=== PATIENT | female | born 1950 | race Caucasian/White ===

== ENCOUNTER 2017-01-01 21:24 | Emergency (ER) | payer BC, SELFPAY ==
[~2017-01-01] VITALS: Ht 157.5 cm; Wt 75.7 kg
[~2017-01-01 21:24] MED LIST: ADVAIR 250-501 EACH INH; CEPHALEXIN500 MG PO; GLUCOSE1 EACH PO; IPRAT-ALBUT 0.5-3 ML INH; LEVAQUIN750 MG PO; NICOTINE PATCH1 EAC1 TD; PREDNISONE20 MG PO; PROAIR HFA8.5 GM INH
[2017-01-01] MEDS ORDERED: DULERA 100 MCG/13 GM (21:36)
[2017-01-01] MEDS ORDERED: PROMETH-CODEIN 65 ML PO (21:37)
[2017-01-01] MEDS ORDERED: PREDNISONE20 MG PO (22:58)
--- NOTE | 2017-01-02 15:24 | EKG ---
[facility] [address] [facility] [place] [address] Signed Normal sinus rhythm Low voltage QRS Septal infarct (cited on or before 01-JAN-2017) Abnormal ECG When compared with ECG of 16-MAY-2016 02:18, No significant change was found Confirmed by LINDA REARDON MD ([id number]) on 01/02/2017 3:24:10 PM Electronically Signed By: LINDA REARDON MD 01/02/17 1524 PATIENT NAME: KYLIE GORE Electrocardiogram DATE OF : 54 PHYSICIAN: LINDA REARDON MD REPORT #: [id number] REPORT IS CONFIDENTIAL AND NOT TO BE RELEASED WITHOUT AUTHORIZATION
== END 2017-01-01 23:44 | disposition home or self-care (01) ==
LOC: ED 21:24
DX: J44.1 Chronic obstructive pulmonary disease with (acute) exacerbation (principal); F17.200 Nicotine dependence, unspecified, uncomplicated; Z90.49 Acquired absence of other specified parts of digestive tract; Z90.710 Acquired absence of both cervix and uterus; Z88.8 Allergy status to other drugs, medicaments and biological substances; Z79.899 Other long term (current) drug therapy; Z85.89 Personal history of malignant neoplasm of other organs and systems
CPT/HCPCS: 71020; 80053; 83735; 84484; 85025; 93005; 93010; 94640; 96374; 99284; J2930

== ENCOUNTER 2017-02-18 17:15 | Emergency (ER) | payer BC, SELFPAY ==
[~2017-02-18] VITALS: Ht 157.5 cm; Wt 77.1 kg
[~2017-02-18 17:15] MED LIST changes: +DULERA 100 MCG/13 GM; +PROMETH-CODEIN 65 ML PO
[2017-02-18] MEDS ORDERED: PREDNISONE20 MG PO (20:23)
--- NOTE | 2017-02-19 12:37 | EKG ---
[facility] [address] [facility] [place] [address] Signed Normal sinus rhythm Normal ECG When compared with ECG of 01-JAN-2017 21:32, Criteria for Septal infarct are no longer present Confirmed by CARLY GONZALEZ MD ([id number]) on 02/19/2017 12:36:55 PM Electronically Signed By: CARLY GONZALEZ MD 02/19/17 1237 PATIENT NAME: KYLIE GORE Electrocardiogram DATE OF : 54 PHYSICIAN: CARLY GONZALEZ MD REPORT #: [id number] REPORT IS CONFIDENTIAL AND NOT TO BE RELEASED WITHOUT AUTHORIZATION
== END 2017-02-18 20:35 | disposition home or self-care (01) ==
LOC: ED 17:15
DX: J44.1 Chronic obstructive pulmonary disease with (acute) exacerbation (principal); F17.200 Nicotine dependence, unspecified, uncomplicated; Z85.89 Personal history of malignant neoplasm of other organs and systems; Z90.49 Acquired absence of other specified parts of digestive tract; Z90.710 Acquired absence of both cervix and uterus; Z88.8 Allergy status to other drugs, medicaments and biological substances; Z79.899 Other long term (current) drug therapy; Z79.52 Long term (current) use of systemic steroids
CPT/HCPCS: 71020; 80053; 83735; 83880; 84484; 85025; 93005; 93010; 94644; 96374; 99284; J2930

== ENCOUNTER 2017-04-12 10:25 | Inpatient (IN) | payer BC, MEDICARE ==
[~2017-04-12] VITALS: Ht 157.5 cm; Wt 78.9 kg
[2017-04-12] MEDS ORDERED: DOXYCYCLINE HY100 MG PO (14:10)
--- NOTE | 2017-04-12 18:08 | NUR ---
PT RECEIVED FROM ED AT 1720. PT ASSISTED TO BEDSIDE COMMODE, VOIDED. PT ASSISTED TO BED. PT SOB WITH ACTIVITY, RECOVERS QUICKLY, 97% ON 4L, WEANED TO 3L. LUNG SOUND WITH INSPIRATORY AND EXPIRATORY WHEEZE. BOWEL TONES ACTIVE, DENIES NAUSEA. PT DENIES PAIN. PT SBA FOR AMBULATING. PT ASSISTED WITH ORDERING DINNER. SOLUMEDROL AND NICOTINE PATCH GIVEN PER ORDER. PT SALINE LOCKED. PT DENIES OTHER NEEDS AT THIS TIME. ADMISSION INTAKE COMPLETED.
--- NOTE | 2017-04-12 18:11 | NUR ---
PT RECEIVED FROM ED FOR COPD EXACERBATION. PT ON 3L NC, INSPIRATORY AND EXPIRATORY WHEEZE THOUGHOUT, BECOMES SOB WITH ACTIVITY. PT ON REGULAR DIET, BOWEL TONES ACTIVE. PT SBA TO BEDSIDE COMMODE. IV TO RIGHT HAND, SALINE LOCKED, IV SOLUMEDROL. PT EMOTIONAL AT TIMES, RECENT OF SISTER.
--- NOTE | 2017-04-12 19:05 | NUR ---
SHIFT REPORT RECIEVED. PATIENT ASSISTED TO BSC. TOLERATED WELL. BANK TO BED. BELONGINGS WITHIN REACH. CALL LIGHT IN REACH. 3L NC.
--- NOTE | 2017-04-12 20:01 | NUR ---
SHIFT REPORT RECIEVED. PATIENT ASSISTED TO BSC. TOLERATED WELL. BANK TO BED. BELONGINGS WITHIN REACH. CALL LIGHT IN REACH. 3L NC.
--- NOTE | 2017-04-12 20:25 | NUR ---
PATIENT ASSESSMENT COMPLETED. EVENING MEDS GIVEN PER ORDERS. PATIENT RESTING IN BED. HOB ELEVATED TO 45 DEGREES. 3L NC. PATIENT APPEARS VISIBLY SOB, STATES SHE WOULD LIKE A BREATHING TREATMENT. RT NOTIFIED. PATIENT HAS INSPIRTORY AND EXPIRTORY WHEEZE THROUGHOUT. NO USE OF ASSESSORY MUSCLES NOTED AT THIS TIME. PATIENT IS USING PURSED LIPED BREATHING. PATIENT IS SL, IV SITE WNL. PATIENT MOVES EASLIY IN BED AND UP TO BSC, BECOMES INCREASINGLY SOB WITH ANY ACTIVITY. DENIES ANY FURTHER NEEDS AT THIS TIME. CALL LIGHT IN REACH.
--- NOTE | 2017-04-12 21:41 | NUR ---
PATIENT UP TO BSC, SBA. PATIENT TOLERATED WELL. PATIENT BACK IN BED, SLIGHTLY SOB. O2 3L NC. HOB ELEVATED. NO USE OF ASSESSORY MUCSLES. DENIES FURTHER NEEDS. CALL LIGHT IN REACH.
--- NOTE | 2017-04-12 22:43 | EKG ---
[facility] [address] [facility] [place] [address] Signed Normal sinus rhythm Normal ECG When compared with ECG of 18-FEB-2017 17:41, No significant change was found Confirmed by LINDA REARDON MD ([id number]) on 04/12/2017 10:43:25 PM Electronically Signed By: LINDA REARDON MD 04/12/17 2243 PATIENT NAME: KYLIE GORE Electrocardiogram DATE OF : 54 PHYSICIAN: LINDA REARDON MD REPORT #: [id number] REPORT IS CONFIDENTIAL AND NOT TO BE RELEASED WITHOUT AUTHORIZATION
--- NOTE | 2017-04-12 23:11 | NUR ---
NURSE IN ROOM
--- NOTE | 2017-04-12 23:36 | NUR ---
PATIENT RESTING IN BED. EYES CLOSED. CALL LIGHT IN REACH.
--- NOTE | 2017-04-12 23:48 | NUR ---
PATIENT UP TO BSC. PULSE OX INITIATED. O2 90% ON 3L NC AFTER BEING BACK IN BED. PATIENT TOLERATED TRANSFER WELL. NEW WATER PROVIDED. CALL LIGHT IN REACH.
--- NOTE | 2017-04-13 00:10 | NUR ---
MEDS GIVEN PER ORDER. RT IN ROOM FOR NEB. PATIENT RESTING IN BED. LUNG SOUNDS ARE INSPIRTORY AND EXPIRTORY WHEEZE. RR 18. PULSE OX, O2 94% ON 3L NC. CALL LIGHT IN REACH. NO OTHER NEEDS AT THIS TIME.
--- NOTE | 2017-04-13 02:17 | NUR ---
PATIENT RESTING. EYES CLOSED. RR 18. PULSE OX O2 95% ON 3L NC. CALL LIGHT IN REACH.
--- NOTE | 2017-04-13 03:44 | NUR ---
PATIENT RESTED WELL THROUGHOUT THE SHIFT. PATIENT AAOX3. SBA UP TO BSC. ACTIVITY INTOLERANT. PULSE OX, O2 90-95% ON 3L NC. NEBS Q4H WHEN AWAKE. INSPIRTORY AND EXPIRTORY WHEEZE. NO OTHER COMPLAINTS. IV SITE WNL, SL.
--- NOTE | 2017-04-13 03:49 | NUR ---
PATIENT IN BED SLEEPING
--- NOTE | 2017-04-13 04:25 | NUR ---
PATIENT RECIEVED NEB TREATMENT FROM RT. PULSE OX 97% ON 3L NC. PATIENT RESTING IN BED. REQUEST ASSISTANCE IN BATHROOM AFTER NEB TREATMENT. COMPRESSOR MECHANIC ASSISTED PATIENT.
--- NOTE | 2017-04-13 06:06 | NUR ---
MEDS GIVEN PER ORDER. PATIENT RESTING IN BED. PULSE OX O2 95% ON 3L NC. DENIES NEEDS AT THIS TIME. CALL LIGHT IN REACH.
--- NOTE | 2017-04-13 07:24 | NUR ---
RECIEVED REPORT FROM DRUM STOCK CLERK NURSE. PT SLEEPING. NASAL CANNULA IN PLACE. CONT. PULSE OX. CALL JI IN REACH.
--- NOTE | 2017-04-13 08:17 | NUR ---
RT IN TO ADMINISTER NEB. MEAL TRAY SERVED. INSP. AND EXP WHEEZES AUSCULTATED THROUGHOUT LUNG TATE. 3L O2 VIA NC AT 94%. PT DOES NOT APPEARS SOB AT REST. DENIES NEEDS. CALL JI IN REACH.
--- NOTE | 2017-04-13 09:24 | NUR ---
PT RESTING IN BED. ATE 100% OF BREAKFAST. TOILETING OFFERED. PT DENIES NEEDS. CALL JI IN REACH.
--- NOTE | 2017-04-13 10:20 | NUR ---
PT RESTING IN BED. NC IN PLACE. PT DENIES NEEDS.
--- NOTE | 2017-04-13 11:45 | NUR ---
IN TO SEE PT.
--- NOTE | 2017-04-13 12:14 | NUR ---
PT AMBULATED DOWN HALLWAY OVER 100FT. STATES SHE FEELS "A LITTLE" SOB. PT IN NO APPARANT DISTRESS. RR 22. AFTER AMBULATING PT'S O2 AT 92%. MEAL TRAY SERVED. PT DENIES NEEDS. CALL JI IN REACH.
--- NOTE | 2017-04-13 13:06 | NUR ---
ASSISTED PT TO BATHROOM. VOIDED. BACK TO BED, DENIES FURTHER NEEDS.
--- NOTE | 2017-04-13 13:30 | NUR ---
PT AMBULATED AROUND MEDSURG UNIT TWICE ON 3L O2. BACK TO ROOM. O2 SAT 92%, PULSE 115. PT TO CHAIR. DENIES NEEDS. CALL JI IN REACH.
--- NOTE | 2017-04-13 14:06 | NUR ---
PT ALERT ADN ORIENTED. SHE WELCOMED ME INTO HER RM, SAID SHE FELT A LITTLE BETTER. JOSUE VALENZUELA CAME TO ASSIST PT TO BR. WILL CHECK BACK LATER
--- NOTE | 2017-04-13 14:44 | NUR ---
PT IS SITTING UP IN CHAIR WITH FETT ELEVATED AND CALL LIGHT IN REACH. PT ASKED FOR MORE ICE WATER
--- NOTE | 2017-04-13 14:45 | NUR ---
PT RESTING UP IN CHAIR. DENIES NEEDS AT THIS TIME. NC IN PLACE. PULSE OX IN PLACE. LUNGS SOUNDS IMPROVED SINCE THIS MORNING. EXP WHEEZES HEARD THROUGHOUT. PT STATES SHE FEELS BETTER THAN SHE DID THIS MORNING.
--- NOTE | 2017-04-13 16:36 | NUR ---
PT AT 94% ON 2L O2. PT AMBULATING HALLWAY WITH FRIEND. DENIES NEEDS.
--- NOTE | 2017-04-13 17:56 | NUR ---
TOOK PT'S ADVAIR OUT OF ROOM AND LOCKED AWAY IN BARN HAND'S OFFICE. PT ALERT AND ORIENTED AND SIGNED THAT SHE UNDERSTANDS MED WILL BE THROWN AWAY IF SHE DOES NOT RETRIEVE AFTER 7 DAYS POST D/C. PT TO SHOWER. SET UP ONLY. SHOWERING INDEPENDENTLY. CALL JI IN REACH.
--- NOTE | 2017-04-13 18:28 | NUR ---
PT HAD A GOOD DAY. DOWN TO 2L O2. AMBULATED HALLWAYS X 3. INDEPENDENT TO BATHROOM. ANGELICA PATCH IN PLACE. LUNGS IMPROVING.
--- NOTE | 2017-04-13 20:15 | NUR ---
PATIENT IS RESTING QUIETLY, BUT AWAKE IN GOOD HUMOR AND SAYS SHE IS IN NO PAIN.
--- NOTE | 2017-04-14 00:30 | NUR ---
PATIENT RESTING ON HER RIGHT SIDE QUIETLY AND HER O2 SATS ARE 95% RESPIRATIONS EVEN.
--- NOTE | 2017-04-14 03:57 | NUR ---
PATIENT JUST GOT BACK FROM VOIDING I THE BATHROOM AND IS DOING VERY WELL AMBULATING IN HER ROOM. PATIENT WENT BACK TO BED AND TURNED HER OWN LIGHTS OUT.
--- NOTE | 2017-04-14 05:29 | NUR ---
PATIENT HAS HAD A PRETTY GOOD NIGHT APPEARS TO HAVE SLEPT OK, UNLESS SHE HAS GOTTEN UP TO THE RESTROOM WHICH SHE DOES INDEPENDENTLY IN THE ROOM. SHE HAS HAD NO C/O ANYTHING THROUGH THE NIGHT.
--- NOTE | 2017-04-14 07:32 | NUR ---
REPORT RECEIVED FROM TRANS ROUTER, PATIENT SITTING UP IN BED WATCHING TV, INTERACTIVE.
--- NOTE | 2017-04-14 07:42 | NUR ---
PATIENT AWAKE IN BED, WAITING FOR BREAKFAST. WILL CALL WHEN SHE'S READY FOR SHOWER/ BEDBATH. WHITEBOARD UPDATED.
--- NOTE | 2017-04-14 08:40 | NUR ---
RT IN TO GIVE NEB TREATMENT AND ASSESS PATIENT.
--- NOTE | 2017-04-14 10:24 | NUR ---
up resting in chair, states had a shower and feeling good, no requests at thist time.
--- NOTE | 2017-04-14 11:04 | NUR ---
PATIENT DOING WELL. IN CHAIR WAITING FOR LUNCH.
[2017-04-14] MEDS ORDERED: DOXYCYCLINE HY100 MG PO (12:03)
[2017-04-14] MEDS ORDERED: NICOTINE1 EAC1 TD (12:04)
[2017-04-14] MEDS ORDERED: PREDNISONE20 MG PO (12:05)
[2017-04-14] MEDS ORDERED: ASMANEX220 MC1 INH (12:07)
[2017-04-14] MEDS ORDERED: IPRAT-ALBUT 0.5-3 ML INH (12:08)
--- NOTE | 2017-04-14 12:33 | NUR ---
Patient in chair doing well. Told her to call when she's ready to get dressed and ready for discharge. Refilled ice water.
== END 2017-04-14 13:20 | disposition home or self-care (01) | DRG 190 ==
LOC: ED 10:25 → MS 16:44
PROVIDERS: ADMIT Internal Medicine
DX: J44.1 Chronic obstructive pulmonary disease with (acute) exacerbation (principal); J96.21 Acute and chronic respiratory failure with hypoxia; F17.210 Nicotine dependence, cigarettes, uncomplicated
CPT/HCPCS: 71020; 80053; 83880; 84484; 85025; 90662; 93005; 93010; 94640; 94667; 94760; 94762; 96374; 99285; G0008; J1650; J2930

== ENCOUNTER 2017-07-27 10:46 | Emergency (ER) | payer MEDICARE, OTHER ==
[~2017-07-27] VITALS: Ht 157.5 cm; Wt 7900.3 kg
[~2017-07-27 10:46] MED LIST changes: +ASMANEX220 MC1 INH; +DOXYCYCLINE HY100 MG PO; +NICOTINE1 EAC1 TD
[2017-07-27] MEDS ORDERED: PREDNISONE20 MG PO (14:43)
--- NOTE | 2017-07-27 19:07 | EKG ---
[facility] [address] [facility] [place] [address] Signed Normal sinus rhythm Nonspecific ST abnormality Abnormal ECG When compared with ECG of 12-APR-2017 10:38, No significant change was found Confirmed by CARLY GONZALEZ MD ([id number]) on 07/27/2017 7:07:36 PM Electronically Signed By: CARLY GONZALEZ MD 07/27/17 1907 PATIENT NAME: KYLIE GORE Electrocardiogram DATE OF : 54 PHYSICIAN: CARLY GONZALEZ MD REPORT #: [id number] REPORT IS CONFIDENTIAL AND NOT TO BE RELEASED WITHOUT AUTHORIZATION
== END 2017-07-27 15:25 | disposition home or self-care (01) ==
LOC: ED 10:46
DX: J44.1 Chronic obstructive pulmonary disease with (acute) exacerbation (principal); F17.200 Nicotine dependence, unspecified, uncomplicated; Z88.8 Allergy status to other drugs, medicaments and biological substances
CPT/HCPCS: 71045; 80053; 83735; 84484; 85025; 87502; 93005; 93010; 94640; 96374; 99284; J2930

== ENCOUNTER 2018-07-08 10:18 | Emergency (ER) | payer MEDICARE ==
[~2018-07-08] VITALS: Ht 157.5 cm; Wt 80.4 kg
[2018-07-08] MEDS ORDERED: ADVAIR 500-501 EACH INH (10:32)
[2018-07-08] MEDS ORDERED: PREDNISONE5 MG PO (10:33)
[2018-07-08] MEDS ORDERED: VENTOLIN HFA18 GM INH (10:33)
[2018-07-08] MEDS ORDERED: VIRTUSSIN AC L118 ML PO (10:34)
[2018-07-08] MEDS ORDERED: KEFLEX500 MG PO (10:34)
[2018-07-08] MEDS ORDERED: MOTRIN IB200 MG PO (10:34)
[2018-07-08] MEDS ORDERED: PREDNISONE10 MG PO (14:14)
[2018-07-08] MEDS ORDERED: ALBUTEROL2.5 MG/3 M INH (14:14)
== END 2018-07-08 14:46 | disposition home or self-care (01) ==
LOC: ED 10:18
DX: J44.1 Chronic obstructive pulmonary disease with (acute) exacerbation (principal); F17.210 Nicotine dependence, cigarettes, uncomplicated; Z85.41 Personal history of malignant neoplasm of cervix uteri; Z90.710 Acquired absence of both cervix and uterus; Z88.8 Allergy status to other drugs, medicaments and biological substances; Z79.899 Other long term (current) drug therapy; Z71.6 Tobacco abuse counseling
CPT/HCPCS: 71045; 80053; 85025; 94640; 96374; 99285-25; 99406; J2930

== ENCOUNTER 2018-09-07 14:10 | Inpatient (IN) | payer MEDICARE ==
[~2018-09-07] VITALS: Ht 157.5 cm; Wt 80.4 kg
--- OUTSIDE RECORDS SUMMARY | ~2018-09-07 | XMS | Clinical Summary ---
Demographics + + + | Address | [address] | | | [place] [address] | + + + | Home Phone | | + + + | Preferred Language | Unknown | + + + | Marital Status | | + + + | Jehovah'S Witness Affiliation | Unknown | + + + | Race | Unknown | + + + | Ethnic Group | Unknown | + + + Author + + + | Author | [facility] | + + + | Organization | [facility] | + + + | Address [...] Team Providers + +------+ + | Care Repulping Supervisor Name | Role | Phone | + +------+ + | Stephen Winter MD | PP | | + +------+ + Allergies + + + + + + | Active Allergy | Reactions | Severity | Noted | Comments | | | | | Date | | + + + + + + | Beclomethasone | Hives, Rash | High | 02/10/20 | | | | | | 16 | | + + + + + + Current Medications + + +-------+---------+------+------+-------+ | Prescription | Sig. | Disp. | Refills | Star | End | Statu | | | | | | t | Date | s | | | | | | Date | | | + + +-------+---------+------+------+-------+ | albuterol | Inhale 2 puffs into | | | | | Activ | | (PROVENTIL | the lungs every 3 | | | | | e | | HFA;VENTOLIN HFA) | (three) hours as | | | | | | | 108 (90 BASE) | needed for Wheezing. | | | | | | | MCG/ACT inhaler | | | | | | | + + +-------+---------+------+------+-------+ | ibuprofen (ADVIL) | Take 200 mg by mouth | | | | | Activ | | 200 MG tablet | every 6 (six) hours | | | | | e | | | as needed for Pain. | | | | | | + + +-------+---------+------+------+-------+ | | Inhale 1 puff into | | | | | Activ | | fluticasone-salmeter | the lungs 2 (two) | | | | | e | | ol (ADVAIR) 250-50 | times daily. | | | | | | | MCG/DOSE | | | | | | | + + +-------+---------+------+------+-------+ | Glucose 4-6 GM-MG | Take by mouth as | | | | | Activ | | CHEW | needed. For low | | | | | e | | | blood sugar level | | | | | | + + +-------+---------+------+------+-------+ Active Problems + + + | Problem | Noted Date | + + + | Precordial pain | 02/10/2016 | + + + + + | Last Assessment & Plan: Chest pain. 66yo WF, with a | | history of chest discomfort. She describes as a dull aching | | sensation in the center part of her chest radiating to the left | | arm. Associated with some degree of shortness of breath, but no | | nausea, diaphoresis, palpitations, or lightheadedness. This has | | been going on for "several years", appears to be somewhat random | | in occurrence, usually brief, fleeting. She is aware of | | occasional skipped beats, palpitations, but there is no | | lightheadedness, no history of syncope. She is a long-time | | smoker, and smoking cessation is encouraged. Recent nuclear | | perfusion study is negative for ischemia or infarction, ejection | | fraction normal. Long discussion with the patient today, doubt | | that she has significant coronary disease, smoking cessation is | | encouraged, a regular exercise program is encouraged, can be | | followed clinically.Last Cath: naLast Echo: naLast Stress Test, | | 03/23/2016 ( [facility]): Lexiscan, no evidence of ischemia or | | infarction, LVEF 65%.ECG, 12/29/2015 ( [facility] sinus | | tachycardia, 114bpm, LAZ, low voltage in limb leads, diffuse ST | | sagging.Lab, 01/06/2016: T Cho: 235, LDL-Chol: 140, HDL-Chol: 78, | | Tri Liver enzymes NML, K: 3.7, | | BUN/Cr: 16/0.8, glu: 71 TSH: 2.80, WBC: | | 9.4 | + + + + + | COPD (chronic obstructive pulmonary disease) | 02/10/2016 | + + + + + | Last Assessment & Plan: COPD, long time smoker, trying to | | quit. | + + Family History + + +------+ + | Medical History | Relation | Name | Comments | + + +------+ + | Heart disease | Brother | | | + + +------+ + | Hypertension | Brother | | | + + +------+ + | Cancer | Father | | | + + +------+ + | Hypertension | Father | | | + + +------+ + | Diabetes type II | Maternal | | | | | Grandmoth | | | | | er | | | + + +------+ + | Heart disease | Maternal | | | | | Grandmoth | | | | | er | | | + + +------+ + | High cholesterol | Maternal | | | | | Grandmoth | | | | | er | | | + + +------+ + | Hypertension | Maternal | | | | | Grandmoth | | | | | er | | | + + +------+ + | High cholesterol | Mother | | | + + +------+ + | Hypertension | Mother | | | + + +------+ + | Heart disease | Paternal | | | | | Grandfath | | | | | er | | | + + +------+ + | Hypertension | Paternal | | | | | Grandmoth | | | | | er | | | + + +------+ + | Heart disease | Sister | | | + + +------+ + | Diabetes type II | Sister | | | + + +------+ + | High cholesterol | Sister | | | + + +------+ + | Hypertension | Sister | | | + + +------+ + | Stroke | Sister | | | + + +------+ + + +------+ + + | Relation | Name | Status | Comments | + +------+ + + | Brother | | | [place] | | | | (Age | | | | | 51) | | + +------+ + + | Father | | | colon cancer, HTN | | | | (Age | | | | | 85) | | + +------+ + + | Maternal Grandfather | | | pneumonia | + +------+ + + | Maternal Grandmother | | | Parkinsons, HTN,Hyperlipidemia, DMII, heart | | | | (Age | disease | | | | 86) | | + +------+ + + | Mother | | Alive | 85 yrs., HTN,Hyperlipidemia, CHF | + +------+ + + | Paternal Grandfather | | | [place] | | | | (Age | | | | | 65) | | + +------+ + + | Paternal Grandmother | | | HTN | | | | (Age | | | | | 88) | | + +------+ + + | Sister | | | congenital heart defect | | | | (Age 4 | | | | | months | | | | | old) | | + +------+ + + | Sister | | Alive | 67 yrs., HTN,CVA,Hypoglycemia | + +------+ + + Social History + + + [...] on file | | + + + Last Filed Vital Signs + + + + | Vital Sign | Reading | Time Taken | + + + + | Blood Pressure | 126/70 | 03/30/2016 10:54 AM PDT | + + + + | Pulse | 95 | 03/30/2016 10:54 AM PDT | + + + + | Temperature | - | - | + + + + | Respiratory Rate | 18 | 03/30/2016 10:54 AM PDT | + + + + | Oxygen Saturation | 94% | 03/30/2016 10:54 AM PDT | + + + + | Inhaled Oxygen | - | - | | Concentration | | | + + + + | Weight | 73.9 kg (163 lb) | 03/30/2016 10:54 AM PDT | + + + + | Height | 160 cm (5' 3") | 03/30/2016 10:54 AM PDT | + + + + | Body Mass Index | 28.87 | 03/30/2016 10:54 AM PDT | + + + + Plan of Treatment + + + + + | Health Maintenance | Due Date | Last Done | Comments | + + + + + | Vaccine: | | | | | Dtap/Tdap/Td (1 - | 1 | | | | Tdap) | | | | + + + + + | Breast Cancer | | | | | Screening | 2 | | | | (Mammogram) | | | | + + + + + | Colon Cancer | | | | | Screening | 2 | | | | (Colonoscopy) | | | | + + + + + | Vaccine: Zoster (1 | | | | | of 2) | 2 | | | + + + + + | DEXA SCAN SCREENING | | | | | | 7 | | | + + + + + | Vaccine: | | | | | Pneumococcal 65+ | 7 | | | | Low/Medium Risk (1 | | | | | of 2 - PCV13) | | | | + + + + + | Vaccine: Influenza | | | | | (#1) | 8 | | | + + + + + Results Not on filefrom Last 3 Months Insurance +---------+--------+ +------+-------+ + | Payer | Benefi | Subscriber | Type | Phone | Address | | | t Plan | ID | | | | | | / | | | | | | | Group | | | | | +---------+--------+ +------+-------+ + | PREMERA | PREMER | [id number] | | | [address] [address] | | | [address] | [address] | | [place] | | | [place] | | | | [phone] | +---------+--------+ +------+-------+ + + +--------+ +--------+ + + | Guarantor Name | Accoun | Relation to | Date | Phone | Billing Address | | | t Type | Patient | of | | | | | | | | | | + +--------+ +--------+ + + | STEPHANIE GORE | Person | Self [birth year] | Work: | [employer] | | | [employer] | | 1949 | +- | [place] | | | [address] | | | [address]: | [id number] | | | | | | | | | | | | | +- | | | | | | | [address] | | + +--------+ +--------+ + +
--- OUTSIDE RECORDS SUMMARY | ~2018-09-07 | XMS | Clinical Summary ---
Demographics + + + | Address | [address] | | | [place] [address] | + + + | Home Phone | | + + + | Preferred Language | Unknown | + + + | Marital Status | | + + + | Buddhist Affiliation | Unknown | + + + | Race | Unknown | + + + | Ethnic Group | Unknown | + + + Author + + + | Author | [facility] | + + + | Organization | [facility] | + + + | Address [...] Team Providers + +------+ + | Care New Business Clerk Name | Role | Phone | + [...] + + | Brother | | | [place] | | | | (Age | | [...] + | Paternal Grandfather | | | [place] | | | | (Age | | [...] +------+-------+ + | PREMERA | PREMER | [id number] | | | [address] [address] | | | A | [address] | | | [place] | | | [place] | | | | [phone] | +---------+--------+ +------+-------+ + + +--------+ +--------+ [...] [address] | | | [address]: | [id number] | | | | | | | | | | | | | +- | | | | | | | [address] | | + +--------+ +--------+ + +
--- OUTSIDE RECORDS SUMMARY | ~2018-09-07 | XMS | Clinical Summary ---
Demographics + + + | Address | [address] | | | [place] [address] | + + + | Home Phone | | + + + | Preferred Language | Unknown | + + + | Marital Status | | + + + | Hindu Affiliation | Unknown | + + + | Race | Unknown | + + + | Ethnic Group | Unknown | + + + Author + + + | Author | [facility] | + + + | Organization | [facility] | + + + | Address [...] Team Providers + +------+ + | Care Salvage Supervisor Name | Role | Phone | [...] + + | Brother | | | [place] | | | | (Age | | [...] + | Paternal Grandfather | | | [place] | | | | (Age | | [...] +------+-------+ + | PREMERA | PREMER | [id number] | | | [address] [address] | | | A | [address] | | | [place] | | | [place] | | | | [phone] | +---------+--------+ +------+-------+ + + +--------+ +--------+ [...] [address] | | | [address]: | [id number] | | | | | | | | | | | | | +- | | | | | | | [address] | | + +--------+ +--------+ + +
[~2018-09-07 14:10] MED LIST changes: +ADVAIR 500-501 EACH INH; +ALBUTEROL2.5 MG/3 M INH; +KEFLEX500 MG PO; +MOTRIN IB200 MG PO; +PREDNISONE10 MG PO; +PREDNISONE5 MG PO; +VENTOLIN HFA18 GM INH; +VIRTUSSIN AC L118 ML PO
--- NOTE | 2018-09-07 17:01 | NUR ---
PT TO FLOOR VIA STRETCHER WITH TOWER DRAGLINE OPERATOR AND FRIEND. ABLE TO WALK TO BED AND RESTROOM ON OWN. 3LNC. SOB WITH EXCERTION.
--- NOTE | 2018-09-07 17:07 | NUR ---
PATIENT SITTING UP IN BED. PATIENT WALKS TO USE THE BATHROOM. PATIENT BACKS TO BED. PATIENT'S DINNER ORDERED. RN AND FRIEND IN ROOM. CALL LIGHT WITHIN REACH. NO OTHER NEEDS AT THIS TIME
--- NOTE | 2018-09-07 18:44 | NUR ---
PT ADMITTED FROM ED. 3L NC NOT CHRONIC. SBA TO RESTROOM. GOOD APPETITE.
--- NOTE | 2018-09-07 22:23 | NUR ---
VITALS AND I&OS DONE AND CHARTED. FRESH ICE WATER GIVEN. HELPED PT TO THE BATHROOM AND BACK TO BED. BEDSIDE TABLE AND CALL LIGHT IN REACH.
--- NOTE | 2018-09-07 23:16 | NUR ---
PATIENT CURRENT WATCHING GAME SHOWS ON TV.
--- NOTE | 2018-09-08 00:12 | NUR ---
WRAPPER CASER ROUNDING NOTE. PT RESTING IN BED WITH EYES CLOSED, APPEARS TO BE SLEEPING. CALL LIGHT IN REACH.
--- NOTE | 2018-09-08 02:20 | NUR ---
VITALS AND I&OS DONE AND CHARTED. FRESH ICE WATER GIVEN. BEDSIDE TABLE AND CALL LIGHT IN REACH. PT NEEDS NOTHING MORE AT THIS TIME.
--- NOTE | 2018-09-08 05:18 | NUR ---
PATIENT HAS HAD A PRETTY GOOD NIGHT ON HER 3L/NC. PATIENT HAS COARSE LUNG SOUNDS WITH INSPIRATORY WHEEZES. NOT HAVING ANY PAIN. GETTING NEBS THROUGH THE NIGHT.
--- NOTE | 2018-09-08 07:28 | NUR ---
REPORT RECEIVED FROM JOSUE KEITH. PT AWAKE AND SITTING UPRIGHT IN BED. ASKED IF SHE COULD BE INDEPENDENT IN ROOM SHE IS FEELING BETTER AND STEADY ON FEET. TOLD HER LONG SHE IS NOT DIZZY, SOB OR FEELING UNSTEADY AT ALL THAT WAS FINE. WILL ROUND FREQUENTLY. PT STATED SHE SLEPT ABOUT THE SAME SHE DOES AT HOME. DENIES CONCERNS.
--- NOTE | 2018-09-08 09:01 | NUR ---
ADMINISTERED MORNING MEDS. DAUGHTER IN ROOM. PT EATING BREAKFST WO DIFF. DENIES FEELING EXTRA SHORT OF BREATH. STATES SHE WILL CALL TO GET UP THOUGH SHE DID WHEN UP TO RESTROOM.
--- NOTE | 2018-09-08 12:10 | NUR ---
PT LAYING IN BED WITH O2 ON. STATES SHE IS DOING OK AND IS JUST WAITING FOR LUNCH AND THEN HOPES TO TAKE A NAP.
[2018-09-08] MEDS ORDERED: VENTOLIN HFA18 GM INH (14:09)
[2018-09-08] MEDS ORDERED: PULMICORT0.5 MG/2 M INH (14:10)
[2018-09-08] MEDS ORDERED: KEFLEX500 MG PO (14:11)
--- NOTE | 2018-09-08 14:12 | NUR ---
MED REC COMPLETE
--- NOTE | 2018-09-08 14:48 | NUR ---
CHARGE MYA PLACED NEW IV IN RIGHT AC THE OLD IV INFILTRATED. WARM PACK ON INFILTRATION FOR COMFORT. PT DOES NOT LIKE NEEDLES BUT TOLERATED OK.
--- NOTE | 2018-09-08 20:53 | NUR ---
ACCOUNTS PAYABLE COORDINATOR ROUNDING NOTE. PT WALKED INTO THE BATHROOM AND BACK TO BED WITH SBA. PT TOLERATED WELL. ICE WATER REFILLED. PT DENIES FURTHER NEEDS. CALL LIGHT IN REACH.
--- NOTE | 2018-09-08 21:30 | NUR ---
PATIENT RESTING IN BED WATCHING TV AT THIS TIME. CALL LIGHT IN REACH. PATIENT HAS NO NEEDS AT THIS TIME.
--- NOTE | 2018-09-08 22:39 | NUR ---
EVENING MEDS WERE PASSED AND EVENING ASSESSMENT DONE.
--- NOTE | 2018-09-09 00:02 | NUR ---
PATIENT RESTING ON HER RIGHT SIDE, NO SIGNS OF DISTRESS, CALL LIGHT IN REACH. RESPIRATIONS 18.
--- NOTE | 2018-09-09 02:04 | NUR ---
PATIENT RESTING ON HER LEFT SIDE, EYES CLOSED, CALL LIGHT IN REACH, NO DISTRESS NOTED.
--- NOTE | 2018-09-09 04:00 | NUR ---
PATIENT REMAINS RESTING QUIETLY, EYES CLOSED, CALL LIGHT IN REACH, AND PATIENT DOES NOT SEEM TO BE IN ANY DISTRESS.
--- NOTE | 2018-09-09 05:26 | NUR ---
PATIENT SLEPT PRETTY WELL LAST NIGHT, GOT ALL HER NEB TREATMENTS, IV FLUSHES WELL AND SHE IS CURRENTLY AWAKE WATCHING TV, EVEN THOUGH SHE STILL HAS INSPIRATORY WHEEZES THROUGHOUT. CALL LIGHT IN REACH.
--- NOTE | 2018-09-09 07:29 | NUR ---
RECIEVED BEDSIDE REPORT FROM JOSUE KEITH. PT AWAKE AND ALERT IN BED. PT REPORTS FEELING NO SOB WHEN RETURNING FROM THE BATHROOM. PT STATES SHE FEELS MUCH BETTER. VOIDING WELL, WILL CALL TO EMPTY HAT. AT BASELINE O2 OF 2L.
[2018-09-09] MEDS ORDERED: DOXYCYCLINE HY100 MG PO (09:24)
[2018-09-09] MEDS ORDERED: PREDNISONE20 MG PO (09:27)
--- NOTE | 2018-09-09 10:32 | NUR ---
REMOVED IV, CATH INTACT. PT ABLE TO GET DRESSED. FAMILY IN ROOM. WILL GET DRESSED AND GET READY TO GO.
--- NOTE | 2018-09-09 10:40 | NUR ---
PT DISCHARGED. IV REMOVED, CATH INTACT. PT ON 2L O2, BASELINE. PT VERBALIZED UNDERSTANDING OF COPD DISCHARGE TEACHING. PT HAS ALL PERSONAL BELONGINGS.
== END 2018-09-09 10:37 | disposition home or self-care (01) | DRG 189 ==
LOC: ED 14:10 → MS 16:22
PROVIDERS: ADMIT Student in an Organized Health Care Education/Training Program
DX: J96.21 Acute and chronic respiratory failure with hypoxia (principal); J44.1 Chronic obstructive pulmonary disease with (acute) exacerbation; F17.210 Nicotine dependence, cigarettes, uncomplicated; Z99.81 Dependence on supplemental oxygen; Z85.41 Personal history of malignant neoplasm of cervix uteri; Z88.8 Allergy status to other drugs, medicaments and biological substances; Z79.51 Long term (current) use of inhaled steroids; Z79.52 Long term (current) use of systemic steroids; Z79.899 Other long term (current) drug therapy
CPT/HCPCS: 36415; 71045; 80048; 80053; 83735; 83880; 85025; 87502; 94640; 94668; 94762; 96374; 97161; 99285-25; J0696; J1650; J2930

== ENCOUNTER 2018-09-22 06:30 | Observation (INO) | payer MEDICARE ==
[~2018-09-22] VITALS: Ht 157.5 cm; Wt 80.5 kg
--- OUTSIDE RECORDS SUMMARY | ~2018-09-22 | XMS | Clinical Summary ---
Demographics + + + | Address | [address] | | | [place] [address] | + + + | Home Phone | | + + + | Preferred Language | Unknown | + + + | Marital Status | | + + + | Taoist Affiliation | Unknown | + + + | Race | Unknown | + + + | Ethnic Group | Unknown | + + + Author + + + | Author | [facility] | + + + | Organization | [facility] | + + + | Address [...] Team Providers + +------+ + | Care Geomatics Professor Name | Role | Phone | + [...] + + | Brother | | | [place] | | | | (Age | | [...] + | Paternal Grandfather | | | [place] | | | | (Age | | [...] +------+-------+ + | PREMERA | PREMER | [id number] | | | [address] [address] | | | A | [address] | | [place] | | | [place] | | | | [phone] | +---------+--------+ +------+-------+ + + +--------+ +--------+ [...] jose | | | [id number]: | [id number] | | | | | | | | | | | | | +- | | | | | | | [address] | | + +--------+ +--------+ + +
--- OUTSIDE RECORDS SUMMARY | ~2018-09-22 | XMS | Clinical Summary ---
Demographics + + + | Address | [address] | | | [place] [address] | + + + | Home Phone | | + + + | Preferred Language | Unknown | + + + | Marital Status | | + + + | Mormonism Affiliation | Unknown | + + + | Race | Unknown | + + + | Ethnic Group | Unknown | + + + Author + + + | Author | [facility] | + + + | Organization | [facility] | + + + | Address [...] Team Providers + +------+ + | Care Watchstander Name | Role | Phone | + [...] + + | Brother | | | [place] | | | | (Age | | [...] + | Paternal Grandfather | | | [place] | | | | (Age | | [...] +------+-------+ + | PREMERA | PREMER | [id number] | | | [address] [address] | | | A | [address] | | | [place] | | | [place] | | | | [phone] | +---------+--------+ +------+-------+ + + +--------+ +--------+ [...] jose | | | [id number]: | [address] | | | | | | | | | | | | | +- | | | | | | | [address] | | + +--------+ +--------+ + +
--- OUTSIDE RECORDS SUMMARY | ~2018-09-22 | XMS | Clinical Summary ---
Demographics + + + | Address | [address] | | | [place] [address] | + + + | Home Phone | | + + + | Preferred Language | Unknown | + + + | Marital Status | | + + + | Baptist Affiliation | Unknown | + + + | Race | Unknown | + + + | Ethnic Group | Unknown | + + + Author + + + | Author | [facility] | + + + | Organization | [facility] | + + + | Address [...] Team Providers + +------+ + | Care Bilingual Loan Processor Name | Role | Phone | + [...] + + | Brother | | | [place] | | | | (Age | | [...] + | Paternal Grandfather | | | [place] | | | | (Age | | [...] +------+-------+ + | PREMERA | PREMER | [id number] | | | [address] [address] | | | A | [address] | | | [place] | | | [place] | | | | [phone] | +---------+--------+ +------+-------+ + + +--------+ +--------+ [...] jose | | | [id number]: | [address] | | | | | | | | | | | | | +- | | | | | | | [address] | | + +--------+ +--------+ + +
[~2018-09-22 06:30] MED LIST changes: +PULMICORT0.5 MG/2 M INH
--- OUTSIDE RECORDS SUMMARY | 2018-09-22 06:32 | XMS ---
PreManage Notification: KYLIE GORE Security Electronic Drafter Events No recent Security Events currently on file CRITERIA MET - [facility] - 2 Visits in 30 Days CARE PROVIDERS Robby Winter MD Primary Care Current PHONE: Unknown ordemond Case or Senior Risk Analyst Current PHONE: Unknown Valerie has no Care Guidelines for this patient. Luan VISIT COUNT (12 MO.) 3 [facility] TOTAL 3 NOTE: Visits indicate total known visits. ED/UCC VISIT TRACKING (12 MO.) 09/22/2018 06:30 [facility] TYPE: Emergency COMPLAINT: - SOB 09/07/2018 14:10 [facility] [place] TYPE: Emergency COMPLAINT: - SOB 07/08/2018 10:18 [facility] [place] TYPE: Emergency COMPLAINT: - SHORTNESS OF BREATH DIAGNOSES: - Other jail (current) drug therapy - Nicotine dependence, unspecified, uncomplicated - Shortness of breath - Allergy status to other drugs, medicaments and biological substances status - Personal history of malignant neoplasm of cervix uteri - Nicotine dependence, cigarettes, uncomplicated - Chronic obstructive pulmonary disease with (acute) exacerbation - Tobacco abuse counseling - Acquired absence of both cervix and uterus INPATIENT VISIT TRACKING (12 MO.) 09/07/2018 16:[address] [facility] [place] TYPE: Medical Surgical COMPLAINT: - COPD EXACERBATION DIAGNOSES: - Acute and chronic respiratory failure with hypoxia - Dependence on supplemental oxygen - terminologist (current) use of systemic steroids - Other intermediate card tender (current) drug therapy - Nicotine dependence, cigarettes, uncomplicated - terminologist (current) use of inhaled steroids - [facility] (current) use of inhaled steroids - Chronic obstructive pulmonary disease with (acute) exacerbation - Allergy status to other drugs, medicaments and biological substances status - Chronic obstructive pulmonary disease with (acute) exacerbation - Personal history of malignant neoplasm of cervix uteri - Personal history of malignant neoplasm of cervix uteri - terminologist (current) use of systemic steroids - Nicotine dependence, cigarettes, uncomplicated - Dependence on supplemental oxygen - Other intermediate card tender (current) drug therapy - Allergy status to other drugs, medicaments and biological substances status [email or web address]
[2018-09-22] MEDS ORDERED: PREDNISONE10 MG PO (06:39)
[2018-09-22] MEDS ORDERED: PREDNISONE20 MG PO (06:49)
--- NOTE | 2018-09-22 10:40 | NUR ---
PT APPEARS TO BE RESTING COMFORTABLE AT THIS TIME, REMAINS ON BIPAP AT THIS TIME.
--- NOTE | 2018-09-22 10:56 | NUR ---
PT C/O SOB, RT INTO GIVE NEB TX AND 2MG MORPHINE SLOW IVP GIVEN FOR SOB.
[2018-09-22] MEDS ORDERED: ZITHROMAX250 MG PO (11:45)
[2018-09-22] MEDS ORDERED: METHYLPREDNISOLO4 M1 PO (11:46)
--- NOTE | 2018-09-22 11:47 | NUR ---
MED REC COMPLETE
--- NOTE | 2018-09-22 12:08 | NUR ---
PT C/O INCREASED SOB, MEEDICATED WITH 2MG IVP MORPHINE AT THIS TIME. RT NOTIFIED ALSO AT THIS TIME. TALKED WITH PT ABOUT INTUBATION AND SHE IS WILLING TO DO THAT IF NEEDED.
--- NOTE | 2018-09-22 13:19 | NUR ---
DR GONZALEZ NOTIFIED OF INCREASED HEART RATE AT THIS TIME.
--- NOTE | 2018-09-22 14:24 | NUR ---
PATIENT CALLED AND REQUESTED PRN MORPHINE FOR SOB. ADMINISTERED 2MG IV. PATIENT BEING BLADDER SCANNED 141 ML. AND RT IN ROOM COLLECTING ABG.
--- NOTE | 2018-09-22 14:24 | NUR ---
DR GONZALEZ NOTIFIED THAT PT HAS NOT VOIDED SINCE PT CAME TO THE UNIT. NEW ORDERS RECEIVED AT THIS TIME. PT BLADDERED SCANED AT THIS TIME FOR 141. NEW ORDER RECEIVED FOR MENSAH CATHETER. PT IS ALSO NOTED TO HAVE INCREASED WORK OF BREATHING AT THIS TIME. RT NOTIFIED TO OBTAIN AN ABG AT THIS TIME.
--- NOTE | 2018-09-22 14:46 | NUR ---
MENSAH CATHETER PLACED, PT СВЕТЛАНА WELL.
--- NOTE | 2018-09-22 15:45 | NUR ---
PT ABG'S NOT INPROVED, THEREFORE PT WAS INTUBATED WITH A 7.5 ET TUBE AND 22 AT THE TEETH PER CARL MCKEON. PT WAS GIVEN 4MG VERSED AT 15:30. RT PRESENT AND DR GONZALEZ. FAMILY AWARE OF PT CONDITIONA ND TRANSFER TO [facility]'.
--- NOTE | 2018-09-22 15:46 | NUR ---
LIFFLIGHT HERE AT THIS TIME, ALL QUESTIONS ANSWERED AND ALL PERSONAL BELONGINGS. PT LEFT AT 16:15
--- NOTE | 2018-09-22 16:34 | NUR ---
REPORT CALLED TO RADHA IN CCU AT [facility] ALL QUESTIONS ANSWERED.
--- NOTE | 2018-09-22 17:23 | EKG ---
[facility] [address] [place] [address] Signed Sinus tachycardia Biatrial enlargement Pulmonary disease pattern Septal infarct , age undetermined Abnormal ECG When compared with ECG of 27-JUL-2017 11:16, Septal infarct is now present Confirmed by CARLY GONZALEZ MD ([id number]) on 09/22/2018 5:23:10 PM Electronically Signed By: CARLY GONZALEZ MD 09/22/18 1723 PATIENT NAME: KYLIE GORE Electrocardiogram DATE OF : 54 PHYSICIAN: CARLY GONZALEZ MD REPORT #: [id number] REPORT IS CONFIDENTIAL AND NOT TO BE RELEASED WITHOUT AUTHORIZATION
== END 2018-09-22 16:15 | disposition short-term general hospital (02) ==
LOC: ED 06:30 → CCU 06:31
PROVIDERS: ADMIT Internal Medicine
PROC: 0BH17EZ Insertion of Endotracheal Airway into Trachea, Via Natural or Artificial Opening (ICD-10-PCS; principal; 2018-09-22)
PROC: 5A09357 Assistance with Respiratory Ventilation, Less than 24 Consecutive Hours, Continuous Positive Airway Pressure (ICD-10-PCS; 2018-09-22)
DX: J96.21 Acute and chronic respiratory failure with hypoxia (principal); J96.22 Acute and chronic respiratory failure with hypercapnia; J44.1 Chronic obstructive pulmonary disease with (acute) exacerbation; F17.210 Nicotine dependence, cigarettes, uncomplicated; Z88.8 Allergy status to other drugs, medicaments and biological substances; Z99.81 Dependence on supplemental oxygen; Z85.41 Personal history of malignant neoplasm of cervix uteri; Z79.51 Long term (current) use of inhaled steroids; Z79.52 Long term (current) use of systemic steroids; Z79.899 Other long term (current) drug therapy
CPT/HCPCS: 31500; 36600; 51702; 51798; 71045; 80053; 82803; 83880; 84484; 85025; 85379; 93005; 93010; 94640; 94644; 94660; 94799; 96372; 96374; 96375; 96376; 99285-25; C9113; G0378; J0330; J1650; J2250; J2270; J2704; J2920; J7030; J7060

== ENCOUNTER 2018-11-26 21:59 | Observation (INO) | payer MEDICARE ==
[~2018-11-26] VITALS: Ht 157.5 cm; Wt 82.9 kg
--- OUTSIDE RECORDS SUMMARY | ~2018-11-26 | XMS | Encounter Summary ---
Demographics + + + | Address | [address] | | | [place] [address] | + + + | Home Phone | | + + + | Preferred Language | Unknown | + + + | Marital Status | | + + + | Yazidi Affiliation | 1041 | + + + | Race | Unknown | + + + | Ethnic Group | Unknown | + + + Author + + + | Author | [facility] | + + + | Organization | [facility] | + + + | Address | Unknown | + + + | Phone | Unavailable | + + + Support + + +---------+ + | Name | Relationship | Address | Phone | + + +---------+ + | Massimo Whatley | ECON | Unknown | | + + +---------+ + | Indy Gallardo | ECON | Unknown | | + + +---------+ + Care Team Providers + +------+ + | Care Syrup Shed Supervisor Name | Role | Phone | + +------+ + | Jayla Fisher MD | PCP | | + +------+ + Encounter Details +--------+ + + + + | Date | Type | Department | Care Team | Description | +--------+ + + + + | 10/16/ | Ancillary | [facility] | Jayla Fisher | End stage COPD (HCC) | | 2018 | Orders | ECHO | MD Gertrudis [address] | | | | | | [place] | | | | | | [place] [address] | | | | | | [phone] | | | | | | | | +--------+ + + + + Social History + + + +--------+ + | Tobacco Use | Types | Packs/Day | Years | Date | | | | | Used | | + + + +--------+ + | Current Every Day | Cigarettes | 0.3 | | Started: 06/26/1969 | | Smoker | | | | | + + + +--------+ + + +---+---+---+ | Smokeless Tobacco: | | | | | Never Used | | | | + +---+---+---+ + + +---------+ + | Alcohol Use | Drinks/We | oz/Week | Comments | | | ek | | | + + +---------+ + | Yes | 0 | 0.0 | drank heavily in past hx., quit in 1983, | | | Standard | | drinks very rarely | | | drinks or | | | | | | | | | | equivalen | | | | | t | | | + + +---------+ + + + + | Sex Assigned at | Date Recorded | | | | + + + | Not on file | | + + + as of this encounter Plan of Treatment Not on fileas of this encounter Results ECHO outside interpretation standard (10/16/2018 4:26 PM) + + + | Impressions | Performed At | + + + | 1. Overall left ventricular systolic function is normal with, an EF | [facility] | | between 60 - 65 %. 2. The right ventricle is normal in size and | [facility] | | function. 3. Pulmonary artery systolic pressure could not be assessed | | | due to the absence of adequate TR jet. 4. There is no pericardial | | | effusion. | | + + + + + + | Narrative | Performed At | + + + | Patient Name: Stephanie Simmons Date of : 1950 | [facility] | | Performing Physician: Laverne Seo | RADIOLOGY | | | | | INDICATIONS END STAGE COPD CONCLUSIONS | | | 1. Overall left ventricular systolic function is normal with, an EF | | | between 60 - 65 %. 2. The right ventricle is normal in size and | | | function. 3. Pulmonary artery systolic pressure could not be assessed | | | due to the absence of adequate TR jet. 4. There is no pericardial | | | effusion. FINDINGS -------- ECG rhythm: Sinus rhythm. Study: A | | | 2-dimensional transthoracic echocardiogram with m-mode, spectral and | | | color flow Doppler was perfomed. Study: This was a technically | | | adequate study. Left Ventricle: Overall left ventricular systolic | | | function is normal with, an EF between 60 - 65 %. Left Ventricle: | | | The left ventricle cavity size is normal. Left Ventricle: Left | | | ventricular wall thickness is normal. Left Ventricle: The diastolic | | | filling pattern is normal for the age of the patient. Right | | | Ventricle: The right ventricle is normal in size and function. Left | | | Atrium: The left atrium is normal in size. Right Atrium: The right | | | atrium is normal in size. Aortic Valve: The aortic valve was not | | | well visualized. Aortic Valve: There is no evidence of aortic | | | regurgitation. Aortic Valve: There is no evidence of aortic | | | stenosis. Mitral Valve: Normal appearing mitral valve. Mitral | | | Valve: Mild mitral regurgitation is present. Tricuspid Valve: The | | | tricuspid valve appears structurally normal. Tricuspid Valve: | | | Pulmonary artery systolic pressure could not be assessed due to the | | | absence of adequate TR jet. Pulmonic Valve: The pulmonic valve was | | | not well visualized. Pulmonic Valve: Trace pulmonic | | | regurgitation. Pericardium: There is no pericardial effusion. | | | Pericardium: No pleural effusion seen. IVC/Hepatic Veins: The | | | inferior vena cava is normal in size and collapses > 50 % with sniff, | | | indicating normal central venous pressures. Aorta: The aortic root, | | | ascending aorta and aortic arch are normal. MEASUREMENTS | | | Ao sinus: 3.[address] junct: 2.72 cm | | | IVC: 1.66 cm EDV(Teich): 55.95 ml IVSd: 0.74 cm | | | LVIDd: 3.64 cm LVPWd: 0.90 cm LVOT Area: 3.04 cm2 LVOT | | | Diam: 1.96 cm %FS: 28.31 % EF(Teich): 55.58 % | | | ESV(Teich): 24.84 ml LVIDs: 2.61 cm SV(Teich): 31.10 ml | | | RV Major: 7.23 cm RV Minor: 3.16 cm LVEF MOD A2C: 65.15 | | | % SV MOD A2C: 46.00 ml LVEF MOD A4C: 61.65 % SV MOD | | | A4C: 48.73 ml EF Biplane: 63.38 % LVEDV MOD BP: 74.44 ml | | | LVESV MOD BP: 27.25 ml LVEDV MOD A2C: 70.60 ml LVLd | | | A2C: 8.46 cm LVEDV MOD A4C: 79.03 ml LVLd A4C: 8.45 cm | | | LVESV MOD A2C: 24.60 ml LVLs A2C: 6.82 cm LVESV MOD A4C: | | | 30.30 ml LVLs A4C: 6.83 cm LAESV(A-L): 35.46 ml LAESV | | | Index (A-L): 19.48 ml/m2 LAAs A2C: 14.16 cm2 LAESV A-L | | | A2C: 37.59 ml LALs A2C: 4.52 cm LAAs A4C: 11.49 cm2 | | | LAESV A-L A4C: 28.79 ml LALs A4C: 3.89 cm RAAs: 11.72 | | | cm2 RAESV A-L: 29.94 ml RAESV MOD: 27.18 ml RALs: 3.89 | | | cm TAPSE: 2.42 cm AV maxP.52 mmHg AV meanP.43 | | | mmHg AV Vmax: 1.37 m/s AV Vmean: 0.86 m/s AV VTI: 26.39 | | | cm MACI Vmax: 2.53 cm2 MACI (VTI): 2.61 cm2 AVAI (Vmax): | | | 0.00 cm2/m2 AVAI (VTI): 0.00 cm2/m2 LVOT maxP.23 mmHg | | | LVOT meanP.45 mmHg LVSI Dopp: 37.87 ml/m2 LVSV Dopp: | | | 68.93 ml LVOT Vmax: 1.14 m/s LVOT Vmean: 0.73 m/s LVOT | | | VTI: 22.65 cm MV A Trace: 0.83 m/s MV Dec [place]: 3.01 m/s2 | | | MV DecT: 264.72 ms MV E Trace: 0.79 m/s MV E/A Ratio: | | | 0.95 MV PHT: 76.77 ms MVA By PHT: 2.86 cm2 Septal e': | | | 0.06 m/s Septal E/e': 13.00 Lateral e': 0.08 m/s Lateral | | | E/e': 9.24 RAP: 5 mmHg RV s': 0.12 m/s Glue Wheel Operator: | | | DBS Authenticated by: Laverne [facility] Report Date/Time: 10-18-2018 | | | 19:10:22 | | + + + + --------+ | Procedure Note | + --------+ | Mk, Rad Results In - 10/18/2018 7:20 PM PDT Patient Name: Geronimo Simmons of | | : 1950ccession: [id number] Physician: Laverne | | [facility] INDICATIONS------ | | -----END STAGE COPDCONCLUSIONS 1. Overall left ventricular systolic function | | is normal with, an EF between 60 - 65 %.2. The right ventricle is normal in size and | | function.3. Pulmonary artery systolic pressure could not be assessed due to the absence | | of adequate TR jet.4. There is no pericardial effusion.FINDINGS--------ECG rhythm: Sinus | | rhythm.Study: A 2-dimensional transthoracic echocardiogram with m-mode, spectral and | | color flow Doppler was perfomed. Study: This was a technically adequate study.Left | | Ventricle: Overall left ventricular systolic function is normal with, an EF between 60 - | | 65 %. Left Ventricle: The left ventricle cavity size is normal. Left Ventricle: Left | | ventricular wall thickness is normal. Left Ventricle: The diastolic filling pattern is | | normal for the age of the patient.Right Ventricle: The right ventricle is normal in size | | and function.Left Atrium: The left atrium is normal in size.Right Atrium: The right | | atrium is normal in size. Aortic Valve: The aortic valve was not well visualized. Aortic | | Valve: There is no evidence of aortic regurgitation. Aortic Valve: There is no evidence | | of aortic stenosis.Mitral Valve: Normal appearing mitral valve. Mitral Valve: Mild | | mitral regurgitation is present.Tricuspid Valve: The tricuspid valve appears | | structurally normal. Tricuspid Valve: Pulmonary artery systolic pressure could not be | | assessed due to the absence of adequate TR jet.Pulmonic Valve: The pulmonic valve was | | not well visualized. Pulmonic Valve: Trace pulmonic regurgitation.Pericardium: There is | | no pericardial effusion. Pericardium: No pleural effusion seen.IVC/Hepatic Veins: The | | inferior vena cava is normal in size and collapses > 50 % with sniff, indicating normal | | central venous pressures.Aorta: The aortic root, ascending aorta and aortic arch are | | normal.MEASUREMENTS Ao sinus: 3.[address] junct: 2.72 cmIVC: 1.66 | | cmEDV(Teich): 55.95 mlIVSd: 0.74 cmLVIDd: 3.64 cmLVPWd: 0.90 cmLVOT Area: 3.04 | | [id number] Diam: 1.96 cm%FS: 28.31 %EF(Teich): 55.58 %ESV(Teich): 24.84 mlLVIDs: | | 2.61 cmSV(Teich): 31.10 mlRV Major: 7.23 cmRV Minor: 3.16 cmLVEF MOD A2C: 65.15 | | %SV MOD A2C: 46.00 mlLVEF MOD A4C: 61.65 %SV MOD A4C: 48.73 mlEF Biplane: 63.38 | | %LVEDV MOD BP: 74.44 mlLVESV MOD BP: 27.25 mlLVEDV MOD A2C: 70.60 mlLVLd A2C: | | 8.46 cmLVEDV MOD A4C: 79.03 mlLVLd A4C: 8.45 cmLVESV MOD A2C: 24.60 mlLVLs A2C: | | 6.82 cmLVESV MOD A4C: 30.30 mlLVLs A4C: 6.83 cmLAESV(A-L): 35.46 mlLAESV Index | | (A-L): 19.48 ml/m2LAAs A2C: 14.16 [id number] A-L A2C: 37.59 mlLALs A2C: 4.52 | | cmLAAs A4C: 11.49 [id number] A-L A4C: 28.79 mlLALs A4C: 3.89 cmRAAs: 11.72 | | [id number] A-L: 29.94 mlRAESV MOD: 27.18 mlRALs: 3.89 cmTAPSE: 2.42 cmAV maxPG: | | 7.52 mmHgAV meanP.43 mmHgAV Vmax: 1.37 m/Jian Vmean: 0.86 m/Jian VTI: 26.39 | | cmAVA Vmax: 2.53 cm2AVA (VTI): 2.61 nz1MMLY (Vmax): 0.00 cm2/m2AVAI (VTI): 0.00 | | cm2/m2LVOT maxP.23 mmHgLVOT meanP.45 mmHgLVSI Dopp: 37.87 ml/m2LVSV Dopp: | | 68.93 mlLVOT Vmax: 1.14 m/sLVOT Vmean: 0.73 m/sLVOT VTI: 22.65 cmMV A Trace: | | 0.83 m/sMV Dec [place]: 3.01 m/s2MV DecT: 264.72 msMV E Trace: 0.79 m/sMV E/A Ratio: | | 0.95 MV PHT: 76.77 msMVA By PHT: 2.86 wo2Wpezci e': 0.06 m/sSeptal E/e': 13.00 | | Lateral e': 0.08 m/sLateral E/e': 9.24 RAP: 5 mmHgRV s': 0.12 m/sSonographer: | | DBSAuthenticated by: Mershed AlsmorenciraReport Date/Time: 10-18-2018 19:10:22IMPRESSION:1. | | Overall left ventricular systolic function is normal with, an EF between 60 - 65 %.2. | | The right ventricle is normal in size and function.3. Pulmonary artery systolic pressure | | could not be assessed due to the absence of adequate TR jet.4. There is no pericardial | | effusion. | |Ao sinus: 3.37 cm | |Ao st junct: 2.72 cm | |IVC: 1.66 cm | |EDV(Teich): 55.95 ml | |IVSd: 0.74 cm | |LVIDd: 3.64 cm | |LVPWd: 0.90 cm | |LVOT Area: 3.04 cm2 | |LVOT Diam: 1.96 cm | |%FS: 28.31 % | |EF(Teich): 55.58 % | |ESV(Teich): 24.84 ml | |LVIDs: 2.61 cm | |SV(Teich): 31.10 ml | |RV Major: 7.23 cm | |RV Minor: 3.16 cm | |LVEF MOD A2C: 65.15 % | |SV MOD A2C: 46.00 ml | |LVEF MOD A4C: 61.65 % | |SV MOD A4C: 48.73 ml | |EF Biplane: 63.38 % | |LVEDV MOD BP: 74.44 ml | |LVESV MOD BP: 27.25 ml | |LVEDV MOD A2C: 70.60 ml | |LVLd A2C: 8.46 cm | |LVEDV MOD A4C: 79.03 ml | |LVLd A4C: 8.45 cm | |LVESV MOD A2C: 24.60 ml | |LVLs A2C: 6.82 cm | |LVESV MOD A4C: 30.30 ml | |LVLs A4C: 6.83 cm | |LAESV(A-L): 35.46 ml | |LAESV Index (A-L): 19.48 ml/m2 | |LAAs A2C: 14.16 cm2 | |LAESV A-L A2C: 37.59 ml | |LALs A2C: 4.52 cm | |LAAs A4C: 11.49 cm2 | |LAESV A-L A4C: 28.79 ml | |LALs A4C: 3.89 cm | |RAAs: 11.72 cm2 | |RAESV A-L: 29.94 ml | |RAESV MOD: 27.18 ml | |RALs: 3.89 cm | |TAPSE: 2.42 cm | |AV maxP.52 mmHg | |AV meanP.43 mmHg | |AV Vmax: 1.37 m/s | |AV Vmean: 0.86 m/s | |AV VTI: 26.39 cm | |MACI Vmax: 2.53 cm2 | |MACI (VTI): 2.61 cm2 | |AVAI (Vmax): 0.00 cm2/m2 | |AVAI (VTI): 0.00 cm2/m2 | |LVOT maxP.23 mmHg | |LVOT meanP.45 mmHg | |LVSI Dopp: 37.87 ml/m2 | |LVSV Dopp: 68.93 ml | |LVOT Vmax: 1.14 m/s | |LVOT Vmean: 0.73 m/s | |LVOT VTI: 22.65 cm | |MV A Trace: 0.83 m/s | |MV Dec [place]: 3.01 m/s2 | |MV DecT: 264.72 ms | |MV E Trace: 0.79 m/s | |MV E/A Ratio: 0.95 | |MV PHT: 76.77 ms | |MVA By PHT: 2.86 cm2 | |Septal e': 0.06 m/s | |Septal E/e': 13.00 | |Lateral e': 0.08 m/s | |Lateral E/e': 9.24 | |RAP: 5 mmHg | |RV s': 0.12 m/s | | | |Glue Wheel Operator: DBS | |Authenticated by: Laverne Seo | |Report Date/Time: 10-18-2018 19:10:22 | | | |IMPRESSION: | |1. Overall left ventricular systolic function is normal with, an EF between 60 - 65 %. | |2. The right ventricle is normal in size and function. | |3. Pulmonary artery systolic pressure could not be assessed due to the absence of adequate TR jet. | |4. There is no pericardial effusion. | + --------+ + + + + + | Performing | Address | City/State/Zipcode | Phone Number | | Organization | | | | + + + + + | [facility] | [address] | [place] [address] | | + + + + + in this encounter Visit Diagnoses + + | Diagnosis | + + | End stage COPD (HCC) | + + | Chronic airway obstruction, not elsewhere classified | + +"
--- OUTSIDE RECORDS SUMMARY | ~2018-11-26 | XMS | Encounter Summary ---
Demographics + + + | Address | [address] | | | [place] [address] | + + + | Home Phone | | + + + | Preferred Language | Unknown | + + + | Marital Status | | + + + | Church Affiliation | 1041 | + + + | Race | Unknown | + + + | Ethnic Group | Unknown | + + + Author + + + | Author | [facility] | + + + | Organization | [facility] | + + + | Address [...] Team Providers + +------+ + | Care Closing Specialist Name | Role | Phone | + [...] stage COPD (HCC) | | 2018 | Procedure | ECHO | MD Gertrud[address] | | | | | | [place] | | | | | | [place] [address] | | | | | | [phone] | | | | | | | [...] Treatment Not on fileas of this encounter Procedures + +--------+ + + + | Procedure Name | Priori | Date/Time | Associated Diagnosis | Comments | | | ty | | | | + +--------+ + + + | ECHO OUTSIDE | Routin | 10/16/2018 | End stage COPD | Results for this | | INTERPRETATION | e | 4:26 PM | (HCC) | procedure are in the | | STANDARD | | PDT | | results section. | + +--------+ + + + in this encounter Results ECHO outside interpretation standard [...] Stephanie Simmons Date of : 1950 | [facility] | | Performing Physician: Laverne [...] MV A Trace: 0.83 m/s MV Dec [place]: 3.01 m/s2 | | | MV DecT: 264.72 ms MV E Trace: 0.79 m/s MV E/A Ratio: | | | 0.95 MV PHT: 76.77 ms MVA By PHT: 2.86 cm2 Septal e': | | | 0.06 m/s Septal E/e': 13.00 Lateral e': 0.08 m/s Lateral | | | E/e': 9.24 RAP: 5 mmHg RV s': 0.12 m/s Health And Safety Trainer: | | | DBS Authenticated by: [place]verne [place] Report Date/Time: 10-18-2018 | | | 19:10:22 | | + + + + --------+ | Procedure Note | + --------+ | Mk, Rad Results In - 10/18/2018 7:20 PM PDT Patient Name: Geronimo Simmons of | | : 1950ccession: [id number] Physician: Laverne | | [facility] INDICATIONS------ | | -----END STAGE COPDCONCLUSIONS 1. [...] cmLVPWd: 0.90 cmLVOT Area: 3.04 | | [id number] Diam: 1.96 cm%FS: 28.31 %EF(Teich): 55.58 %ESV(Teich): [...] | | (A-L): 19.48 ml/m2LAAs A2C: 14.16 [id number] A-L A2C: 37.59 mlLALs A2C: 4.52 | | cmLAAs A4C: 11.49 [id number] A-L A4C: 28.79 mlLALs A4C: 3.89 cmRAAs: 11.72 | | [id number] A-L: 29.94 mlRAESV MOD: 27.18 mlRALs: 3.89 cmTAPSE: 2.42 cmAV maxPG: | | 7.52 mmHgAV meanP.43 mmHgAV Vmax: 1.37 m/Jian Vmean: 0.86 m/Jian VTI: 26.39 | | cmAVA Vmax: 2.53 cm2AVA (VTI): 2.61 fz5YHVD (Vmax): 0.00 cm2/m2AVAI (VTI): 0.00 | | cm2/m2LVOT maxP.23 mmHgLVOT meanP.45 mmHgLVSI Dopp: 37.87 ml/m2LVSV Dopp: | | 68.93 mlLVOT Vmax: 1.14 m/sLVOT Vmean: 0.73 m/sLVOT VTI: 22.65 cmMV A Trace: | | 0.83 m/sMV Dec [place]: 3.01 m/s2MV DecT: 264.72 msMV E Trace: 0.79 m/sMV E/A Ratio: | | 0.95 MV PHT: 76.77 msMVA By PHT: 2.86 kw9Zfwtcl e': 0.06 m/sSeptal E/e': 13.00 | | Lateral e': 0.08 m/sLateral E/e': 9.24 RAP: 5 mmHgRV s': 0.12 m/sSonographer: | | DBSAuthenticated by: Laverne [facility]Report Date/Time: 10-18-2018 19:10:22IMPRESSION:1. | | Overall left [...] A Trace: 0.83 m/s | |MV Dec [place]: 3.01 m/s2 | |MV DecT: 264.72 ms | |MV E Trace: 0.79 m/s | |MV E/A Ratio: 0.95 | |MV PHT: 76.77 ms | |MVA By PHT: 2.86 cm2 | |Septal e': 0.06 m/s | |Septal E/e': 13.00 | |Lateral e': 0.08 m/s | |Lateral E/e': 9.24 | |RAP: 5 mmHg | |RV s': 0.12 m/s | | | |Health And Safety Trainer: DBS | |Authenticated by: Laverne Seo | [...] | + + + + + | [facility] | [address] | [place] [address] | | + + + + + in this encounter Visit Diagnoses + + | Diagnosis | + + | End stage COPD (HCC) | + + | Chronic airway obstruction, not elsewhere classified | + +"
--- OUTSIDE RECORDS SUMMARY | ~2018-11-26 | XMS | Clinical Summary ---
Demographics + + + | Address | [address] | | | [place] [address] | + + + | Home Phone | | + + + | Preferred Language | Unknown | + + + | Marital Status | | + + + | Shinto Affiliation | 1041 | + + + | Race | Unknown | + + + | Ethnic Group | Unknown | + + + Author + + + | Author | [facility] | | | and [place] | + + + | Organization | [facility] | | | and [place] | + + + | Address | Unknown | + + + | Phone | Unavailable | + + + Support + + +---------+ + | Name | Relationship | Address | Phone | + + +---------+ + | INDY GREEN&GIBSON | ECON | Unknown | | + + +---------+ + | Massimo Whatley | ECON | Unknown | | + + +---------+ + | Indy Green | ECON | Unknown | | + + +---------+ + Care Team Providers + +------+ + | Care Clay Press Operator Name | Role | Phone | + +------+ + PP | Unavailable | + +------+ + Allergies Not on File Medications Not on file Active Problems Not on file Social History + +-------+ +--------+------+ | Tobacco Use | Types | Packs/Day | Years | Date | | | | | Used | | + +-------+ +--------+------+ | Never Assessed | | | | | + +-------+ +--------+------+ + + + | Sex Assigned at | Date Recorded | | | | + + + | Not on file | | + + + + + + + | Job Start Date | Occupation | Industry | + + + + | Not on file | Not on file | Not on file | + + + + + + + + | Travel History | Travel Start | Travel End | + + + + + + | No recent travel history available. | + + Plan of Treatment + + + + + | Health Maintenance | Due Date | Last Done | Comments | + + + + + | Vaccine: | | | | | Dtap/Tdap/Td (1 - | 1 | | | | Tdap) | | | | + + + + + | Vaccine: Zoster (1 | | | | | of 2) | 2 | | | + + + + + | Vaccine: | | | | | Pneumococcal 65+ | 7 | | | | Low/Medium Risk (1 | | | | | of 2 - PCV13) | | | | + + + + + | Vaccine: Influenza | | | | | (Season Ended) | 9 | | | + + + + + Results Not on filefrom Last 3 Months"
--- OUTSIDE RECORDS SUMMARY | ~2018-11-26 | XMS | Encounter Summary ---
Demographics + + + | Address | [address] | | | [place] [address] | + + + | Home Phone | | + + + | Preferred Language | Unknown | + + + | Marital Status | | + + + | Religion Affiliation | 1041 | + + + | Race | Unknown | + + + | Ethnic Group | Unknown | + + + Author + + + | Author | [facility] | + + + | Organization | [facility] [employer] [facility] | + + + | Address [...] Team Providers + +------+ + | Care Documentation Nurse Name | Role | Phone | + [...] | | | | | [place] [address] | | | | | | [phone] | | | | | | | [...] Stephanie Simmons Date of : 1950 | [facility] | | Performing Physician: Laverne Seo | [...] MV A Trace: 0.83 m/s MV Dec [place]: 3.01 m/s2 | | | MV DecT: 264.72 ms MV E Trace: 0.79 m/s MV E/A Ratio: | | | 0.95 MV PHT: 76.77 ms MVA By PHT: 2.86 cm2 Septal e': | | | 0.06 m/s Septal E/e': 13.00 Lateral e': 0.08 m/s Lateral | | | E/e': 9.24 RAP: 5 mmHg RV s': 0.12 m/s Visitor Services Associate: | | | DBS Authenticated by: Laverne [place] Report Date/Time: 10-18-2018 | | | 19:10:22 | | + + + + --------+ | Procedure Note | + --------+ | Mk, Rad Results In - 10/18/2018 7:20 PM PDT Patient Name: Geronimo Simmons of | | : 1950ccession: [id number] Physician: Laverne | | [facility] INDICATIONS------ | | -----END STAGE COPDCONCLUSIONS 1. [...] cmLVPWd: 0.90 cmLVOT Area: 3.04 | | [id number] Diam: 1.96 cm%FS: 28.31 %EF(Teich): 55.58 %ESV(Teich): [...] | | (A-L): 19.48 ml/m2LAAs A2C: 14.16 [id number] A-L A2C: 37.59 mlLALs A2C: 4.52 | | cmLAAs A4C: 11.49 op6OREHH A-L A4C: 28.79 mlLALs A4C: 3.89 cmRAAs: 11.72 | | [id number] A-L: 29.94 mlRAESV MOD: 27.18 mlRALs: 3.89 cmTAPSE: 2.42 cmAV maxPG: | | 7.52 mmHgAV meanP.43 mmHgAV Vmax: 1.37 m/Jian Vmean: 0.86 m/Jian VTI: 26.39 | | cmAVA Vmax: 2.53 cm2AVA (VTI): 2.61 gj9PWQZ (Vmax): 0.00 cm2/m2AVAI (VTI): 0.00 | | cm2/m2LVOT maxP.23 mmHgLVOT meanP.45 mmHgLVSI Dopp: 37.87 ml/m2LVSV Dopp: | | 68.93 mlLVOT Vmax: 1.14 m/sLVOT Vmean: 0.73 m/sLVOT VTI: 22.65 cmMV A Trace: | | 0.83 m/sMV Dec [place]: 3.01 m/s2MV DecT: 264.72 msMV E Trace: 0.79 m/sMV E/A Ratio: | | 0.95 MV PHT: 76.77 msMVA By PHT: 2.86 yz3Vdzkzz e': 0.06 m/sSeptal E/e': 13.00 | | Lateral e': 0.08 m/sLateral E/e': 9.24 RAP: 5 mmHgRV s': 0.12 m/sSonographer: | | DBSAuthenticated by: Laverne [facility] HospitalReport Date/Time: 10-18-2018 19:10:22IMPRESSION:1. | | Overall left [...] A Trace: 0.83 m/s | |MV Dec [place]: 3.01 m/s2 | |MV DecT: 264.72 ms | |MV E Trace: 0.79 m/s | |MV E/A Ratio: 0.95 | |MV PHT: 76.77 ms | |MVA By PHT: 2.86 cm2 | |Septal e': 0.06 m/s | |Septal E/e': 13.00 | |Lateral e': 0.08 m/s | |Lateral E/e': 9.24 | |RAP: 5 mmHg | |RV s': 0.12 m/s | | | |Visitor Services Associate: DBS | |Authenticated by: Laverne Seo | [...] [facility] | [address] | [place] [address] | | + + + + + in this encounter Visit Diagnoses + + | Diagnosis | + + | End stage COPD (HCC) | + + | Chronic airway obstruction, not elsewhere classified | + +"
--- OUTSIDE RECORDS SUMMARY | ~2018-11-26 | XMS | Clinical Summary ---
Demographics + + + | Address | [address] | | | [place] [address] | + + + | Home Phone | | + + + | Preferred Language | Unknown | + + + | Marital Status | | + + + | Orthodoxy Affiliation | 1041 | + + + | Race | Unknown | + + + | Ethnic Group | Unknown | + + + Author + + + | Author | [facility] | | | and [place] | + + + | Organization | [facility] | | | [...] Team Providers + +------+ + | Care Millwright Supervisor Name | Role | Phone | [...]
--- OUTSIDE RECORDS SUMMARY | ~2018-11-26 | XMS | Encounter Summary ---
Demographics + + + | Address | [address] | | | [place] [address] | + + + | Home Phone | | + + + | Preferred Language | Unknown | + + + | Marital Status | | + + + | Catholic Affiliation | 1041 | + + + | Race | Unknown | + + + | Ethnic Group | Unknown | + + + Author + + + | Author | [facility] | + + + | Organization | [facility] | + + + | Address [...] Team Providers + +------+ + | Care End Finder Twisting Department Name | Role | Phone | + +------+ + | Jayla Fisher MD | PCP | | + +------+ + Reason for Visit +--------+ + | Reason | Comments | +--------+ + | Other | FMLA | +--------+ + Encounter Details +--------+ + + + + | Date | Type | Department | Care Team | Description | +--------+ + + + + | 10/05/ | Telephone | [facility] | Reji Dodd, RN | Other ([facility]) | | 2019 | | [facility] | | | | | | [address] | | | | | | [place] [address] | | | | | | [phone] | | | +--------+ + + + [...] Treatment Not on fileas of this encounter Visit Diagnoses Not on filein this encounter"
--- OUTSIDE RECORDS SUMMARY | ~2018-11-26 | XMS | Encounter Summary ---
Demographics + + + | Address | [address] | | | [place] [address] | + + + | Home Phone | | + + + | Preferred Language | Unknown | + + + | Marital Status | | + + + | Moravian Affiliation | [id number] | + + + | Race | Unknown | + + + | Ethnic Group | Unknown | + + + Author + + + | Author | [email or web address] | + + + | Organization | [email or web address] [employer] | + + + | Address [...] Team Providers + +------+ + | Care Manager Stars Name | Role | Phone | + +------+ + | Jayla Fisher MD | PCP | | + +------+ + Reason for Visit Auth/Cert +--------+--------+ + + + + | Status | Reason | Specialty | Diagnoses / | Referred By | Referred To | | | | | Procedures | Contact | Contact | +--------+--------+ + + + + | | | Intensive | Diagnoses | | [facility] | | | | Care | Respiratory | | [place] | | | | | Failure | | [address] | | | | | | | [address] | | | | | | | [place] | | | | | | | [address] Phone: | | | | | | | [phone] | | | | | | | Fax: | | | | | | | [phone] | +--------+--------+ + + + + Encounter Details +--------+ + + + + | Date | Type | Department | Care Team | Description | +--------+ + + + + | 09/22/ | Hospital | [facility] | Cooper Rodriguez | Acute on chronic | | 2019 - | Encounter | [facility] | MD Dorina [address] | respiratory failure | | | | [address] [facility] [address] [place], [place] | with hypoxia and | | 10/01/ | | [address] | [address] | hypercapnia (HCC) | | 2019 | | [place] [address] | | (Primary Dx) | | | | [phone] | Niya Tavarez MD | | | | | | [address] | | | | | | [place] [address] | | | | | | [phone] | | | | | | | | | | | | Ashleigh López | | | | | | MD [address] | | | | | | [address] | | | | | | [place] [address] | | | | | | [phone] | | | | | | | [...] | | | + +---+---+---+ + + | Tobacco Cessation: Ready to Quit: No; Counseling Given: Yes | + + + + +---------+ + | Alcohol Use [...] + + + as of this encounter Last Filed Vital Signs + + + + | Vital Sign | Reading | Time Taken | + + + + | Blood Pressure | 121/65 | 10/01/2018 7:47 AM PDT | + + + + | Pulse | 80 | 10/01/2018 8:25 AM PDT | + + + + | Temperature | 36.8 C (98.2 F) | 10/01/2018 7:47 AM PDT | + + + + | Respiratory Rate | 20 | 10/01/2018 8:25 AM PDT | + + + + | Oxygen Saturation | 93% | 10/01/2018 8:26 AM PDT | + + + + | Inhaled Oxygen | - | - | | Concentration | | | + + + + | Weight | 77.8 kg (171 lb 9.6 | 10/01/2018 3:18 AM PDT | | | oz) | | + + + + | Height | 160 cm (5' 2.99") | 09/25/2018 11:15 AM PDT | + + + + | Body Mass Index | 30.41 | 10/01/2018 3:18 AM PDT | + + + + in this encounter Discharge Summaries Ashleigh López MD - 10/01/2018 11:22 AM PDTFormatting of this note may be differ ent from the original. [facility] Service: Hospitalist Physician Discharge Summary Patient ID: Stephanie Simmons 1950 68 y.o. Admit date: 09/22/2018 Discharge date: 10/01/2018 Admitting Physician: Cooper Rodriguez MD Discharge Physician: Ashleigh López MD Consultants: Treatment Team: Admitting Provider: Cooper Rodriguez MD Primary Discharge Diagnoses: Acute on chronic respiratory failure with hypoxia and hypercapnia (HCC). Acute respirato ry failure has resolved. Secondary Discharge Diagnoses: COPD (chronic obstructive pulmonary disease) Tobacco abuse Influenza A Acute kidney injury (HCC) Hypertension Dysphagia Resolved Problems: COPD exacerbation (HCC) Leukocytosis Steroid-induced hyperglycemia Acute on chronic respiratory acidosis HPI and Hospital Course: A 68-year-old female with a history of COPD with chronic hypoxic respiratory failure, on ho me oxygen; tobacco abuse; cervical cancer, admitted to the ICU with acute respiratory failur e, requiring intubation, failed BiPAP therapy. The patient was found to have influenza A. HOSPITAL COURSE: The patient admitted with acute respiratory failure and COPD exacerbation . She completed a course of Tamiflu for influenza A. The patient received steroids which w as also subsequently discontinued. She was extubated on 09/27 and transferred to the medica l floor. The patient had significant dysphagia and deconditioning, which continued to impro ve. She has been started on a dysphagia diet which is tolerating. She had hypoglycemia and which has completely resolved. The patient also has acute kidney injury, baseline creatinine is not known. Recommend lelsy ent to follow up outpatient with BMP. I advised patient not to take ibuprofen, Aleve or asp irin. The patient also had hypertension, was started on metoprolol with good blood pressure control. Her oxygenation is back to baseline and COPD exacerbation has resolved. Plan discussed in detail with the patient. She will be discharged on home oxygen and BiPAP at night. All data reviewed with her and all questions have been answered. Discharged Condition: Stable for discharge as stated above. Significant Diagnostic Studies: No results found. Discharge Vitals: Vitals: 10/01/18 0318 10/01/18 0747 10/01/18 0825 10/01/18 0826 BP: 138/71 121/65 BP Location: Right upper arm Left upper arm Pulse: 71 82 80 Resp: 24 20 20 Temp: 97.9 F (36.6 C) 98.2 F (36.8 C) TempSrc: Oral Oral SpO2: 91% 93% 93% 93% Weight: 77.8 kg (171 lb 9.6 oz) Height: Discharge Exam: General: Well nourished. Psych: Alert and oriented x 3. Calm, cooperative. Cardiovascular: Regular rate and rhythm, no murmurs, no thrills. Normal PMI. Respiratory: Bilateral wheezes present. Gastrointestinal: Soft, non-tender, non-distended, positive bowel sounds. No HSM. Musculoskeletal: No edema in bilateral lower extremities. No joint swelling. Skin: Warm and dry, no rashes. Neck: No JVD, Trachea midline. Neurological: Non focal. Motor grossly intact. LABS: Recent Labs Lab 09/29/18 0420 09/28/18 0525 09/27/18 0407 WBC 6.01 6.63 8.27 RBC 3.73 3.64* 3.76 HGB 11.3 11.1* 11.1* HCT 32.6* 32.3* 34.2 MCV 87.5 88.8 91.0 MCH 30.2 30.5 29.6 MCHC 34.6 34.3 32.5 RDW 41.6 42.4 44.6 PLT 180 185 189 MPV 8.3 8.4 8.6 DIFFTYPE MANUAL AUTOMATED MANUAL Recent Labs Lab 10/01/18 0420 09/30/18 0458 09/29/18 0420 NA 138 138 141 K 3.6 3.7 3.7 CL 101 99 101 CO2 30 29 32 BUN 19 22 39* CREATININE 1.2* 1.1* 1.1* GLUF 153* 102* 102* No results for input(s): CKTOTAL, TROPONINI, TROPONINT, CKMBINDEX in the last 168 hours. Recent Labs Lab 09/29/18 0420 09/28/18 0525 09/27/18 0407 PHOS 3.9 5.1* 2.4 Recent Labs Lab 09/29/18 0420 09/28/18 0525 09/27/18 0407 MG 2.2 2.2 2.5* Invalid input(s): ABG Disposition: Home Follow up: Jayla Fisher MD [address] [facility] [place] [id number] Schedule an appointment as soon as possible for a visit in 3 days Medication List START taking these medications metoprolol 25 MG tablet QTY: 60 tablet Refills: 0 Commonly known as: LOPRESSOR Take 1 tablet by mouth 2 (two) times daily. CONTINUE taking these medications albuterol 108 (90 Base) MCG/ACT inhaler Refills: 0 Commonly known as: PROVENTIL HFA;VENTOLIN HFA fluticasone-salmeterol 250-50 MCG/DOSE diskus inhaler Refills: 0 Commonly known as: ADVAIR, WIXELA INHUB Glucose 4-6 GM-MG Chew Refills: 0 You might also be taking other medications not listed above. If you have questions about an y of your other medications, talk to the person who prescribed them or your Primary Care Pro vider. STOP taking these medications ibuprofen 200 MG tablet Commonly known as: ADVIL Where to Get Your Medications You can get these medications from any pharmacy Bring a paper prescription for each of these medications metoprolol 25 MG tablet Ashleigh López MD 10/01/2018 11:22 AM Code Status: Full Code Discharge took 45 minutes, to include final examination, discussion of admission, and prep aration of prescriptions, instructions for ongoing care, follow up and dictation of summary. This entry has been created using [employer] Speech Recognition software and [employer]. The entry has been reviewed and there may still exist sound alike word errors. in this encounter Discharge Instructions Elmira Rico RN - 10/01/2018Diet general Dysphagia consistencies BMP on October 04 results to PCP Do not take aspirin, Aleve, ibuprofen at home. I certify that Stephanie Simmons is under my care and that I had a face to face encounter on 2018 that meets the physician face to face encounter requirements. I certify that based on my findings , the patient is in need of intermittent skilled services and a plan for furnish ing these services to include, but not limited to the services listed in the questions below : Primary diagnosis for home health: Acute respiratory failure, deconditioning Additional diagnosis: COPD Services needed: PT, OT, RN- COPD management Patient is homebound because he/she cannot leave home without assistance of another individ ual and leaving the home requires a considerable and taxing effort. Patient needs the assist ance of another individual to leave home because: Tasking effort to leave home due to decond itioning and weakness. Physician assuming care for Home Health services: Jayla Fisher in this encounter Medications at Time of Discharge + + +--------+---------+ + + | Medication | Sig. | Disp. | Refills | Start | End Date | | | | | | Date | | + + +--------+---------+ + + | albuterol | Inhale 2 puffs into | | | | | | (PROVENTIL | the lungs every 3 | | | | | | HFA;VENTOLIN HFA) | (three) hours as | | | | | | 108 (90 BASE) | needed for Wheezing. | | | | | | MCG/ACT inhaler | | | | | | + + +--------+---------+ + + | | Inhale 1 puff into | | | | | | fluticasone-salmeter | the lungs 2 (two) | | | | | | ol (ADVAIR) 250-50 | times daily. | | | | | | MCG/DOSE | | | | | | + + +--------+---------+ + + | Glucose 4-6 GM-MG | Take by mouth as | | | | | | CHEW | needed. For low | | | | | | | blood sugar level | | | | | + + +--------+---------+ + + | metoprolol | Take 1 tablet by | 60 | 0 | 10/02/19 | | | (LOPRESSOR) 25 MG | mouth 2 (two) times | tablet | | 19 | 0 | | tablet | daily. | | | | | + + +--------+---------+ + + as of this encounter Progress Notes Ashleigh López MD - 09/30/2018 10:22 AM PDTFormatting of this note may be differ ent from the original. [facility] Service: Hospitalist Progress Note Hospital Day: LOS: 8 days SUBJECTIVE Patient Summary: 68-year-old female with COPD on home oxygen, tobacco abuse, cervical cancer admitted to the ICU with acute respiratory failure requiring intubation. She was tra nsferred to the floor on September 27. Patient found to have influenza A. Events Overnight: Patient denies any complaints. She is awaiting speech evaluation. She wants to go home. Scheduled Medications budesonide-formoterol 2 puff Inhalation 2 times daily enoxaparin 40 mg Subcutaneous Q24H influenza vaccine quadrivalent 0.5 mL Intramuscular Once Immunization ipratropium-albuterol 3 mL Nebulization Q6H [place] metoprolol 5 mg Intravenous TID polyethylene glycol 17 g Oral Daily Continuous Infusions dextrose dextrose 75 mL/hr at 09/30/18 0959 PRN Medications acetaminophen OR acetaminophen, albuterol, bisacodyl, dextrose, dextrose, dextrose, doc usate sodium OR [DISCONTINUED] docusate, glucagon, glucagon, nystatin, ondansetron OR* * ondansetron OBJECTIVE Vital Signs: BP 138/81 (BP Location: Right upper arm) | Pulse 62 | Temp 98.4 F (36.9 C) (Oral) | Resp 18 | Ht 1.6 m (5' 2.99") | Wt 78.3 kg (172 lb 9.6 oz) | SpO2 91% | ? N o | BMI 30.58 kg/m Patient Vitals for the past 24 hrs: BP Temp Temp src Pulse Resp SpO2 Weight 09/30/18 0844 - - - 62 18 91 % - 09/30/18 0836 - - - 65 18 93 % - 09/30/18 0807 138/81 98.4 F (36.9 C) Oral 69 16 94 % - 09/30/18 0731 - - - - - 92 % - 09/30/18 0614 155/69 - - 67 - - - 09/30/18 0342 137/72 97.5 F (36.4 C) Oral 79 16 91 % 78.3 kg (172 lb 9.6 oz) 09/29/18 2319 164/78 97.7 F (36.5 C) Axillary 70 16 92 % - 09/29/18 2312 - - - 88 16 92 % - 09/29/182007 166/81 98.6 F (37 C) Oral 81 18 91 % - 09/29/18 1938 - - - 60 16 96 % - 09/29/18 1555 155/83 - - - - - - 09/29/18 1527 180/86 98.2 F (36.8 C) Axillary 58 16 96 % - 09/29/18 1432 160/78 - - 70 - - - 09/29/18 1147 147/79 97.9 F (36.6 C) Oral 63 20 95 % - Intake/Output Summary (Last 24 hours) at 09/30/18 1022 Last data filed at 09/30/18 1006 Gross per 24 hour Intake 1755 ml Output 1950 ml Net -195 ml Physical Exam: Constitutional: Alert and oriented to person, place, and time. Appears well-developed and w ell-nourished. Sitting up in bed. HEENT: Neck supple, no JVD, non icteric sclera. Cardiovascular: Normal rate, regular rhythm, normal heart sounds with S1 and S2, distant heart sounds Pulmonary/Chest: Effort normal . No wheezes or rales noted. Abdominal: Soft. Bowel sounds are normal. exhibits no distension and no mass. There is no t enderness. There is no rebound and no guarding. Extremeties/Musculoskeletal: exhibits no edema. Neurological: Alert and oriented to person, place, and time. Skin: Skin is warm and dry. Psychiatric: Has a normal mood and affect. DATA Recent Labs Lab 09/29/18 0420 09/28/18 0525 09/27/18 0407 WBC 6.01 6.63 8.27 RBC 3.73 3.64* 3.76 HGB 11.3 11.1* 11.1* HCT 32.6* 32.3* 34.2 MCV 87.5 88.8 91.0 MCH 30.2 30.5 29.6 MCHC 34.6 34.3 32.5 RDW 41.6 42.4 44.6 PLT 180 185 189 MPV 8.3 8.4 8.6 DIFFTYPE MANUAL AUTOMATED MANUAL Recent Labs Lab 09/30/18 0458 09/29/18 0420 09/28/18 1530 09/28/18 0525 NA 138 141 -- 145 K 3.7 3.7 4.0 3.7 CL 99 101 -- 106 CO2 29 32 -- 33* BUN 22 39* -- 57* CREATININE 1.1* 1.1* -- 1.2* GLUF 102* 102* -- 77 No results for input(s): CKTOTAL, TROPONINI, TROPONINT, CKMBINDEX in the last 168 hours. Recent Labs Lab 09/29/18 04209/28/18 0525 09/27/18 0407 PHOS 3.9 5.1* 2.4 Recent Labs Lab 09/29/1841909/28/18 0525 09/27/18 0407 MG 2.2 2.2 2.5* Invalid input(s): ABG No results for input(s): CALCIUM in the last 168 hours. No results for input(s): APTT, INR, PTT in the last 168 hours. PROBLEM LIST Principal Problem: Acute on chronic respiratory failure with hypoxia and hypercapnia (HCC) Active Problems: COPD (chronic obstructive pulmonary disease) Tobacco abuse Influenza A Acute kidney injury (HCC) ASSESSMENT & PLAN Chronic hypoxic and hypercapnic respiratory failure. Acute respiratory failure has resolve d. We will continue BiPAP at night. We will continue oxygen supplementation. COPD. Acute exacerbation resolved. Will continue Symbicort and DuoNeb. Hypertension. Blood pressure is controlled. We will continue metoprolol. Acute kidney injury. Creatinine is stable. We will continue to monitor. Influenza A. Patient completed a course of Tamiflu. Dysphagia. Awaiting speech therapy evaluation. DVT prophylaxis. We will continue Lovenox. Plan discussed with patient . All questions were answered . All data was reviewed. Disposition: Inpatient Code Status: Full Code Ashleigh López MD 09/30/2018 10:22 AM This entry has been created using [employer] Speech Recognition software and [employer]. The entry has been reviewed and there may still exist sound alike word errors. Ashleigh López MD - 09/29/2018 11:27 AM PDTFormatting of this note may be differ ent from the original. [facility] Service: Hospitalist Progress Note Hospital Day: LOS: 7 days SUBJECTIVE Patient Summary: 68-year-old female with COPD on home oxygen, tobacco abuse, cervical cancer admitted to the ICU with acute respiratory failure requiring intubation. She was tra nsferred to the floor on September 27. Patient found to have influenza A. Events Overnight: Patient states that she feels much better. She states that she is h ungry and wants to eat. She wants to be discharged as soon as possible. Scheduled Medications budesonide-formoterol 2 puff Inhalation 2 times daily docusate sodium 100 mg Oral BID Or docusate 100 mg Per OG Tube BID enoxaparin 40 mg Subcutaneous Q24H influenza vaccine quadrivalent 0.5 mL Intramuscular Once Immunization insulin lispro (human) 0-14 Units Subcutaneous Q6H ipratropium-albuterol 3 mL Nebulization Q6H [place] metoprolol 5 mg Intravenous TID polyethylene glycol 17 g Oral Daily Continuous Infusions dextrose dextrose PRN Medications acetaminophen OR acetaminophen, albuterol, bisacodyl, dextrose, dextrose, dextrose, glu cagon, glucagon, magnesium sulfate OR magnesium sulfate OR magnesium sulfate, nystat in, ondansetron OR ondansetron, phosphorus OR sodium phosphate IVPB 20 mmol OR s odium phosphate IVPB 45 mmol, potassium chloride OR potassium chloride OR potassium chloride OBJECTIVE Vital Signs: BP 156/74 (BP Location: Right upper arm) | Pulse 62 | Temp 98.2 F (36.8 C) (Oral) | Resp 16 | Ht 1.6 m (5' 2.99") | Wt 78.7 kg (173 lb 6.4 oz) | SpO2 98% Comment: O2 2l/m nc | ? No | BMI 30.72 kg/m Patient Vitals for the past 24 hrs: BP Temp Temp src Pulse Resp SpO2 Weight 09/29/18 0850 - - - 62 16 - - 09/29/18 0840 - - - 62 16 98 % - 09/29/18 0741 156/74 98.2 F (36.8 C) Oral 63 16 98 % - 09/29/18 0600 167/79 - - 68 - - - 09/29/18 0259 182/81 98.2 F (36.8 C) Oral 66 20 91 % 78.7 kg (173 lb 6.4 oz) 09/28/18 2332 145/65 97.9 F (36.6 C) Axillary 68 11 97 % - 09/28/18 2146 178/84 - - - - - - 09/28/182045 - - - 72 17 96 % - 09/28/182025 172/80 - - 72 17 96 % - 09/28/182015 186/88 - - - - - - 09/28/182010 (!) 168/94 98 F (36.7 C) Oral 75 19 94 % - 09/28/18 1712 154/67 - - 70 - - - 09/28/18 1604 169/77 97.8 F (36.6 C) Oral 72 18 92 % - 09/28/18 1538 - - - 69 18 96 % - 09/28/18 1537 - - - - - 97 % - 09/28/18 1536 - - - 74 18 97 % - 09/28/18 1158 178/77 97.9 F (36.6 C) Oral 77 16 94 % - Intake/Output Summary (Last 24 hours) at 09/29/18 1144 Last data filed at 09/29/18 1122 Gross per 24 hour Intake 1219 ml Output 1450 ml Net -231 ml Physical Exam: Constitutional: Alert and oriented to person, place, and time. Appears well-developed and w ell-nourished. HEENT: Neck supple, no JVD, non icteric sclera. Cardiovascular: Normal rate, regular rhythm, normal heart sounds with S1 and S2, distant heart sounds Pulmonary/Chest: Effort normal . Bilateral wheezes present. Abdominal: Soft. Bowel sounds are normal. exhibits no distension and no mass. There is no t enderness. There is no rebound and no guarding. Extremeties/Musculoskeletal: exhibits no edema. Neurological: Alert and oriented to person, place, and time. Skin: Skin is warm and dry. Psychiatric: Has a normal mood and affect. DATA Recent Labs Lab 09/29/18 0420 09/28/18 0525 09/27/18 0407 WBC 6.01 6.63 8.27 RBC 3.73 3.64* 3.76 HGB 11.3 11.1* 11.1* HCT 32.6* 32.3* 34.2 MCV 87.5 88.8 91.0 MCH 30.2 30.5 29.6 MCHC 34.6 34.3 32.5 RDW 41.6 42.4 44.6 PLT 180 185 189 MPV 8.3 8.4 8.6 DIFFTYPE MANUAL AUTOMATED MANUAL Recent Labs Lab 09/29/18 04209/28/18 1530 09/28/18 0509/27/18 0407 09/22/18 1747 NA 141 -- 145 144 < > 141 K 3.7 4.0 3.7 4.1 < > 4.8 CL 101 -- 106 107 < > 106 CO2 32 -- 33* 31 < > 27 BUN 39* -- 57* 68* < > 14 CREATININE 1.1* -- 1.2* 1.4* < > 0.99 PROT -- -- -- -- -- 6.5 BILITOT -- -- -- -- -- 0.5 ALT -- -- -- -- -- 19 AST -- -- -- -- -- 19 GLUF 102* -- 77 87 < > 179* < > = values in this interval not displayed. No results for input(s): CKTOTAL, TROPONINI, TROPONINT, CKMBINDEX in the last 168 hours. Recent Labs Lab 09/29/1841909/28/18 0509/27/18 0407 PHOS 3.9 5.1* 2.4 Recent Labs Lab 09/29/1841909/28/1852409/27/18 0407 MG 2.2 2.2 2.5* Invalid input(s): ABG No results for input(s): CALCIUM in the last 168 hours. No results for input(s): APTT, INR, PTT in the last 168 hours. Xr Chest 1 View Result Date: 09/22/2018 Left midlung ill-defined hazy infiltrates perhaps extending to the left lung base. Tubes an d lines in appropriate position. Signed by: Fabrice Iniguez Sign Date/Time: 09/22/2018 5:56 PM PROBLEM LIST Principal Problem: Acute on chronic respiratory failure with hypoxia and hypercapnia (HCC) Active Problems: COPD (chronic obstructive pulmonary disease) Tobacco abuse Influenza A Acute kidney injury (HCC) ASSESSMENT & PLAN Acute on chronic hypoxic and hypercapnic respiratory failure. Acute respiratory failure velasquez s resolved. We will continue BiPAP at night. We will continue oxygen supplementation. COPD. Acute exacerbation resolved. Will continue Symbicort and DuoNeb. Hypertension. We will continue metoprolol. Acute kidney injury. Creatinine is trending down. We will continue to monitor. Influenza A. Patient completed a course of Tamiflu. Dysphagia. Awaiting speech therapy evaluation. Hyperglycemia has resolved. We will stop sliding scale insulin. DVT prophylaxis. We will continue Lovenox. Plan discussed with patient and her daughter. All questions were answered . All data was re viewed. Disposition: Inpatient Code Status: Full Code Ashleigh López MD 09/29/2018 11:44 AM This entry has been created using [employer] Speech [employer]ognition software and [employer]. The entry has been reviewed and there may still exist sound alike word errors. Gabriella Patten, RD - 09/28/2018 10:38 AM PDTFormatting of this note may be different from ale original. 09/28/18 0923 Subjective Timepoint Follow up (high follow-up) Pt c/o Pt extubated, on Bipap. Remains NPO at this time per MAINTENANCE MECHANIC SUPERVISOR. Per RN, no plans to TF at this time, MAINTENANCE MECHANIC SUPERVISOR to reevaluate today with hopeful diet advancement. Fluid / Beverage Intake Oral Fluids Amount NPO Food Intake Amount of Food NPO Type of Food / Meals NPO Anthropometrics Weight change Most recent wt of 82.9 kg on 09/27/18, up 2 kg from admit wt of 80.9 kg. Per I/ Os, pt is approx 1.8 L fluid positive. Lasix ordered. Biochemical data, medical tests, and procedures reviewed Biochemical data, medical tests, and procedures reviewed BUN, Cr, Phos elevated with MARIIA. Recommendations Recommended energy needs Recommend diet per MAINTENANCE MECHANIC SUPERVISOR. Monitor po intake. Nutrition supplements c an be provided prn once diet advances. If unable to advance diet, consider EN to meet nutrit ional needs (Fibersource HN at 60 ml/hr, 24 hr delivery to provide 1728 kcal, 1440 ml total volume, 78 g pro, and 1164 ml free water). Will continue to follow and make further nutritio n recommendations as indicated. Nutritional Risk Nutritional risk High Follow up date 10/01/18 Gabriella Patten, MS, Niya Walker MD - 09/28/2018 9:43 AM PDTFormatting of this note may b e different from the original. [facility] Service: Hospitalist Progress Note Hospital Day: LOS: 6 days SUBJECTIVE Feels tired, and fatigued Patient Summary: The patient is a 68 y.o.femalewith significant past medical history of COPD on 2 L home O2 day and night, tobacco abuse, cervical cancerwho presents as a transfer [facility] for acute respiratory distress requiring intubation as she failed BiPAP therapy. Per transfer notes, patient has had worsening shortness of breath for the last 2-3 days and called EMS. She was discharge from [facility] 2 weeks ago with similar complaint and pos sible viral pneumonia due to unknown organism. Labs from [facility] showing WBC 11.6, troponin negative, d-dimer negative, CXR w ith no acute process, no changes noted on EKG. Truck Technician called for transfer to ICU. ICU Timeline: 09/22: admitted from [facility] for hypercapnic respiratory failure from COPD exacerba tion. Severe hypercapnic respiratory acidosis requiring neuromuscular blockade 09/23: remains paralyzed, improving respiratory acidosis. Sedation switched to propofol f rom midazolam 09/24: required increase/ re-bolus of cisatracurium for ventilator dyssynchrony. Paralyti cs later stopped at 10:30. Remains on MV sedated on fentanyl and propofol. 09/25: Remains on MV, sedated on propofol and fentanyl. Required Nimbex infusion again du e to ventilator dyssynchrony. 09/26: successfully extubated 09/27 tx to floor Scheduled Medications budesonide-formoterol 2 puff Inhalation 2 times daily docusate sodium 100 mg Oral BID Or docusate 100 mg Per OG Tube BID enoxaparin 40 mg Subcutaneous Q24H [START ON 09/29/2018] influenza vaccine quadrivalent 0.5 mL Intramuscular Once Immunizat ion insulin lispro (human) 0-14 Units Subcutaneous Q6H ipratropium-albuterol 3 mL Nebulization Q6H polyethylene glycol 17 g Oral Daily Continuous Infusions dextrose PRN Medications acetaminophen OR acetaminophen, albuterol, bisacodyl, dextrose, dextrose, dextrose, glu cagon, glucagon, labetalol OR labetalol, magnesium sulfate OR magnesium sulfate OR magnesium sulfate, nystatin, ondansetron OR ondansetron, phosphorus OR sodium melody sphate IVPB 20 mmol OR sodium phosphate IVPB 45 mmol, potassium chloride OR potassiu m chloride OR potassium chloride OBJECTIVE Vital Signs: BP 159/68 (BP Location: Right upper arm) | Pulse 79 | Temp 98 F (36.7 C) (Oral) | Re sp 16 | Ht 1.6 m (5' 2.99") | Wt 82.9 kg (182 lb 12.2 oz) | SpO2 94% | ? No | BMI 32.38 kg/m Patient Vitals for the past 24 hrs: BP Temp Temp src Pulse Resp SpO2 09/28/18 0743 159/68 98 F (36.7 C) Oral 79 16 94 % 09/28/18 0453 - - - 67 13 95 % 09/28/18 0351 131/63 98.3 F (36.8 C) Axillary 70 14 94 % 09/27/18 2351 122/60 98.2 F (36.8 C) Axillary 84 15 95 % 09/27/182328 - - - 69 11 95 % 09/27/182315 - - - 72 12 96 % 09/27/182027 - - - 84 16 96 % 09/27/182014 - - - 67 15 97 % 09/27/18 1937 159/74 98.4 F (36.9 C) Oral 81 14 96 % 09/27/18 1832 152/75 - - - - - 09/27/18 1740 - - - 74 14 97 % 09/27/18 1730 - - - 73 16 97 % 09/27/18 1526 169/78 - - 60 - 96 % 09/27/18 1415 155/72 - - 61 - 97 % 09/27/18 1400 167/75 - - 67 - 95 % 09/27/18 1345 173/75 - - 73 - 93 % 09/27/18 1330 160/77 - - 67 - 94 % 09/27/18 1315 159/73 - - 72 - 94 % 09/27/18 1300 186/72 - - 76 - 90 % 09/27/18 1202 - - - 67 16 96 % 09/27/18 1200 144/63 - - 61 - 94 % 09/27/18 1151 143/67 98.1 F (36.7 C) Oral 87 - 94 % 09/27/18 1100 175/72 - - 60 - 91 % 09/27/18 1007 166/75 - - 64 - - 09/27/18 1000 162/71 - - 74 26 93 % Intake/Output Summary (Last 24 hours) at 09/28/18 0943 Last data filed at 09/28/18 0537 Gross per 24 hour Intake 0 ml Output 1675 ml Net -1675 ml Physical Exam: Constitutional: Alert and oriented to person, place, and time. Appears FRAIL, THIN CHRONIC ILL LOOKING ON O2 NO ACUTE DISTRESS . HEENT: Neck supple, no JVD, non icteric sclera. Cardiovascular: Normal rate, regular rhythm, normal heart sounds with S1 and S2, Exam re veals no gallop and no friction rub. Pulmonary/Chest: Effort normal and breath sounds normal. BILATERAL WHEEZING. ON O2 NO respiratory distress. Abdominal: Soft. Bowel sounds are normal. exhibits no distension and no palpable mass. Ther e is no tenderness. There is no rebound and no guarding. Extremeties/Musculoskeletal: Normal range of motion.exhibits no tenderness. exhibits no ed minor. Neurological: Alert and oriented to person, place, and time. Skin: Skin is warm and dry. PALE Psychiatric: Has a normal mood and affect. DATA Recent Labs Lab 09/28/18 0525 09/27/18 0407 09/26/18 0404 WBC 6.63 8.27 8.04 RBC 3.64* 3.76 3.36* HGB 11.1* 11.1* 10.1* HCT 32.3* 34.2 30.6* MCV 88.8 91.0 91.0 MCH 30.5 29.6 30.0 MCHC 34.3 32.5 33.0 RDW 42.4 44.6 45.5 PLT 185 189 188 MPV 8.4 8.6 9.1 DIFFTYPE AUTOMATED MANUAL MANUAL Recent Labs Lab 09/28/18 0525 09/27/18 0407 09/26/18 0404 09/22/18 1747 NA 145 144 141 < > 141 K 3.7 4.1 4.9 < > 4.8 CL 106 107 104 < > 106 CO2 33* 31 25 < > 27 BUN 57* 68* 77* < > 14 CREATININE 1.2* 1.4* 1.8* < > 0.99 PROT -- -- -- -- 6.5 BILITOT -- -- -- -- 0.5 ALT -- -- -- -- 19 AST -- -- -- -- 19 GLUF 77 87 159* < > 179* < > = values in this interval not displayed. No results for input(s): CKTOTAL, TROPONINI, TROPONINT, CKMBINDEX in the last 168 hours. Recent Labs Lab 09/28/18 0509/27/1840609/26/18 0404 PHOS 5.1* 2.4 2.4 Recent Labs Lab 09/28/18 0509/27/18 04009/26/18 0404 MG 2.2 2.5* 2.8* Invalid input(s): ABG No results for input(s): CALCIUM in the last 168 hours. No results for input(s): APTT, INR, PTT in the last 168 hours. Xr Chest 1 View Result Date: 09/22/2018 Left midlung ill-defined hazy infiltrates perhaps extending to the left lung base. Tubes an d lines in appropriate position. Signed by: Fabrice Iniguez Sign Date/Time: 09/22/2018 5:56 PM PROBLEM LIST Principal Problem: Acute on chronic respiratory failure with hypoxia and hypercapnia (HCC) Active Problems: COPD exacerbation (HCC) Tobacco abuse Leukocytosis Steroid-induced hyperglycemia Acute on chronic respiratory acidosis Influenza A Acute kidney injury (HCC) ASSESSMENT / PLAN [id number] respiratory failure with hypercapnia secondary to COPD exacerbation and influenza A pneumonia. Improving. ? Duonebs scheduled, q 6 hours. ? Patient received levofloxacin 09/22 - 09/24. Abx stopped now. ? Oseltamivir course completed for influenza A pneumonia. ? Steroids also stopped ? C/w Bipap qhs and prn ? Pt/ot ? D/c tele, neuro checks Acute kidney injury - renal function continuing to improve. BMP daily. Strict Is & Os. Avoid nephrotoxins and renally dose medications. Monitor electrolytes and replace as needed. Influenza A infection. Completed oseltamivir course. Patient received levofloxacin 09/22 - 09/24. Abx stopped yesterday. Procalcitonin < 0.05 today. Hyperglycemia, secondary to corticosteroids Monitor and adjust insulin lovenox 40 The plan has explained in detail to the patient , all questions were answered.All data was reviewed. I explained radiology and lab findings and plan of care to patient and relatives and they v erbalized understanding and agreement and had no more questions for me after my interaction with them. More than 35 minutes spent directly face to face with patient and more than 65% s pent for physical examination and talking with patient and relatives at bedside, on chart review, coordinating care with other providers, formulating a plan of care and management as well as Computerized Physician Slab Conditioner Supervisor. Disposition: tbd Code Status: Full Code Niya Tavarez MD 09/28/2018 9:43 AM Pilar Arias, [facility] - 09/27/2018 2:15 PM PDTFormatting of this note may be different f rom the original. Clinical Pharmacy Note: Renal Monitoring Ht Readings from Last 1 Encounters: 09/25/18 1.6 m (5' 2.99") Wt Readings from Last 1 Encounters: 09/27/18 82.9 kg (182 lb 12.2 oz) Serum creatinine: 1.4 mg/dL (H) 09/27/18 0407 Estimated creatinine clearance: 40.3 mL/min (A) Pharmacy dosing for renal function per Dr. Rodriguez Due to patient's current renal function, the following dose adjustment was made per kulwant l: Original order: enoxaparin 30 mg SC daily Dose adjustment: enoxaparin 40 mg SC daily Pharmacy will continue monitoring patient for appropriate dosing per renal function. Associated attestation - Paige Echevarria [facility] - 09/27/2018 2:39 PM PDTThe following wa s reviewed by a pharmacist and I agree with the following changesPatty Guo ARNP - 09/27/2018 2:17 AM PDTFormatting of this note may be different from the original. [facility] Truck Technician Service Progress Note Stephanie Simmons 68 y.o. Hospital Day: LOS: 5 days Consulting Physicians Treatment Team: Admitting Provider: Cooper Rodriguez MD SUBJECTIVE Patient Summary: From Dr. Mauricio's H & P on 09/22/18: The patient is a 68 y.o. female with significant past medical history of COPD on 2 L home O 2 day and night, tobacco abuse, cervical cancer who presents as a transfer from [facility] for acute respiratory distress requiring intubation as she failed BiPAP therapy. Pe r transfer notes, patient has had worsening shortness of breath for the last 2-3 days and ca lled EMS. She was discharge from [facility] 2 weeks ago with similar complaint and possib le viral pneumonia due to unknown organism. Labs from [facility] showing WBC 11.6, troponin negative, d-dimer negative, CXR w ith no acute process, no changes noted on EKG. Truck Technician called for transfer to ICU. ICU Timeline: 09/22: admitted from [facility] for hypercapnic respiratory failure from COPD exacerba tion. Severe hypercapnic respiratory acidosis requiring neuromuscular blockade 09/23: remains paralyzed, improving respiratory acidosis. Sedation switched to propofol f rom midazolam 09/24: required increase/ re-bolus of cisatracurium for ventilator dyssynchrony. Paralyti cs later stopped at 10:30. Remains on MV sedated on fentanyl and propofol. 09/25: Remains on MV, sedated on propofol and fentanyl. Required Nimbex infusion again du e to ventilator dyssynchrony. 09/26: successfully extubated Events Overnight: Pt wheezing. Generally very weak. On BiPAP at 30% for a couple of hours of the night because she felt fatigued. SCHEDULED MEDICATIONS docusate sodium 100 mg Oral BID Or docusate 100 mg Per OG Tube BID enoxaparin 30 mg Subcutaneous Q24H insulin lispro (human) 0-14 Units Subcutaneous Q6H ipratropium-albuterol 3 mL Nebulization Q6H labetalol 10 mg Intravenous Once methylPREDNISolone 40 mg Intravenous Daily oseltamivir 30 mg Oral Daily polyethylene glycol 17 g Oral Daily CONTINUOUS INFUSIONS dextrose OBJECTIVE VITAL SIGNS Temp: [98.2 F (36.8 C)-99.4 F (37.4 C)] 98.6 F (37 C) Heart Rate: [60-103] 60 Resp: [10-40] 33 BP: (128-197)/(63-88) 139/65 FiO2 : [30 %] 30 % Intake/Output Summary (Last 24 hours) at 09/27/18 0217 Last data filed at 09/27/18 0000 Gross per 24 hour Intake 1892.5 ml Output 2480 ml Net -587.5 ml EXAM GEN: lying in bed, sleepy but oriented, NAD NEURO: PERRL, no facial asymmetry, moves all extremities weakly to commands HEENT: sclerae nonicteric, oral mmm, pink NECK: supple, trachea midline CV: RRR, S1/S2, no murmur, rub or gallop, peripheral pulses palpable, cap refill brisk LUNGS: wheezes bilaterally, no rhonchi or rales, symmetric chest expansion, even/unlabored respirations ABD: soft, nondistended, nontender to palpation, rounded, bowel tones active EXTR: 1+ edema to extremities, no clubbing or cyanosis SKIN: warm, dry, no rash or mottling; no e/o skin breakdown over the occiput, scapulae, elb ows, sacrum or heels LINES/TUBES: PIVs x 2, urethral catheter (09/22) DATA Recent Labs Lab 09/27/18 0407 09/26/18 0404 09/25/18 0408 09/24/18 0703 09/22/18 1747 WBC 8.27 8.04 12.19* 16.40* < > 19.62* RBC 3.76 3.36* 3.51* 3.66* < > 4.36 HGB 11.1* 10.1* 10.5* 10.9* < > 13.1 HCT 34.2 30.6* 31.8* 33.0* < > 40.2 MCV 91.0 91.0 90.6 90.2 < > 92.1 MCH 29.6 30.0 29.9 29.7 < > 30.1 MCHC 32.5 33.0 33.1 32.9 < > 32.6 RDW 44.6 45.5 45.9 45.5 < > 45.9 PLT 189 188 210 198 < > 251 MPV 8.6 9.1 8.9 8.6 < > 8.4 BANDSABS 0.17 0.24* 1.22* -- -- -- NEUTROABS -- -- -- 15.42* -- 18.79* LYMPHSABS -- -- -- 0.25* -- 0.13* MONOSABS -- -- -- 0.61 -- 0.56 BASOSABS -- -- -- 0.05 -- 0.14* EOSABS -- -- -- 0.07 -- 0.01 MORPH RBC AND PLT MORPHOLOGY APPEAR NORMAL RBC AND PLT MORPHOLOGY APPEAR NORMAL RBC AND PLT MORPHOLOGY APPEAR NORMAL NORMAL PLT MORPH < > RBC AND PLT MORPHOLOGY APPEAR NORMAL < > = values in this interval not displayed. Recent Labs Lab 09/27/18 04009/26/1840309/25/18 1728 09/25/1840709/22/18 1747 NA 144 141 -- 139 < > 141 K 4.1 4.9 4.8 4.4 < > 4.8 CL 107 104 -- 105 < > 106 CO2 31 25 -- 18* < > 27 ANIONGAP 10 17 -- 20 < > 13 GLUF 87 159* -- 115* < > 179* BUN 68* 77* -- 58* < > 14 CREATININE 1.4* 1.8* -- 2.2* < > 0.99 BCR 49 43 -- 26 < > 14 CA 8.9 8.7 -- 7.3* < > 8.5 ALB -- -- -- -- -- 4.5 GLOB -- -- -- -- -- 2.0 AG -- -- -- -- -- 2.3 PROT -- -- -- -- -- 6.5 BILITOT -- -- -- -- -- 0.5 ALT -- -- -- -- -- 19 AST -- -- -- -- -- 19 EGFR 38* 28* -- 22* < > 56* PHOS 2.4 2.4 3.2 2.8 < > 4.6 MG 2.5* 2.8* 2.7* 2.2 < > 1.8 < > = values in this interval not displayed. No results for input(s): INR in the last 168 hours. IMAGING Xr Chest 1 View Result Date: 09/22/2018 Left midlung ill-defined hazy infiltrates perhaps extending to the left lung base. Tubes an d lines in appropriate position. Signed by: Fabrice Iniguez Sign Date/Time: 09/22/2018 5:56 PM PROBLEM LIST Principal Problem: Acute on chronic respiratory failure with hypoxia and hypercapnia (HCC) Active Problems: COPD exacerbation (HCC) Tobacco abuse Leukocytosis Steroid-induced hyperglycemia Acute on chronic respiratory acidosis Influenza A Acute kidney injury (HCC) Resolved Problems: * No resolved hospital problems. * ASSESSMENT & PLAN NEURO: No further sedation. Pt extubated on 09/26. CAM-ICU screening every shift. CV: Normal sinus rhythm. Hypertension. Labetalol available prn SBP > 160. PULM: Vjosx-fk-iwjaokq respiratory failure with hypercapnia secondary to COPD exacerbation and influenza A pneumonia. Improving. ? Duonebs scheduled, q 6 hours. ? Patient received levofloxacin 09/22 - 09/24. Abx stopped yesterday. Procalcitonin < 0.05 t tello. ? Oseltamivir course completed for influenza A pneumonia. ? Give last dose IV Solu-medrol this morning then stop steroids. GI/NUTRITION: NPO until MAINTENANCE MECHANIC SUPERVISOR eval can be completed. RENAL/LYTES: Acute kidney injury - renal function continuing to improve. BMP daily. Strict Is & Os. Avoid nephrotoxins and renally dose medications. Monitor electrolytes and replace as needed. ID: Influenza A infection. Completed oseltamivir course. Patient received levofloxacin 09/22 - 09/24. Abx stopped yesterday. Procalcitonin < 0.05 today. HEME: No acute issues. CBC daily. ENDO: Hyperglycemia, secondary to corticosteroids. Blood glucose goal 80 - 180 mg/dL. Contin ue high dose SSI. Switch to Endotool if BG > 180 x 2. MUSC/SKIN: Skin care and pressure ulcer prevention per nursing standards. Turns q 2 hrs to prevent pressure ulcers. PT/OT. PROPHYLAXIS: Stress ulcer prophylaxis: no longer indicated DVT prophylaxis: SCDs, enoxaparin VAP bundle: no longer indicated Disposition: ICU plan of care as above. Code Status: Full Code *Please bill 40 minutes of critical care time spent evaluating the patient, reviewing the d adia and formulating a plan exclusive of all other procedures. Patty Guo, ZORA 09/27/[address] - 09/26/2018 3:12 PM PDTFormatting of this note may be different from the original. 09/26/18 1458 Subjective Timepoint Follow up Pt c/o Pt extubated and now on bipap. Fluid / Beverage Intake Oral Fluids Amount NPO Food Intake Type of Food / Meals NPO Enteral Nutrition Intake Access TF no longer running at this time, pt extubated. Nutrition-Focused Physical Findings Body Language On propofol Extremities, Muscles and Bones BUE dependent edema, BLE +1 edema. Anthropometrics Weight change Wt down 4.7 kg since admit. Per I/O's pt is fluid positive 4.8 L. Continue to monitor. Biochemical data, medical tests, and procedures reviewed Biochemical data, medical tests, and procedures reviewed BG 115-160 over the last 24 hours, on solumedrol and insulin ordered. Estimated Energy Needs Total Energy Estimated Needs [id number] kcal Method for Estimating Needs 25-30 kcal/kg based on adjusted BW of 59.5 kg. Needs will rebollar e if pt is reintubated. Estimated Protein Needs Total Protein Estimated Needs 71-89 g Method for Estimating Needs 1.2-1.5 g/kg based on adjusted body wt of 59 kg. Needs will varinder nge if pt is reintubated. Recommendations Recommended energy needs Recommend MAINTENANCE MECHANIC SUPERVISOR swallow eval prior to diet advancement. If diet unab le to advance and pt is reintubated, resume TF of Peptamen Intense VHP with goal rate of 57 ml/hr. Nutritional Risk Nutritional risk High Follow up date 09/29/18 Magnolia Aguiar, MS, RDN, CD Trever Del Valle, SAP BUSINESS INTELLIGENCE CONSULTANT - 09/26/2018 1:18 PM PDTPatient passed SBT on PS 8/5 FiO2 30% and wa s extubated at 1318 to Bipap 10/5 FiO2 30%. No distress or stridor noted post extubation. St elke productive cough noted.Patty Guo, DOCTOR OF NURSING PRACTICE - 09/26/2018 2:56 AM PDTFormatting o f this note may be different from the original. [facility] Truck Technician Service Progress Note Stephanie Crow [place] 68 y.o. Hospital Day: LOS: 4 days Consulting Physicians Treatment Team: Admitting Provider: Cooper Rodriguez MD SUBJECTIVE Patient Summary: From Dr. Mauricio's H & P on 09/22/18: The patient is a 68 y.o. female with significant past medical history of COPD on 2 L home O 2 day and night, tobacco abuse, cervical cancer who presents as a transfer from [facility] for acute respiratory distress requiring intubation as she failed BiPAP therapy. Pe r transfer notes, patient has had worsening shortness of breath for the last 2-3 days and ca lled EMS. She was discharge from [facility] 2 weeks ago with similar complaint and possib le viral pneumonia due to unknown organism. Labs from [facility] showing WBC 11.6, troponin negative, d-dimer negative, CXR w ith no acute process, no changes noted on EKG. Truck Technician called for transfer to ICU. ICU Timeline: 09/22: admitted from [facility] for hypercapnic respiratory failure from COPD exacerba tion. Severe hypercapnic respiratory acidosis requiring neuromuscular blockade 09/23: remains paralyzed, improving respiratory acidosis. Sedation switched to propofol f rom midazolam 09/24: required increase/ re-bolus of cisatracurium for ventilator dyssynchrony. Paralyti cs later stopped at 10:30. Remains on MV sedated on fentanyl and propofol. 09/25: Remains on MV, sedated on propofol and fentanyl. Required Nimbex infusion again du e to ventilator dyssynchrony. Events Overnight: Remains on MV, sedated on propofol and fentanyl. Remains off paral ytics. SCHEDULED MEDICATIONS albuterol 6 puff Ventilator Q4H chlorhexidine gluconate 15 mL Mouth/Throat Q12H docusate sodium 100 mg Oral BID Or docusate 100 mg Per OG Tube BID enoxaparin 30 mg Subcutaneous Q24H famotidine 20 mg Intravenous Daily Or famotidine 20 mg Oral Daily fentaNYL 100 mcg Intravenous Once insulin lispro (human) 0-14 Units Subcutaneous Q6H ipratropium 2 puff Ventilator Q4H methylPREDNISolone 40 mg Intravenous Q8H oseltamivir 30 mg Oral Daily polyethylene glycol 17 g Oral Daily CONTINUOUS INFUSIONS cisatracurium in NS 0.4 mg/mL Stopped (09/25/181613) dextrose fentaNYL in NS 5 mcg/mL 50 mcg/hr (09/25/182014) propofol 0 mcg/kg/min (09/25/181617) OBJECTIVE VITAL SIGNS Temp: [98.5 F (36.9 C)-99.2 F (37.3 C)] 99 F (37.2 C) Heart Rate: [65-87] 66 Resp: [15-38] 24 BP: (106-149)/(55-71) 128/63 FiO2 : [30 %] 30 % Intake/Output Summary (Last 24 hours) at 09/26/18 0749 Last data filed at 09/26/18 0530 Gross per 24 hour Intake 2835.5 ml Output 1825 ml Net 1010.5 ml EXAM GEN: (examined while lightly sedated on continuous propofol and fentanyl), opens eyes to to uch, NAD, on mechanical ventilation NEURO: PERRL, no facial asymmetry, moves all extremities weakly to commands HEENT: sclerae nonicteric, oral mmm, pink NECK: supple, trachea midline CV: RRR, S1/S2, no murmur, rub or gallop, peripheral pulses palpable, cap refill brisk LUNGS: coarse b/l with rhonchi on right, no wheezing or rales, symmetric chest expansion, e zack/unlabored respirations ABD: soft, nondistended, nontender to palpation, rounded, bowel tones active EXTR: 1+ edema to extremities, no clubbing or cyanosis SKIN: warm, dry, no rash or mottling; no e/o skin breakdown over the occiput, scapulae, elb ows, sacrum or heels LINES/TUBES: ETT/OGT, PIVs x 2, urethral catheter (09/22) DATA Recent Labs Lab 09/26/18 0404 09/25/18 0408 09/24/18 0703 09/22/18 1747 WBC 8.04 12.19* 16.40* < > 19.62* RBC 3.36* 3.51* 3.66* < > 4.36 HGB 10.1* 10.5* 10.9* < > 13.1 HCT 30.6* 31.8* 33.0* < > 40.2 MCV 91.0 90.6 90.2 < > 92.1 MCH 30.0 29.9 29.7 < > 30.1 MCHC 33.0 33.1 32.9 < > 32.6 RDW 45.5 45.9 45.5 < > 45.9 PLT 188 210 198 < > 251 MPV 9.1 8.9 8.6 < > 8.4 BANDSABS 0.24* 1.22* -- -- -- NEUTROABS -- -- 15.42* -- 18.79* LYMPHSABS -- -- 0.25* -- 0.13* MONOSABS -- -- 0.61 -- 0.56 BASOSABS -- -- 0.05 -- 0.14* EOSABS -- -- 0.07 -- 0.01 MORPH RBC AND PLT MORPHOLOGY APPEAR NORMAL RBC AND PLT MORPHOLOGY APPEAR NORMAL NORMAL PLT MORPH < > RBC AND PLT MORPHOLOGY APPEAR NORMAL < > = values in this interval not displayed. Recent Labs Lab 09/26/18 0404 09/25/18 1728 09/25/18 0408 09/24/18 04009/22/18 1747 NA 141 -- 139 139 < > 141 K 4.9 4.8 4.4 3.7 < > 4.8 CL 104 -- 105 103 < > 106 CO2 25 -- 18* 22* < > 27 ANIONGAP 17 -- 20 18 < > 13 GLUF 159* -- 115* 148* < > 179* BUN 77* -- 58* 30* < > 14 CREATININE 1.8* -- 2.2* 2.1* < > 0.99 BCR 43 -- 26 14 < > 14 CA 8.7 -- 7.3* 7.7* < > 8.5 ALB -- -- -- -- -- 4.5 GLOB -- -- -- -- -- 2.0 AG -- -- -- -- -- 2.3 PROT -- -- -- -- -- 6.5 BILITOT -- -- -- -- -- 0.5 ALT -- -- -- -- -- 19 AST -- -- -- -- -- 19 EGFR 28* -- 22* 24* < > 56* PHOS 2.4 3.2 2.8 2.4 < > 4.6 MG 2.8* 2.7* 2.2 2.0 < > 1.8 < > = values in this interval not displayed. No results for input(s): INR in the last 168 hours. IMAGING Xr Chest 1 View Result Date: 09/22/2018 Left midlung ill-defined hazy infiltrates perhaps extending to the left lung base. Tubes an d lines in appropriate position. Signed by: Fabrice Iniguez Sign Date/Time: 09/22/2018 5:56 PM PROBLEM LIST Principal Problem: Acute on chronic respiratory failure with hypoxia and hypercapnia (HCC) Active Problems: COPD exacerbation (HCC) Tobacco abuse Leukocytosis Steroid-induced hyperglycemia Acute on chronic respiratory acidosis Influenza A Acute kidney injury (HCC) Resolved Problems: * No resolved hospital problems. * ASSESSMENT & PLAN NEURO: Intubated, sedated. Neuromuscular blockade was required again for about 6 hours yesterd ay during the day. Paralytics off through the night. Planning for sedation holiday and SBT today, and assess readiness to extubate. CAM-ICU screening every shift. CV: Normal sinus rhythm. Hemodynamically stable. PULM: Afbpd-th-revufaj respiratory failure with hypercapnia secondary to COPD exacerbation and influenza A pneumonia. ? Continue mechanical ventilation. currently off paralytics. ? CXR showing left lung infiltrates. ? Continue scheduled inhalers - albuterol and ipratropium. ? Continue levofloxacin for severe COPD exacerbation. ? Oseltamivir for influenza A pneumonia. ? Continue steroids, IV Solu-medrol 40 mg once this morning and tomorrow morning, then stop . Mhhtf-ig-yxaqasg respiratory acidosis - from COPD exacerbation, improving. GI/NUTRITION: Retail Project Merchandiser recommendations for TF as follows: Peptamen Intense VHP at goal rate of 57 mL/ hr x 20 hours to provide 1140 kca, 105 g protein, 958 mL free H2O, and 1140 mL TV. TF at go al rate provides 14 kcal/kg per 80.9 kg admit wt and 2.0gPRO/kg per 52.3kg IBW. Recommended fluid needs: Free water flushes of 30 mL Q 4 hrs. RENAL/LYTES: Acute kidney injury - renal function improved today. BMP daily. Strict Is & Os. Avoid nephrotoxins and renally dose medications. Monitor electrolytes and replace as needed. ID: Influenza A infection. Continue oseltamivir for a total of 5 days (stop date 09/27). Con tinue levofloxacin for possible bacterial super-infection, procalcitonin elevated. Recheck procalcitonin with am labs and consider stopping antibiotics tomorrow. HEME: No acute issues. CBC daily. ENDO: Hyperglycemia, secondary to corticosteroids. Blood glucose goal 80 - 180 mg/dL. Contin ue high dose SSI. Switch to Endotool if BG > 180 x 2. MUSC/SKIN: Skin care and pressure ulcer prevention per nursing standards. Turns q 2 hrs to prevent pressure ulcers. PT/OT. PROPHYLAXIS: Stress ulcer prophylaxis: famotidine DVT prophylaxis: SCDs, enoxaparin VAP bundle: chlorhexidine oral care, HOB >30 degrees Disposition: ICU plan of care as above. Hopeful for extubation soon. Code Status: Full Code *Please bill 40 minutes of critical care time spent evaluating the patient, reviewing the d adia and formulating a plan exclusive of all other procedures. ZORA Choudhary 09/26/2018 Noemí Storm - 09/25/2018 2:59 PM PDTAttended care conference to ensure family understo od medical picture, felt understood by care team, and to assess spiritual/emotional well-litzy ng. Daughter, Veronica, is only child whose grandmother is in [facility] with pneumo leonid. Veronica states she is closer to her grandmother than mother and concerned about grandm other's well-being should patient . Grandmother has already lost two children and a husba nd. Veronica was raised Sabianist but no longer believes in God. States she titus by staying busy and with support from family. Drum Sprayer provided supportive presence, affirmation, and e xplored coping skills and sources of comfort. See Goals of Robby Davidson, ROBLES - 09/25 2:54 PM PDTFormatting of this note may be different from the original. 09/25/18 1440 ETT 7.5 mm Placement Date/Time: 09/22/18 1705 Size : 7.5 mm Placed By: (c) Other (Comment) Secured at (cm): 22 cm Measured From: Teeth Secured by: Commercial tube lombardi Secured at (cm) 22 cm Measured From Teeth Secured Location Center Secured by Commercial tube l[place]ardi Vent Type/Mode Vent Type Servo i Vent Mode SERVO-i SIMV/VC+PS Automode Automode On or Off? OFF RT Settings Set Rate 24 bmp Resp Rate Total 24 br/min Vt Set 390 mL Pressure Support 10 cmH20 PEEP 8 cmH20 FiO2 30 % Pressure Trigger 0.3 cmH2O Insp Time 0.6 Sec(s) Insp Rise Time (sec) / Deuel 0.1 sec Patient Returns ET CO2 33 mmHg Ve 10.5 mL Peak Airway Pressure 28 cmH2O Mean Airway Pressure 14 cmH20 Inhaled Vt (mL) 399 mL Exhaled Vt (mL) 403 mL Dynamic Compliance (L/cm H2O) 23 L/cm H2O Alarms Alarms set per Policy Yes Resp Rate High 35 br/min Resp Rate Low 10 Press High 68 cmH2O Vt High 750 mL Ve High 17 L/min Ve Low 4 L/min MV Delay 15 sec ETCO2/TCM High (mmHg) 60 mmHg ETCO2/TCM Low (mmHg) 30 mmHg Alarm Volume 100 % Oxygen Therapy/Pulse Ox SpO2 96 % O2 Therapy Oxygen humidified O2 Device ETT Humidification Heated wire Humidifier Temp Setting 37 degC Humidifier Temp Actual 37 degC Vitals/Respiratory Assessment Assessment Type Pre-treatment Heart Rate 82 Heart Rate Source Monitor Resp 24 Level of Consciousness Pharmaceutically paralyzed Respiratory Pattern Regular Patient Tolerance Tolerated well Breath Sounds Breath Sounds Bilateral Diminished;Wheezes expiratory;Crackles Airway Suctioning/Secretions Suction Type Inline;Catheter Secretion Amount Small Secretion Color Creamy Secretion Consistency Thick Robby Weiner, SAP BUSINESS INTELLIGENCE CONSULTANT - 09/25/2018 11:19 AM PDTFormatting of this note may be different fro m the original. 09/25/18 1115 ETT 7.5 mm Placement Date/Time: 09/22/18 1705 Size : 7.5 mm Placed By: (c) Other (Comment) Secured at (cm): 22 cm Measured From: Teeth Secured by: Commercial tube lombardi Secured at (cm) 22 cm Measured From Teeth Secured Location Other (Comment) Secured by Commercial tube lombardi Site Condition Dry Adult IBW/VT Calculations Height 1.6 m (5' 2.99") IBW/kg (Calculated) Male 56.88 kg Low Range Vt 6cc/kg MALE 341.28 mL Adult Moderate Range Vt 8cc/kg MA 455.04 mL Adult High Range Vt 10cc/kg MALE 568.8 mL IBW/kg (Calculated) FEMALE 52.38 kg Low Range Vt 6cc/kg FEMALE 314.28 mL Adult Moderate Range vt 8cc/kg FEMALE 419.04 mL Adult High Range Vt 10cc/kg FEMALE 523.8 mL Vent Type/Mode Vent Type Servo i Vent Mode SERVO-i SIMV/VC+PS Automode Automode On or Off? OFF Device feeds Set Rate 20 bmp Resp Rate Total 20 br/min Inhaled Vt (mL) 390 mL Exhaled Vt (mL) 430 mL PEEP 8 cmH20 FiO2 30 % ET CO2 32 mmHg Peak Airway Pressure 27 cmH2O Mean Airway Pressure 13 cmH20 Ve 10.4 mL RT Entry Vt Set 390 mL Flow Trigger (L/min) 5 L/m Pressure Trigger -3 cmH2O TIP (sec) 0.8 sec Insp Rise Time (sec) / Deuel 0.1 sec Dynamic Compliance (L/cm H2O) 23 L/cm H2O Alarms Alarms On Y Oxygen Therapy/Pulse Ox SpO2 95 % O2 Therapy Oxygen humidified O2 Device ETT Humidification Heated wire Humidifier Temp Setting 37 degC Humidifier Temp Actual 36.5 degC Vitals/Respiratory Assessment Assessment Type Pre-treatment Heart Rate 85 Heart Rate Source Monitor Resp 20 Level of Consciousness Pharmaceutically paralyzed Respiratory Pattern Irregular;Labored Patient Tolerance Tolerated well Breath Sounds Breath Sounds Bilateral Wheezes expiratory;Tight;Diminished Robby Weiner, [employer] BUSINESS INTELLIGENCE CONSULTANT - 09/25/2018 8:11 AM PDTFormatting of this note may be different fro m the original. 09/25/18 0710 ETT 7.5 mm Placement Date/Time: 09/22/18 1705 Size : 7.5 mm Placed By: (c) Other (Comment) Secured at (cm): 22 cm Measured From: Teeth Secured by: Commercial tube lombardi Secured at (cm) 22 cm Measured From Teeth Secured Location Other (Comment) Adult IBW/VT Calculations Height 1.6 m (5' 2.99") IBW/kg (Calculated) Male 56.88 kg Low Range Vt 6cc/kg MALE 341.28 mL Adult Moderate Range Vt 8cc/kg MA 455.04 mL Adult High Range Vt 10cc/kg MALE 568.8 mL IBW/kg (Calculated) FEMALE 52.38 kg Low Range Vt 6cc/kg FEMALE 314.28 mL Adult Moderate Range vt 8cc/kg FEMALE 419.04 mL Adult High Range Vt 10cc/kg FEMALE 523.8 mL Vent Type/Mode Vent Type Servo i Vent Mode SERVO-i PRVC Automode Automode On or Off? ON Insp cycle off (%) 30 % Trigger time out (sec) 7 sec Device feeds Set Rate 20 bmp Resp Rate Total 20 br/min Inhaled Vt (mL) 386 mL Exhaled Vt (mL) 391 mL PEEP 8 cmH20 FiO2 30 % ET CO2 34 mmHg Peak Airway Pressure 41 cmH2O Mean Airway Pressure 15 cmH20 Ve 10.4 mL RT Entry Vt Set 390 mL Flow Trigger (L/min) 5 L/m Pressure Trigger -3 cmH2O TIP (sec) 0.8 sec Insp Rise Time (sec) / Deuel 0.1 sec VTE 391 mL Alarms Alarms On Y Resp Rate High 35 br/min Resp Rate Low 10 Press High 68 cmH2O Ve High 17 L/min Ve Low 4 L/min PEEP High Alarm 15 cmH2O PEEP Low Alarm 5 cmH2O Alarm Volume 100 % Daily Screen Daily Screen Complete N Oxygen Therapy/Pulse Ox SpO2 96 % O2 Therapy Oxygen humidified O2 Device ETT Humidification Heated wire Humidifier Temp Setting 37 degC Humidifier Temp Actual 37 degC Vitals/Respiratory Assessment Assessment Type Pre-treatment Heart Rate 79 Heart Rate Source Monitor Resp 20 Level of Consciousness Sedated Respiratory Pattern Irregular;Labored Breath Sounds Breath Sounds Bilateral Crackles;Diminished;Tight;Wheezes expiratory Airway Suctioning/Secretions Suction Type Inline;Catheter Secretion Amount Moderate Secretion Color Creamy Secretion Consistency Thick;Thin Patty Guo, [facility] - 09/25/2018 4:43 AM PDTFormatting of this note may be differen t from the original. [facility] Truck Technician Service Progress Note Stephanie Simmons 68 y.o. Hospital Day: LOS: 3 days Consulting Physicians Treatment Team: Admitting Provider: Cooper Rodriguez MD SUBJECTIVE Patient Summary: From Dr. Mauricio's H & P on 09/22/18: The patient is a 68 y.o. female with significant past medical history of COPD on 2 L home O 2 day and night, tobacco abuse, cervical cancer who presents as a transfer from [facility] for acute respiratory distress requiring intubation as she failed BiPAP therapy. Pe r transfer notes, patient has had worsening shortness of breath for the last 2-3 days and ca lled EMS. She was discharge from [facility] 2 weeks ago with similar complaint and possib le viral pneumonia due to unknown organism. Labs from [facility] showing WBC 11.6, troponin negative, d-dimer negative, CXR w ith no acute process, no changes noted on EKG. Truck Technician called for transfer to ICU. ICU Timeline: 09/22: admitted from [facility] for hypercapnic respiratory failure from COPD exacerba tion. Severe hypercapnic respiratory acidosis requiring neuromuscular blockade 09/23: remains paralyzed, improving respiratory acidosis. Sedation switched to propofol f rom midazolam 09/24: required increase/ re-bolus of cisatracurium for ventilator dyssynchrony. Paralyti cs later stopped at 10:30. Remains on MV sedated on fentanyl and propofol. Events Overnight: Remains on MV, sedated on propofol and fentanyl. Remains off paral ytics. SCHEDULED MEDICATIONS albuterol 6 puff Ventilator Q4H chlorhexidine gluconate 15 mL Mouth/Throat Q12H docusate sodium 100 mg Oral BID Or docusate 100 mg Per OG Tube BID enoxaparin 30 mg Subcutaneous Q24H famotidine 20 mg Oral BID Or famotidine 20 mg Intravenous BID fentaNYL 100 mcg Intravenous Once insulin lispro (human) 0-14 Units Subcutaneous Q6H ipratropium 2 puff Ventilator Q4H levofloxacin 750 mg Intravenous Q48H methylPREDNISolone 40 mg Intravenous Q8H oseltamivir 30 mg Oral Daily pneumococcal 23-valent vaccine 0.5 mL Intramuscular Once Immunization CONTINUOUS INFUSIONS cisatracurium in NS 0.4 mg/mL Stopped (09/24/18 1025) dextrose fentaNYL in NS 5 mcg/mL 100 mcg/hr (09/25/18 0432) propofol 9.6 mL/hr at 09/24/18 1411 OBJECTIVE VITAL SIGNS Temp: [98.2 F (36.8 C)-99.7 F (37.6 C)] 99.1 F (37.3 C) Heart Rate: [84-111] 84 Resp: [-31] 22 BP: (102-147)/(55-74) 117/69 FiO2 : [30 %] 30 % Intake/Output Summary (Last 24 hours) at 09/25/18 0443 Last data filed at 09/25/18 0400 Gross per 24 hour Intake 2414 ml Output 1561 ml Net 853 ml EXAM GEN: (examined while on continuous propofol and fentanyl), opens eyes to voice, NAD, on mec hanical ventilation NEURO: PERRL, no facial asymmetry, moves all extremities weakly to commands HEENT: sclerae injected, nonicteric, oral mmm, pink NECK: supple, trachea midline CV: RRR, S1/S2, no murmur, rub or gallop, peripheral pulses palpable, cap refill brisk LUNGS: coarse b/l, no wheezing, rales or rhonchi, symmetric chest expansion, even/unlabored respirations ABD: soft, nondistended, nontender to palpation, rounded, bowel tones active EXTR: trace edema to extremities, no clubbing or cyanosis SKIN: warm, dry, no rash or mottling; no e/o skin breakdown over the occiput, scapulae, elb ows, sacrum or heels LINES/TUBES: ETT/OGT, PIVs x 2, urethral catheter (09/22) DATA Recent Labs Lab 09/25/18 0408 09/24/18 0703 09/23/18 0341 09/22/18 1747 WBC 12.19* 16.40* 13.38* 19.62* RBC 3.51* 3.66* 4.01 4.36 HGB 10.5* 10.9* 12.0 13.1 HCT 31.8* 33.0* 36.8 40.2 MCV 90.6 90.2 91.8 92.1 MCH 29.9 29.7 30.0 30.1 MCHC 33.1 32.9 32.7 32.6 RDW 45.9 45.5 46.4 45.9 PLT 210 198 232 251 MPV 8.9 8.6 8.8 8.4 BANDSABS 1.22* -- -- -- NEUTROABS -- 15.42* -- 18.79* LYMPHSABS -- 0.25* -- 0.13* MONOSABS -- 0.61 -- 0.56 BASOSABS -- 0.05 -- 0.14* EOSABS -- 0.07 -- 0.01 MORPH RBC AND PLT MORPHOLOGY APPEAR NORMAL NORMAL PLT MORPH RBC AND PLT MORPHOLOGY APPEAR N ORMAL RBC AND PLT MORPHOLOGY APPEAR NORMAL Recent Labs Lab 09/25/18 0408 09/24/18 0401 09/23/18 0341 09/22/18 1747 NA 139 139 138 141 K 4.4 3.7 4.2 4.8 CL 105 103 103 106 CO2 18* 22* 25 27 ANIONGAP 20 18 14 13 GLUF 115* 148* 185* 179* BUN 58* 30* 18 14 CREATININE 2.2* 2.1* 1.4* 0.99 BCR 26 14 13 14 CA 7.3* 7.7* 8.2* 8.5 ALB -- -- -- 4.5 GLOB -- -- -- 2.0 AG -- -- -- 2.3 PROT -- -- -- 6.5 BILITOT -- -- -- 0.5 ALT -- -- -- 19 AST -- -- -- 19 EGFR 22* 24* 38* 56* PHOS 2.8 2.4 3.0 4.6 MG 2.2 2.0 2.2 1.8 No results for input(s): INR in the last 168 hours. IMAGING Xr Chest 1 View Result Date: 09/22/2018 Left midlung ill-defined hazy infiltrates perhaps extending to the left lung base. Tubes an d lines in appropriate position. Signed by: Fabrice Iniguez Sign Date/Time: 09/22/2018 5:56 PM PROBLEM LIST Principal Problem: Acute on chronic respiratory failure with hypoxia and hypercapnia (HCC) Active Problems: COPD exacerbation (HCC) Tobacco abuse Leukocytosis Steroid-induced hyperglycemia Acute on chronic respiratory acidosis Influenza A Acute kidney injury (HCC) Resolved Problems: * No resolved hospital problems. * ASSESSMENT & PLAN NEURO: Intubated, sedated. Neuromuscular blockade stopped yesterday morning. For severe hyper capnic respiratory failure. CAM-ICU screening every shift. CV: Normal sinus rhythm. Currently maintaining MAP > 65 without intervention. PULM: [id number]-bg-[id number] respiratory failure with hypercapnia secondary to COPD exacerbation and influenza A pneumonia. ? Currently intubated, sedated, no longer pharmaceutically paralyzed ? CXR showing left hazy infiltrates. ? Continue scheduled inhalers - albuterol and ipratropium. ? Continue levofloxacin for severe COPD exacerbation. ? Oseltamivir for influenza A pneumonia. ? Continue steroids. Decreased yesterday to q 8 hrs. Acute on chronic respiratory acidosis - from COPD exacerbation, improving. GI/NUTRITION: Retail Project Merchandiser recommendations for TF as follows: Peptamen Intense VHP at goal rate of 57 mL/ hr x 20 hours to provide 1140 kca, 105 g protein, 958 mL free H2O, and 1140 mL TV. TF at go al rate provides 14 kcal/kg per 80.9 kg admit wt and 2.0gPRO/kg per 52.3kg IBW. Recommended fluid needs: Free water flushes of 30mL Q 4 hrs. RENAL/LYTES: Acute kidney injury - renal function worsening. BMP daily. Strict Is & Os. Avoid nephrotoxins and renally dose medications. Monitor electrolytes and replace as needed. ID: Influenza A infection. Continue oseltamivir for total of 5 days. Continue levofloxacin for possible bacterial super-infection, procalcitonin elevated. HEME: No acute issues. CBC daily. ENDO: Hyperglycemia, secondary to corticosteroids. Blood glucose goal 80 - 180 mg/dL. Contin ue high dose SSI. Switch to Endotool if BG > 180 x 2. MUSC/SKIN: Skin care and pressure ulcer prevention per nursing standards. Turns q 2 hrs to prevent pressure ulcers. PT/OT. PROPHYLAXIS: Stress ulcer prophylaxis: famotidine DVT prophylaxis: SCDs, enoxaparin VAP bundle: chlorhexidine oral care, HOB >30 degrees Disposition: ICU plan of care as above. Code Status: Full Code *Please bill 40 minutes of critical care time spent evaluating the patient, reviewing the d adia and formulating a plan exclusive of all other procedures. ZORA Choudhary 09/25/2018 Pilar Arias [facility] - 09/24/2018 1:37 PM PDTFormatting of this note may be different f rom the original. Clinical Pharmacy Note: Renal Monitoring Ht Readings from Last 1 Encounters: 09/24/18 1.6 m (5' 2.99") Wt Readings from Last 1 Encounters: 09/24/18 85.1 kg (187 lb 9.8 oz) Serum creatinine: 2.1 mg/dL (H) 09/24/18 0401 Estimated creatinine clearance: 27.2 mL/min (A) Pharmacy dosing for renal function per Dr. Rodriguez Due to patient's current renal function, the following dose adjustment was made per abrano l: Original order: enoxaparin 40 mg SC q24h Dose adjustment: enoxaparin 30 mg SC q24h Original order: oseltamivir 30 mg BID Dose adjustment: oseltamivir 30 mg daily Pharmacy will continue monitoring patient for appropriate dosing per renal function. Associated attestation - Meghan Rodriguez [facility] - 09/24/2018 3:04 PM PDTAgree with director of employee development's recommendation. Pharmacy will continue to monitor and provide renal adjustments as indicated. Meghan Rodriguez, Robby Mesa, SAP BUSINESS INTELLIGENCE CONSULTANT - 09/24/2018 12:04 PM PDTFormatting of thi s note may be different from the original. 09/24/18 1110 Vent Type/Mode Vent Type Servo i Vent Mode SERVO-i PRVC Automode Automode On or Off? ON RT Settings Set Rate 22 bmp Resp Rate Total 24 br/min Vt Set 390 mL Pressure Support 10 cmH20 PEEP 8 cmH20 FiO2 30 % Trigger flow (L/min) 2 L/m Insp Time 0.6 Sec(s) Insp Rise Time (sec) / Deuel 0.1 sec Patient Returns ET CO2 31 mmHg Ve 12.5 mL Peak Airway Pressure 32 cmH2O Mean Airway Pressure 22 cmH20 Inhaled Vt (mL) 439 mL Exhaled Vt (mL) 397 mL Stat comp (cmH2O) 28.7 cmH2O Dynamic Compliance (L/cm H2O) 12.5 L/cm H2O Alarms Alarms set per Policy Yes Oxygen Therapy/Pulse Ox SpO2 97 % O2 Therapy Oxygen humidified O2 Device ETT Humidification Heated wire Humidifier Temp Setting 37 degC Humidifier Temp Actual 37 degC Vitals/Respiratory Assessment Assessment Type Post-treatment Heart Rate 94 Heart Rate Source Monitor Resp 26 Level of Consciousness Sedated;Somnolent Respiratory Pattern Regular Patient Tolerance Tolerated well Breath Sounds Breath Sounds Bilateral Coarse;Diminished Robby Weiner, [employer] BUSINESS INTELLIGENCE CONSULTANT - 09/24/2018 8:09 AM PDTFormatting of this note may be different fro m the original. 09/24/18 0800 ETT 7.5 mm Placement Date/Time: 09/22/18 1705 Size : 7.5 mm Placed By: (c) Other (Comment) Secured at (cm): 22 cm Measured From: Teeth Secured by: Commercial tube lombardi Secured at (cm) 22 cm Measured From Teeth Secured Location Right Secured by Commercial tube lombardi Site Condition Dry Cuff Pressure (cwp) (24) Adult IBW/VT Calculations Height 1.6 m (5' 2.99") IBW/kg (Calculated) Male 56.88 kg Low Range Vt 6cc/kg MALE 341.28 mL Adult Moderate Range Vt 8cc/kg MA 455.04 mL Adult High Range Vt 10cc/kg MALE 568.8 mL IBW/kg (Calculated) FEMALE 52.38 kg Low Range Vt 6cc/kg FEMALE 314.28 mL Adult Moderate Range vt 8cc/kg FEMALE 419.04 mL Adult High Range Vt 10cc/kg FEMALE 523.8 mL Vent Type/Mode Vent Type Servo i Vent Mode SERVO-i PRVC Automode Automode On or Off? OFF Device feeds Set Rate 26 bmp Resp Rate Total 26 br/min Inhaled Vt (mL) 390 mL Exhaled Vt (mL) 427 mL PEEP 8 cmH20 FiO2 30 % ET CO2 27 mmHg Peak Airway Pressure 42 cmH2O Mean Airway Pressure 21 cmH20 Plateau Pressure 31 cmH20 Ve 19.5 mL RT Entry Vt Set 390 mL Flow Trigger (L/min) 5 L/m TIP (sec) 0.6 sec Insp Rise Time (sec) / Deuel 0.1 sec VTE 421 mL Dynamic Compliance (L/cm H2O) 11 L/cm H2O Static Compliance (L/cm H2O) 44 HOB>/= 30 Degrees Y Alarms Alarms On Y Resp Rate High 35 br/min Resp Rate Low 10 Press High 68 cmH2O Ve High 17 L/min Ve Low 4 L/min PEEP High Alarm 15 cmH2O PEEP Low Alarm 5 cmH2O Alarm Volume 100 % Daily Screen Daily Screen Complete N Oxygen Therapy/Pulse Ox SpO2 97 % O2 Therapy Oxygen humidified O2 Device ETT Humidification Heated wire Humidifier Temp Setting 37 degC Humidifier Temp Actual 37 degC Vitals/Respiratory Assessment Assessment Type Pre-treatment Heart Rate 104 Heart Rate Source Monitor Resp 26 Level of Consciousness Pharmaceutically paralyzed Respiratory Pattern Regular Patient Tolerance Tolerated well Breath Sounds Breath Sounds Bilateral Coarse;Diminished;Tight;Wheezes expiratory Airway Suctioning/Secretions Suction Type Inline;Catheter Secretion Amount Small Secretion Color Clear;White Secretion Consistency Thick Jimy Bowen MD - 09/24/2018 5:32 AM PDTFormatting of this note may be different f rom the original. [facility] Service: Truck Technician Progress Note Stephanie Simmons 68 y.o. Hospital Day: LOS: 2 days Post-Op Day: * No surgery found * Consulting Physicians Treatment Team: Admitting Provider: Cooper Rodriguez MD SUBJECTIVE Patient Summary: Per Dr. Mauricio's H&P: The patient is a 68 y.o. female with significant past medical history of COPD on 2L home O2 day and night, tobacco abuse, cervical cancer who presents as a transfer from [facility] for acute respiratory distress requiring intubation as she failed BiPAP therapy. Per transfer notes, patient has had worsening shortness of breath for the last 2-3 days and tosin led EMS. She was discharged from [facility] 2 weeks ago with similar complaint and possib le viral pneumonia due to unknown organism. Labs from [facility] showing WBC 11.6, troponin negative, d-dimer negative, CXR w ith no acute process, no changes noted on EKG. Truck Technician called for transfer to ICU. ICU Timeline: 09/22 - admitted from [facility] for hypercapnic respiratory failure from COPD exacerb ation. Severe hypercapnic respiratory acidosis requiring neuromuscular blockade 09/23 - remains paralyzed, improving respiratory acidosis. Sedation switched to propofol from midazolam Events Overnight: had to increase and re-bolus with cisatracurium for ventilator dyssy nchrony SCHEDULED MEDICATIONS albuterol 6 puff Ventilator Q4H chlorhexidine gluconate 15 mL Mouth/Throat Q12H docusate sodium 100 mg Oral BID Or docusate 100 mg Per OG Tube BID enoxaparin 40 mg Subcutaneous Q24H famotidine 20 mg Oral BID Or famotidine 20 mg Intravenous BID fentaNYL 100 mcg Intravenous Once insulin lispro (human) 0-14 Units Subcutaneous Q6H ipratropium 2 puff Ventilator Q4H levofloxacin 750 mg Intravenous Q48H methylPREDNISolone 40 mg Intravenous Q8H oseltamivir 30 mg Oral BID CONTINUOUS INFUSIONS cisatracurium in NS 0.4 mg/mL 1.25 mcg/kg/min (09/24/18 0310) dextrose fentaNYL in NS 5 mcg/mL 100 mcg/hr (09/24/18 0003) propofol OBJECTIVE VITAL SIGNS Temp: [98.5 F (36.9 C)-99 F (37.2 C)] 98.6 F (37 C) Heart Rate: [108-122] 113 Resp: [16-37] 26 BP: (87-111)/(50-60) 101/54 FiO2 : [25 %-35 %] 30 % Intake/Output Summary (Last 24 hours) at 09/24/18 0423 Last data filed at 09/24/18 0000 Gross per 24 hour Intake 3312 ml Output 335 ml Net 2977 ml EXAM GEN: intubated, sedated, paralyzed NEURO: sedated and paralyzed HEENT: sclerae clear, nonicteric, oral mmm, pink, no exudates, ETT in place NECK: trachea midline CV: tachycardic to 110s, no murmur, rub or gallop, peripheral pulses palpable, cap refill brisk LUNGS: paralyzed, scattered expiratory wheezing, rales right base, symmetric chest expansi on, even respirations on MV ABD: soft, nondistended, no reaction to palpation, no masses EXTR: no edema, clubbing or cyanosis SKIN: warm, dry, no rash or mottling; no e/o skin breakdown over the occiput, scapulae, elb ows, sacrum or heels LINES/TUBES: PIV, ETT, Garcia (09/22) DATA Recent Labs Lab 09/23/18 03409/22/18 1747 WBC 13.38* 19.62* RBC 4.01 4.36 HGB 12.0 13.1 HCT 36.8 40.2 MCV 91.8 92.1 MCH 30.0 30.1 MCHC 32.7 32.6 RDW 46.4 45.9 PLT 232 251 MPV 8.8 8.4 NEUTROABS -- 18.79* LYMPHSABS -- 0.13* MONOSABS -- 0.56 BASOSABS -- 0.14* EOSABS -- 0.01 MORPH RBC AND PLT MORPHOLOGY APPEAR NORMAL RBC AND PLT MORPHOLOGY APPEAR NORMAL Recent Labs Lab 09/23/18 0341 09/22/18 1747 NA 138 141 K 4.2 4.8 CL 103 106 CO2 25 27 ANIONGAP 14 13 GLUF 185* 179* BUN 18 14 CREATININE 1.4* 0.99 BCR 13 14 CA 8.2* 8.5 ALB -- 4.5 GLOB -- 2.0 AG -- 2.3 PROT -- 6.5 BILITOT -- 0.5 ALT -- 19 AST -- 19 EGFR 38* 56* PHOS 3.0 4.6 MG 2.2 1.8 No results for input(s): INR in the last 168 hours. IMAGING Xr Chest 1 View Result Date: 09/22/2018 Left midlung ill-defined hazy infiltrates perhaps extending to the left lung base. Tubes an d lines in appropriate position. Signed by: Fabrice Iniguez Sign Date/Time: 09/22/2018 5:56 PM PROBLEM LIST Principal Problem: Acute on chronic respiratory failure with hypoxia and hypercapnia (HCC) Active Problems: COPD exacerbation (HCC) Tobacco abuse Leukocytosis Steroid-induced hyperglycemia Acute on chronic respiratory acidosis Influenza A Acute kidney injury (HCC) Resolved Problems: * No resolved hospital problems. * ASSESSMENT & PLAN NEURO: Intubated, sedated, and on neuromuscular blockade - for severe hypercapnic respiratory f ailure Hold sedation holiday while paralyzed - currently on propofol and fentanyl CV: Keep MAP > 65 PULM: Acute on chronic respiratory failure with hypercapnia secondary to COPD exacerbation and influenza A pneumonia ? Currently intubated, sedated, paralyzed ? CXR showing left hazy infiltrates. ? Scheduled bronchodilators ? Continue levofloxacin for severe COPD exacerbation, oseltamivir for influenza A pneumonia ? Continue steroids, taper down to q8h from q6h Acute on chronic respiratory acidosis - from COPD exacerbation, improving GI/NUTRITION: RD consult for TF initiation: Recommendations Recommended energy needs: Recommend Peptamen Intense VHP at goal rate of 57 mL/hr x 20 hour s to provide 1140 kca, 105g protein, 958 mL free H2O, and 1140 mL TV. TF at goal rate provid es 14kcal/kg per 80.9kg admit wt and 2.0gPRO/kg per 52.3kg IBW. Recommended fluid needs: Free water flushes of 30mL Q 4 hrs or per MD/SUPERVISOR ACCOUNTING CLERKS. RENAL/LYTES: Acute kidney injury - monitor renal function, increasing creatinine, received IVF for ep isodes of hypotension Strict I&Os Avoid nephrotoxins and renally dose medications Monitor electrolytes and replace as needed ID: Acute COPD exacerbation secondary to Influenza A infection - ? Oseltamivir x 5 days, continue levofloxacin for possible bacterial super-infection, proca lcitonin elevated HEME: Stable hemoglobin levels. ENDO: Hyperglycemia - steroid-induced - Blood glucose goal 100-180 mg/dL, on SSI, switch to Endot ool if BG >180 x 2 MUSC/SKIN: Reviewed skin cares with nursing. Mobilize when able Turns q2h to prevent pressure ulcers PT/OT PROPHYLAXIS: Stress ulcer prophylaxis: famotidine DVT prophylaxis: SCDs, enoxaparin VAP bundle: chlorhexidine oral care, HOB >30 degrees. Disposition: ICU cares as above. Critically ill. Code Status: Full Code *Please bill 40 minutes of critical care time spent evaluating the patient, reviewing the d adia and formulating a plan exclusive of all other procedures. Jimy Bowen MD 09/24/[address] - 09/23/2018 1:49 PM PDTFormatting of this note may be differe nt from the original. 09/23/18 1325 Subjective Timepoint Admit Pt c/o Received consult for TF recommendations. Pt transfered to [facility] for severe hypercapni c respiratory acidosis. Pt currently intubated, sedated, requiring neuromuscular blockade, and on continuous nebulization to improve severe airway obstruction and bronchospasm. Diet Experience Self-selected diet(s) followed Unable to assess at this time. Fluid / Beverage Intake Oral Fluids Amount NPO Food Intake Amount of Food NPO Type of Food / Meals NPO Parenteral Nutrition Intake Rate/Solution Propofol at 4.9 mL/hr provides 129 kcal/day. Nutrition-Focused Physical Findings Extremities, Muscles and Bones Generalized dependent edema. Anthropometrics Weight change Admit Wt: 80.9 kg. Pt is 155% IBW and BMI of 31.6. No previous wts in medical record - unable to assess wt changes. Biochemical data, medical tests, and procedures reviewed Biochemical data, medical tests, and procedures reviewed BG 161-196 - insulin given. Estimated Energy Needs Total Energy Estimated Needs 890-1133 kcal/day Method for Estimating Needs 11-14 kcal/kg per 80.9kg admit wt Estimated Protein Needs Total Protein Estimated Needs 105 gPRO/day Method for Estimating Needs 2.0 g/kg per IBW of 52.3kg Recommendations Recommended energy needs Recommend Peptamen Intense VHP at goal rate of 57 mL/hr x 20 hours to provide 1140 kca, 105g protein, 958 mL free H2O, and 1140 mL TV. TF at goal rate provide s 14kcal/kg per 80.9kg admit wt and 2.0gPRO/kg per 52.3kg IBW. Recommended fluid needs Free water flushes of 30mL Q 4 hrs or per MD/SUPERVISOR ACCOUNTING CLERKS. Nutritional Risk Nutritional risk High Follow up date 09/26/18 Pamela Conrad, MS-MPH, CARMEN Bowen, Jimy Mercado MD - 09/23/2018 4:24 AM PDTFormatting of this note may be different f rom the original. [facility] Service: Truck Technician Progress Note Stephanie Simmons 68 y.o. Hospital Day: LOS: 1 day Post-Op Day: * No surgery found * Consulting Physicians Treatment Team: Admitting Provider: Cooper Rodriguez MD SUBJECTIVE Patient Summary: Per Dr. Mauricio's H&P: The patient is a 68 y.o. female with significant past medical history of COPD on 2L home O2 day and night, tobacco abuse, cervical cancer who presents as a transfer from [facility] for acute respiratory distress requiring intubation as she failed BiPAP therapy. Per transfer notes, patient has had worsening shortness of breath for the last 2-3 days and tosin led EMS. She was discharged from [facility] 2 weeks ago with similar complaint and possib le viral pneumonia due to unknown organism. Labs from [facility] showing WBC 11.6, troponin negative, d-dimer negative, CXR w ith no acute process, no changes noted on EKG. Truck Technician called for transfer to ICU. ICU Timeline: 09/22 - admitted from [facility] for hypercapnic respiratory failure from COPD exacerb ation Events Overnight: Severe hypercapnic respiratory acidosis requiring neuromuscular blo ckade, disconnecting vent circuit to allow exhalation, given continuous nebulization to impr ove severe airway obstruction and bronchospasm. I L fluid bolus for hypotension and tachycar julian. SCHEDULED MEDICATIONS albuterol 6 puff Ventilator Q4H chlorhexidine gluconate 15 mL Mouth/Throat Q12H docusate sodium 100 mg Oral BID Or docusate 100 mg Per OG Tube BID enoxaparin 40 mg Subcutaneous Q24H famotidine 20 mg Oral BID Or famotidine 20 mg Intravenous BID fentaNYL 100 mcg Intravenous Once insulin lispro (human) 0-14 Units Subcutaneous Q6H ipratropium 2 puff Ventilator Q4H lactated ringers 1,000 mL Intravenous Once levofloxacin 500 mg Intravenous Q24H methylPREDNISolone 62.5 mg Intravenous Q6H CONTINUOUS INFUSIONS cisatracurium in NS 0.4 mg/mL 1 mcg/kg/min (09/23/18229) dextrose fentaNYL in NS 5 mcg/mL 75 mcg/hr (09/22/182028) midazolam in NS 5 mg/hr (09/23/18206) propofol OBJECTIVE VITAL SIGNS Temp: [98.7 F (37.1 C)-99.2 F (37.3 C)] 98.7 F (37.1 C) Heart Rate: [89-126] 117 Resp: [14-26] 26 BP: (77-147)/(50-75) 96/55 FiO2 : [35 %-100 %] 40 % Intake/Output Summary (Last 24 hours) at 09/23/18 0508 Last data filed at 09/23/18 0352 Gross per 24 hour Intake 0 ml Output 350 ml Net -350 ml EXAM GEN: intubated, sedated, paralyzed NEURO: sedated and paralyzed HEENT: sclerae clear, nonicteric, oral mmm, pink, no exudates, ETT in place NECK: trachea midline CV: tachycardic to 110s, S1/S2, no murmur, rub or gallop, peripheral pulses palpable, cap r efill brisk LUNGS: paralyzed, expiratory wheezing bilaterally, rales right base, symmetric chest expan narciso, even respirations on MV ABD: soft, nondistended, no reaction to palpation, no masses EXTR: no edema, clubbing or cyanosis SKIN: warm, dry, no rash or mottling; no e/o skin breakdown over the occiput, scapulae, elb ows, sacrum or heels LINES/TUBES: PIV, ETT, Garcia (09/22) DATA Recent Labs Lab 09/22/18 1747 WBC 19.62* RBC 4.36 HGB 13.1 HCT 40.2 MCV 92.1 MCH 30.1 MCHC 32.6 RDW 45.9 PLT 251 MPV 8.4 NEUTROABS 18.79* LYMPHSABS 0.13* MONOSABS 0.56 BASOSABS 0.14* EOSABS 0.01 MORPH RBC AND PLT MORPHOLOGY APPEAR NORMAL Recent Labs Lab 09/22/18 1747 NA 141 K 4.8 CL 106 CO2 27 ANIONGAP 13 GLUF 179* BUN 14 CREATININE 0.99 BCR 14 CA 8.5 ALB 4.5 GLOB 2.0 AG 2.3 PROT 6.5 BILITOT 0.5 ALT 19 AST 19 EGFR 56* PHOS 4.6 MG 1.8 No results for input(s): INR in the last 168 hours. IMAGING Xr Chest 1 View Result Date: 09/22/2018 Left midlung ill-defined hazy infiltrates perhaps extending to the left lung base. Tubes an d lines in appropriate position. Signed by: Fabrice Iniguez Sign Date/Time: 09/22/2018 5:56 PM PROBLEM LIST Principal Problem: Acute on chronic respiratory failure with hypoxia and hypercapnia (HCC) Active Problems: COPD exacerbation (HCC) Tobacco abuse Leukocytosis Steroid-induced hyperglycemia Acute on chronic respiratory acidosis Resolved Problems: * No resolved hospital problems. * ASSESSMENT & PLAN NEURO: Intubated, sedated, and on neuromuscular blockade - for severe hypercapnic respiratory f ailure Hold sedation holiday while paralyzed - currently on propofol, midazolam ans fentanyl CV: Keep MAP > 65 PULM: Acute on chronic respiratory failure with hypercapnia secondary to COPD exacerbation ? Currently intubated, sedated, paralyzed ? CXR showing left hazy infiltrates. ? Scheduled bronchodilators ? Continue levofloxacin for severe COPD exacerbation, resp film array pending ? Continue steroids, methylprednisolone 60mg q6h; monitor closely due to reported allergy t o Qvar causing rash Acute on chronic respiratory acidosis - from COPD exacerbation, improving with above-men tioned measures, pH 7.25 with PCO2 60 down from 72 GI/NUTRITION: NPO for now RD consult for initiation of TF RENAL/LYTES: Normal renal function Dose medications for creatinine clearance Monitor electrolytes and replete per protocol ID: Acute COPD exacerbation - with possible viral vs bacterial PNA ? Levofloxacin as above ? Resp film array pending, check procalcitonin this am HEME: Leukocytosis - infection vs steroid induced vs reactive. Monitor Stable hemoglobin levels. ENDO: Hyperglycemia - steroid-induced - Blood glucose goal 100-180 mg/dL, start SSI, switch to En dotool if BG >180 x 2 MUSC/SKIN: Reviewed skin cares with nursing. Mobilize when able Turns q2h to prevent pressure ulcers PT/OT PROPHYLAXIS: Stress ulcer prophylaxis: famotidine DVT prophylaxis: SCDs, enoxaparin VAP bundle: chlorhexidine oral care, HOB >30 degrees. Disposition: ICU cares as above. Critically ill. Code Status: Full Code *Please bill 40 minutes of critical care time spent evaluating the patient, reviewing the d adia and formulating a plan exclusive of all other procedures. Jimy Bowen MD 09/23/2018 Romeo Romero, [facility] - 09/22/2018 7:14 PM PDTFormatting of this note may be different fro m the original. Clinical Pharmacy Note: Renal Monitoring Stephanie Simmons 68 y.o. female Ht Readings from Last 1 Encounters: 09/22/18 1.6 m (5' 3") Wt Readings from Last 1 Encounters: 09/22/18 80.9 kg (178 lb 5.6 oz) CREATININE Date Value Ref Range Status 09/22/2018 0.99 0.50 - 1.00 mg/dL Final Serum creatinine: 0.99 mg/dL 09/22/18 1747 Estimated creatinine clearance: 56.3 mL/min Pharmacy dosing for renal function per Dr. Rodriguez. Currently, there are no medications needing to be adjusted. Pharmacy will continue to monit or for changes in medication orders and in renal function and adjust accordingly. Romeo Romero [facility] 09/22/2018 7:14 PMin this encounter Plan of Treatment Not on fileas of this encounter Procedures + +--------+ + + + | Procedure Name | Priori | Date/Time | Associated Diagnosis | Comments | | | ty | | | | + +--------+ + + + | POCT GLUCOSE | Routin | 10/01/2018 | | Results for this | | | e | 5:45 AM | | procedure are in the | | | | PDT | | results section. | + +--------+ + + + | BASIC METABOLIC | Routin | 10/01/2018 | | Results for this | | PANEL | e | 4:20 AM | | procedure are in the | | | | PDT | | results section. | + +--------+ + + + | POCT GLUCOSE | Routin | 09/30/2018 | | Results for this | | | e | 11:55 PM | | procedure are in the | | | | PDT | | results section. | + +--------+ + + + | POCT GLUCOSE | Routin | 09/30/2018 | | Results for this | | | e | 6:46 PM | | procedure are in the | | | | PDT | | results section. | + +--------+ + + + | XR SWALLOWING | Routin | 09/30/2018 | | Results for this | | FUNCTION VIDEO | e | 2:59 PM | | procedure are in the | | | | PDT | | results section. | + +--------+ + + + | POCT GLUCOSE | Routin | 09/30/2018 | | Results for this | | | e | 11:37 AM | | procedure are in the | | | | PDT | | results section. | + +--------+ + + + | POCT GLUCOSE | Routin | 09/30/2018 | | Results for this | | | e | 5:43 AM | | procedure are in the | | | | PDT | | results section. | + +--------+ + + + | BASIC METABOLIC | Routin | 09/30/2018 | | Results for this | | PANEL | e | 4:58 AM | | procedure are in the | | | | PDT | | results section. | + +--------+ + + + | POCT GLUCOSE | Routin | 09/30/2018 | | Results for this | | | e | 12:13 AM | | procedure are in the | | | | PDT | | results section. | + +--------+ + + + | POCT GLUCOSE | Routin | 09/29/2018 | | Results for this | | | e | 5:56 PM | | procedure are in the | | | | PDT | | results section. | + +--------+ + + + | POCT GLUCOSE | Routin | 09/29/2018 | | Results for this | | | e | 11:48 AM | | procedure are in the | | | | PDT | | results section. | + +--------+ + + + | POCT GLUCOSE | Routin | 09/29/2018 | | Results for this | | | e | 5:47 AM | | procedure are in the | | | | PDT | | results section. | + +--------+ + + + | CBC W/AUTO DIFF | Routin | 09/29/2018 | | Results for this | | (REFLEX TO MANUAL) | e | 4:20 AM | | procedure are in the | | | | PDT | | results section. | + +--------+ + + + | PHOSPHOROUS | Routin | 09/29/2018 | | Results for this | | | e | 4:20 AM | | procedure are in the | | | | PDT | | results section. | + +--------+ + + + | MAGNESIUM | Routin | 09/29/2018 | | Results for this | | | e | 4:20 AM | | procedure are in the | | | | PDT | | results section. | + +--------+ + + + | BASIC METABOLIC | Routin | 09/29/2018 | | Results for this | | PANEL | e | 4:20 AM | | procedure are in the | | | | PDT | | results section. | + +--------+ + + + | POCT GLUCOSE | Routin | 09/28/2018 | | Results for this | | | e | 11:59 PM | | procedure are in the | | | | PDT | | results section. | + +--------+ + + + | POCT GLUCOSE | Routin | 09/28/2018 | | Results for this | | | e | 5:59 PM | | procedure are in the | | | | PDT | | results section. | + +--------+ + + + | POTASSIUM | STAT | 09/28/2018 | | Results for this | | | | 3:30 PM | | procedure are in the | | | | PDT | | results section. | + +--------+ + + + | POCT GLUCOSE | Routin | 09/28/2018 | | Results for this | | | e | 11:57 AM | | procedure are in the | | | | PDT | | results section. | + +--------+ + + + | POCT GLUCOSE | Routin | 09/28/2018 | | Results for this | | | e | 6:06 AM | | procedure are in the | | | | PDT | | results section. | + +--------+ + + + | CBC W/AUTO DIFF | Routin | 09/28/2018 | | Results for this | | (REFLEX TO MANUAL) | e | 5:25 AM | | procedure are in the | | | | PDT | | results section. | + +--------+ + + + | PHOSPHOROUS | Routin | 09/28/2018 | | Results for this | | | e | 5:25 AM | | procedure are in the | | | | PDT | | results section. | + +--------+ + + + | MAGNESIUM | Routin | 09/28/2018 | | Results for this | | | e | 5:25 AM | | procedure are in the | | | | PDT | | results section. | + +--------+ + + + | BASIC METABOLIC | Routin | 09/28/2018 | | Results for this | | PANEL | e | 5:25 AM | | procedure are in the | | | | PDT | | results section. | + +--------+ + + + | POCT GLUCOSE | Routin | 09/27/2018 | | Results for this | | | e | 11:54 PM | | procedure are in the | | | | PDT | | results section. | + +--------+ + + + | POCT GLUCOSE | Routin | 09/27/2018 | | Results for this | | | e | 5:30 PM | | procedure are in the | | | | PDT | | results section. | + +--------+ + + + | BIPAP CONTINUOUS | Routin | 09/27/2018 | | | | | e | 1:59 PM | | | | | | PDT | | | + +--------+ + + + | POCT GLUCOSE | Routin | 09/27/2018 | | Results for this | | | e | 11:46 AM | | procedure are in the | | | | PDT | | results section. | + +--------+ + + + | POCT GLUCOSE | Routin | 09/27/2018 | | Results for this | | | e | 6:02 AM | | procedure are in the | | | | PDT | | results section. | + +--------+ + + + | PROCALCITONIN | Routin | 09/27/2018 | | Results for this | | | e - AM | 4:07 AM | | procedure are in the | | | | PDT | | results section. | + +--------+ + + + | CBC W/AUTO DIFF | Routin | 09/27/2018 | | Results for this | | (REFLEX TO MANUAL) | e | 4:07 AM | | procedure are in the | | | | PDT | | results section. | + +--------+ + + + | PHOSPHOROUS | Routin | 09/27/2018 | | Results for this | | | e | 4:07 AM | | procedure are in the | | | | PDT | | results section. | + +--------+ + + + | MAGNESIUM | Routin | 09/27/2018 | | Results for this | | | e | 4:07 AM | | procedure are in the | | | | PDT | | results section. | + +--------+ + + + | BASIC METABOLIC | Routin | 09/27/2018 | | Results for this | | PANEL | e | 4:07 AM | | procedure are in the | | | | PDT | | results section. | + +--------+ + + + | POCT GLUCOSE | Routin | 09/27/2018 | | Results for this | | | e | 12:33 AM | | procedure are in the | | | | PDT | | results section. | + +--------+ + + + | POCT GLUCOSE | Routin | 09/26/2018 | | Results for this | | | e | 6:05 PM | | procedure are in the | | | | PDT | | results section. | + +--------+ + + + | POCT GLUCOSE | Routin | 09/26/2018 | | Results for this | | | e | 12:16 PM | | procedure are in the | | | | PDT | | results section. | + +--------+ + + + | POCT GLUCOSE | Routin | 09/26/2018 | | Results for this | | | e | 5:47 AM | | procedure are in the | | | | PDT | | results section. | + +--------+ + + + | CBC W/AUTO DIFF | Routin | 09/26/2018 | | Results for this | | (REFLEX TO MANUAL) | e | 4:04 AM | | procedure are in the | | | | PDT | | results section. | + +--------+ + + + | PHOSPHOROUS | Routin | 09/26/2018 | | Results for this | | | e | 4:04 AM | | procedure are in the | | | | PDT | | results section. | + +--------+ + + + | MAGNESIUM | Routin | 09/26/2018 | | Results for this | | | e | 4:04 AM | | procedure are in the | | | | PDT | | results section. | + +--------+ + + + | BASIC METABOLIC | Routin | 09/26/2018 | | Results for this | | PANEL | e | 4:04 AM | | procedure are in the | | | | PDT | | results section. | + +--------+ + + + | POCT GLUCOSE | Routin | 09/25/2018 | | Results for this | | | e | 11:09 PM | | procedure are in the | | | | PDT | | results section. | + +--------+ + + + | POCT GLUCOSE | Routin | 09/25/2018 | | Results for this | | | e | 6:00 PM | | procedure are in the | | | | PDT | | results section. | + +--------+ + + + | POTASSIUM | CONSTANCE | 09/25/2018 | | Results for this | | | | 5:28 PM | | procedure are in the | | | | PDT | | results section. | + +--------+ + + + | PHOSPHOROUS | CONSTANCE | 09/25/2018 | | Results for this | | | | 5:28 PM | | procedure are in the | | | | PDT | | results section. | + +--------+ + + + | MAGNESIUM | CONSTANCE | 09/25/2018 | | Results for this | | | | 5:28 PM | | procedure are in the | | | | PDT | | results section. | + +--------+ + + + | POCT GLUCOSE | Routin | 09/25/2018 | | Results for this | | | e | 12:30 PM | | procedure are in the | | | | PDT | | results section. | + +--------+ + + + | POCT GLUCOSE | Routin | 09/25/2018 | | Results for this | | | e | 6:30 AM | | procedure are in the | | | | PDT | | results section. | + +--------+ + + + | CBC W/AUTO DIFF | Routin | 09/25/2018 | | Results for this | | (REFLEX TO MANUAL) | e | 4:08 AM | | procedure are in the | | | | PDT | | results section. | + +--------+ + + + | PHOSPHOROUS | Routin | 09/25/2018 | | Results for this | | | e | 4:08 AM | | procedure are in the | | | | PDT | | results section. | + +--------+ + + + | MAGNESIUM | Routin | 09/25/2018 | | Results for this | | | e | 4:08 AM | | procedure are in the | | | | PDT | | results section. | + +--------+ + + + | BASIC METABOLIC | Routin | 09/25/2018 | | Results for this | | PANEL | e | 4:08 AM | | procedure are in the | | | | PDT | | results section. | + +--------+ + + + | POCT GLUCOSE | Routin | 09/25/2018 | | Results for this | | | e | 12:15 AM | | procedure are in the | | | | PDT | | results section. | + +--------+ + + + | POCT GLUCOSE | Routin | 09/24/2018 | | Results for this | | | e | 5:26 PM | | procedure are in the | | | | PDT | | results section. | + +--------+ + + + | POCT GLUCOSE | Routin | 09/24/2018 | | Results for this | | | e | 11:14 AM | | procedure are in the | | | | PDT | | results section. | + +--------+ + + + | CBC W/AUTO DIFF | STAT | 09/24/2018 | | Results for this | | (REFLEX TO MANUAL) | | 7:03 AM | | procedure are in the | | | | PDT | | results section. | + +--------+ + + + | HEMOGLOBIN A1C | STAT | 09/24/2018 | | Results for this | | | | 7:03 AM | | procedure are in the | | | | PDT | | results section. | + +--------+ + + + | POCT GLUCOSE | Routin | 09/24/2018 | | Results for this | | | e | 5:58 AM | | procedure are in the | | | | PDT | | results section. | + +--------+ + + + | PHOSPHOROUS | Routin | 09/24/2018 | | Results for this | | | e | 4:01 AM | | procedure are in the | | | | PDT | | results section. | + +--------+ + + + | MAGNESIUM | Routin | 09/24/2018 | | Results for this | | | e | 4:01 AM | | procedure are in the | | | | PDT | | results section. | + +--------+ + + + | BASIC METABOLIC | Routin | 09/24/2018 | | Results for this | | PANEL | e | 4:01 AM | | procedure are in the | | | | PDT | | results section. | + +--------+ + + + | POC ARTERIAL BLOOD | Routin | 09/24/2018 | | Results for this | | GAS | e | 2:40 AM | | procedure are in the | | | | PDT | | results section. | + +--------+ + + + | POCT GLUCOSE | Routin | 09/24/2018 | | Results for this | | | e | 12:07 AM | | procedure are in the | | | | PDT | | results section. | + +--------+ + + + | POCT GLUCOSE | Routin | 09/23/2018 | | Results for this | | | e | 5:52 PM | | procedure are in the | | | | PDT | | results section. | + +--------+ + + + | POC ARTERIAL CG4+ | Routin | 09/23/2018 | | Results for this | | | e | 2:57 PM | | procedure are in the | | | | PDT | | results section. | + +--------+ + + + | POC ARTERIAL CG4+ | Routin | 09/23/2018 | | Results for this | | | e | 11:38 AM | | procedure are in the | | | | PDT | | results section. | + +--------+ + + + | POCT GLUCOSE | Routin | 09/23/2018 | | Results for this | | | e | 11:35 AM | | procedure are in the | | | | PDT | | results section. | + +--------+ + + + | POCT GLUCOSE | Routin | 09/23/2018 | | Results for this | | | e | 6:31 AM | | procedure are in the | | | | PDT | | results section. | + +--------+ + + + | PROCALCITONIN | Routin | 09/23/2018 | | Results for this | | | e - AM | 3:41 AM | | procedure are in the | | | | PDT | | results section. | + +--------+ + + + | CBC W/AUTO DIFF | Routin | 09/23/2018 | | Results for this | | (REFLEX TO MANUAL) | e | 3:41 AM | | procedure are in the | | | | PDT | | results section. | + +--------+ + + + | PHOSPHOROUS | Routin | 09/23/2018 | | Results for this | | | e | 3:41 AM | | procedure are in the | | | | PDT | | results section. | + +--------+ + + + | MAGNESIUM | Routin | 09/23/2018 | | Results for this | | | e | 3:41 AM | | procedure are in the | | | | PDT | | results section. | + +--------+ + + + | BASIC METABOLIC | Routin | 09/23/2018 | | Results for this | | PANEL | e | 3:41 AM | | procedure are in the | | | | PDT | | results section. | + +--------+ + + + | POC ARTERIAL BLOOD | Routin | 09/23/2018 | | Results for this | | GAS | e | 3:26 AM | | procedure are in the | | | | PDT | | results section. | + +--------+ + + + | POC ARTERIAL BLOOD | Routin | 09/23/2018 | | Results for this | | GAS | e | 12:14 AM | | procedure are in the | | | | PDT | | results section. | + +--------+ + + + | POC ARTERIAL BLOOD | Routin | 09/22/2018 | | Results for this | | GAS | e | 10:31 PM | | procedure are in the | | | | PDT | | results section. | + +--------+ + + + | POCT GLUCOSE | Routin | 09/22/2018 | | Results for this | | | e | 10:26 PM | | procedure are in the | | | | PDT | | results section. | + +--------+ + + + | POC ARTERIAL BLOOD | Routin | 09/22/2018 | | Results for this | | GAS | e | 9:20 PM | | procedure are in the | | | | PDT | | results section. | + +--------+ + + + | RESPIRATORY | Timed | 09/22/2018 | | Results for this | | FILMARRAY | | 9:04 PM | | procedure are in the | | | | PDT | | results section. | + +--------+ + + + | SPUTUM CULT W/ GRAM | Timed | 09/22/2018 | | Results for this | | STAIN | | 6:29 PM | | procedure are in the | | | | PDT | | results section. | + +--------+ + + + | EKG STANDARD 12 LEAD | Routin | 09/22/2018 | | Results for this | | | e | 5:52 PM | | procedure are in the | | | | PDT | | results section. | + +--------+ + + + | CBC W/AUTO DIFF | STAT | 09/22/2018 | | Results for this | | (REFLEX TO MANUAL) | | 5:47 PM | | procedure are in the | | | | PDT | | results section. | + +--------+ + + + | PHOSPHOROUS | STAT | 09/22/2018 | | Results for this | | | | 5:47 PM | | procedure are in the | | | | PDT | | results section. | + +--------+ + + + | MAGNESIUM | STAT | 09/22/2018 | | Results for this | | | | 5:47 PM | | procedure are in the | | | | PDT | | results section. | + +--------+ + + + | COMPREHENSIVE | STAT | 09/22/2018 | | Results for this | | METABOLIC PANEL | | 5:47 PM | | procedure are in the | | | | PDT | | results section. | + +--------+ + + + | MRSA BY PCR | Routin | 09/22/2018 | | Results for this | | | e | 5:35 PM | | procedure are in the | | | | PDT | | results section. | + +--------+ + + + | MECHANICAL | Routin | 09/22/2018 | | | | VENTILATION | e | 5:30 PM | | | | | | PDT | | | + +--------+ + + + | XR CHEST 1 VIEW | STAT | 09/22/2018 | | Results for this | | | | 5:27 PM | | procedure are in the | | | | PDT | | results section. | + +--------+ + + + | POC ARTERIAL BLOOD | Routin | 09/22/2018 | | Results for this | | GAS | e | 5:20 PM | | procedure are in the | | | | PDT | | results section. | + +--------+ + + + | POCT GLUCOSE | Routin | 09/22/2018 | | Results for this | | | e | 5:08 PM | | procedure are in the | | | | PDT | | results section. | + +--------+ + + + in this encounter Results POCT glucose (10/01/2018 5:45 AM) + + + + + | Component | Value | Ref Range | Performed At | + + + + + | GLUCOSE,POC SCREEN | 122 (H)Comment: Testing | 65 - 99 mg/dL | [facility] | | | performed at [facility];[address] | | | | | [address];[place] | | | | | [id number] | | | + + + + + + + + + + | Performing | Address | City/State/Zipcode | Phone Number | | Organization | | | | + + + + + | [facility] | [address] | [place] [id number] | | + + + + + Basic metabolic panel (10/01/2018 4:20 AM) + + + + + | Component | Value | Ref Range | Performed At | + + + + + | SODIUM | 138 | 135 - 145 mmol/L | [facility] | | | | | [facility] | + + + + + | POTASSIUM | 3.6 | 3.5 - 4.9 mmol/L | [facility] | | | | | [facility] | + + + + + | CHLORIDE | 101 | 99 - 109 mmol/L | [facility] | | | | | [facility] | + + + + + | CO2 | 30 | 23 - 32 mmol/L | [facility] | | | | | [facility] | + + + + + | ANION GAP AGAP | 11 | 5 - 20 mmol/L | [facility] | | | | | [facility] | + + + + + | GLUCOSE | 153 (H) | 65 - 99 mg/dL | [facility] | | | | | LABORATORY | + + + + + | BUN | 19 | 8 - 25 mg/dL | [facility] | | | | | LABORATORY | + + + + + | CREATININE | 1.2 (H) | 0.50 - 1.00 mg/dL | [facility] | | | | | LABORATORY | + + + + + | BUN/CREAT | 16 | | [facility] | | | | | LABORATORY | + + + + + | CALCIUM | 8.1 (L) | 8.5 - 10.5 mg/dL | [facility] | | | | | LABORATORY | + + + + + | EGFR | 45 (L)Comment: GFR <60: | >60 mL/min/1.73m2 | [facility] | | | CHRONIC KIDNEY DISEASE, | | LABORATORY | | | IF FOUND OVER A 3 MONTH | | | | | PERIOD.GFR <15: KIDNEY | | | | | FAILURE.FOR | | | | | AMERICANS, MULTIPLY THE | | | | | CALCULATED GFR BY | | | | | 1.210.This eGFR is | | | | | calculated using the | | | | | MDRD IDMS traceable | | | | | equation.Testing | | | | | performed at [facility], [address] | | | | [address], | | | | | [place] [address] | | | + + + + + + + | Specimen | + + | Blood | + + + + + + + | Performing | Address | City/State/Zipcode | Phone Number | | Organization | | | | + + + + + | [facility] | [address] | [place] [address] | [phone] | | LABORATORY | [address] | | | + + + + + POCT glucose (09/30/2018 11:55 PM) + + + + + | Component | Value | Ref Range | Performed At | + + + + + | GLUCOSE,POC SCREEN | 98Comment: Testing | 65 - 99 mg/dL | [facility] | | | performed at [facility];[address] | | | | | [address];[place] | | | | | [address] | | | + + + + + + + + + + | Performing | Address | City/State/Zipcode | Phone Number | | Organization | | | | + + + + + | [facility] | [address] | [place] [address] | | + + + + + POCT glucose (09/30/2018 6:46 PM) + + + + + | Component | Value | Ref Range | Performed At | + + + + + | GLUCOSE,POC SCREEN | 89Comment: Testing | 65 - 99 mg/dL | [facility] | | | performed at [facility];[address] | | | | | [address];[place] | | | | | [address] | | | + + + + + + + + + + | Performing | Address | City/State/Zipcode | Phone Number | | Organization | | | | + + + + + | [facility] | [address] | [place] [address] | | + + + + + X-ray swallowing function video (09/30/2018 2:59 PM) + + + | Narrative | Performed At | + + + | This is a non-reportable procedure without a radiologist report and | [facility] | | is used for image storage only | RADIOLOGY | + + + + + + + + | Performing | Address | City/State/Zipcode | Phone Number | | Organization | | | | + + + + + | [facility] | [address] | [place] [address] | | + + + + + POCT glucose (09/30/2018 11:37 AM) + + + + + | Component | Value | Ref Range | Performed At | + + + + + | GLUCOSE,POC SCREEN | 125 (H)Comment: Testing | 65 - 99 mg/dL | [facility] | | | performed at [facility];[address] | | | | | [address];[place] | | | | | [address] | | | + + + + + + + + + + | Performing | Address | City/State/Zipcode | Phone Number | | Organization | | | | + + + + + | [facility] | [address] | [place] [address] | | + + + + + POCT glucose (09/30/2018 5:43 AM) + + + + + | Component | Value | Ref Range | Performed At | + + + + + | GLUCOSE,POC SCREEN | 114 (H)Comment: Testing | 65 - 99 mg/dL | [facility] | | | performed at [facility];[address] | | | | | [address];[place] | | | | | [address] | | | + + + + + + + + + + | Performing | Address | City/State/Zipcode | Phone Number | | Organization | | | | + + + + + | [facility] | [address] | [place] [address] | | + + + + + Basic metabolic panel (09/30/2018 4:58 AM) + + + + + | Component | Value | Ref Range | Performed At | + + + + + | SODIUM | 138 | 135 - 145 mmol/L | [facility] | | | | | LABORATORY | + + + + + | POTASSIUM | 3.7 | 3.5 - 4.9 mmol/L | [facility] | | | | | LABORATORY | + + + + + | CHLORIDE | 99 | 99 - 109 mmol/L | [facility] | | | | | LABORATORY | + + + + + | CO2 | 29 | 23 - 32 mmol/L | [facility] | | | | | LABORATORY | + + + + + | ANION GAP AGAP | 14 | 5 - 20 mmol/L | [facility] | | | | | LABORATORY | + + + + + | GLUCOSE | 102 (H) | 65 - 99 mg/dL | [facility] | | | | | LABORATORY | + + + + + | BUN | 22 | 8 - 25 mg/dL | [facility] | | | | | LABORATORY | + + + + + | CREATININE | 1.1 (H) | 0.50 - 1.00 mg/dL | [facility] | | | | | LABORATORY | + + + + + | BUN/CREAT | 20 | | [facility] | | | | | LABORATORY | + + + + + | CALCIUM | 8.3 (L) | 8.5 - 10.5 mg/dL | [facility] | | | | | LABORATORY | + + + + + | EGFR | 50 (L)Comment: GFR <60: | >60 mL/min/1.73m2 | [facility] | | | CHRONIC KIDNEY DISEASE, | | LABORATORY | | | IF FOUND OVER A 3 MONTH | | | | | PERIOD.GFR <15: KIDNEY | | | | | FAILURE.FOR | | | | | AMERICANS, MULTIPLY THE | | | | | CALCULATED GFR BY | | | | | 1.210.This eGFR is | | | | | calculated using the | | | | | MDRD IDNE traceable | | | | | equation.Testing | | | | | performed at [facility], [address] | | | | [facility], | | | | | [place] [address] | | | + + + + + + + | Specimen | + + | Blood | + + + + + + + | Performing | Address | City/State/Zipcode | Phone Number | | Organization | | | | + + + + + | [facility] | [address] | [place] [address] | [phone] | | LABORATORY | [address] | | | + + + + + POCT glucose (09/30/2018 12:13 AM) + + + + + | Component | Value | Ref Range | Performed At | + + + + + | GLUCOSE,POC SCREEN | 111 (H)Comment: Testing | 65 - 99 mg/dL | [facility] | | | performed at [facility];[address] | | | | | [address];[place] | | | | | [address] | | | + + + + + + + + + + | Performing | Address | City/State/Zipcode | Phone Number | | Organization | | | | + + + + + | [facility] | [address] | [place] [address] | | + + + + + POCT glucose (09/29/2018 5:56 PM) + + + + + | Component | Value | Ref Range | Performed At | + + + + + | GLUCOSE,POC SCREEN | 109 (H)Comment: Testing | 65 - 99 mg/dL | [facility] | | | performed at [facility];[address] | | | | | [address];[place] | | | | | [address] | | | + + + + + + + + + + | Performing | Address | City/State/Zipcode | Phone Number | | Organization | | | | + + + + + | [facility] | [address] | [place] [address] | | + + + + + POCT glucose (09/29/2018 11:48 AM) + + + + + | Component | Value | Ref Range | Performed At | + + + + + | GLUCOSE,POC SCREEN | 106 (H)Comment: Testing | 65 - 99 mg/dL | [facility] | | | performed at [facility];[address] | | | | | [address];[place] | | | | | [address] | | | + + + + + + + + + + | Performing | Address | City/State/Zipcode | Phone Number | | Organization | | | | + + + + + | [facility] | [address] | [place] [address] | | + + + + + POCT glucose (09/29/2018 5:47 AM) + + + + + | Component | Value | Ref Range | Performed At | + + + + + | GLUCOSE,POC SCREEN | 113 (H)Comment: Testing | 65 - 99 mg/dL | [facility] | | | performed at [facility] | | | | | [facility];[place], [place] | | | | | [address] | | | + + + + + + + + + + | Performing | Address | City/State/Zipcode | Phone Number | | Organization | | | | + + + + + | [facility] | [address] | [place] [address] | | + + + + + Phosphorus (09/29/2018 4:20 AM) + + + + + | Component | Value | Ref Range | Performed At | + + + + + | PHOSPHORUS | 3.9Comment: Testing | 2.3 - 4.8 mg/dL | [facility] | | | performed at [facility], [address] | | LABORATORY | | | [facility] [address], | | | | | [place] [address] | | | + + + + + + + | Specimen | + + | Blood | + + + + + + + | Performing | Address | City/State/Zipcode | Phone Number | | Organization | | | | + + + + + | [facility] | [address] [place] [address] | [place] [address] | [phone] | | LABORATORY | [address] | | | + + + + + Magnesium (09/29/2018 4:20 AM) + + + + + | Component | Value | Ref Range | Performed At | + + + + + | MAGNESIUM | 2.2Comment: Testing | 1.7 - 2.4 mg/dL | [facility] | | | performed at [facility], [address] | | LABORATORY | | | [facility] [address], | | | | | [place] [address] | | | + + + + + + + | Specimen | + + | Blood | + + + + + + + | Performing | Address | City/State/Zipcode | Phone Number | | Organization | | | | + + + + + | [facility] | [address] | [place] [address] | [phone] | | LABORATORY | [address] | | | + + + + + Basic metabolic panel (09/29/2018 4:20 AM) + + + + + | Component | Value | Ref Range | Performed At | + + + + + | SODIUM | 141 | 135 - 145 mmol/L | [facility] | | | | | LABORATORY | + + + + + | POTASSIUM | 3.7 | 3.5 - 4.9 mmol/L | [facility] | | | | | LABORATORY | + + + + + | CHLORIDE | 101 | 99 - 109 mmol/L | [facility] | | | | | LABORATORY | + + + + + | CO2 | 32 | 23 - 32 mmol/L | [facility] | | | | | LABORATORY | + + + + + | ANION GAP AGAP | 12 | 5 - 20 mmol/L | [facility] | | | | | LABORATORY | + + + + + | GLUCOSE | 102 (H) | 65 - 99 mg/dL | [facility] | | | | | LABORATORY | + + + + + | BUN | 39 (H) | 8 - 25 mg/dL | [facility] | | | | | LABORATORY | + + + + + | CREATININE | 1.1 (H) | 0.50 - 1.00 mg/dL | [facility] | | | | | LABORATORY | + + + + + | BUN/CREAT | 35 | | [facility] | | | | | LABORATORY | + + + + + | CALCIUM | 8.4 (L) | 8.5 - 10.5 mg/dL | [facility] | | | | | LABORATORY | + + + + + | EGFR | 50 (L)Comment: GFR <60: | >60 mL/min/1.73m2 | [facility] | | | CHRONIC KIDNEY DISEASE, | | LABORATORY | | | IF FOUND OVER A 3 MONTH | | | | | PERIOD.GFR <15: KIDNEY | | | | | FAILURE.FOR | | | | | AMERICANS, MULTIPLY THE | | | | | CALCULATED GFR BY | | | | | 1.210.This eGFR is | | | | | calculated using the | | | | | MDRD IDMS traceable | | | | | equation.Testing | | | | | performed at [facility], [address] | | | | [facility], | | | | | [place] [address] | | | + + + + + + + | Specimen | + + | Blood | + + + + + + + | Performing | Address | City/State/Zipcode | Phone Number | | Organization | | | | + + + + + | [facility] | [address] | [place] [address] | [phone] | | LABORATORY | [address] | | | + + + + + CBC w/auto diff (reflex to manual) (09/29/2018 4:20 AM) + + + + + | Component | Value | Ref Range | Performed At | + + + + + | WBC | 6.01 | 3.80 - 11.00 K/uL | [facility] | | | | | LABORATORY | + + + + + | RBC | 3.73 | 3.70 - 5.10 M/uL | [facility] | | | | | LABORATORY | + + + + + | HGB | 11.3 | 11.3 - 15.5 g/dL | [facility] | | | | | LABORATORY | + + + + + | HCT | 32.6 (L) | 34.0 - 46.0 % | [facility] | | | | | LABORATORY | + + + + + | MCV | 87.5 | 80.0 - 100.0 fl | [facility] | | | | | LABORATORY | + + + + + | MCH | 30.2 | 27.0 - 34.0 pg | [facility] | | | | | LABORATORY | + + + + + | MCHC | 34.6 | 32.0 - 35.5 g/dL | [facility] | | | | | LABORATORY | + + + + + | RDW SD | 41.6 | 37 - 53 fl | [facility] | | | | | LABORATORY | + + + + + | PLT | 180 | 150 - 400 K/uL | [facility] | | | | | LABORATORY | + + + + + | MPV | 8.3 | fl | [facility] | | | | | LABORATORY | + + + + + | DIFF TYPE | MANUAL | | [facility] | | | | | LABORATORY | + + + + + | Neutrophils Manual | 61 | % | [facility] | | | | | LABORATORY | + + + + + | Bands | 1 | % | [facility] | | | | | LABORATORY | + + + + + | Lymphocytes Manual | 25 | % | [facility] | | | | | LABORATORY | + + + + + | Monocytes Manual | 11 | % | [facility] | | | | | LABORATORY | + + + + + | Eosinophils Manual | 2 | % | [facility] | | | | | LABORATORY | + + + + + | Neutrophils Absolute | 3.67 | 1.90 - 7.40 K/uL | [facility] | | | | | LABORATORY | + + + + + | Bands Manual | 0.06 | 0.00 - 0.20 K/uL | [facility] | | | | | LABORATORY | + + + + + | Lymphocytes Absolute | 1.50 | 1.00 - 3.90 K/uL | [facility] | | | | | LABORATORY | + + + + + | Monocytes Absolute | 0.66 | 0.00 - 0.80 K/uL | [facility] | | | | | LABORATORY | + + + + + | Eosinophils Absolute | 0.12 | 0.00 - 0.50 K/uL | [facility] | | | | | LABORATORY | + + + + + | MORPHOLOGY | RBC AND PLT MORPHOLOGY | | [facility] | | | APPEAR NORMALComment: | | LABORATORY | | | Testing performed at | | | | | [facility], [address] | | | | | [place] | | | | | [address] | | | + + + + + + + | Specimen | + + | Blood | + + + + + + + | Performing | Address | City/State/Zipcode | Phone Number | | Organization | | | | + + + + + | [facility] | [address] | [place] [address] | [phone] | | LABORATORY | [address] | | | + + + + + POCT glucose (09/28/2018 11:59 PM) + + + + + | Component | Value | Ref Range | Performed At | + + + + + | GLUCOSE,POC SCREEN | 100 (H)Comment: Testing | 65 - 99 mg/dL | [facility] | | | performed at [facility];[address] | | | | | [address];[place], [place] | | | | | [address] | | | + + + + + + + + + + | Performing | Address | City/State/Zipcode | Phone Number | | Organization | | | | + + + + + | [facility] | [address] | [place] [address] | | + + + + + POCT glucose (09/28/2018 5:59 PM) + + + + + | Component | Value | Ref Range | Performed At | + + + + + | GLUCOSE,POC SCREEN | 98Comment: Testing | 65 - 99 mg/dL | [facility] | | | performed at [facility];[address] | | | | | [address];[place] | | | | | [address] | | | + + + + + + + + + + | Performing | Address | City/State/Zipcode | Phone Number | | Organization | | | | + + + + + | [facility] | [address] | [place] [address] | | + + + + + Potassium (09/28/2018 3:30 PM) + + + + + | Component | Value | Ref Range | Performed At | + + + + + | POTASSIUM | 4.0Comment: Testing | 3.5 - 4.9 mmol/L | [facility] | | | performed at [facility];[address] | | | | | [address];[place] | | | | | [address] | | | + + + + + + + | Specimen | + + | Blood | + + + + + + + | Performing | Address | City/State/Zipcode | Phone Number | | Organization | | | | + + + + + | [facility] | [address] | [place] [address] | | + + + + + POCT glucose (09/28/2018 11:57 AM) + + + + + | Component | Value | Ref Range | Performed At | + + + + + | GLUCOSE,POC SCREEN | 82Comment: Testing | 65 - 99 mg/dL | [facility] | | | performed at [facility];[address] | | | | | [address];[place] | | | | | [address] | | | + + + + + + + + + + | Performing | Address | City/State/Zipcode | Phone Number | | Organization | | | | + + + + + | [facility] | [address] | [place] [address] | | + + + + + POCT glucose (09/28/2018 6:06 AM) + + + + + | Component | Value | Ref Range | Performed At | + + + + + | GLUCOSE,POC SCREEN | 76Comment: Testing | 65 - 99 mg/dL | [facility] | | | performed at [facility];[address] | | | | | [address];[place] | | | | | [address] | | | + + + + + + + + + + | Performing | Address | City/State/Zipcode | Phone Number | | Organization | | | | + + + + + | [facility] | [address] | [place] [address] | | + + + + + Phosphorus (09/28/2018 5:25 AM) + + + + + | Component | Value | Ref Range | Performed At | + + + + + | PHOSPHORUS | 5.1 (H)Comment: Testing | 2.3 - 4.8 mg/dL | [facility] | | | performed at [facility], [address] | | LABORATORY | | | [address], | | | | | [place] [address] | | | + + + + + + + | Specimen | + + | Blood | + + + + + + + | Performing | Address | City/State/Zipcode | Phone Number | | Organization | | | | + + + + + | [facility] | [address] | [place] [address] | [phone] | | LABORATORY | [address] | | | + + + + + Magnesium (09/28/2018 5:25 AM) + + + + + | Component | Value | Ref Range | Performed At | + + + + + | MAGNESIUM | 2.2Comment: Testing | 1.7 - 2.4 mg/dL | [facility] | | | performed at [facility], [address] | | LABORATORY | | | [address], | | | | | [place] [address] | | | + + + + + + + | Specimen | + + | Blood | + + + + + + + | Performing | Address | City/State/Zipcode | Phone Number | | Organization | | | | + + + + + | [facility] | [address] | [place] [address] | [phone] | | LABORATORY | [address] | | | + + + + + Basic metabolic panel (09/28/2018 5:25 AM) + + + + + | Component | Value | Ref Range | Performed At | + + + + + | SODIUM | 145 | 135 - 145 mmol/L | [facility] | | | | | LABORATORY | + + + + + | POTASSIUM | 3.7 | 3.5 - 4.9 mmol/L | [facility] | | | | | LABORATORY | + + + + + | CHLORIDE | 106 | 99 - 109 mmol/L | [facility] | | | | | LABORATORY | + + + + + | CO2 | 33 (H) | 23 - 32 mmol/L | [facility] | | | | | LABORATORY | + + + + + | ANION GAP AGAP | 10 | 5 - 20 mmol/L | [facility] | | | | | LABORATORY | + + + + + | GLUCOSE | 77 | 65 - 99 mg/dL | [facility] | | | | | LABORATORY | + + + + + | BUN | 57 (H) | 8 - 25 mg/dL | [facility] | | | | | LABORATORY | + + + + + | CREATININE | 1.2 (H) | 0.50 - 1.00 mg/dL | [facility] | | | | | LABORATORY | + + + + + | BUN/CREAT | 48 | | [facility] | | | | | LAB[facility]ATORY | + + + + + | CALCIUM | 9.2 | 8.5 - 10.5 mg/dL | [facility] | | | | | LAB[facility]ORY | + + + + + | EGFR | 45 (L)Comment: GFR <60: | >60 mL/min/1.73m2 | [facility] | | | CHRONIC KIDNEY DISEASE, | | LABORATORY | | | IF FOUND OVER A 3 MONTH | | | | | PERIOD.GFR <15: KIDNEY | | | | | FAILURE.FOR | | | | | AMERICANS, MULTIPLY THE | | | | | CALCULATED GFR BY | | | | | 1.210.This eGFR is | | | | | calculated using the | | | | | MDRD IDMS traceable | | | | | equation.Testing | | | | | performed at [facility], [address] | | | | | [facility], | | | | | [place] [address] | | | + + + + + + + | Specimen | + + | Blood | + + + + + + + | Performing | Address | City/State/Zipcode | Phone Number | | Organization | | | | + + + + + | [facility] | [address] | [place] [address] | [phone] | | LABORATORY | [address] | | | + + + + + CBC w/auto diff (reflex to manual) (09/28/2018 5:25 AM) + + + + + | Component | Value | Ref Range | Performed At | + + + + + | WBC | 6.63 | 3.80 - 11.00 K/uL | [facility] | | | | | LABORATORY | + + + + + | RBC | 3.64 (L) | 3.70 - 5.10 M/uL | [facility] | | | | | LABORATORY | + + + + + | HGB | 11.1 (L) | 11.3 - 15.5 g/dL | [facility] | | | | | LABORATORY | + + + + + | HCT | 32.3 (L) | 34.0 - 46.0 % | [facility] | | | | | LABORATORY | + + + + + | MCV | 88.8 | 80.0 - 100.0 fl | [facility] | | | | | LABORATORY | + + + + + | MCH | 30.5 | 27.0 - 34.0 pg | [facility] | | | | | LABORATORY | + + + + + | MCHC | 34.3 | 32.0 - 35.5 g/dL | [facility] | | | | | LABORATORY | + + + + + | RDW SD | 42.4 | 37 - 53 fl | [facility] | | | | | LABORATORY | + + + + + | PLT | 185 | 150 - 400 K/uL | [facility] | | | | | LABORATORY | + + + + + | MPV | 8.4 | fl | [facility] | | | | | LABORATORY | + + + + + | DIFF TYPE | AUTOMATED | | [facility] | | | | | LABORATORY | + + + + + | NEUTROPHILS | 64.47 | % | [facility] | | | | | LABORATORY | + + + + + | LYMPHOCYTES | 22.34 | % | [facility] | | | | | LABORATORY | + + + + + | MONOCYTES | 12.37 | % | [facility] | | | | | LABORATORY | + + + + + | EOSINOPHILS | 0.31 | % | [facility] | | | | | LABORATORY | + + + + + | BASOPHILS | 0.51 | % | [facility] | | | | | LABORATORY | + + + + + | NEUTROPHILS ABS | 4.27 | 1.90 - 7.40 K/uL | [facility] | | | | | LABORATORY | + + + + + | LYMPHOCYTES ABS | 1.48 | 1.00 - 3.90 K/uL | [facility] | | | | | LABORATORY | + + + + + | MONOCYTES ABS | 0.82 (H) | 0.00 - 0.80 K/uL | [facility] | | | | | LABORATORY | + + + + + | EOSINOPHILS ABS | 0.02 | 0.00 - 0.50 K/uL | [facility] | | | | | LABORATORY | + + + + + | BASOPHILS ABS | 0.03Comment: Testing | 0.00 - 0.10 K/uL | [facility] | | | performed at [facility], [address] | | LABORATORY | | | [address], | | | | | [place] [address] | | | + + + + + + + | Specimen | + + | Blood | + + + + + + + | Performing | Address | City/State/Zipcode | Phone Number | | Organization | | | | + + + + + | [facility] | [address] | [place] [address] | [phone] | | LABORATORY | [address] | | | + + + + + POCT glucose (09/27/2018 11:54 PM) + + + + + | Component | Value | Ref Range | Performed At | + + + + + | GLUCOSE,POC SCREEN | 79Comment: Testing | 65 - 99 mg/dL | [facility] | | | performed at [facility];[address] | | | | | [address];[place], [place] | | | | | [address] | | | + + + + + + + + + + | Performing | Address | City/State/Zipcode | Phone Number | | Organization | | | | + + + + + | [facility] | [address] | [place] [address] | | + + + + + POCT glucose (09/27/2018 5:30 PM) + + + + + | Component | Value | Ref Range | Performed At | + + + + + | GLUCOSE,POC SCREEN | 97Comment: Testing | 65 - 99 mg/dL | [facility] | | | performed at [facility];[address] | | | | | [address];[place] | | | | | [address] | | | + + + + + + + + + + | Performing | Address | City/State/Zipcode | Phone Number | | Organization | | | | + + + + + | [facility] | [address] | [place] [address] | | + + + + + POCT glucose (09/27/2018 11:46 AM) + + + + + | Component | Value | Ref Range | Performed At | + + + + + | GLUCOSE,POC SCREEN | 114 (H)Comment: Testing | 65 - 99 mg/dL | [facility] | | | performed at [facility];[address] | | | | | [address];[place] | | | | | [address] | | | + + + + + + + + + + | Performing | Address | City/State/Zipcode | Phone Number | | Organization | | | | + + + + + | [facility] | [address] | [place] [address] | | + + + + + POCT glucose (09/27/2018 6:02 AM) + + + + + | Component | Value | Ref Range | Performed At | + + + + + | GLUCOSE,POC SCREEN | 94Comment: Testing | 65 - 99 mg/dL | [facility] | | | performed at [facility];[address] | | | | | [address];[place] | | | | | [address] | | | + + + + + + + + + + | Performing | Address | City/State/Zipcode | Phone Number | | Organization | | | | + + + + + | [facility] | [address] | [place] [address] | | + + + + + Phosphorus (09/27/2018 4:07 AM) + + + + + | Component | Value | Ref Range | Performed At | + + + + + | PHOSPHORUS | 2.4Comment: Testing | 2.3 - 4.8 mg/dL | [facility] | | | performed at [facility], [address] | | LABORATORY | | | [place] [address], | | | | | [place] [address] | | | + + + + + + + | Specimen | + + | Blood | + + + + + + + | Performing | Address | City/State/Zipcode | Phone Number | | Organization | | | | + + + + + | [facility] | [address] [place] [address] | [place] [address] | [phone] | | LABORATORY | [address] | | | + + + + + Magnesium (09/27/2018 4:07 AM) + + + + + | Component | Value | Ref Range | Performed At | + + + + + | MAGNESIUM | 2.5 (H)Comment: Testing | 1.7 - 2.4 mg/dL | [facility] | | | performed at [facility], [address] | | LABORATORY | | | [address], | | | | | [place] [address] | | | + + + + + + + | Specimen | + + | Blood | + + + + + + + | Performing | Address | City/State/Zipcode | Phone Number | | Organization | | | | + + + + + | [facility] | [address] | [place] [address] | [phone] | | LABORATORY | [address] | | | + + + + + Basic metabolic panel (09/27/2018 4:07 AM) + + + + + | Component | Value | Ref Range | Performed At | + + + + + | SODIUM | 144 | 135 - 145 mmol/L | [facility] | | | | | LABORATORY | + + + + + | POTASSIUM | 4.1 | 3.5 - 4.9 mmol/L | [facility] | | | | | LABORATORY | + + + + + | CHLORIDE | 107 | 99 - 109 mmol/L | [facility] | | | | | LABORATORY | + + + + + | CO2 | 31 | 23 - 32 mmol/L | [facility] | | | | | LABORATORY | + + + + + | ANION GAP AGAP | 10 | 5 - 20 mmol/L | [facility] | | | | | LABORATORY | + + + + + | GLUCOSE | 87 | 65 - 99 mg/dL | [facility] | | | | | LABORATORY | + + + + + | BUN | 68 (H) | 8 - 25 mg/dL | [facility] | | | | | LABORATORY | + + + + + | CREATININE | 1.4 (H) | 0.50 - 1.00 mg/dL | [facility] | | | | | LABORATORY | + + + + + | BUN/CREAT | 49 | | [facility] | | | | | LABORATORY | + + + + + | CALCIUM | 8.9 | 8.5 - 10.5 mg/dL | [facility] | | | | | LABORATORY | + + + + + | EGFR | 38 (L)Comment: GFR <60: | >60 mL/min/1.73m2 | [facility] | | | CHRONIC KIDNEY DISEASE, | | LABORATORY | | | IF FOUND OVER A 3 MONTH | | | | | PERIOD.GFR <15: KIDNEY | | | | | FAILURE.FOR | | | | | AMERICANS, MULTIPLY THE | | | | | CALCULATED GFR BY | | | | | 1.210.This eGFR is | | | | | calculated using the | | | | | MDRD IDMS traceable | | | | | equation.Testing | | | | | performed at [facility], [address] | | | | [facility], | | | | | [place] [address] | | | + + + + + + + | Specimen | + + | Blood | + + + + + + + | Performing | Address | City/State/Zipcode | Phone Number | | Organization | | | | + + + + + | [facility] | [address] | [place] [address] | [phone] | | LABORATORY | [address] | | | + + + + + CBC w/auto diff (reflex to manual) (09/27/2018 4:07 AM) + + + + + | Component | Value | Ref Range | Performed At | + + + + + | WBC | 8.27 | 3.80 - 11.00 K/uL | [facility] | | | | | LABORATORY | + + + + + | RBC | 3.76 | 3.70 - 5.10 M/uL | [facility] | | | | | LABORATORY | + + + + + | HGB | 11.1 (L) | 11.3 - 15.5 g/dL | [facility] | | | | | LABORATORY | + + + + + | HCT | 34.2 | 34.0 - 46.0 % | [facility] | | | | | LABORATORY | + + + + + | MCV | 91.0 | 80.0 - 100.0 fl | [facility] | | | | | LABORATORY | + + + + + | MCH | 29.6 | 27.0 - 34.0 pg | [facility] | | | | | LABORATORY | + + + + + | MCHC | 32.5 | 32.0 - 35.5 g/dL | [facility] | | | | | LABORATORY | + + + + + | RDW SD | 44.6 | 37 - 53 fl | [facility] | | | | | LABORATORY | + + + + + | PLT | 189 | 150 - 400 K/uL | [facility] | | | | | LABORATORY | + + + + + | MPV | 8.6 | fl | [facility] | | | | | LABORATORY | + + + + + | DIFF TYPE | MANUAL | | [facility] | | | | | LABORATORY | + + + + + | Neutrophils Manual | 58 | % | [facility] | | | | | LABORATORY | + + + + + | Bands | 2 | % | [facility] | | | | | LABORATORY | + + + + + | Lymphocytes Manual | 29 | % | [facility] | | | | | LABORATORY | + + + + + | Monocytes Manual | 11 | % | [facility] | | | | | LABORATORY | + + + + + | Neutrophils Absolute | 4.79 | 1.90 - 7.40 K/uL | [facility] | | | | | LABORATORY | + + + + + | Bands Manual | 0.17 | 0.00 - 0.20 K/uL | [facility] | | | | | LABORATORY | + + + + + | Lymphocytes Absolute | 2.40 | 1.00 - 3.90 K/uL | [facility] | | | | | LABORATORY | + + + + + | Monocytes Absolute | 0.91 (H) | 0.00 - 0.80 K/uL | [facility] | | | | | LABORATORY | + + + + + | MORPHOLOGY | RBC AND PLT MORPHOLOGY | | [facility] | | | APPEAR NORMALComment: | | LABORATORY | | | Testing performed at | | | | | [facility], [address] [place] [address] | | | | | [place] | | | | | [address] | | | + + + + + + + | Specimen | + + | Blood | + + + + + + + | Performing | Address | City/State/Zipcode | Phone Number | | Organization | | | | + + + + + | [facility] | [address] | [place] [address] | [phone] | | LABORATORY | [address] | | | + + + + + PROCALCITONIN (09/27/2018 4:07 AM) + + + + + | Component | Value | Ref Range | Performed At | + + + + + | PROCALCITONIN | <0.05Comment: | <0.5 ng/mL | [facility] | | | INTERPRETIVE | | | | | INFORMATION: PROCALCI | | | | | TONIN PCT <= 0.5 | | | | | ng/mL: Low risk | | | | | for progression to | | | | | severe | | | | | systemic bacteria | | | | | l infection (severe | | | | | sepsis/septic | | | | | shock). Does not | | | | | exclude an infection, | | | | | because | | | | | localized infecti | | | | | ons may be associated | | | | | with such low | | | | | levels. If PCT is | | | | | measured very early | | | | | after | | | | | bacterial challen | | | | | ge (usually <6 hours), | | | | | results may still | | | | | be low and should | | | | | re-assess PCT 6-24 | | | | | hours later. PCT >0.5 | | | | | and <= 2 | | | | | ng/mL: Moderate | | | | | risk for progression to | | | | | severe | | | | | systemic infectio | | | | | n (severe sepsis/septic | | | | | shock). Other | | | | | conditions are known to | | | | | elevate PCT, patient | | | | | should be | | | | | closely monitored both | | | | | clinically and | | | | | by re-assessing | | | | | PCT within 6-24 hours. | | | | | PCT > 2 | | | | | ng/mL: High | | | | | likelihood for | | | | | progression to severe | | | | | systemic bacteria | | | | | l infection (severe | | | | | sepsis/septic shock). | | | | | PCT >= 10 | | | | | ng/mL: High | | | | | likelihood of severe | | | | | sepsis or septic | | | | | shock.Testing performed | | | | | at [facility];[address] [facility] | | | | | [facility];[place] [address] | | | + + + + + + + + + + | Performing | Address | City/State/Zipcode | Phone Number | | Organization | | | | + + + + + | [facility] | [address] | [place] [address] | | + + + + + POCT glucose (09/27/2018 12:33 AM) + + + + + | Component | Value | Ref Range | Performed At | + + + + + | GLUCOSE,POC SCREEN | 88Comment: Testing | 65 - 99 mg/dL | [facility] | | | performed at [facility];[address] | | | | | [address];[place], [place] | | | | | [address] | | | + + + + + + + + + + | Performing | Address | City/State/Zipcode | Phone Number | | Organization | | | | + + + + + | [facility] | [address] | [place] [address] | | + + + + + POCT glucose (09/26/2018 6:05 PM) + + + + + | Component | Value | Ref Range | Performed At | + + + + + | GLUCOSE,POC SCREEN | 102 (H)Comment: Testing | 65 - 99 mg/dL | [facility] | | | performed at [facility];[address] | | | | | [address];[place] | | | | | [address] | | | + + + + + + + + + + | Performing | Address | City/State/Zipcode | Phone Number | | Organization | | | | + + + + + | [facility] | [address] | [place] [address] | | + + + + + POCT glucose (09/26/2018 12:16 PM) + + + + + | Component | Value | Ref Range | Performed At | + + + + + | GLUCOSE,POC SCREEN | 132 (H)Comment: Testing | 65 - 99 mg/dL | [facility] | | | performed at [facility];[address] | | | | | [address] [facility];[place] | | | | | [address] | | | + + + + + + + + + + | Performing | Address | City/State/Zipcode | Phone Number | | Organization | | | | + + + + + | [facility] | [address] [facility] | [place] [address] | | + + + + + POCT glucose (09/26/2018 5:47 AM) + + + + + | Component | Value | Ref Range | Performed At | + + + + + | GLUCOSE,POC SCREEN | 160 (H)Comment: Testing | 65 - 99 mg/dL | [facility] | | | performed at [facility];[address] | | | | | [address];[place] | | | | | [address] | | | + + + + + + + + + + | Performing | Address | City/State/Zipcode | Phone Number | | Organization | | | | + + + + + | [facility] | [address] | [place] [address] | | + + + + + Phosphorus (09/26/2018 4:04 AM) + + + + + | Component | Value | Ref Range | Performed At | + + + + + | PHOSPHORUS | 2.4Comment: Testing | 2.3 - 4.8 mg/dL | [facility] | | | performed at [facility], [address] | | LABORATORY | | | [address], | | | | | [place] [address] | | | + + + + + + + | Specimen | + + | Blood | + + + + + + + | Performing | Address | City/State/Zipcode | Phone Number | | Organization | | | | + + + + + | [facility] | [address] | [place] [address] | [phone] | | LABORATORY | [address] | | | + + + + + Magnesium (09/26/2018 4:04 AM) + + + + + | Component | Value | Ref Range | Performed At | + + + + + | MAGNESIUM | 2.8 (H)Comment: Testing | 1.7 - 2.4 mg/dL | [facility] | | | performed at [facility], [address] | | LABORATORY | | | [facility], | | | | | [place] [address] | | | + + + + + + + | Specimen | + + | Blood | + + + + + + + | Performing | Address | City/State/Zipcode | Phone Number | | Organization | | | | + + + + + | [facility] | [address] | [place] [address] | [phone] | | LABORATORY | [address] | | | + + + + + Basic metabolic panel (09/26/2018 4:04 AM) + + + + + | Component | Value | Ref Range | Performed At | + + + + + | SODIUM | 141 | 135 - 145 mmol/L | [facility] | | | | | LABORATORY | + + + + + | POTASSIUM | 4.9 | 3.5 - 4.9 mmol/L | [facility] | | | | | LABORATORY | + + + + + | CHLORIDE | 104 | 99 - 109 mmol/L | [facility] | | | | | LABORATORY | + + + + + | CO2 | 25 | 23 - 32 mmol/L | [facility] | | | | | LABORATORY | + + + + + | ANION GAP AGAP | 17 | 5 - 20 mmol/L | [facility] | | | | | LABORATORY | + + + + + | GLUCOSE | 159 (H) | 65 - 99 mg/dL | [facility] | | | | | LABORATORY | + + + + + | BUN | 77 (H) | 8 - 25 mg/dL | [facility] | | | | | LABORATORY | + + + + + | CREATININE | 1.8 (H) | 0.50 - 1.00 mg/dL | [facility] | | | | | LABORATORY | + + + + + | BUN/CREAT | 43 | | [facility] | | | | | LABORATORY | + + + + + | CALCIUM | 8.7 | 8.5 - 10.5 mg/dL | [facility] | | | | | LABORATORY | + + + + + | EGFR | 28 (L)Comment: GFR <60: | >60 mL/min/1.73m2 | [facility] | | | CHRONIC KIDNEY DISEASE, | | LABORATORY | | | IF FOUND OVER A 3 MONTH | | | | | PERIOD.GFR <15: KIDNEY | | | | | FAILURE.FOR | | | | | AMERICANS, MULTIPLY THE | | | | | CALCULATED GFR BY | | | | | 1.210.This eGFR is | | | | | calculated using the | | | | | MDRD IDNE traceable | | | | | equation.Testing | | | | | performed at [facility], [address] | | | | [facility], | | | | | [place] [address] | | | + + + + + + + | Specimen | + + | Blood | + + + + + + + | Performing | Address | City/State/Zipcode | Phone Number | | Organization | | | | + + + + + | [facility] | [address] | [place] [address] | [phone] | | LABORATORY | [address] | | | + + + + + CBC w/auto diff (reflex to manual) (09/26/2018 4:04 AM) + + + + + | Component | Value | Ref Range | Performed At | + + + + + | WBC | 8.04 | 3.80 - 11.00 K/uL | [facility] | | | | | LABORATORY | + + + + + | RBC | 3.36 (L) | 3.70 - 5.10 M/uL | [facility] | | | | | LABORATORY | + + + + + | HGB | 10.1 (L) | 11.3 - 15.5 g/dL | [facility] | | | | | LABORATORY | + + + + + | HCT | 30.6 (L) | 34.0 - 46.0 % | [facility] | | | | | LABORATORY | + + + + + | MCV | 91.0 | 80.0 - 100.0 fl | [facility] | | | | | LABORATORY | + + + + + | MCH | 30.0 | 27.0 - 34.0 pg | [facility] | | | | | LABORATORY | + + + + + | MCHC | 33.0 | 32.0 - 35.5 g/dL | [facility] | | | | | LABORATORY | + + + + + | RDW SD | 45.5 | 37 - 53 fl | [facility] | | | | | LABORATORY | + + + + + | PLT | 188 | 150 - 400 K/uL | [facility] | | | | | LABORATORY | + + + + + | MPV | 9.1 | fl | [facility] | | | | | LABORATORY | + + + + + | DIFF TYPE | MANUAL | | [facility] | | | | | LABORATORY | + + + + + | Neutrophils Manual | 93 | % | [facility] | | | | | LABORATORY | + + + + + | Bands | 3 | % | [facility] | | | | | LABORATORY | + + + + + | Lymphocytes Manual | 2 | % | [facility] | | | | | LABORATORY | + + + + + | Monocytes Manual | 2 | % | [facility] | | | | | LABORATORY | + + + + + | Neutrophils Absolute | 7.48 (H) | 1.90 - 7.40 K/uL | [facility] | | | | | LABORATORY | + + + + + | Bands Manual | 0.24 (H) | 0.00 - 0.20 K/uL | [facility] | | | | | LABORATORY | + + + + + | Lymphocytes Absolute | 0.16 (L) | 1.00 - 3.90 K/uL | [facility] | | | | | LABORATORY | + + + + + | Monocytes Absolute | 0.16 | 0.00 - 0.80 K/uL | [facility] | | | | | LABORATORY | + + + + + | Platelet Estimate | ADEQUATE | | [facility] | | | | | LABORATORY | + + + + + | MORPHOLOGY | RBC AND PLT MORPHOLOGY | | [facility] | | | APPEAR NORMALComment: | | LABORATORY | | | Testing performed at | | | | | [facility], [address] | [address], [place] | | | | | [address] | | | + + + + + + + | Specimen | + + | Blood | + + + + + + + | Performing | Address | City/State/Zipcode | Phone Number | | Organization | | | | + + + + + | [facility] | [address] | [place] [address] | [phone] | | LABORATORY | [address] | | | + + + + + POCT glucose (09/25/2018 11:09 PM) + + + + + | Component | Value | Ref Range | Performed At | + + + + + | GLUCOSE,POC SCREEN | 142 (H)Comment: Testing | 65 - 99 mg/dL | [facility] | | | performed at [facility];[address] | | | | | [address];[place], [place] | | | | | [address] | | | + + + + + + + + + + | Performing | Address | City/State/Zipcode | Phone Number | | Organization | | | | + + + + + | [facility] | [address] | [place] [address] | | + + + + + POCT glucose (09/25/2018 6:00 PM) + + + + + | Component | Value | Ref Range | Performed At | + + + + + | GLUCOSE,POC SCREEN | 150 (H)Comment: Testing | 65 - 99 mg/dL | [facility] | | | performed at [facility];[address] | | | | | [address];[place] | | | | | [address] | | | + + + + + + + + + + | Performing | Address | City/State/Zipcode | Phone Number | | Organization | | | | + + + + + | [facility] | [address] | [place] [address] | | + + + + + Potassium (09/25/2018 5:28 PM) + + + + + | Component | Value | Ref Range | Performed At | + + + + + | POTASSIUM | 4.8Comment: Testing | 3.5 - 4.9 mmol/L | [facility] | | | performed at [facility];[address] | | | | | [address];[place] | | | | | [address] | | | + + + + + + + | Specimen | + + | Blood - Blood | + + + + + + + | Performing | Address | City/State/Zipcode | Phone Number | | Organization | | | | + + + + + | [facility] | [address] | [place] [address] | | + + + + + Magnesium (09/25/2018 5:28 PM) + + + + + | Component | Value | Ref Range | Performed At | + + + + + | MAGNESIUM | 2.7 (H)Comment: Testing | 1.7 - 2.4 mg/dL | [facility] | | | performed at [facility];[address] | | | | | [address];[place] | | | | | [address] | | | + + + + + + + | Specimen | + + | Blood | + + + + + + + | Performing | Address | City/State/Zipcode | Phone Number | | Organization | | | | + + + + + | [facility] | [address] | [place] [address] | | + + + + + Phosphorus (09/25/2018 5:28 PM) + + + + + | Component | Value | Ref Range | Performed At | + + + + + | PHOSPHORUS | 3.2Comment: Testing | 2.3 - 4.8 mg/dL | [facility] | | | performed at [facility] | | | | | [address];[place], [place] | | | | | [address] | | | + + + + + + + | Specimen | + + | Blood | + + + + + + + | Performing | Address | City/State/Zipcode | Phone Number | | Organization | | | | + + + + + | [facility] | [address] | [place] [address] | | + + + + + POCT glucose (09/25/2018 12:30 PM) + + + + + | Component | Value | Ref Range | Performed At | + + + + + | GLUCOSE,POC SCREEN | 147 (H)Comment: Testing | 65 - 99 mg/dL | [facility] | | | performed at [facility];[address] | | | | | [address];[place] | | | | | [address] | | | + + + + + + + + + + | Performing | Address | City/State/Zipcode | Phone Number | | Organization | | | | + + + + + | [facility] | [address] | [place] [address] | | + + + + + POCT glucose (09/25/2018 6:30 AM) + + + + + | Component | Value | Ref Range | Performed At | + + + + + | GLUCOSE,POC SCREEN | 136 (H)Comment: Testing | 65 - 99 mg/dL | [facility] | | | performed at [facility];[address] | | | | | [address];[place] | | | | | [address] | | | + + + + + + + + + + | Performing | Address | City/State/Zipcode | Phone Number | | Organization | | | | + + + + + | [facility] | [address] | [place] [address] | | + + + + + Phosphorus (09/25/2018 4:08 AM) + + + + + | Component | Value | Ref Range | Performed At | + + + + + | PHOSPHORUS | 2.8Comment: Testing | 2.3 - 4.8 mg/dL | [facility] | | | performed at [facility], [address] | | LABORATORY | | | [facility] [address], | | | | | [place] [address] | | | + + + + + + + | Specimen | + + | Blood | + + + + + + + | Performing | Address | City/State/Zipcode | Phone Number | | Organization | | | | + + + + + | [facility] | [address] [place] [address] | [place] [address] | [phone] | | LABORATORY | [address] | | | + + + + + Magnesium (09/25/2018 4:08 AM) + + + + + | Component | Value | Ref Range | Performed At | + + + + + | MAGNESIUM | 2.2Comment: Testing | 1.7 - 2.4 mg/dL | [facility] | | | performed at [facility], [address] | | LABORATORY | | | [address], | | | | | [place] [address] | | | + + + + + + + | Specimen | + + | Blood | + + + + + + + | Performing | Address | City/State/Zipcode | Phone Number | | Organization | | | | + + + + + | [facility] | [address] | [place] [address] | [phone] | | LABORATORY | [address] | | | + + + + + Basic metabolic panel (09/25/2018 4:08 AM) + + + + + | Component | Value | Ref Range | Performed At | + + + + + | SODIUM | 139 | 135 - 145 mmol/L | [facility] | | | | | LABORATORY | + + + + + | POTASSIUM | 4.4 | 3.5 - 4.9 mmol/L | [facility] | | | | | LABORATORY | + + + + + | CHLORIDE | 105 | 99 - 109 mmol/L | [facility] | | | | | LABORATORY | + + + + + | CO2 | 18 (L) | 23 - 32 mmol/L | [facility] | | | | | LABORATORY | + + + + + | ANION GAP AGAP | 20 | 5 - 20 mmol/L | [facility] | | | | | LABORATORY | + + + + + | GLUCOSE | 115 (H) | 65 - 99 mg/dL | [facility] | | | | | LABORATORY | + + + + + | BUN | 58 (H) | 8 - 25 mg/dL | [facility] | | | | | LABORATORY | + + + + + | CREATININE | 2.2 (H) | 0.50 - 1.00 mg/dL | [facility] | | | | | LABORATORY | + + + + + | BUN/CREAT | 26 | | [facility] | | | | | LABORATORY | + + + + + | CALCIUM | 7.3 (L) | 8.5 - 10.5 mg/dL | [facility] | | | | | LABORATORY | + + + + + | EGFR | 22 (L)Comment: GFR <60: | >60 mL/min/1.73m2 | [facility] | | | CHRONIC KIDNEY DISEASE, | | LABORATORY | | | IF FOUND OVER A 3 MONTH | | | | | PERIOD.GFR <15: KIDNEY | | | | | FAILURE.FOR | | | | | AMERICANS, MULTIPLY THE | | | | | CALCULATED GFR BY | | | | | 1.210.This eGFR is | | | | | calculated using the | | | | | MDRD IDMS traceable | | | | | equation.Testing | | | | | performed at [facility], [address] | | | | [facility], | | | | | [place] [address] | | | + + + + + + + | Specimen | + + | Blood | + + + + + + + | Performing | Address | City/State/Zipcode | Phone Number | | Organization | | | | + + + + + | [facility] | [address] [place] [address] | [place] [address] | [phone] | | LABORATORY | [address] | | | + + + + + CBC w/auto diff (reflex to manual) (09/25/2018 4:08 AM) + + + + + | Component | Value | Ref Range | Performed At | + + + + + | WBC | 12.19 (H) | 3.80 - 11.00 K/uL | [facility] | | | | | LABORATORY | + + + + + | RBC | 3.51 (L) | 3.70 - 5.10 M/uL | [facility] | | | | | LABORATORY | + + + + + | HGB | 10.5 (L) | 11.3 - 15.5 g/dL | [facility] | | | | | LABORATORY | + + + + + | HCT | 31.8 (L) | 34.0 - 46.0 % | [facility] | | | | | LABORATORY | + + + + + | MCV | 90.6 | 80.0 - 100.0 fl | [facility] | | | | | LABORATORY | + + + + + | MCH | 29.9 | 27.0 - 34.0 pg | [facility] | | | | | LABORATORY | + + + + + | MCHC | 33.1 | 32.0 - 35.5 g/dL | [facility] | | | | | LABORATORY | + + + + + | RDW SD | 45.9 | 37 - 53 fl | [facility] | | | | | LABORATORY | + + + + + | PLT | 210 | 150 - 400 K/uL | [facility] | | | | | LABORATORY | + + + + + | MPV | 8.9 | fl | [facility] | | | | | LABORATORY | + + + + + | DIFF TYPE | MANUAL | | [facility] | | | | | LABORATORY | + + + + + | Neutrophils Manual | 81 | % | [facility] | | | | | LABORATORY | + + + + + | Bands | 10 | % | [facility] | | | | | LABORATORY | + + + + + | Lymphocytes Manual | 3 | % | [facility] | | | | | LABORATORY | + + + + + | Monocytes Manual | 6 | % | [facility] | | | | | LABORATORY | + + + + + | Neutrophils Absolute | 9.87 (H) | 1.90 - 7.40 K/uL | [facility] | | | | | LABORATORY | + + + + + | Bands Manual | 1.22 (H) | 0.00 - 0.20 K/uL | [facility] | | | | | LABORATORY | + + + + + | Lymphocytes Absolute | 0.37 (L) | 1.00 - 3.90 K/uL | [facility] | | | | | LABORATORY | + + + + + | Monocytes Absolute | 0.73 | 0.00 - 0.80 K/uL | [facility] | | | | | LAB[facility]AT[facility] | + + + + + | Platelet Estimate | ADEQUATE | | [facility] | | | | | LABORATORY | + + + + + | MORPHOLOGY | RBC AND PLT MORPHOLOGY | | [facility] | | | APPEAR NORMALComment: | | LABORATORY | | | Testing performed at | | | | | [facility], [address] | | | | | [place] | | | | | [address] | | | + + + + + + + | Specimen | + + | Blood | + + + + + + + | Performing | Address | City/State/Zipcode | Phone Number | | Organization | | | | + + + + + | [facility] | [address] | [place] [address] | [phone] | | LABORATORY | [address] | | | + + + + + POCT glucose (09/25/2018 12:15 AM) + + + + + | Component | Value | Ref Range | Performed At | + + + + + | GLUCOSE,POC SCREEN | 155 (H)Comment: Testing | 65 - 99 mg/dL | [facility] | | | performed at [facility];[address] | | | | | [address];[place] | | | | | [address] | | | + + + + + + + + + + | Performing | Address | City/State/Zipcode | Phone Number | | Organization | | | | + + + + + | [facility] | [address] | [place] [address] | | + + + + + POCT glucose (09/24/2018 5:26 PM) + + + + + | Component | Value | Ref Range | Performed At | + + + + + | GLUCOSE,POC SCREEN | 131 (H)Comment: Testing | 65 - 99 mg/dL | [facility] | | | performed at [facility];[address] | | | | | [address];[place], [place] | | | | | [address] | | | + + + + + + + + + + | Performing | Address | City/State/Zipcode | Phone Number | | Organization | | | | + + + + + | [facility] | [address] | [place] [address] | | + + + + + POCT glucose (09/24/2018 11:14 AM) + + + + + | Component | Value | Ref Range | Performed At | + + + + + | GLUCOSE,POC SCREEN | 157 (H)Comment: Testing | 65 - 99 mg/dL | [facility] | | | performed at [facility];[address] | | [address];[place] | | | | | [address] | | | + + + + + + + + + + | Performing | Address | City/State/Zipcode | Phone Number | | Organization | | | | + + + + + | [facility] | [address] | [place] [address] | | + + + + + Glycohemoglobin A1c (09/24/2018 7:03 AM) + + + + + | Component | Value | Ref Range | Performed At | + + + + + | HEMOGLOBIN A1C | 6.1 (H)Comment: HbA1c | 4.0 - 6.0 % | [facility] | | | method is certified by | | LABORATORY | | | [facility] and traceable to | | | | | the DCCT reference | | | | | method.ADA guidelines | | | | | indicate: | | | | | Prediabetes: 5.7 - | | | | | 6.4 Diabetes: | | | | | >6.4 Glycemic | | | | | control for adults with | | | | | diabetes: <7.0Effective | | | | | 07/11/2018: Note New | | | | | Method | | | + + + + + | ESTIMATED AVG | 128Comment: Estimated | <154 mg/dL | [facility] | | GLUCOSE | Average Glucose | | LABORATORY | | | calculated from | | | | | hemoglobin A1c by use of | | | | | the ADA recommended | | | | | formula.Testing | | | | | performed at [facility], [facility] [address] | | | | | [facility], | | | | | [place] [address] | | | + + + + + + + + + + | Performing | Address | City/State/Zipcode | Phone Number | | Organization | | | | + + + + + | [facility] | [address] [place] [address] | [place] [address] | [phone] | | LABORATORY | vd. | | | + + + + + CBC W/Auto Diff (Reflex to Manual) (09/24/2018 7:03 AM) + + + + + | Component | Value | Ref Range | Performed At | + + + + + | WBC | 16.40 (H) | 3.80 - 11.00 K/uL | [facility] | + + + + + | RBC | 3.66 (L) | 3.70 - 5.10 M/uL | [facility] | + + + + + | HGB | 10.9 (L) | 11.3 - 15.5 g/dL | [facility] | + + + + + | HCT | 33.0 (L) | 34.0 - 46.0 % | [facility] | + + + + + | MCV | 90.2 | 80.0 - 100.0 fl | [facility] | + + + + + | MCH | 29.7 | 27.0 - 34.0 pg | [facility] | + + + + + | MCHC | 32.9 | 32.0 - 35.5 g/dL | [facility] | + + + + + | RDW SD | 45.5 | 37 - 53 fl | [facility] | + + + + + | PLT | 198Comment: | 150 - 400 K/uL | [facility] | + + + + + | MPV | 8.6Comment: | fl | [facility] | + + + + + | DIFF TYPE | AUTOMATED | | [facility] | + + + + + | NEUTROPHILS | 94.01 | % | [facility] | + + + + + | LYMPHOCYTES | 1.55 | % | [facility] | + + + + + | MONOCYTES | 3.73 | % | [facility] | + + + + + | EOSINOPHILS | 0.41 | % | [facility] | + + + + + | BASOPHILS | 0.30 | % | [facility] | + + + + + | NEUTROPHILS ABS | 15.42 (H) | 1.90 - 7.40 K/uL | [facility] | + + + + + | LYMPHOCYTES ABS | 0.25 (L) | 1.00 - 3.90 K/uL | [facility] | + + + + + | MONOCYTES ABS | 0.61 | 0.00 - 0.80 K/uL | [facility] | + + + + + | EOSINOPHILS ABS | 0.07 | 0.00 - 0.50 K/uL | [facility] | + + + + + | BASOPHILS ABS | 0.05 | 0.00 - 0.10 K/uL | [facility] | + + + + + | MORPHOLOGY | NORMAL PLT MORPHComment: | | [facility] | | | NORMAL RBC MORPH | | | + + + + + | Platelet Estimate | ADEQUATE | | [facility] | + + + + + | Diff Comment | PLATELETS CLUMPED, | | [facility] | | | APPEAR ADEQUATEComment: | | | | | SLIDE SCANNED, AGREES | | | | | WITH AUTOMATED | | | | | RESULTS.Testing | | | | | performed at [facility];[address] | | | | | [address];[place] | | | | | [address] | | | + + + + + + + + + + | Performing | Address | City/State/Zipcode | Phone Number | | Organization | | | | + + + + + | [facility] | [address] | [place] [address] | | + + + + + POCT glucose (09/24/2018 5:58 AM) + + + + + | Component | Value | Ref Range | Performed At | + + + + + | GLUCOSE,POC SCREEN | 175 (H)Comment: Testing | 65 - 99 mg/dL | [facility] | | | performed at [facility];[address] | | | | | [facility] | | | | | [address] | | | + + + + + + + + + + | Performing | Address | City/State/Zipcode | Phone Number | | Organization | | | | + + + + + | [facility] | [address] | [place] [address] | | + + + + + Phosphorus (09/24/2018 4:01 AM) + + + + + | Component | Value | Ref Range | Performed At | + + + + + | PHOSPHORUS | 2.4Comment: SPECIMEN | 2.3 - 4.8 mg/dL | [facility] | | | SLIGHTLY | | LABORATORY | | | HEMOLYZEDTesting | | | | | performed at [facility], [address] | | | | [address], | | | | | [place] [address] | | | + + + + + + + | Specimen | + + | Blood | + + + + + + + | Performing | Address | City/State/Zipcode | Phone Number | | Organization | | | | + + + + + | [facility] | [address] | [place] [address] | [phone] | | LABORATORY | [place]. | | | + + + + + Magnesium (09/24/2018 4:01 AM) + + + + + | Component | Value | Ref Range | Performed At | + + + + + | MAGNESIUM | 2.0Comment: SPECIMEN | 1.7 - 2.4 mg/dL | [facility] | | | SLIGHTLY | | LABORATORY | | | HEMOLYZEDTesting | | | | | performed at [facility], [address] | | | | [address], | | | | | [place] [address] | | | + + + + + + + | Specimen | + + | Blood | + + + + + + + | Performing | Address | City/State/Zipcode | Phone Number | | Organization | | | | + + + + + | [facility] | [address] | [place] [address] | [phone] | | LABORATORY | [address] | | | + + + + + Basic metabolic panel (09/24/2018 4:01 AM) + + + + + | Component | Value | Ref Range | Performed At | + + + + + | SODIUM | 139 | 135 - 145 mmol/L | [facility] | | | | | LABORATORY | + + + + + | POTASSIUM | 3.7Comment: SPECIMEN | 3.5 - 4.9 mmol/L | [facility] | | | SLIGHTLY HEMOLYZED | | LABORATORY | + + + + + | CHLORIDE | 103 | 99 - 109 mmol/L | [facility] | | | | | LABORATORY | + + + + + | CO2 | 22 (L) | 23 - 32 mmol/L | [facility] | | | | | LABORATORY | + + + + + | ANION GAP AGAP | 18 | 5 - 20 mmol/L | [facility] | | | | | LABORATORY | + + + + + | GLUCOSE | 148 (H)Comment: SPECIMEN | 65 - 99 mg/dL | [facility] | | | SLIGHTLY HEMOLYZED | | LABORATORY | + + + + + | BUN | 30 (H) | 8 - 25 mg/dL | [facility] | | | | | LABORATORY | + + + + + | CREATININE | 2.1 (H)Comment: SPECIMEN | 0.50 - 1.00 mg/dL | [facility] | | | SLIGHTLY HEMOLYZED | | LABORATORY | + + + + + | BUN/CREAT | 14 | | [facility] | | | | | LABORATORY | + + + + + | CALCIUM | 7.7 (L) | 8.5 - 10.5 mg/dL | [facility] | | | | | LABORATORY | + + + + + | EGFR | 24 (L)Comment: GFR <60: | >60 mL/min/1.73m2 | [facility] | | | CHRONIC KIDNEY DISEASE, | | LABORATORY | | | IF FOUND OVER A 3 MONTH | | | | | PERIOD.GFR <15: KIDNEY | | | | | FAILURE.FOR | | | | | AMERICANS, MULTIPLY THE | | | | | CALCULATED GFR BY | | | | | 1.210.This eGFR is | | | | | calculated using the | | | | | MDRD IDMS traceable | | | | | equation.Testing | | | | | performed at [facility], [address] | | | | [facility], | | | | | [place] [address] | | | + + + + + + + | Specimen | + + | Blood | + + + + + + + | Performing | Address | City/State/Zipcode | Phone Number | | Organization | | | | + + + + + | [facility] | [address] | [place] [address] | [phone] | | LABORATORY | [place]. | | | + + + + + POC Arterial Blood Gas (09/24/2018 2:40 AM) + + + + + | Component | Value | Ref Range | Performed At | + + + + + | POC FIO2 | 40 | % | [facility] | + + + + + | pH, Art | 7.336 (L) | 7.350 - 7.450 | [facility] | + + + + + | POC PCO2 | 47 (H) | 35 - 45 mmHg | [facility] | + + + + + | POC p02 | 88 | 80 - 105 mmHg | [facility] | + + + + + | POC HCO3 | 25 | 22 - 26 mmol/L | [facility] | + + + + + | POC TCO2 | 26 | 23 - 27 mEq/L | [facility] | + + + + + | POC BASE DEFICIT | 1 | 0.0 - 2.0 mmol/L | [facility] | + + + + + | POC S02 | 96Comment: Testing | 95 - 98 % | [facility] | | | performed at [facility];[address] | | | | | [address];[place] | | | | | [address] | | | + + + + + + + + + + | Performing | Address | City/State/Zipcode | Phone Number | | Organization | | | | + + + + + | [facility] | [address] | [place] [address] | | + + + + + POCT glucose (09/24/2018 12:07 AM) + + + + + | Component | Value | Ref Range | Performed At | + + + + + | GLUCOSE,POC SCREEN | 157 (H)Comment: Testing | 65 - 99 mg/dL | [facility] | | | performed at [facility];[address] | | | | | [address];[place] | | | | | [address] | | | + + + + + + + + + + | Performing | Address | City/State/Zipcode | Phone Number | | Organization | | | | + + + + + | [facility] | [address] | [place] [address] | | + + + + + POCT glucose (09/23/2018 5:52 PM) + + + + + | Component | Value | Ref Range | Performed At | + + + + + | GLUCOSE,POC SCREEN | 150 (H)Comment: Testing | 65 - 99 mg/dL | [facility] | | | performed at [facility];[address] | | | | | [address];[place] | | | | | [address] | | | + + + + + + + + + + | Performing | Address | City/State/Zipcode | Phone Number | | Organization | | | | + + + + + | [facility] | [address] | [place] [address] | | + + + + + POC arterial CG4+ (09/23/2018 2:57 PM) + + + + + | Component | Value | Ref Range | Performed At | + + + + + | pH, Art | 7.285 (L) | 7.350 - 7.450 | [facility] | + + + + + | POC PCO2 | 56 (H) | 35 - 45 mmHg | [facility] | + + + + + | POC p02 | 59 (L) | 80 - 105 mmHg | [facility] | + + + + + | POC LACTATE | 0.95 | 0.36 - 1.25 mmol/L | [facility] | + + + + + | POC HCO3 | 27 (H) | 22 - 26 mmol/L | [facility] | + + + + + | POC TCO2 | 28 (H) | 23 - 27 mEq/L | [facility] | + + + + + | POC BASE EXCESS | 0 | 0 - 3 mEq/L | [facility] | + + + + + | POC S02 | 86 (L) | 95 - 98 % | [facility] | + + + + + | POC FIO2 | 30 | % | [facility] | + + + + + | POC COMMENTS | Modified Les Test | | [facility] | | | passedComment: Site = | | | | | right radialTesting | | | | | performed at [facility];[address] | | | | | [address];[place] | | | | | [address] | | | + + + + + + + + + + | Performing | Address | City/State/Zipcode | Phone Number | | Organization | | | | + + + + + | [facility] | [address] | [place] [address] | | + + + + + POC arterial CG4+ (09/23/2018 11:38 AM) + + + + + | Component | Value | Ref Range | Performed At | + + + + + | pH, Art | 7.274 (L) | 7.350 - 7.450 | [facility] | + + + + + | POC PCO2 | 60 (H) | 35 - 45 mmHg | [facility] | + + + + + | POC p02 | 61 (L) | 80 - 105 mmHg | [facility] | + + + + + | POC LACTATE | 0.88 | 0.36 - 1.25 mmol/L | [facility] | + + + + + | POC HCO3 | 28 (H) | 22 - 26 mmol/L | [facility] | + + + + + | POC TCO2 | 30 (H) | 23 - 27 mEq/L | [facility] | + + + + + | POC BASE EXCESS | 1 | 0 - 3 mEq/L | [facility] | + + + + + | POC S02 | 87 (L) | 95 - 98 % | [facility] | + + + + + | POC FIO2 | 30 | % | [facility] | + + + + + | POC COMMENTS | Modified Les Test | | [facility] | | | passedComment: Site = | | | | | right radialTesting | | | | | performed at [facility];[address] | | | | | [address];[place] | | | | | [address] | | | + + + + + + + + + + | Performing | Address | City/State/Zipcode | Phone Number | | Organization | | | | + + + + + | [facility] | [address] | [place] [address] | | + + + + + POCT glucose (09/23/2018 11:35 AM) + + + + + | Component | Value | Ref Range | Performed At | + + + + + | GLUCOSE,POC SCREEN | 138 (H)Comment: Testing | 65 - 99 mg/dL | [facility] | | | performed at [facility];[address] | | | | | [address];[place] | | | | | [address] | | | + + + + + + + + + + | Performing | Address | City/State/Zipcode | Phone Number | | Organization | | | | + + + + + | [facility] | [address] | [place] [address] | | + + + + + POCT glucose (09/23/2018 6:31 AM) + + + + + | Component | Value | Ref Range | Performed At | + + + + + | GLUCOSE,POC SCREEN | 161 (H)Comment: Testing | 65 - 99 mg/dL | [facility] | | | performed at [facility];[address] | | | | | [address];[place] | | | | | [address] | | | + + + + + + + + + + | Performing | Address | City/State/Zipcode | Phone Number | | Organization | | | | + + + + + | [facility] | [address] | [place] [address] | | + + + + + Phosphorus (09/23/2018 3:41 AM) + + + + + | Component | Value | Ref Range | Performed At | + + + + + | PHOSPHORUS | 3.0Comment: SPECIMEN | 2.3 - 4.8 mg/dL | [facility] | | | SLIGHTLY | | LABORATORY | | | HEMOLYZEDTesting | | | | | performed at [facility], [address] | | | | [address], | | | | | [place] [address] | | | + + + + + + + | Specimen | + + | Blood | + + + + + + + | Performing | Address | City/State/Zipcode | Phone Number | | Organization | | | | + + + + + | [facility] | [address] | [place] [address] | [phone] | | LABORATORY | [place] | | | + + + + + Magnesium (09/23/2018 3:41 AM) + + + + + | Component | Value | Ref Range | Performed At | + + + + + | MAGNESIUM | 2.2Comment: SPECIMEN | 1.7 - 2.4 mg/dL | [facility] | | | SLIGHTLY | | LABORATORY | | | HEMOLYZEDTesting | | | | | performed at [facility], [address] | | | | | [address] [facility], | | | | | [place] [address] | | | + + + + + + + | Specimen | + + | Blood | + + + + + + + | Performing | Address | City/State/Zipcode | Phone Number | | Organization | | | | + + + + + | [facility] | [address] | [place] [address] | [phone] | | LABORATORY | [address] | | | + + + + + Basic metabolic panel (09/23/2018 3:41 AM) + + + + + | Component | Value | Ref Range | Performed At | + + + + + | SODIUM | 138 | 135 - 145 mmol/L | [facility] | | | | | LABORATORY | + + + + + | POTASSIUM | 4.2Comment: SPECIMEN | 3.5 - 4.9 mmol/L | [facility] | | | SLIGHTLY HEMOLYZED | | LABORATORY | + + + + + | CHLORIDE | 103 | 99 - 109 mmol/L | [facility] | | | | | LABORATORY | + + + + + | CO2 | 25 | 23 - 32 mmol/L | [facility] | | | | | LABORATORY | + + + + + | ANION GAP AGAP | 14 | 5 - 20 mmol/L | [facility] | | | | | LABORATORY | + + + + + | GLUCOSE | 185 (H)Comment: SPECIMEN | 65 - 99 mg/dL | [facility] | | | SLIGHTLY HEMOLYZED | | LABORATORY | + + + + + | BUN | 18 | 8 - 25 mg/dL | [facility] | | | | | LABORATORY | + + + + + | CREATININE | 1.4 (H)Comment: SPECIMEN | 0.50 - 1.00 mg/dL | [facility] | | | SLIGHTLY HEMOLYZED | | LABORATORY | + + + + + | BUN/CREAT | 13 | | [facility] | | | | | LABORATORY | + + + + + | CALCIUM | 8.2 (L) | 8.5 - 10.5 mg/dL | [facility] | | | | | LABORATORY | + + + + + | EGFR | 38 (L)Comment: GFR <60: | >60 mL/min/1.73m2 | [facility] | | | CHRONIC KIDNEY DISEASE, | | LABORATORY | | | IF FOUND OVER A 3 MONTH | | | | | PERIOD.GFR <15: KIDNEY | | | | | FAILURE.FOR | | | | | AMERICANS, MULTIPLY THE | | | | | CALCULATED GFR BY | | | | | 1.210.This eGFR is | | | | | calculated using the | | | | | MDRD IDMS traceable | | | | | equation.Testing | | | | | performed at [facility], [address] | | | | | [facility], | | | | | [place] [address] | | | + + + + + + + | Specimen | + + | Blood | + + + + + + + | Performing | Address | City/State/Zipcode | Phone Number | | Organization | | | | + + + + + | [facility] | [address] [place] [address] | [place] [address] | [phone] | | LABORATORY | [facility]. | | | + + + + + CBC w/auto diff (reflex to manual) (09/23/2018 3:41 AM) + + + + + | Component | Value | Ref Range | Performed At | + + + + + | WBC | 13.38 (H) | 3.80 - 11.00 K/uL | [facility] | | | | | LABORATORY | + + + + + | RBC | 4.01 | 3.70 - 5.10 M/uL | [facility] | | | | | LABORATORY | + + + + + | HGB | 12.0 | 11.3 - 15.5 g/dL | [facility] | | | | | LABORATORY | + + + + + | HCT | 36.8 | 34.0 - 46.0 % | [facility] | | | | | LABORATORY | + + + + + | MCV | 91.8 | 80.0 - 100.0 fl | [facility] | | | | | LABORATORY | + + + + + | MCH | 30.0 | 27.0 - 34.0 pg | [facility] | | | | | LABORATORY | + + + + + | MCHC | 32.7 | 32.0 - 35.5 g/dL | [facility] | | | | | LABORATORY | + + + + + | RDW SD | 46.4 | 37 - 53 fl | [facility] | | | | | LABORATORY | + + + + + | PLT | 232 | 150 - 400 K/uL | [facility] | | | | | LABORATORY | + + + + + | MPV | 8.8 | fl | [facility] | | | | | LABORATORY | + + + + + | DIFF TYPE | MANUAL | | [facility] | | | | | LABORATORY | + + + + + | Neutrophils Manual | 97 | % | [facility] | | | | | LABORATORY | + + + + + | Lymphocytes Manual | 1 | % | [facility] | | | | | LABORATORY | + + + + + | Monocytes Manual | 2 | % | [facility] | | | | | LABORATORY | + + + + + | Neutrophils Absolute | 12.98 (H) | 1.90 - 7.40 K/uL | [facility] | | | | | LABORATORY | + + + + + | Lymphocytes Absolute | 0.13 (L) | 1.00 - 3.90 K/uL | [facility] | | | | | LABORATORY | + + + + + | Monocytes Absolute | 0.27 | 0.00 - 0.80 K/uL | [facility] | | | | | LABORATORY | + + + + + | Platelet Estimate | ADEQUATE | | [facility] | | | | | LABORATORY | + + + + + | MORPHOLOGY | RBC AND PLT MORPHOLOGY | | [facility] | | | APPEAR NORMALComment: | | LABORATORY | | | Testing performed at | | | | | [facility], [address] [place] [address] | | | | | [place] | | | | | [address] | | | + + + + + + + | Specimen | + + | Blood | + + + + + + + | Performing | Address | City/State/Zipcode | Phone Number | | Organization | | | | + + + + + | [facility] | [address] | [place] [address] | [phone] | | LABORATORY | [address] | | | + + + + + PROCALCITONIN (09/23/2018 3:41 AM) + + + + + | Component | Value | Ref Range | Performed At | + + + + + | PROCALCITONIN | 0.74 (H)Comment: | <0.5 ng/mL | [facility] | | | INTERPRETIVE | | | | | INFORMATION: PROCALCI | | | | | TONIN PCT <= 0.5 | | | | | ng/mL: Low risk | | | | | for progression to | | | | | severe | | | | | systemic bacteria | | | | | l infection (severe | | | | | sepsis/septic | | | | | shock). Does not | | | | | exclude an infection, | | | | | because | | | | | localized infecti | | | | | ons may be associated | | | | | with such low | | | | | levels. If PCT is | | | | | measured very early | | | | | after | | | | | bacterial challen | | | | | ge (usually <6 hours), | | | | | results may still | | | | | be low and should | | | | | re-assess PCT 6-24 | | | | | hours later. PCT >0.5 | | | | | and <= 2 | | | | | ng/mL: Moderate | | | | | risk for progression to | | | | | severe | | | | | systemic infectio | | | | | n (severe sepsis/septic | | | | | shock). Other | | | | | conditions are known to | | | | | elevate PCT, patient | | | | | should be | | | | | closely monitored both | | | | | clinically and | | | | | by re-assessing | | | | | PCT within 6-24 hours. | | | | | PCT > 2 | | | | | ng/mL: High | | | | | likelihood for | | | | | progression to severe | | | | | systemic bacteria | | | | | l infection (severe | | | | | sepsis/septic shock). | | | | | PCT >= 10 | | | | | ng/mL: High | | | | | likelihood of severe | | | | | sepsis or septic | | | | | shock.Testing performed | | | | | at [facility];[address] [place] [address] | | | | | [facility];[place] [address] | | | + + + + + + + + + + | Performing | Address | City/State/Zipcode | Phone Number | | Organization | | | | + + + + + | [facility] | [address] | [place] [address] | | + + + + + POC Arterial Blood Gas (09/23/2018 3:26 AM) + + + + + | Component | Value | Ref Range | Performed At | + + + + + | POC FIO2 | 35 | % | [facility] | + + + + + | pH, Art | 7.250 (L) | 7.350 - 7.450 | [facility] | + + + + + | POC PCO2 | 61 (HH) | 35 - 45 mmHg | [facility] | + + + + + | POC p02 | 74 (L) | 80 - 105 mmHg | [facility] | + + + + + | POC HCO3 | 27 (H) | 22 - 26 mmol/L | [facility] | + + + + + | POC TCO2 | 29 (H) | 23 - 27 mEq/L | [facility] | + + + + + | POC BASE DEFICIT | 1 | 0.0 - 2.0 mmol/L | [facility] | + + + + + | POC S02 | 92 (L)Comment: Testing | 95 - 98 % | [facility] | | | performed at [facility];[address] | | | | | [address];[place] | | | | | [address] | | | + + + + + + + + + + | Performing | Address | City/State/Zipcode | Phone Number | | Organization | | | | + + + + + | [facility] | [address] | [place] [address] | | + + + + + POC Arterial Blood Gas (09/23/2018 12:14 AM) + + + + + | Component | Value | Ref Range | Performed At | + + + + + | POC FIO2 | 35 | % | [facility] | + + + + + | pH, Art | 7.139 (LL) | 7.350 - 7.450 | [facility] | + + + + + | POC PCO2 | 72 (HH) | 35 - 45 mmHg | [facility] | + + + + + | POC p02 | 68 (L) | 80 - 105 mmHg | [facility] | + + + + + | POC HCO3 | 25 | 22 - 26 mmol/L | [facility] | + + + + + | POC TCO2 | 27 | 23 - 27 mEq/L | [facility] | + + + + + | POC BASE DEFICIT | 5 (H) | 0.0 - 2.0 mmol/L | [facility] | + + + + + | POC S02 | 86 (L)Comment: Testing | 95 - 98 % | [facility] | | | performed at [facility];[address] | | | | | [address];[place] | | | | | [address] | | | + + + + + + + + + + | Performing | Address | City/State/Zipcode | Phone Number | | Organization | | | | + + + + + | [facility] | [address] | [place] [address] | | + + + + + POC Arterial Blood Gas (09/22/2018 10:31 PM) + + + + + | Component | Value | Ref Range | Performed At | + + + + + | POC FIO2 | 35 | % | [facility] | + + + + + | pH, Art | 7.145 (LL) | 7.350 - 7.450 | [facility] | + + + + + | POC PCO2 | 71 (HH) | 35 - 45 mmHg | [facility] | + + + + + | POC p02 | 82 | 80 - 105 mmHg | [facility] | + + + + + | POC HCO3 | 25 | 22 - 26 mmol/L | [facility] | + + + + + | POC TCO2 | 27 | 23 - 27 mEq/L | [facility] | + + + + + | POC BASE DEFICIT | 4 (H) | 0.0 - 2.0 mmol/L | [facility] | + + + + + | POC S02 | 91 (L)Comment: Testing | 95 - 98 % | [facility] | | | performed at [facility] | | | | | [address];[place], [place] | | | | | [address] | | | + + + + + + + + + + | Performing | Address | City/State/Zipcode | Phone Number | | Organization | | | | + + + + + | [facility] | [address] | [place] [address] | | + + + + + POCT glucose (09/22/2018 10:26 PM) + + + + + | Component | Value | Ref Range | Performed At | + + + + + | GLUCOSE,POC SCREEN | 196 (H)Comment: Testing | 65 - 99 mg/dL | [facility] | | | performed at [facility];[address] | | | [address];[place] | | | | | [address] | | | + + + + + + + + + + | Performing | Address | City/State/Zipcode | Phone Number | | Organization | | | | + + + + + | [facility] | [address] | [place] [address] | | + + + + + POC Arterial Blood Gas (09/22/2018 9:20 PM) + + + + + | Component | Value | Ref Range | Performed At | + + + + + | POC FIO2 | 40 | % | [facility] | + + + + + | pH, Art | 7.142 (LL) | 7.350 - 7.450 | [facility] | + + + + + | POC PCO2 | 70 (HH) | 35 - 45 mmHg | [facility] | + + + + + | POC p02 | 91 | 80 - 105 mmHg | [facility] | + + + + + | POC HCO3 | 24 | 22 - 26 mmol/L | [facility] | + + + + + | POC TCO2 | 26 | 23 - 27 mEq/L | [facility] | + + + + + | POC BASE DEFICIT | 5 (H) | 0.0 - 2.0 mmol/L | [facility] | + + + + + | POC S02 | 93 (L)Comment: Testing | 95 - 98 % | [facility] | | | performed at [facility];[address] | | | | | [address];[place] | | | | | [address] | | | + + + + + + + + + + | Performing | Address | City/State/Zipcode | Phone Number | | Organization | | | | + + + + + | [facility] | [address] | [place] [address] | | + + + + + Respiratory Filmarray (09/22/2018 9:04 PM) + + + + + | Component | Value | Ref Range | Performed At | + + + + + | ADENOVIRUS | Not Detected | Not Detected | [facility] | | | | | [facility] | + + + + + | CORONAVIRUS 229E | Not Detected | Not Detected | [facility] | | | | | [facility] | + + + + + | CORONAVIRUS HKU1 | Not Detected | Not Detected | [facility] | | | | | [facility] | + + + + + | CORONAVIRUS NL63 | Not Detected | Not Detected | [facility] | | | | | [facility] | + + + + + | CORONAVIRUS OC43 | Not Detected | Not Detected | [facility] | | | | | [facility] | + + + + + | HUMAN | Not Detected | Not Detected | [facility] | | [facility] | | | LAB[facility]ORY | + + + + + | HUMAN RHINO/ENTERO | Not Detected | Not Detected | [facility] | | | | | LAB[facility]ORY | + + + + + | INFLUENZA A H3 | DETECTED (A) | Not Detected | [facility] | | | | | [facility]ORY | + + + + + | INFLUENZA B | Not Detected | Not Detected | [facility] | | | | | [facility] | + + + + + | PARAINFLUENZA 1 | Not Detected | Not Detected | [facility] | | | | | LAB[facility]AT[facility] | + + + + + | PARAINFLUENZA 2 | Not Detected | Not Detected | [facility] | | | | | [facility] | + + + + + | PARAINFLUENZA 3 | Not Detected | Not Detected | [facility] | | | | | [facility] | + + + + + | PARAINFLUENZA 4 | Not Detected | Not Detected | [facility] | | | | | [facility] | + + + + + | RESP SYNCYTIAL VIRUS | Not Detected | Not Detected | [facility] | | | | | [facility] | + + + + + | BORDETELLA PERTUSSIS | Not Detected | Not Detected | [facility] | | | | | LAB[facility] | + + + + + | CHLAMYDIAE | Not Detected | Not Detected | [facility] | | PNEUMONIAE | | | LABORATORY | + + + + + | MYCOPLASMA | Not Detected | Not Detected | [facility] | | PNEUMONIAE | | | LABORATORY | + + + + + | RESP PANEL INTERP | Testing performed by | | [facility] | | | Molecular | | LABORATORY | | | MethodologyComment: | | | | | Testing performed at | | | | | [facility], [address] | | | | | [place] | | | | | [address] | | | + + + + + + + | Specimen | + + | Nares(Nose) | + + + + + + + | Performing | Address | City/State/Zipcode | Phone Number | | Organization | | | | + + + + + | [facility] | [address] | [place] [address] | [phone] | | LABORATORY | [place] | | | + + + + + Sputum culture (09/22/2018 6:29 PM) + + + + + | Component | Value | Ref Range | Performed At | + + + + + | Specimen Description | TRACHEAL ASPIRATE | | [facility] | | | | | LABORATORY | + + + + + | GRAM STAIN | GREATER THAN 10 WBCS/LPF | | [facility] | | | | | LABORATORY | + + + + + | GRAM STAIN | LESS THAN 10 SEC/LPF | | [facility] | | | | | LABORATORY | + + + + + | GRAM STAIN | 2+ | | [facility] | | | | | LABORATORY | + + + + + | GRAM STAIN | GRAM POSITIVE COCCI | | [facility] | | | | | LABORATORY | + + + + + | CULTURE | 2+ | | [facility] | | | | | LABORATORY | + + + + + | CULTURE | NORMAL UPPER RESPIRATORY | | [facility] | | | [place] | | LABORATORY | + + + + + + + | Specimen | + + | Sputum - Tracheal | | [facility] | + + + + + + + | Performing | Address | City/State/Zipcode | Phone Number | | Organization | | | | + + + + + | [facility] | [address] | [place] [address] | [phone] | | LABORATORY | [address] | | | + + + + + EKG STANDARD 12 LEAD (09/22/2018 5:52 PM) + + + + + | Component | Value | Ref Range | Performed At | + + + + + | Ventricular Rate | 102 | BPM | [facility] | + + + + + | Atrial Rate | 102 | BPM | [facility] | + + + + + | P-R Interval | 128 | ms | [facility] | + + + + + | QRS Duration | 74 | ms | [facility] | + + + + + | Q-T Interval | 354 | ms | [facility] | + + + + + | QTC Calculation | 461 | ms | [facility] | | (Bezet) | | | | + + + + + | Calculated P [place] | 77 | degrees | [facility] | + + + + + | Calculated R [place] | 87 | degrees | [facility] | + + + + + | Calculated T [place] | 61 | degrees | [facility] | + + + + + | Diagnosis | Sinus tachycardiaSeptal | | [facility] | | | infarct , age | | | | | undeterminedAbnormal | | | | | ECGNo previous ECGs | | | | | availableConfirmed by | | | | | LV HOGAN ([id number]) on | | | | | 09/23/2018 1:52:58 PM | | | + + + + + + + + + + | Performing | Address | City/State/Zipcode | Phone Number | | Organization | | | | + + + + + | [facility] | [address] | [place] [address] | | + + + + + Phosphorus (09/22/2018 5:47 PM) + + + + + | Component | Value | Ref Range | Performed At | + + + + + | PHOSPHORUS | 4.6Comment: Testing | 2.3 - 4.8 mg/dL | [facility] | | | performed at [facility];[address] | | | | | [facility];[place] | | | | | [address] | | | + + + + + + + | Specimen | + + | Blood | + + + + + + + | Performing | Address | City/State/Zipcode | Phone Number | | Organization | | | | + + + + + | [facility] | [address] | [place] [address] | | + + + + + Magnesium (09/22/2018 5:47 PM) + + + + + | Component | Value | Ref Range | Performed At | + + + + + | MAGNESIUM | 1.8Comment: Testing | 1.7 - 2.4 mg/dL | [facility] | | | performed at [facility];[address] | | | [address];[place] | | | | | [address] | | | + + + + + + + | Specimen | + + | Blood | + + + + + + + | Performing | Address | City/State/Zipcode | Phone Number | | Organization | | | | + + + + + | [facility] | [address] | [place] [address] | | + + + + + Comprehensive metabolic panel (09/22/2018 5:47 PM) + + + + + | Component | Value | Ref Range | Performed At | + + + + + | SODIUM | 141 | 135 - 145 mmol/L | [facility] | + + + + + | POTASSIUM | 4.8 | 3.5 - 4.9 mmol/L | [facility] | + + + + + | CHLORIDE | 106 | 99 - 109 mmol/L | [facility] | + + + + + | CO2 | 27 | 23 - 32 mmol/L | [facility] | + + + + + | ANION GAP AGAP | 13 | 5 - 20 mmol/L | [facility] | + + + + + | GLUCOSE | 179 (H) | 65 - 99 mg/dL | [facility] | + + + + + | BUN | 14 | 8 - 25 mg/dL | [facility] | + + + + + | CREATININE | 0.99 | 0.50 - 1.00 mg/dL | [facility] | + + + + + | BUN/CREAT | 14 | | [facility] | + + + + + | CALCIUM | 8.5 | 8.5 - 10.5 mg/dL | [facility] | + + + + + | TOTAL PROTEIN | 6.5 | 6.3 - 8.2 g/dL | [facility] | + + + + + | Albumin | 4.5 | 3.3 - 4.8 g/dL | [facility] | + + + + + | GLOBULIN | 2.0 | 1.3 - 4.9 g/dL | [facility] | + + + + + | A/G | 2.3 | 1.0 - 2.4 | [facility] | + + + + + | TBIL | 0.5 | 0.1 - 1.5 mg/dL | [facility] | + + + + + | ALK PHOS | 65 | 35 - 115 U/L | [facility] | + + + + + | AST | 19 | 10 - 45 U/L | [facility] | + + + + + | ALT | 19 | 10 - 65 U/L | [facility] | + + + + + | EGFR | 56 (L)Comment: GFR <60: | >60 mL/min/1.73m2 | [facility] | | | CHRONIC KIDNEY DISEASE, | | | | | IF FOUND OVER A 3 MONTH | | | | | PERIOD.GFR <15: KIDNEY | | | | | FAILURE.FOR | | | | | AMERICANS, MULTIPLY THE | | | | | CALCULATED GFR BY | | | | | 1.210.This eGFR is | | | | | calculated using the | | | | | MDRD IDMS traceable | | | | | equation.Testing | | | | | performed at [facility];[address] | | | | | [address];[place] | | | | | [address] | | | + + + + + + + | Specimen | + + | Blood | + + + + + + + | Performing | Address | City/State/Zipcode | Phone Number | | Organization | | | | + + + + + | [facility] | [address] | [place] [address] | | + + + + + CBC W/Auto Diff (Reflex to Manual) (09/22/2018 5:47 PM) + + + + + | Component | Value | Ref Range | Performed At | + + + + + | WBC | 19.62 (H) | 3.80 - 11.00 K/uL | [facility] | + + + + + | RBC | 4.36 | 3.70 - 5.10 M/uL | [facility] | + + + + + | HGB | 13.1 | 11.3 - 15.5 g/dL | [facility] | + + + + + | HCT | 40.2 | 34.0 - 46.0 % | [facility] | + + + + + | MCV | 92.1 | 80.0 - 100.0 fl | [facility] | + + + + + | MCH | 30.1 | 27.0 - 34.0 pg | [facility] | + + + + + | MCHC | 32.6 | 32.0 - 35.5 g/dL | [facility] | + + + + + | RDW SD | 45.9 | 37 - 53 fl | [facility] | + + + + + | PLT | 251 | 150 - 400 K/uL | [facility] | + + + + + | MPV | 8.4 | fl | [facility] | + + + + + | DIFF TYPE | AUTOMATED | | [facility] | + + + + + | NEUTROPHILS | 95.76 | % | [facility] | + + + + + | LYMPHOCYTES | 0.66 | % | [facility] | + + + + + | MONOCYTES | 2.84 | % | [facility] | + + + + + | EOSINOPHILS | 0.03 | % | [facility] | + + + + + | BASOPHILS | 0.71 | % | [facility] | + + + + + | NEUTROPHILS ABS | 18.79 (H) | 1.90 - 7.40 K/uL | [facility] | + + + + + | LYMPHOCYTES ABS | 0.13 (L) | 1.00 - 3.90 K/uL | [facility] | + + + + + | MONOCYTES ABS | 0.56 | 0.00 - 0.80 K/uL | [facility] | + + + + + | EOSINOPHILS ABS | 0.01 | 0.00 - 0.50 K/uL | [facility] | + + + + + | BASOPHILS ABS | 0.14 (H) | 0.00 - 0.10 K/uL | [facility] | + + + + + | MORPHOLOGY | RBC AND PLT MORPHOLOGY | | [facility] | | | APPEAR NORMAL | | | + + + + + | Platelet Estimate | ADEQUATE | | [facility] | + + + + + | Diff Comment | SLIDE SCANNED, AGREES | | [facility] | | | WITH AUTOMATED | | | | | RESULTS.Comment: Testing | | | | | performed at [facility];[address] | | | | | [address];[place] | | | | | [address] | | | + + + + + + + | Specimen | + + | Blood | + + + + + + + | Performing | Address | City/State/Zipcode | Phone Number | | Organization | | | | + + + + + | [facility] | [address] | [place] [address] | | + + + + + MRSA by PCR (09/22/2018 5:35 PM) + + + + + | Component | Value | Ref Range | Performed At | + + + + + | SOURCE | NARES(NOSE) | | [facility] | + + + + + | MRSA PCR | NEGATIVEComment: Testing | NEGATIVE | [facility] | | | performed at [facility];[address] | | | | | [address];[place], [place] | | | | | [address] | | | + + + + + + + | Specimen | + + | Nasopharyngeal - | | Nasopharyngeal | | Culture | + + + + + + + | Performing | Address | City/State/Zipcode | Phone Number | | Organization | | | | + + + + + | [facility] | [address] | [place] [address] | | + + + + + XR CHEST 1 VIEW (09/22/2018 5:27 PM) + + + | Impressions | Performed At | + + + | Left midlung ill-defined hazy infiltrates perhaps extending to the | [facility] | | left lung base. Tubes and lines in appropriate position. Signed by: | RADIOLOGY | | Fabrice Iniguez Sign Date/Time: 09/22/2018 5:56 PM | | + + + + + + | Narrative | Performed At | + + + | CHEST ONE VIEW CLINICAL INFORMATION: tube/ OG verification | [facility] | | COMPARISON: None FINDINGS: Hazy infiltrative airspace changes in | RAD[facility]OLOG[facility] | | the left lateral mid lung zone perhaps extending into the lung | | | base. Mild hyperinflation. No effusions. ET tube tip in the | | | mid intrathoracic trachea. NG tube extends into the stomach and | | | the tip is not seen. Heart size is normal. | | + + + + + | Procedure Note | + + | Mk, Rad Results In - 09/22/2018 6:00 PM PDT CHEST ONE VIEW | | CLINICAL INFORMATION: | | tube/ OG verification | | COMPARISON: | | None | | FINDINGS: | | Hazy infiltrative airspace changes in the left lateral mid lung zone | | perhaps extending into the lung base. Mild hyperinflation. No | | effusions. ET tube tip in the mid intrathoracic trachea. NG tube | | extends into the stomach and the tip is not seen. Heart size is normal. | | IMPRESSION: | | Left midlung ill-defined hazy infiltrates perhaps extending to the left | | lung base. | | Tubes and lines in appropriate position. | | Signed by: Fabrice Iniguez | | Sign Date/Time: 09/22/2018 5:56 PM | + + + + + + + | Performing | Address | City/State/Zipcode | Phone Number | | Organization | | | | + + + + + | [facility] | [address] | [place] [address] | | + + + + + POC Arterial Blood Gas (09/22/2018 5:20 PM) + + + + + | Component | Value | Ref Range | Performed At | + + + + + | POC FIO2 | 60 | % | [facility] | + + + + + | pH, Art | 7.178 (LL) | 7.350 - 7.450 | [facility] | + + + + + | POC PCO2 | 66 (HH) | 35 - 45 mmHg | [facility] | + + + + + | POC p02 | 87 | 80 - 105 mmHg | [facility] | + + + + + | POC HCO3 | 25 | 22 - 26 mmol/L | [facility] | + + + + + | POC TCO2 | 27 | 23 - 27 mEq/L | [facility] | + + + + + | POC BASE DEFICIT | 4 (H) | 0.0 - 2.0 mmol/L | [facility] | + + + + + | POC S02 | 93 (L) | 95 - 98 % | [facility] | + + + + + | POC COMMENTS | Modified Les Test | | [facility] | | | passedComment: Site = | | | | | right radialTesting | | | | | performed at [facility];[address] | | | | | [address];[place] | | | | | [address] | | | + + + + + + + + + + | Performing | Address | City/State/Zipcode | Phone Number | | Organization | | | | + + + + + | [facility] | [address] | [place] [address] | | + + + + + POCT glucose (09/22/2018 5:08 PM) + + + + + | Component | Value | Ref Range | Performed At | + + + + + | GLUCOSE,POC SCREEN | 180 (H)Comment: Testing | 65 - 99 mg/dL | [facility] | | | performed at [facility];[address] | | | | | [address];[place], [place] | | | | | [address] | | | + + + + + + + + + + | Performing | Address | City/State/Zipcode | Phone Number | | Organization | | | | + + + + + | [facility] | [address] | [place] [address] | | + + + + + in this encounter Visit Diagnoses + + | Diagnosis | + + | Acute on chronic respiratory failure with hypoxia and hypercapnia (HCC) - Primary | + + | COPD exacerbation (HCC) | + + | Obstructive chronic bronchitis with exacerbation | + + | Tobacco abuse | + + | Tobacco use disorder | + + | Leukocytosis | + + | Leukocytosis, unspecified | + + | Steroid-induced hyperglycemia | + + | Other abnormal glucose | + + | Acute on chronic respiratory acidosis | + + | Influenza A | + + | Influenza with other respiratory manifestations | + + | Acute kidney injury (HCC) | + + | Acute kidney failure, unspecified | + + | COPD (chronic obstructive pulmonary disease) | + + | Chronic airway obstruction, not elsewhere classified | + + Admitting Diagnoses + + | Diagnosis | + + | Acute on chronic respiratory failure with hypoxia and hypercapnia (HCC) | + + | Respiratory Failure | + + Administered Medications + +--------+---------+------+------+------+ | Medication Order | MAR | Action | Dose | Rate | Site | | | Action | Date | | | | + +--------+---------+------+------+------+ + +---+ | acetaminophen (TYLENOL) | | | suppository 650 mg 650 mg, | | | Rectal, Every 6 Hours PRN, Mild | | | Pain (1-3), Fever, Starting Sat | | | 09/22/18 at 1724 | | + +---+ | | | + +---+ | acetaminophen (TYLENOL) tablet | | | 650 mg 650 mg, Oral, Every 6 | | | Hours PRN, Mild Pain (1-3), | | | Fever, Starting 09/22/18 at | | | 1724 | | + +---+ | | | + +---+ + +-------+ +---------+---+---+ | albuterol (PRO-AIR) inhaler | Given | 09/26/2018 | 6 puffs | | | | (vent) 6 puff, Ventilator, Every | | 03:25 | | | | | 4 Hours, First dose on Sat | | PDT | | | | | 09/22/18 at 1900 | | | | | | + +-------+ +---------+---+---+ +-------+ +---------+---+---+ | Given | 09/26/2018 | 6 puffs | | | | | 08:16 | | | | | | PDT | | | | +-------+ +---------+---+---+ | Given | 09/26/2018 | 6 puffs | | | | | 11:26 | | | | | | PDT | | | | +-------+ +---------+---+---+ +---+---+ | | | +---+---+ + +-------+ +-------+---+---+ | albuterol (PROVENTIL) (5 mg/mL) | Given | | 20 mg | | | | 0.5% nebulizer solution 20 mg | | 9 23:00 | | | | | 20 mg, Nebulization, Once, Sat | | PDT | | | | | 09/22/18 at 2300, For 1 dose | | | | | | + +-------+ +-------+---+---+ +---+---+ | | | +---+---+ + +-------+ +--------+---+---+ | albuterol (PROVENTIL) nebulizer | Given | 09/27/2018 | 2.5 mg | | | | solution 2.5 mg 2.5 mg, | | 20:15 | | | | | Nebulization, Every 4 Hours PRN, | | PDT | | | | | Wheezing, Shortness of Breath, | | | | | | | Starting [facility] 09/27/18 at 0050 | | | | | | + +-------+ +--------+---+---+ +-------+ +--------+---+---+ | Given | 09/29/2018 | 2.5 mg | | | | | 23:12 | | | | | | PDT | | | | +-------+ +--------+---+---+ +---+---+ | | | +---+---+ + +-------+ +--------+---+---+ | barium (VARIBAR) 40 % | Given | 09/30/2018 | 15 mLs | | | | suspension 15 mL 15 mL, Oral, | | 14:10 | | | | | Img Once PRN, once, Starting Sun | | PDT | | | | | 09/30/18 at 1429, For 1 dose | | | | | | + +-------+ +--------+---+---+ +---+---+ | | | +---+---+ + +-------+ +-------+---+---+ | barium (VARIBAR) 40 % | Given | 09/30/2018 | 5 mLs | | | | suspension 5 mL 5 mL, Oral, Img | | 14:10 | | | | | Once PRN, once, Starting Sun | | PDT | | | | | 09/30/18 at 1429, For 1 dose | | | | | | + +-------+ +-------+---+---+ +---+---+ | | | +---+---+ + +-------+ +-------+---+---+ | bisacodyl (DULCOLAX) | Given | 09/27/2018 | 10 mg | | | | suppository 10 mg 10 mg, Rectal, | | 11:34 | | | | | Daily PRN, Constipation, | | PDT | | | | | Starting 09/25/18 at 1008 | | | | | | + +-------+ +-------+---+---+ +---+---+ | | | +---+---+ + +-------+ +---------+---+---+ | budesonide-formoterol | Given | 09/30/2018 | 2 puffs | | | | (SYMBICORT) 160-4.5 MCG/ACT | | 08:12 | | | | | inhaler 2 puff 2 puff, | | PDT | | | | | Inhalation, 2 Times Daily, First | | | | | | | dose on [facility] 09/27/18 at 1230 | | | | | | + +-------+ +---------+---+---+ +-------+ +---------+---+---+ | Given | 09/30/2018 | 2 puffs | | | | | 21:01 | | | | | | PDT | | | | +-------+ +---------+---+---+ | Given | 10/01/2018 | 2 puffs | | | | | 07:54 | | | | | | PDT | | | | +-------+ +---------+---+---+ +---+---+ | | | +---+---+ + +-------+ +--------+---+---+ | chlorhexidine gluconate 0.12 % | Given | 09/25/2018 | 15 mLs | | | | oral rinse 15 mL 15 mL, | | 08:56 | | | | | Mouth/Throat, Every 12 Hours, | | PDT | | | | | First dose on [facility] 09/22/18 at 2000 | | | | | | + +-------+ +--------+---+---+ +-------+ +--------+---+---+ | Given | 09/25/2018 | 15 mLs | | | | | 19:54 | | | | | | PDT | | | | +-------+ +--------+---+---+ | Given | 09/26/2018 | 15 mLs | | | | | 08:42 | | | | | | PDT | | | | +-------+ +--------+---+---+ +---+---+ | | | +---+---+ + +-------+ +-------+---+---+ | cisatracurium (NIMBEX) | Given | | 10 mg | | | | injection 10 mg 10 mg, | | 9 20:16 | | | | | Intravenous, Once, 09/23/18 at | | PDT | | | | | 2030, For 1 dose | | | | | | + +-------+ +-------+---+---+ +---+---+ | | | +---+---+ + +-------+ +-------+---+---+ | cisatracurium (NIMBEX) | Given | | 20 mg | | | | injection 20 mg 20 mg, | | 9 19:40 | | | | | Intravenous, Once, 09/22/18 at | | PDT | | | | | 1930, For 1 dose | | | | | | + +-------+ +-------+---+---+ +---+---+ | | | +---+---+ + +-------+ +-------+---+---+ | cisatracurium (NIMBEX) | Given | 09/25/2018 | 20 mg | | | | injection 20 mg 20 mg, | | 10:32 | | | | | Intravenous, Once, 09/25/18 at | | PDT | | | | | 1000, For 1 dose | | | | | | + +-------+ +-------+---+---+ +---+---+ | | | +---+---+ + +---------+ + +-------+---+ | cisatracurium in NS 0.4 mg/mL | New Bag | 09/24/2018 | 1.25 | 15.2 | | | (NIMBEX) infusion 0-10 | | 03:10 | mcg/kg/m | mL/hr | | | mcg/kg/min | | PDT | in | | | | 80.9 kg (0-121.35 mL/hr, rounded | | | | | | | to 0-121.4 mL/hr), Intravenous, | | | | | | | at 0-121.4 mL/hr, Titrated, | | | | | | | Starting 09/22/18 at 1930, | | | | | | | High Alert Medication: PARALYTIC | | | | | | | AGENT Measure TOF every 30 | | | | | | | minutes for 2 hours after | | | | | | | initiation or manipulation of | | | | | | | drug. If no twitches AND no | | | | | | | baseline obtained prior THEN | | | | | | | reposition electrode and | | | | | | | re-evaluate. If no twitches AND | | | | | | | baseline obtained THEN decrease | | | | | | | infusion by 25% and re-evaluate. | | | | | | | If 1 to 2 twitches, continue at | | | | | | | current rate and reassess every 2 | | | | | | | hours unless responses change. | | | | | | | If 3 to 4 twitches, re-bolus | | | | | | | loading dose and increase | | | | | | | infusion by 25% and re-evaluate. | | | | | | | Notify MD if: no twitches | | | | | | | continue after repositioning | | | | | | | electrodes; rate increases by 75% | | | | | | | in 24 hours. If no manipulations | | | | | | | required in 24 hours, monitor | | | | | | | TOF every 4 hours. In emergent | | | | | | | situations, more rapid titration | | | | | | | may be clinically indicated. | | | | | | + +---------+ + +-------+---+ + + + +-------+---+ | Restarted | 09/25/2018 | 1 | 12.1 | | | | 10:46 | mcg/kg/m | mL/hr | | | | PDT | in | | | + + + +-------+---+ | New Bag | 09/25/2018 | 1 | 12.1 | | | | 13:22 | mcg/kg/m | mL/hr | | | | PDT | in | | | + + + +-------+---+ + +---+ | | | + +---+ | dextrose 10 % infusion at | | | 0-100 mL/hr, Intravenous, | | | Continuous PRN, Hypoglycemia, | | | Starting 09/23/18 at 0506, For | | | BG 70 or less run infusion at | | | 100 mL/ hr. Discontinue when BG | | | increases to 100 mg/dl or greater | | | x 2-3 hours and patient is | | | eating. Call provider if BG not | | | maintained after 2-3 hours. | | + +---+ | | | + +---+ + +---------+ +---+ +---+ | dextrose 5 % solution at 70 | New Bag | 09/28/2018 | | 70 mL/hr | | | mL/hr, Intravenous, Continuous, | | 14:01 | | | | | Starting 09/28/18 at 1430 | | PDT | | | | + +---------+ +---+ +---+ +---------+ +---+ +---+ | New Bag | 09/29/2018 | | 70 mL/hr | | | | 03:11 | | | | | | PDT | | | | +---------+ +---+ +---+ +---+---+ | | | +---+---+ + +---------+ +---+ +---+ | dextrose 5 % solution at 30 | New Bag | 09/29/2018 | | 75 mL/hr | | | mL/hr, Intravenous, Continuous, | | 20:14 | | | | | Starting 09/29/18 at 1200 | | PDT | | | | + +---------+ +---+ +---+ + + +---+ +---+ | New Bag | 09/30/2018 | | 75 mL/hr | | | | 09:59 | | | | | | PDT | | | | + + +---+ +---+ | Rate/Dose Change | 09/30/2018 | | 30 mL/hr | | | | 17:41 | | | | | | PDT | | | | + + +---+ +---+ + +---+ | | | + +---+ | dextrose 50 % solution 12 mL | | | 12 mL, Intravenous, PRN, | | | Hypoglycemia (BG < 70 mg/dL), | | | Starting 09/23/18 at 0506 | | + +---+ | | | + +---+ | dextrose 50 % solution 25 mL | | | 25 mL, Intravenous, PRN, | | | Hypoglycemia (BG < 70 mg/dL), | | | Starting 09/23/18 at 0506 | | + +---+ | | | + +---+ + +-------+ +--------+---+---+ | docusate (COLACE) 50 mg/5 mL | Given | 09/25/2018 | 100 mg | | | | liquid 100 mg 100 mg, Per OG | | 08:57 | | | | | Tube, 2 Times Daily, First dose | | PDT | | | | | on 09/22/18 at 2100 | | | | | | + +-------+ +--------+---+---+ +-------+ +--------+---+---+ | Given | 09/25/2018 | 100 mg | | | | | 20:04 | | | | | | PDT | | | | +-------+ +--------+---+---+ | Given | 09/26/2018 | 100 mg | | | | | 08:43 | | | | | | PDT | | | | +-------+ +--------+---+---+ + +---+ | | | + +---+ | docusate sodium (COLACE) | | | capsule 100 mg 100 mg, Oral, 2 | | | Times Daily PRN, Constipation, | | | Starting 09/29/18 at 1200 | | + +---+ | | | + +---+ + +-------+ +-------+---+---+ | enoxaparin (LOVENOX) injection | Given | 09/24/2018 | 30 mg | | | | 30 mg 30 mg, Subcutaneous, Every | | 17:25 | | | | | 24 Hours, First dose on Mon | | PDT | | | | | 09/24/18 at 1800 | | | | | | + +-------+ +-------+---+---+ +-------+ +-------+---+---+ | Given | 09/25/2018 | 30 mg | | | | | 18:01 | | | | | | PDT | | | | +-------+ +-------+---+---+ | Given | 09/26/2018 | 30 mg | | | | | 18:03 | | | | | | PDT | | | | +-------+ +-------+---+---+ +---+---+ | | | +---+---+ + +-------+ +-------+---+---+ | enoxaparin (LOVENOX) injection | Given | | 40 mg | | | | 40 mg 40 mg, Subcutaneous, Every | | 9 19:13 | | | | | 24 Hours, First dose on Sat | | PDT | | | | | 09/22/18 at 1800 | | | | | | + +-------+ +-------+---+---+ +-------+ +-------+---+---+ | Given | | 40 mg | | | | | 9 17:53 | | | | | | PDT | | | | +-------+ +-------+---+---+ +---+---+ | | | +---+---+ + +-------+ +-------+---+---+ | enoxaparin (LOVENOX) injection | Given | 09/28/2018 | 40 mg | | | | 40 mg 40 mg, Subcutaneous, Every | | 18:00 | | | | | 24 Hours, First dose on Sabrina | | PDT | | | | | 09/27/18 at 1800 | | | | | | + +-------+ +-------+---+---+ +-------+ +-------+---+---+ | Given | 09/29/2018 | 40 mg | | | | | 17:39 | | | | | | PDT | | | | +-------+ +-------+---+---+ | Given | 09/30/2018 | 40 mg | | | | | 17:39 | | | | | | PDT | | | | +-------+ +-------+---+---+ +---+---+ | | | +---+---+ + +-------+ +-------+---+---+ | famotidine (PEPCID) injection | Given | 09/25/2018 | 20 mg | | | | 20 mg 20 mg, Intravenous, 2 | | 08:57 | | | | | Times Daily, First dose on Sat | | PDT | | | | | 09/22/18 at 2100, Prior to | | | | | | | administration, prepare a 20 mg | | | | | | | dose by diluting 2 mL of | | | | | | | famotidine 10 mg/mL to 10 mL with | | | | | | | normal saline. Give over 2 | | | | | | | minutes. | | | | | | + +-------+ +-------+---+---+ +---+---+ | | | +---+---+ + +-------+ +-------+---+---+ | famotidine (PEPCID) injection | Given | 09/26/2018 | 20 mg | | | | 20 mg 20 mg, Intravenous, Daily, | | 08:43 | | | | | First dose on Mon09/26/18 at | | PDT | | | | | 0900, Prior to administration, | | | | | | | prepare a 20 mg dose by diluting | | | | | | | 2 mL of famotidine 10 mg/mL to 10 | | | | | | | mL with normal saline. Give over | | | | | | | 2 minutes. | | | | | | + +-------+ +-------+---+---+ +---+---+ | | | +---+---+ + +-------+ +-------+---+---+ | famotidine (PEPCID) tablet 20 | Given | | 20 mg | | | | mg 20 mg, Oral, 2 Times Daily, | | 9 20:16 | | | | | First dose on 09/22/18 at 2100 | | PDT | | | | + +-------+ +-------+---+---+ +-------+ +-------+---+---+ | Given | 09/24/2018 | 20 mg | | | | | 08:21 | | | | | | PDT | | | | +-------+ +-------+---+---+ | Given | 09/24/2018 | 20 mg | | | | | 20:18 | | | | | | PDT | | | | +-------+ +-------+---+---+ +---+---+ | | | +---+---+ + + + +--------+-------+---+ | fentaNYL infusion 5 mcg/mL | Bolus | 09/25/2018 | 12.5 | 2.5 | | | 0-100 mcg/hr (0-20 mL/hr), | from Bag | 16:47 | mcg/hr | mL/hr | | | Intravenous, at 0-20 mL/hr, | | PDT | | | | | Titrated, Starting 09/22/18 at | | | | | | | 1800, In emergent situations, | | | | | | | more rapid titration may be | | | | | | | clinically indicated. | | | | | | + + + +--------+-------+---+ + + +--------+ +---+ | Rate/Dose Change | 09/25/2018 | 50 | 10 mL/hr | | | | 16:48 | mcg/hr | | | | | PDT | | | | + + +--------+ +---+ | New Bag | 09/25/2018 | 50 | 10 mL/hr | | | | 20:15 | mcg/hr | | | | | PDT | | | | + + +--------+ +---+ +---+---+ | | | +---+---+ + +-------+ +-------+---+---+ | furosemide (LASIX) injection 20 | Given | 09/27/2018 | 20 mg | | | | mg 20 mg, Intravenous, Once, | | 15:26 | | | | | Sabrina 09/27/18 at 1330, For 1 dose | | PDT | | | | + +-------+ +-------+---+---+ +---+---+ | | | +---+---+ + +-------+ +-------+---+---+ | furosemide (LASIX) injection 40 | Given | 09/25/2018 | 40 mg | | | | mg 40 mg, Intravenous, Once, | | 01:48 | | | | | 09/25/18 at 0200, For 1 dose | | PDT | | | | + +-------+ +-------+---+---+ + +---+ | | | + +---+ | glucagon (GLUCAGEN) injection | | | 0.5 mg 0.5 mg, Intramuscular, | | | PRN, Hypoglycemia, (BG < 70 | | | mg/dL), Starting 09/23/18 at | | | 0506 | | + +---+ | | | + +---+ | glucagon (GLUCAGEN) injection 1 | | | mg 1 mg, Intramuscular, PRN, | | | Hypoglycemia, (BG < 70 mg/dL), | | | Starting 09/23/18 at 0506 | | + +---+ | | | + +---+ + +-------+ +---------+---+---+ | insulin lispro (human) | Given | 09/25/2018 | 2 Units | | | | (HUMALOG) injection 0-14 Units | | 23:11 | | | | | 0-14 Units, Subcutaneous, Every 6 | | PDT | | | | | Hours, First dose on 09/23/18 | | | | | | | at 0600 | | | | | | + +-------+ +---------+---+---+ +-------+ +---------+---+---+ | Given | 09/26/2018 | 3 Units | | | | | 05:48 | | | | | | PDT | | | | +-------+ +---------+---+---+ | Given | 09/26/2018 | 2 Units | | | | | 12:18 | | | | | | PDT | | | | +-------+ +---------+---+---+ +---+---+ | | | +---+---+ + +-------+ +---------+---+---+ | ipratropium (ATROVENT HFA) | Given | 09/26/2018 | 2 puffs | | | | inhaler 2 puff 2 puff, | | 03:26 | | | | | Ventilator, Every 4 Hours, First | | PDT | | | | | dose on 09/22/18 at 1900 | | | | | | + +-------+ +---------+---+---+ +-------+ +---------+---+---+ | Given | 09/26/2018 | 2 puffs | | | | | 08:16 | | | | | | PDT | | | | +-------+ +---------+---+---+ | Given | 09/26/2018 | 2 puffs | | | | | 11:26 | | | | | | PDT | | | | +-------+ +---------+---+---+ +---+---+ | | | +---+---+ + +-------+ +-------+---+---+ | ipratropium-albuterol (DUO-NEB) | Given | 09/26/2018 | 3 mLs | | | | 0.5-2.5 mg/3mL nebulizer | | 20:16 | | | | | solution 3 mL 3 mL, | | PDT | | | | | Nebulization, Every 4 Hours PRN, | | | | | | | Wheezing, Starting 09/26/18 at | | | | | | | 1801 | | | | | | + +-------+ +-------+---+---+ +---+---+ | | | +---+---+ + +-------+ +-------+---+---+ | ipratropium-albuterol (DUO-NEB) | Given | 09/27/2018 | 3 mLs | | | | 0.5-2.5 mg/3mL nebulizer | | 17:28 | | | | | solution 3 mL 3 mL, | | PDT | | | | | Nebulization, Every 6 Hours, | | | | | | | First dose on [facility] 09/27/18 at 0130 | | | | | | + +-------+ +-------+---+---+ +-------+ +-------+---+---+ | Given | 09/27/2018 | 3 mLs | | | | | 23:16 | | | | | | PDT | | | | +-------+ +-------+---+---+ | Given | 09/28/2018 | 3 mLs | | | | | 04:52 | | | | | | PDT | | | | +-------+ +-------+---+---+ +---+---+ | | | +---+---+ + +-------+ +-------+---+---+ | ipratropium-albuterol (DUO-NEB) | Given | 09/29/2018 | 3 mLs | | | | 0.5-2.5 mg/3mL nebulizer | | 08:40 | | | | | solution 3 mL 3 mL, | | PDT | | | | | Nebulization, Every 6 Hours While | | | | | | | Awake, First dose on Mon09/28/18 | | | | | | | at 1400 | | | | | | + +-------+ +-------+---+---+ +-------+ +-------+---+---+ | Given | 09/29/2018 | 3 mLs | | | | | 19:38 | | | | | | PDT | | | | +-------+ +-------+---+---+ | Given | 09/30/2018 | 3 mLs | | | | | 08:36 | | | | | | PDT | | | | +-------+ +-------+---+---+ +---+---+ | | | +---+---+ + +-------+ +-------+---+---+ | ipratropium-albuterol (DUO-NEB) | Given | 09/30/2018 | 3 mLs | | | | 0.5-2.5 mg/3mL nebulizer | | 16:57 | | | | | solution 3 mL 3 mL, | | PDT | | | | | Nebulization, Every 6 Hours PRN, | | | | | | | Wheezing, Starting 09/30/18 at | | | | | | | 1100 | | | | | | + +-------+ +-------+---+---+ +-------+ +-------+---+---+ | Given | 10/01/2018 | 3 mLs | | | | | 08:23 | | | | | | PDT | | | | +-------+ +-------+---+---+ +---+---+ | | | +---+---+ + +-------+ +------+---+---+ | ipratropium-albuterol (DUO-NEB) | Given | | 1 mL | | | | 0.5-2.5 mg/3mL nebulizer | | 9 19:20 | | | | | solution Starting 09/22/18 at | | PDT | | | | | 1918, For 1 dose | | | | | | + +-------+ +------+---+---+ +---+---+ | | | +---+---+ + +-------+ +-------+---+---+ | labetalol (NORMODYNE) 5 mg/mL | Given | 09/27/2018 | 10 mg | | | | injection 10 mg 10 mg, | | 10:07 | | | | | Intravenous, Every 1 Hour PRN, | | PDT | | | | | SBP > 160, Starting [facility] 09/27/18 at | | | | | | | 0634 | | | | | | + +-------+ +-------+---+---+ +---+---+ | | | +---+---+ + +-------+ +--------+---+---+ | lactated ringers (LR) bolus | Given | | 1,000 | | | | 1,000 mL 1,000 mL, Intravenous, | | 9 05:07 | mLs | | | | Administer over 60 Minutes, Once, | | PDT | | | | | 09/23/18 at 0530, For 1 dose | | | | | | + +-------+ +--------+---+---+ +---+---+ | | | +---+---+ + +-------+ +---------+---+---+ | lactated ringers (LR) bolus 500 | Given | | 500 mLs | | | | mL 500 mL, Intravenous, | | 9 19:37 | | | | | Administer over 30 Minutes, Once, | | PDT | | | | | 09/23/18 at 2000, For 1 dose | | | | | | + +-------+ +---------+---+---+ +---+---+ | | | +---+---+ + +-------+ +--------+-------+---+ | levofloxacin (LEVAQUIN) IVPB | Given | | 500 mg | 100 | | | 500 mg 500 mg, Intravenous, | | 9 18:14 | | mL/hr | | | Administer over 60 Minutes, Every | | PDT | | | | | 24 Hours, First dose on Sat | | | | | | | 09/22/18 at 1800 | | | | | | + +-------+ +--------+-------+---+ +---+---+ | | | +---+---+ + +-------+ +--------+-------+---+ | levofloxacin (LEVAQUIN) IVPB | Given | 09/24/2018 | 750 mg | 100 | | | 750 mg 750 mg, Intravenous, | | 09:24 | | mL/hr | | | Administer over 90 Minutes, Every | | PDT | | | | | 48 Hours, First dose on Mon | | | | | | | 09/24/18 at 0900, For 2 doses | | | | | | + +-------+ +--------+-------+---+ +---+---+ | | | +---+---+ + +-------+ +---------+---+---+ | methylPREDNISolone | Given | | 62.5 mg | | | | (Solu-MEDROL) injection 62.5 mg | | 9 11:50 | | | | | 62.5 mg (rounded from 60 mg), | | PDT | | | | | Intravenous, Every 6 Hours, First | | | | | | | dose on 09/22/18 at 1800 | | | | | | + +-------+ +---------+---+---+ +-------+ +---------+---+---+ | Given | | 62.5 mg | | | | | 9 17:54 | | | | | | PDT | | | | +-------+ +---------+---+---+ | Given | 09/24/2018 | 62.5 mg | | | | | 00:03 | | | | | | PDT | | | | +-------+ +---------+---+---+ +---+---+ | | | +---+---+ + +-------+ +-------+---+---+ | methylPREDNISolone sodium | Given | 09/25/2018 | 40 mg | | | | succinate (Solu-MEDROL) injection | | 08:57 | | | | | 40 mg 40 mg, Intravenous, Every | | PDT | | | | | 8 Hours, First dose on Mon | | | | | | | 09/24/18 at 0830 | | | | | | + +-------+ +-------+---+---+ +-------+ +-------+---+---+ | Given | 09/25/2018 | 40 mg | | | | | 16:12 | | | | | | PDT | | | | +-------+ +-------+---+---+ | Given | 09/25/2018 | 40 mg | | | | | 23:43 | | | | | | PDT | | | | +-------+ +-------+---+---+ +---+---+ | | | +---+---+ + +-------+ +-------+---+---+ | methylPREDNISolone sodium | Given | 09/26/2018 | 40 mg | | | | succinate (Solu-MEDROL) injection | | 08:43 | | | | | 40 mg 40 mg, Intravenous, | | PDT | | | | | Daily, First dose on Mon09/26/18 | | | | | | | at 0900, For 2 doses | | | | | | + +-------+ +-------+---+---+ +-------+ +-------+---+---+ | Given | 09/27/2018 | 40 mg | | | | | 08:05 | | | | | | PDT | | | | +-------+ +-------+---+---+ +---+---+ | | | +---+---+ + +-------+ +------+---+---+ | metoprolol (LOPRESSOR) | Given | 09/29/2018 | 5 mg | | | | injection 5 mg 5 mg, | | 20:15 | | | | | Intravenous, 3 Times Daily, First | | PDT | | | | | dose on Mon09/28/18 at 1700 | | | | | | + +-------+ +------+---+---+ +-------+ +------+---+---+ | Given | 09/30/2018 | 5 mg | | | | | 06:14 | | | | | | PDT | | | | +-------+ +------+---+---+ | Given | 09/30/2018 | 5 mg | | | | | 16:29 | | | | | | PDT | | | | +-------+ +------+---+---+ +---+---+ | | | +---+---+ + +-------+ +-------+---+---+ | metoprolol (LOPRESSOR) tablet | Given | 09/30/2018 | 25 mg | | | | 25 mg 25 mg, Oral, 2 Times | | 21:01 | | | | | Daily, First dose on Mon09/30/18 | | PDT | | | | | at 2100 | | | | | | + +-------+ +-------+---+---+ +-------+ +-------+---+---+ | Given | 10/01/2018 | 25 mg | | | | | 07:54 | | | | | | PDT | | | | +-------+ +-------+---+---+ +---+---+ | | | +---+---+ + +-------+ +------+---+---+ | midazolam (VERSED) injection 4 | Given | | 4 mg | | | | mg 4 mg, Intravenous, Once, Sat | | 9 18:00 | | | | | 09/22/18 at 1830, For 1 dose | | PDT | | | | + +-------+ +------+---+---+ +---+---+ | | | +---+---+ + +-------+ +------+---+---+ | midazolam (VERSED) injection 4 | Given | | 4 mg | | | | mg 4 mg, Intravenous, Once, Sat | | 9 19:40 | | | | | 09/22/18 at 1930, For 1 dose | | PDT | | | | + +-------+ +------+---+---+ +---+---+ | | | +---+---+ + + + +---------+---------+---+ | midazolam in NS (VERSED) 1 | Rate/Dos | | 5 mg/hr | 5 mL/hr | | | mg/mL infusion 0-10 mg/hr (0-10 | e Change | 9 02:07 | | | | | mL/hr), Intravenous, at 0-10 | | PDT | | | | | mL/hr, Titrated, Starting Sat | | | | | | | 09/22/18 at 2100, In emergent | | | | | | | situations, more rapid titration | | | | | | | may be clinically indicated. | | | | | | + + + +---------+---------+---+ + + +---------+---------+---+ | Rate/Dose Change | | 4 mg/hr | 4 mL/hr | | | | 9 03:10 | | | | | | PDT | | | | + + +---------+---------+---+ | New Bag | | 4 mg/hr | 4 mL/hr | | | | 9 15:04 | | | | | | PDT | | | | + + +---------+---------+---+ + +---+ | | | + +---+ | nystatin (MYCOSTATIN) cream | | | Topical, 3 Times Daily PRN, to | | | rash in skin folds, Starting Sat | | | 09/22/18 at 1724 | | + +---+ | | | + +---+ | ondansetron (ZOFRAN) injection | | | 4 mg 4 mg, Intravenous, Every 6 | | | Hours PRN, Nausea, Vomiting, | | | Starting 09/22/18 at 1724 | | + +---+ | | | + +---+ | ondansetron (ZOFRAN-ODT) | | | disintegrating tablet 4 mg 4 mg, | | | Oral, Every 6 Hours PRN, Nausea, | | | Vomiting, Starting 09/22/18 | | | at 1724 | | + +---+ | | | + +---+ + +-------+ +-------+---+---+ | oseltamivir (TAMIFLU) capsule | Given | | 30 mg | | | | 30 mg 30 mg, Oral, 2 Times | | 9 12:56 | | | | | Daily, First dose on 09/23/18 | | PDT | | | | | at 1230, For 10 doses, | | | | | | | Indications: Influenza | | | | | | + +-------+ +-------+---+---+ +-------+ +-------+---+---+ | Given | | 30 mg | | | | | 9 20:22 | | | | | | PDT | | | | +-------+ +-------+---+---+ | Given | 09/24/2018 | 30 mg | | | | | 09:23 | | | | | | PDT | | | | +-------+ +-------+---+---+ +---+---+ | | | +---+---+ + +-------+ +-------+---+---+ | oseltamivir (TAMIFLU) capsule | Given | 09/25/2018 | 30 mg | | | | 30 mg 30 mg, Oral, Daily, First | | 08:57 | | | | | dose on e 09/25/18 at 0900, | | PDT | | | | | Indications: Influenza | | | | | | + +-------+ +-------+---+---+ +-------+ +-------+---+---+ | Given | 09/26/2018 | 30 mg | | | | | 08:43 | | | | | | PDT | | | | +-------+ +-------+---+---+ +---+---+ | | | +---+---+ + +-------+ +---------+---+---------+ | pneumococcal 23-valent vaccine | Given | 09/25/2018 | 0.5 mLs | | Left | | (PNEUMOVAX-23) latex free | | 10:31 | | | Deltoid | | injection 0.5 mL 0.5 mL, | | PDT | | | | | Intramuscular, Once for | | | | | | | Immunization, Mon09/25/18 at 1000, | | | | | | | For 1 dose | | | | | | + +-------+ +---------+---+---------+ +---+---+ | | | +---+---+ + +-------+ +------+---+---+ | polyethylene glycol (GLYCOLAX) | Given | 09/25/2018 | 17 g | | | | packet 17 g 17 g, Oral, Daily, | | 10:33 | | | | | First dose on Mon09/25/18 at 1030 | | PDT | | | | + +-------+ +------+---+---+ +-------+ +------+---+---+ | Given | 09/26/2018 | 17 g | | | | | 08:43 | | | | | | PDT | | | | +-------+ +------+---+---+ +---+---+ | | | +---+---+ + +-------+ +--------+-------+---+ | potassium chloride 20 mEq in | Given | 09/28/2018 | 20 mEq | 125 | | | 250 mL IVPB 20 mEq, Intravenous, | | 10:13 | | mL/hr | | | Administer over 2 Hours, PRN, | | PDT | | | | | for serum potassium 3.5 to 3.7, | | | | | | | Starting [facility] 09/27/18 at 1512, 1) | | | | | | | Recheck level immediately after | | | | | | | replacement and next am unless | | | | | | | previously ordered. 2) Contact | | | | | | | physician if K+ > 5 or < 3. 3) If | | | | | | | any present contact physician | | | | | | | and verify use of protocol: | | | | | | | Dialysis, TPN, crush injury, | | | | | | | tumor lysis syndrome, hemolysis, | | | | | | | burn, rhabdomyolysis, DKA, UO < | | | | | | | 0.5ml/kg or 30 ml/hr x 2 hours or | | | | | | | Creatinine > 2 mg/dl. | | | | | | + +-------+ +--------+-------+---+ +-------+ +--------+-------+---+ | Given | 09/29/2018 | 20 mEq | 125 | | | | 09:33 | | mL/hr | | | | PDT | | | | +-------+ +--------+-------+---+ + +---+ | | | + +---+ | propofol infusion [facility] | | | Starting 09/22/18 at 1701, For | | | 1 dose | | + +---+ | | | + +---+ + +---------+ + +---+---+ | propofol infusion Intravenous, | New Bag | 09/25/2018 | 25 | | | | Titrated, Starting 09/22/18 | | 10:32 | mcg/kg/m | | | | at 1800 | | PDT | in | | | + +---------+ + +---+---+ + + + +---+---+ | Restarted | 09/25/2018 | 10 | | | | | 16:43 | mcg/kg/m | | | | | PDT | in | | | + + + +---+---+ | New Bag | 09/25/2018 | 10 | | | | | 22:39 | mcg/kg/m | | | | | PDT | in | | | + + + +---+---+ +---+---+ | | | +---+---+ + +-------+ +-------+---+---+ | rocuronium (ZEMURON) injection | Given | | 70 mg | | | | 70 mg 70 mg, Intravenous, Once, | | 9 18:02 | | | | | 09/22/18 at 1830, For 1 dose | | PDT | | | | + +-------+ +-------+---+---+ +---+---+ | | | +---+---+ + +-------+ +--------+---+---+ | sodium bicarbonate 8.4 % | Given | | 50 mEq | | | | injection 50 mEq 50 mEq, | | 9 01:04 | | | | | Intravenous, Once, Jane 09/23/18 at | | PDT | | | | | 0100, For 1 dose | | | | | | + +-------+ +--------+---+---+ +---+---+ | | | +---+---+ in this encounter
--- OUTSIDE RECORDS SUMMARY | ~2018-11-26 | XMS | Encounter Summary ---
Demographics + + + | Address | [address] | | | [place] [address] | + + + | Home Phone | | + + + | Preferred Language | Unknown | + + + | Marital Status | | + + + | Faith Affiliation | 1041 | + + + | Race | Unknown | + + + | Ethnic Group | Unknown | + + + Author + + + | Author | [facility] [employer] [facility] | + + + | Organization | [facility] | + + + | Address [...] Team Providers + +------+ + | Care Auctioneer Art Name | Role | Phone | + +------+ + | Jayla Fisher MD | PCP | | + +------+ + Reason for Visit + + + | Reason | Comments | + + + | Letter for | FMLA | | School/Work | | + + + Encounter Details +--------+ + + + + | Date | Type | Department | Care Team | Description | +--------+ + + + + | 10/12/ | Telephone | [facility] | Taty Camacho RN | Letter for | | 2018 | | [facility] | | School/Work (FMLA) | | | | [address] | | | | | | [place] [address] | | | | | | [phone] | | | +--------+ + + + [...]
--- OUTSIDE RECORDS SUMMARY | ~2018-11-26 | XMS | Clinical Summary ---
Demographics + + + | Address | [address] | | | [place] [address] | + + + | Home Phone | | + + + | Preferred Language | Unknown | + + + | Marital Status | | + + + | Mandaen Affiliation | 1041 | + + + | Race | Unknown | + + + | Ethnic Group | Unknown | + + + Author + + + | Author | [facility] | | | and [place] | + + + | Organization | [facility] | | | and [...] Team Providers + +------+ + | Care License Issuer Name | Role | Phone | + [...]
--- OUTSIDE RECORDS SUMMARY | ~2018-11-26 | XMS | Encounter Summary ---
Demographics + + + | Address | [address] | | | [place] [address] | + + + | Home Phone | | + + + | Preferred Language | Unknown | + + + | Marital Status | | + + + | Amish Affiliation | 1041 | + + + | Race | Unknown | + + + | Ethnic Group | Unknown | + + + Author + + + | Author | [facility] | + + + | Organization | [facility] [employer] [facility] | + + + | Address [...] Providers + +------+ + | Care Manager Medical Device Name | Role | Phone | + +------+ + | Jayla Fisher MD | PCP | | + +------+ + Reason for Visit + + + | Reason | Comments | + + + | Letter for | FMLA, missing release | | School/Work | | + + + Encounter Details +--------+ + + + + | Date | Type | Department | Care Team | Description | +--------+ + + + + | 10/03/ | Telephone | [facility] | Taty Camacho RN | Letter for | | 2018 | | [facility] | | School/Work (FMLA, | | | | [address] | | missing release) | | | | [place] [address] | | | | | | [phone] | | | +--------+ + + + [...]
--- OUTSIDE RECORDS SUMMARY | ~2018-11-26 | XMS | Encounter Summary ---
Demographics + + + | Address | [address] | | | [place] [address] | + + + | Home Phone | | + + + | Preferred Language | Unknown | + + + | Marital Status | | + + + | Yazidi Affiliation | 1041 | + + + | Race | Unknown | + + + | Ethnic Group | Unknown | + + + Author + + + | Author | [facility] | + + + | Organization | [facility] [employer] [facility] | + + + | Address [...] Team Providers + +------+ + | Care Ex Chef Name | Role | Phone | + [...] + + | 10/05/ | Telephone | [facility] | Reji Dodd, RN | Other ([facility]) | | 2019 | | [facility] | | | | | | [address] | | | | | | [place] [address] | | | | | | [phone] | | | +--------+ + + + [...]
--- OUTSIDE RECORDS SUMMARY | ~2018-11-26 | XMS | Encounter Summary ---
Demographics + + + | Address | [address] | | | [place] [address] | + + + | Home Phone | | + + + | Preferred Language | Unknown | + + + | Marital Status | | + + + | Hinduism Affiliation | 1041 | + + + | Race | Unknown | + + + | Ethnic Group | Unknown | + + + Author + + + | Author | [facility] | + + + | Organization | [facility] | + + + | Address [...] Team Providers + +------+ + | Care Java Development Manager Name | Role | Phone | + [...] + + | 10/12/ | Telephone | [facility] | Gracy Santos, | Letter for | | 2019 | | [facility] | RN | School/Work (FMLA) | | | | [address] | | | | | | [place] [address] | | | | | | [phone] | | | +--------+ + + + [...]
--- OUTSIDE RECORDS SUMMARY | ~2018-11-26 | XMS | Encounter Summary ---
Demographics + + + | Address | [address] | | | [place] [address] | + + + | Home Phone | | + + + | Preferred Language | Unknown | + + + | Marital Status | | + + + | Uatsdin Affiliation | 1041 | + + + | Race | Unknown | + + + | Ethnic Group | Unknown | + + + Author + + + | Author | [facility] | + + + | Organization | [facility] [employer] [facility] | + + + | Address [...] Team Providers + +------+ + | Care Certified Medical Dosimetrist Name | Role | Phone | + [...] + + | 10/12/ | Telephone | [facility] | Taty Camacho RN | Letter for | | 2018 | | [facility] | | School/Work (FMLA) | | | | [address] | | | | | | [place] [address] | | | | | | [phone] | | | +--------+ + + + [...]
--- OUTSIDE RECORDS SUMMARY | ~2018-11-26 | XMS | Clinical Summary ---
Demographics + + + | Address | [address] | | | [place] [address] | + + + | Home Phone | | + + + | Preferred Language | Unknown | + + + | Marital Status | | + + + | Restorationist Affiliation | [id number] | + + + | Race | Unknown | + + + | Ethnic Group | Unknown | + + + Author + + + | Author | [facility] | + + + | Organization | [facility] | + + + | Address | Unknown | + + + | Phone | Unavailable | + + + Support + + +---------+ + | Name | Relationship | Address | Phone | + + +---------+ + | Massimo Whatley | ECON | Unknown | | + + +---------+ + | nIdy Gallardo | ECON | Unknown | | + + +---------+ + Care Team Providers + +------+ + | Care Risk Assessment Consultant Name | Role | Phone | + +------+ + | Jayla Fisher MD | PP | | + +------+ [...] + + + Current Medications + + +--------+---------+------+------+-------+ | Prescription | Sig. | Disp. | Refills | Star | End | Statu | | | | | | t | Date | s | | | | | | Date | | | + + +--------+---------+------+------+-------+ | albuterol | Inhale 2 puffs into [...] | | | | | + + +--------+---------+------+------+-------+ | | Inhale 1 puff into | | | | | Activ | | fluticasone-salmeter | the lungs 2 (two) | | | | | e | | ol (ADVAIR) 250-50 | times daily. | | | | | | | MCG/DOSE | | | | | | | + + +--------+---------+------+------+-------+ | Glucose 4-6 GM-MG | Take by mouth as | | | | | Activ | | CHEW | needed. For low | | | | | e | | | blood sugar level | | | | | | + + +--------+---------+------+------+-------+ | metoprolol | Take 1 tablet by | 60 | 0 | 04/0 | 04/0 | Activ | | (LOPRESSOR) 25 MG | mouth 2 (two) times | tablet | | 8/20 | 7/20 | e | | tablet | daily. | | | 19 | 20 | | + + +--------+---------+------+------+-------+ Active Problems + + + | Problem | Noted Date | + + + | Influenza A | 09/23/2018 | + + + | Acute kidney injury (HCC) | 09/23/2018 | + + + | Acute on chronic respiratory failure with hypoxia and hypercapnia | 09/22/2018 | | (HCC) | | + + + | Tobacco abuse | 09/22/2018 | + + + | Precordial pain [...] naLast Stress Test, | | 03/23/2016 ( [facility]'): Lexiscan, no evidence of ischemia or | | infarction, LVEF 65%.ECG, 12/29/2015 ([facility]): sinus | | tachycardia, 114bpm, LAZ, low [...] to | | quit. | + + Resolved Problems + + + + | Problem | Noted | Resolved | | | Date | Date | + + + + | Steroid-induced hyperglycemia | 09/24/19 | | | | 19 | 9 | + + + + | Acute on chronic respiratory acidosis | 09/24/19 | | | | 19 | 9 | + + + + | COPD exacerbation (HCC) | 09/23/19 | | | | 19 | 9 | + + + + | Leukocytosis | 09/23/19 | | | | 19 | 9 | + + + + Encounters +--------+ + + + + | Date | Type | Specialty | Care Team | Description | +--------+ + + + + | 10/16/ | Ancillary | | Jayla Fisher | End stage COPD (HCC) | | 2019 | Procedure | | MD Gertrudis | | +--------+ + + + + | 10/16/ | Ancillary | | Jayla Fisher | End stage COPD (HCC) | | 2019 | Orders | | MD Gertrudis | | +--------+ + + + + | 10/12/ | Telephone | | Taty Camacho RN | Letter for | | 2018 | | | | School/Work (FMLA) | +--------+ + + + + | 10/12/ | Telephone | | Gracy Santos, | Letter for | | 2018 | | | RN | School/Work (FMLA) | +--------+ + + + + | 10/12/ | Telephone | | Taty Camacho RN | Letter for | | 2018 | | | | School/Work (FMLA) | +--------+ + + + + | 10/05/ | Telephone | | Reji Dodd RN | Other (FMLA) | | 2018 | | | | | +--------+ + + + + | 10/03/ | Telephone | | Taty Camacho RN | Letter for | | 2018 | | | | School/Work (FMLA, | | | | | | missing release) | +--------+ + + + + | 09/22/ | Hospital | | Cooper Rodriguez | Acute on chronic | | 2019 - | Encounter | | MD Daysi Cam Zahid, | respiratory failure | | | | | MD López | with hypoxia and | | 10/01/ | | | Ashleigh Howell MD | hypercapnia (HCC) | | 2018 | | | | (Primary Dx) | +--------+ + + + + +---+ + | | Discharge | | | Summaries | | | - | | | Maribel, | | | Ashleigh | | | MD Dante | | | - | | | 10/01/2018 | | | 11:22 AM | | | PDT | | | Formatting | | | of this | | | note may be | | | different | | | from the | | | original.[facility] | | [facility]: | | | Hospitalist | | | Physician | | | Discharge | | | Summary | | | Patient | | | ID:Kylie R | | | LoganMRN: | | | [id number]/ | | | [id number] | | | y.o.Admit | | | date: | | | 09/22/2018Di | | | scharge | | | date: | | | 10/01/2018Adm | | | itting | | | Physician: | | | Cooper C | | | Kantamneni, | | | MD | | | Discharge | | | Physician: | | | Ashleigh | | | Dante | | | Padayatty, | | | MDConsultan | | | ts: | | | Treatment | | | Team: | | | Admitting | | | Provider: | | | Cooper C | | | Kantamneni, | | | MDPrimary | | | Discharge | | | Diagnoses: | | | Acute on | | | chronic | | | respiratory | | | failure | | | with | | | hypoxia and | | | | | | hypercapnia | | | (HCC). | | | Acute | | | respiratory | | | failure | | | has | | | resolved. | | | | | | Secondary | | | Discharge | | | Diagnoses: | | | COPD | | | (chronic | | | obstructive | | | pulmonary | | | disease) | | | Tobacco | | | abuse | | | Influenza A | | | Acute | | | kidney | | | injury | | | (HCC)Hypert | | | ensionDysph | | | agiaResolve | | | d Problems: | | | COPD | | | exacerbatio | | | n (HCC) | | | Leukocytosi | | | s | | | Steroid-ind | | | uced | | | hyperglycem | | | ia Acute | | | on chronic | | | respiratory | | | | | | acidosisHPI | | | and | | | Hospital | | | Course: A | | | 68-year-old | | | female | | | with a | | | history of | | | COPD with | | | chronic | | | hypoxic | | | respiratory | | | failure, | | | on home | | | oxygen; | | | tobacco | | | abuse; | | | cervical | | | cancer, | | | admitted to | | | the ICU | | | with acute | | | respiratory | | | failure, | | | requiring | | | intubation, | | | failed | | | BiPAP | | | therapy. | | | The patient | | | was found | | | to have | | | influenza | | | A.HOSPITAL | | | COURSE: | | | The patient | | | admitted | | | with acute | | | respiratory | | | failure | | | and COPD | | | exacerbatio | | | n. She | | | completed a | | | course of | | | Tamiflu for | | | influenza | | | A. The | | | patient | | | received | | | steroids | | | which was | | | also | | | subsequentl | | | y | | | discontinue | | | d. She was | | | extubated | | | on 09/27 | | | and | | | transferred | | | to the | | | medical | | | floor. The | | | patient | | | had | | | significant | | | dysphagia | | | and | | | decondition | | | ing, which | | | continued | | | to improve. | | | She has | | | been | | | started on | | | a dysphagia | | | diet which | | | is | | | tolerating. | | | She had | | | hypoglycemi | | | a and | | | which has | | | completely | | | resolved.Th | | | e patient | | | also has | | | acute | | | kidney | | | injury, | | | baseline | | | creatinine | | | is not | | | known. | | | Recommend | | | patient to | | | follow up | | | outpatient | | | with BMP. | | | I advised | | | patient not | | | to take | | | ibuprofen, | | | Aleve or | | | aspirin. | | | The patient | | | also had | | | hypertensio | | | n, was | | | started on | | | metoprolol | | | with good | | | blood | | | pressure | | | control. | | | Her | | | oxygenation | | | is back to | | | baseline | | | and COPD | | | exacerbatio | | | n has | | | resolved.Pl | | | an | | | discussed | | | in detail | | | with the | | | patient. | | | She will be | | | discharged | | | on home | | | oxygen and | | | BiPAP at | | | night. All | | | data | | | reviewed | | | with her | | | and all | | | questions | | | have been | | | answered.Di | | | scharged | | | Condition: | | | Stable for | | | discharge | | | as stated | | | above.Signi | | | ficant | | | Diagnostic | | | Studies:No | | | results | | | found.Disch | | | arge | | | Vitals:Jacquelyn | | | ls: | | | 10/01/18 | | | 0318 | | | 10/01/18 | | | 0747 | | | 10/01/18 | | | 0825 | | | 10/01/18 | | | 0826 BP: | | | 138/71 | | | 121/65 BP | | | Location: | | | Right upper | | | arm Left | | | upper arm | | | Pulse: 71 | | | 82 80 | | | Resp: 24 20 | | | 20 Temp: | | | 97.9 F | | | (36.6 C) | | | 98.2 F | | | (36.8 C) | | | TempSrc: | | | Oral Oral | | | SpO2: 91% | | | 93% 93% 93% | | | Weight: | | | 77.8 kg | | | (171 lb 9.6 | | | oz) | | | Height: | | | Discharge | | | Exam:Genera | | | l: Well | | | nourished.P | | | sych: | | | Alert and | | | oriented x | | | 3. Calm, | | | cooperative | | | .Cardiovasc | | | ular: | | | Regular | | | rate and | | | rhythm, no | | | murmurs, no | | | thrills. | | | Normal | | | PMI.Respira | | | tory: | | | Bilateral | | | wheezes | | | present.Gas | | | trointestin | | | al: Soft, | | | non-tender, | | | | | | non-distend | | | ed, | | | positive | | | bowel | | | sounds. No | | | HSM.Musculo | | | skeletal: | | | No edema in | | | bilateral | | | lower | | | extremities | | | . No joint | | | swelling.Sk | | | in: Warm | | | and dry, no | | | | | | rashes.Neck | | | : No JVD, | | | Trachea | | | midline.Ed | | | rological: | | | Non focal. | | | Motor | | | grossly | | | intact.LABS | | | : Recent | | | LabsLab | | | | | | 0 | | | | | | 5 | | | | | | 7 WBC 6.01 | | | 6.63 8.27 | | | RBC 3.73 | | | 3.64* 3.76 | | | HGB 11.3 | | | 11.1* 11.1* | | | HCT 32.6* | | | 32.3* 34.2 | | | MCV 87.5 | | | 88.8 91.0 | | | MCH 30.2 | | | 30.5 29.6 | | | MCHC 34.6 | | | 34.3 32.5 | | | RDW 41.6 | | | 42.4 44.6 | | | PLT 180 185 | | | 189 MPV | | | 8.3 8.4 8.6 | | | DIFFTYPE | | | MANUAL | | | AUTOMATED | | | MANUAL | | | Recent | | | LabsLab | | | | | | 0 | | | | | | 8 | | | | | | 0 NA 138 | | | 138 141 K | | | 3.6 3.7 3.7 | | | CL 101 99 | | | 101 CO2 30 | | | 29 32 BUN | | | 19 22 39* | | | CREATININE | | | 1.2* 1.1* | | | 1.1* GLUF | | | 153* 102* | | | 102* No | | | results for | | | input(s): | | | CKTOTAL, | | | TROPONINI, | | | TROPONINT, | | | CKMBINDEX | | | in the last | | | 168 hours. | | | Recent | | | [facility] | | | | | | 0 | | | 52 | | | 5 | | | | | | 7 PHOS 3.9 | | | 5.1* 2.4 | | | Recent | | | LabsLab | | | | | | 0 | | | | | | 5 | | | | | | 7 MG 2.2 | | | 2.2 2.5* | | | Invalid | | | input(s): | | | ABGDisposit | | | ion: | | | HomeFollow | | | up:Jayla | | | Gertrudis | | | [place], | | | [id number] | | | [place] | | | [place] | | | n [place] | | | [phone] | | [phone] | | | ule an | | | appointment | | | as soon as | | | possible | | | for a visit | | | in 3 days | | | Medication | | | List START | | | taking | | | these | | | medications | | | | | | metoprolol | | | 25 MG | | | tabletQTY: | | | 60 | | | tabletRefil | | | ls: | | | 0Commonly | | | known as: | | | LOPRESSORTa | | | ke 1 tablet | | | by mouth 2 | | | (two) | | | times | | | daily. | | | CONTINUE | | | taking | | | these | | | medications | | | albuterol | | | 108 (90 | | | Base) | | | MCG/ACT | | | inhalerRefi | | | lls: | | | 0Commonly | | | known as: | | | PROVENTIL | | | HFA;VENTOLI | | | N HFA | | | fluticasone | | | -salmeterol | | | 250-50 | | | MCG/DOSE | | | diskus | | | inhalerRefi | | | lls: | | | 0Commonly | | | known as: | | | ADVAIR, | | | WIXELA | | | INHUB | | | Glucose 4-6 | | | GM-MG | | | ChewRefills | | | : 0 You | | | might also | | | be taking | | | other | | | medications | | | not listed | | | above. If | | | you have | | | questions | | | about any | | | of your | | | other | | | medications | | | , talk to | | | the person | | | who | | | prescribed | | | them or | | | your | | | Primary | | | Care | | | Provider. | | | STOP | | | taking | | | these | | | medications | | | ibuprofen | | | 200 MG | | | tabletCommo | | | nly known | | | as: ADVIL | | | Where to | | | Get Your | | | Medications | | | You can | | | get these | | | medications | | | from any | | | pharmacy | | | Bring a | | | paper | | | prescriptio | | | n for each | | | of these | | | medications | | | | | | metoprolol | | | 25 MG | | | tablet | | | Ashleigh | | | Dante | | | Padayatty, | | | MD4/01/2019 | | | 11:22 | | | AMCode | | | Status: | | | Full | | | CodeDischar | | | ge took 45 | | | minutes, | | | to include | | | final | | | examination | | | , | | | discussion | | | of | | | admission, | | | and | | | preparation | | | of | | | prescriptio | | | ns, | | | instruction | | | s for | | | ongoing | | | care, | | | follow up | | | and | | | dictation | | | of | | | summary.Thi | | | s entry has | | | been | | | created | | | using | | | Dragon | | | Medical | | | Speech | | | Recognition | | | software | | | and EPIC | | | macros. The | | | entry has | | | been | | | reviewed | | | and there | | | may still | | | exist sound | | | alike word | | | errors. | | | | | | | | | | | | | | | | | | | | | | | | | | | | | | | | | | | | | | | | | | | +---+ + from Last 3 Months Immunizations + + + + | Name | Dates Previously Given | Next Due | + + + + | INFLUENZA PF, | 09/29/2018 (Deferred: Other - given at | | | [facility] | [place]ia office per patient report) | | | (PED/ADOL/ADULT) | | | + + + + | Pneumococcal | 09/25/2018 | | | Polysaccharide | | | | 23-valent | | | + + + + Family History + + +------+ [...] + + | Brother | | | MS | | | | (Age | | [...] + | Paternal Grandfather | | | MS | | | | (Age | | [...] + + + | Vaccine: | | 09/25/2018 | | | Pneumococcal 65+ | 0 | | | | Low/Medium Risk (2 | | | | | of 2 - PCV13) | | | | + + + + + Procedures + +--------+ + + + | [...] section. | + +--------+ + + + from Last 3 Months Results ECHO outside interpretation standard (10/16/2018 4:26 [...] | + + + | Patient Name: Kylie Gore Date of : 1950 | [facility] | | Performing Physician: Laverne Seo [...] MV A Trace: 0.83 m/s MV Dec Sierra: 3.01 m/s2 | | | MV DecT: 264.72 ms MV E Trace: 0.79 m/s MV E/A Ratio: | | | 0.95 MV PHT: 76.77 ms MVA By PHT: 2.86 cm2 Septal e': | | | 0.06 m/s Septal E/e': 13.00 Lateral e': 0.08 m/s Lateral | | | E/e': 9.24 RAP: 5 mmHg RV s': 0.12 m/s Rental Management Trainee: | | | DBS Authenticated by: Laverne Seo Report Date/Time: 10-18-2018 | | | 19:10:22 | | + + + + --------+ | Procedure Note | + --------+ | Mk, Rad Results In - 10/18/2018 7:20 PM PDT Patient Name: Geronimo Gore of | | : 1950ccession: [id number] Physician: Laverne | | [facility] INDICATIONS------ | | -----END STAGE COPDCONCLUSIONS 1. [...] cmLVPWd: 0.90 cmLVOT Area: 3.04 | | [id number] Diam: 1.96 cm%FS: 28.31 %EF(Teich): 55.58 %ESV(Teich): [...] | | (A-L): 19.48 ml/m2LAAs A2C: 14.16 [id number] A-L A2C: 37.59 mlLALs A2C: 4.52 | | cmLAAs A4C: 11.49 sq8VCOBN A-L A4C: 28.79 mlLALs A4C: 3.89 cmRAAs: 11.72 | | [id number] A-L: 29.94 mlRAESV MOD: 27.18 mlRALs: 3.89 cmTAPSE: 2.42 cmAV maxPG: | | 7.52 mmHgAV meanP.43 mmHgAV Vmax: 1.37 m/Jian Vmean: 0.86 m/Jian VTI: 26.39 | | cmAVA Vmax: 2.53 cm2AVA (VTI): 2.61 di1XRDF (Vmax): 0.00 cm2/m2AVAI (VTI): 0.00 | | cm2/m2LVOT maxP.23 mmHgLVOT meanP.45 mmHgLVSI Dopp: 37.87 ml/m2LVSV Dopp: | | 68.93 mlLVOT Vmax: 1.14 m/sLVOT Vmean: 0.73 m/sLVOT VTI: 22.65 cmMV A Trace: | | 0.83 m/sMV Dec Sierra: 3.01 m/s2MV DecT: 264.72 msMV E Trace: 0.79 m/sMV E/A Ratio: | | 0.95 MV PHT: 76.77 msMVA By PHT: 2.86 gy2Ipmjug e': 0.06 m/sSeptal E/e': 13.00 | | Lateral e': 0.08 m/sLateral E/e': 9.24 RAP: 5 mmHgRV s': 0.12 m/sSonographer: | | DBSAuthenticated by: Laverne SanchezraReport Date/Time: 10-18-2018 19:10:22IMPRESSION:1. | | Overall left [...] A Trace: 0.83 m/s | |MV Dec Sierra: 3.01 m/s2 | |MV DecT: 264.72 ms | |MV E Trace: 0.79 m/s | |MV E/A Ratio: 0.95 | |MV PHT: 76.77 ms | |MVA By PHT: 2.86 cm2 | |Septal e': 0.06 m/s | |Septal E/e': 13.00 | |Lateral e': 0.08 m/s | |Lateral E/e': 9.24 | |RAP: 5 mmHg | |RV s': 0.12 m/s | | | |Rental Management Trainee: DBS | |Authenticated by: Laverne Seo | [...] | + + + + + | [facility] | [address] | [place] [address] | | + + + + + POCT glucose (10/01/2018 5:45 AM)Only the most recent of 35 results within the time period is included. + + + + + | Component | Value | Ref Range | Performed At | + + + + + | GLUCOSE,POC SCREEN | 122 (H)Comment: Testing | 65 - 99 mg/dL | [facility] | | | performed at [facility];[address] | | | | | [address];[place] | | | | | [address] | | | + + + + + + + + + + | Performing | Address | City/State/Zipcode | Phone Number | | Organization | | | | + + + + + | [facility] | [address] | [place] [address] | | + + + + + Basic metabolic panel (10/01/2018 4:20 AM)Only the most recent of 9 results within the period is included. + + + + + | Component [...] | | | | | performed at [facility], [address] | | | | [facility], | | | | | [place] [address] | | | + + + + + + + | Specimen | + + | Blood | + + + + + + + | Performing | Address | City/State/Zipcode | Phone Number | | Organization | | | | + + + + + | [facility] | [address] | [place] [address] | [phone] | | LABORATORY | [place]. | | | + + + + + X-ray swallowing function video (09/30/2018 2:59 PM) + + + | Narrative | Performed At | + + + | This is a non-reportable procedure without a radiologist report and | [facility] | | is used for image storage only | RADIOLOGY | + + + + + + + + | Performing | Address | City/State/Zipcode | Phone Number | | Organization | | | | + + + + + | [facility] | [address] | [facility] [address] | | + + + + + CBC w/auto diff (reflex to manual) (09/29/2018 4:20 AM)Only the most recent of 8 results w zitain the time period is included. + + + + + | Component [...] performed at | | | | | [facility], [address] | | | | | [place], [place] | | | | | [address] | | | + + + + + + + | Specimen | + + | Blood | + + + + + + + | Performing | Address | City/State/Zipcode | Phone Number | | Organization | | | | + + + + + | [facility] | [address] | [place] [address] | [phone] | | LABORATORY | [place]. | | | + + + + + Phosphorus (09/29/2018 4:20 AM)Only the most recent of 9 results within the time period is included. + + + + + | Component | Value | Ref Range | Performed At | + + + + + | PHOSPHORUS | 3.9Comment: Testing | 2.3 - 4.8 mg/dL | [facility] | | | performed at [facility], [address] | | LABORATORY | | | [facility], | | | | | [place] [address] | | | + + + + + + + | Specimen | + + | Blood | + + + + + + + | Performing | Address | City/State/Zipcode | Phone Number | | Organization | | | | + + + + + | [facility] | [address] [place] [address] | [place] [address] | [phone] | | LABORATORY | [address] | | | + + + + + Magnesium (09/29/2018 4:20 AM)Only the most recent of 9 results within the time period is included. + + + + + | Component | Value | Ref Range | Performed At | + + + + + | MAGNESIUM | 2.2Comment: Testing | 1.7 - 2.4 mg/dL | [facility] | | | performed at [facility], [address] | | LABORATORY | | | [facility], | | | | | [place] [address] | | | + + + + + + + | Specimen | + + | Blood | + + + + + + + | Performing | Address | City/State/Zipcode | Phone Number | | Organization | | | | + + + + + | [facility] | [address] | [place] [address] | [phone] | | LABORATORY | [address] | | | + + + + + Potassium (09/28/2018 3:30 PM)Only the most recent of 2 results within the time period is included. + + + + + | Component | Value | Ref Range | Performed At | + + + + + | POTASSIUM | 4.0Comment: Testing | 3.5 - 4.9 mmol/L | [facility] | | | performed at [facility];[address] | | | | | [address];[place] | | | | | [address] | | | + + + + + + + | Specimen | + + | Blood | + + + + + + + | Performing | Address | City/State/Zipcode | Phone Number | | Organization | | | | + + + + + | [facility] | [address] | [place] [address] | | + + + + + PROCALCITONIN (09/27/2018 4:07 AM)Only the most recent of 2 results within the time period is included. + + + + + | Component | Value | Ref Range | Performed At | + + + + + | PROCALCITONIN | <0.05Comment: | <0.5 ng/mL | [facility] | | | INTERPRETIVE | [...] performed | | | | | at [facility];[address] | | | | | [place] [address] | | | + + + + + + + + + + | Performing | Address | City/State/Zipcode | Phone Number | | Organization | | | | + + + + + | [facility] | [address] | [place] [address] | | + + + + + Glycohemoglobin A1c (09/24/2018 7:03 AM) + + + + + | Component | Value | Ref Range | Performed At | + + + + + | HEMOGLOBIN A1C | 6.1 (H)Comment: HbA1c | 4.0 - 6.0 % | [facility] | | | method is certified by [...] | 128Comment: Estimated | <154 mg/dL | [facility] | | GLUCOSE | Average Glucose | | LABORATORY | | | calculated from | | | | | hemoglobin A1c by use of | | | | | the ADA recommended | | | | | formula.Testing | | | | | performed at [facility], [address] | | | | | [facility], | | | | | [place] [address] | | | + + + + + + + + + + | Performing | Address | City/State/Zipcode | Phone Number | | Organization | | | | + + + + + | [facility] | [address] [place] [address] | [place] [address] | [phone] | | LABORATORY | [place]. | | | + + + + + POC Arterial Blood Gas (09/24/2018 2:40 AM)Only the most recent of 6 results within the ti ky period is included. + + + + + | Component | Value | Ref Range | Performed At | + + + + + | POC FIO2 | 40 | % | [facility] | + + + + + | pH, Art | 7.336 (L) | 7.350 - 7.450 | [facility] | + + + + + | POC PCO2 | 47 (H) | 35 - 45 mmHg | [facility] | + + + + + | POC p02 | 88 | 80 - 105 mmHg | [facility] | + + + + + | POC HCO3 | 25 | 22 - 26 mmol/L | [facility] | + + + + + | POC TCO2 | 26 | 23 - 27 mEq/L | [facility] | + + + + + | POC BASE DEFICIT | 1 | 0.0 - 2.0 mmol/L | [facility] | + + + + + | POC S02 | 96Comment: Testing | 95 - 98 % | [facility] | | | performed at [facility] [place];[address] | | | | | [place] | | | | | [id number] | | | + + + + + + + + + + | Performing | Address | City/State/Zipcode | Phone Number | | Organization | | | | + + + + + | [facility] | [address] | [place] [address] | | + + + + + POC arterial CG4+ (09/23/2018 2:57 PM)Only the most recent of 2 results within the time stephanie lauren is included. + + + + + | Component | Value | Ref Range | Performed At | + + + + + | pH, Art | 7.285 (L) | 7.350 - 7.450 | [facility] | + + + + + [...] 0 | 0 - 3 mEq/L | [facility] | + + + + + | POC S02 | 86 (L) | 95 - 98 % | [facility] | + + + + + | POC FIO2 | 30 | % | [facility] | + + + + + | POC COMMENTS | Modified Les Test | | [facility] | | | passedComment: Site = | | | | | right radialTesting | | | | | performed at [facility] [place];[address] | | | | | [place] | | | | | [address] | | | + + + + + + + + + + | Performing | Address | City/State/Zipcode | Phone Number | | Organization | | | | + + + + + | [facility] | [address] | [place] [address] | | + + + + + [...] performed at | | | | | [facility], [address] | | | | | [place] | | | | | [address] | | | + + + + + + + | Specimen | + + | Janet(Nose) | + + + + + + + | Performing | Address | City/State/Zipcode | Phone Number | | Organization | | | | + + + + + | [facility] | [address] | [place] [address] | [phone] | | LABORATORY | [address] | | [...] + + + | [facility] | [address] | [place] [address] | [phone] | | LABORATORY | Blvd[address] | | [...] + + + + | Calculated P Josephine | 77 | degrees | [facility] | + + + + + | Calculated R Josephine | 87 | degrees | [facility] | + + + + + | Calculated T Josephine | 61 | degrees | [facility] | + + + + + | Diagnosis | Sinus tachycardiaSeptal | | [facility] | | | infarct , age [...] | + + + + + | [facility] | [address] | [facility] [address] | | + + + + + Comprehensive metabolic panel (09/22/2018 5:47 PM) + + + + + | Component | Value | Ref Range | Performed At | + + + + + | SODIUM | 141 | 135 - 145 mmol/L | [facility] | + + + + + | POTASSIUM | 4.8 | 3.5 - 4.9 mmol/L | [facility] | + + + + + | CHLORIDE | 106 | 99 - 109 mmol/L | [facility] | + + + + + | CO2 | 27 | 23 - 32 mmol/L | [facility] | + + + + + | ANION GAP AGAP | 13 | 5 - 20 mmol/L | [facility] | + + + + + | GLUCOSE | 179 (H) | 65 - 99 mg/dL | [facility] | + + + + + | BUN | 14 | 8 - 25 mg/dL | [facility] | + + + + + | CREATININE | 0.99 | 0.50 - 1.00 mg/dL | [facility] | + + + + [...] 4.5 | 3.3 - 4.8 g/dL | [facility] | + + + + + | GLOBULIN | 2.0 | 1.3 - 4.9 g/dL | [facility] | + + + + + | A/G | 2.3 | 1.0 - 2.4 | [facility] | + + + + + | TBIL | 0.5 | 0.1 - 1.5 mg/dL | [facility] | + + + + + | ALK PHOS | 65 | 35 - 115 U/L | [facility] | + + + + + | AST | 19 | 10 - 45 U/L | [facility] | + + + + + | ALT | 19 | 10 - 65 U/L | [facility] | + + + + + | EGFR | 56 (L)Comment: GFR <60: | >60 mL/min/1.73m2 | [facility] | | | CHRONIC KIDNEY [...] | | | | | performed at [facility];[address] | | | [address];[place] | | | | | [address] | | | + + + + + + + | Specimen | + + | Blood | + + + + + + + | Performing | Address | City/State/Zipcode | Phone Number | | Organization | | | | + + + + + | [facility] | [address] | [place] [address] | | + + + + + MRSA by PCR (09/22/2018 5:35 PM) + + + + + | Component | Value | Ref Range | Performed At | + + + + + | SOURCE | NARES(NOSE) | | [facility] | + + + + + | MRSA PCR | NEGATIVEComment: Testing | NEGATIVE | [facility] | | | performed at [facility];[address] | | | | | [address];[place] | | | | | [address] | | | + + + + + + + | Specimen | + + | Nasopharyngeal - | | Nasopharyngeal | | Culture | + + + + + + + | Performing | Address | City/State/Zipcode | Phone Number | | Organization | | | | + + + + + | [facility] | [address] | [place] [address] | | + + + + + XR CHEST 1 VIEW (09/22/2018 5:27 PM) + + + | Impressions | Performed At | + + + | Left midlung ill-defined hazy infiltrates perhaps extending to the | [facility] | | left lung base. Tubes and lines in appropriate position. Signed by: | RADIOLOGY | | Fabrice Iniguez Date/Time: 09/22/2018 5:56 PM | | + [...] | + + + + + | [facility] | [address] | [place] [address] | | + + + + + from Last 3 Months Insurance + +--------+ +------+-------+ + | Payer | Benefi | Subscriber | Type | Phone | Address | | | t Plan | ID | | | | | | / | | | | | | | Group | | | | | + +--------+ +------+-------+ + | MEDICARE | MEDICA | [id number] | | | [address] | | | RE | | | | [place] [id number] | | | IP-OP | | | | | + +--------+ +------+-------+ + | [facility] | [place] | [id number] | | | | | | | | | | | | | HEALTH | | | | | | | CARE - | | | | | | | AARP | | | | | + +--------+ +------+-------+ + + +--------+ +--------+ + + | Guarantor Name | Accoun | Relation to | Date | Phone | Billing Address | | | t Type | Patient | of | | | | | | | | | | + +--------+ +--------+ + + | KYLIE GORE | Person | Self | [birth year] | Work: | [address] | | | amparo/[employer]uma | | 1949 | [phone] | [place] | | | jose | | | [address]: | [address] | | | | | | | | | | | | | [phone] | | | | | | | [address] | | + +--------+ +--------+ + +
--- OUTSIDE RECORDS SUMMARY | ~2018-11-26 | XMS | Encounter Summary ---
Demographics + + + | Address | [address] | | | [place] [address] | + + + | Home Phone | | + + + | Preferred Language | Unknown | + + + | Marital Status | | + + + | Yarsanism Affiliation | 1041 | + + + | Race | Unknown | + + + | Ethnic Group | Unknown | + + + Author + + + | Author | [facility] [employer] | + + + | Organization | [facility] [employer] | + + + | Address [...] Team Providers + +------+ + | Care Off Premise Service Representative Name | Role | Phone | + [...] | | | | | [place] [address] | | | | | | [phone] | | | | | | | [...] Stephanie Simmons Date of : 1950 | [facility] | | Performing Physician: Laverne Seo | [...] MV A Trace: 0.83 m/s MV Dec [place]: 3.01 m/s2 | | | MV DecT: 264.72 ms MV E Trace: 0.79 m/s MV E/A Ratio: | | | 0.95 MV PHT: 76.77 ms MVA By PHT: 2.86 cm2 Septal e': | | | 0.06 m/s Septal E/e': 13.00 Lateral e': 0.08 m/s Lateral | | | E/e': 9.24 RAP: 5 mmHg RV s': 0.12 m/s Studio Operator: | | | DBS Authenticated by: Laverne Mckeonardmore Report Date/Time: 10-18-2018 | | | 19:10:22 | | + + + + --------+ | Procedure Note | + --------+ | Mk, Rad Results In - 10/18/2018 7:20 PM PDT Patient Name: Geronimo Simmons of | | : 1950ccession: [id number] Physician: Laverne | | [facility] INDICATIONS------ | | -----END STAGE COPDCONCLUSIONS 1. [...] cmLVPWd: 0.90 cmLVOT Area: 3.04 | | [id number] Diam: 1.96 cm%FS: 28.31 %EF(Teich): 55.58 %ESV(Teich): [...] | | (A-L): 19.48 ml/m2LAAs A2C: 14.16 [id number] A-L A2C: 37.59 mlLALs A2C: 4.52 | | cmLAAs A4C: 11.49 [id number] A-L A4C: 28.79 mlLALs A4C: 3.89 cmRAAs: 11.72 | | sn6AWGST A-L: 29.94 mlRAESV MOD: 27.18 mlRALs: 3.89 cmTAPSE: 2.42 cmAV maxPG: | | 7.52 mmHgAV meanP.43 mmHgAV Vmax: 1.37 m/Jian Vmean: 0.86 m/Jian VTI: 26.39 | | cmAVA Vmax: 2.53 cm2AVA (VTI): 2.61 kl2JOUJ (Vmax): 0.00 cm2/m2AVAI (VTI): 0.00 | | cm2/m2LVOT maxP.23 mmHgLVOT meanP.45 mmHgLVSI Dopp: 37.87 ml/m2LVSV Dopp: | | 68.93 mlLVOT Vmax: 1.14 m/sLVOT Vmean: 0.73 m/sLVOT VTI: 22.65 cmMV A Trace: | | 0.83 m/sMV Dec [place]: 3.01 m/s2MV DecT: 264.72 msMV E Trace: 0.79 m/sMV E/A Ratio: | | 0.95 MV PHT: 76.77 msMVA By PHT: 2.86 br3Mcpwzw e': 0.06 m/sSeptal E/e': 13.00 | | Lateral e': 0.08 m/sLateral E/e': 9.24 RAP: 5 mmHgRV s': 0.12 m/sSonographer: | | DBSAuthenticated by: Laverne [facility] CenterReport Date/Time: 10-18-2018 19:10:22IMPRESSION:1. | | Overall left [...] A Trace: 0.83 m/s | |MV Dec [place]: 3.01 m/s2 | |MV DecT: 264.72 ms | |MV E Trace: 0.79 m/s | |MV E/A Ratio: 0.95 | |MV PHT: 76.77 ms | |MVA By PHT: 2.86 cm2 | |Septal e': 0.06 m/s | |Septal E/e': 13.00 | |Lateral e': 0.08 m/s | |Lateral E/e': 9.24 | |RAP: 5 mmHg | |RV s': 0.12 m/s | | | |Studio Operator: DBS | |Authenticated by: Laverne Seo [...] [facility] | [address] | [place] [address] | | + + + + + in this encounter Visit Diagnoses + + | Diagnosis | + + | End stage COPD (HCC) | + + | Chronic airway obstruction, not elsewhere classified | + +"
--- OUTSIDE RECORDS SUMMARY | ~2018-11-26 | XMS | Encounter Summary ---
Demographics + + + | Address | [address] | | | [place] [address] | + + + | Home Phone | | + + + | Preferred Language | Unknown | + + + | Marital Status | | + + + | Gnosticist Affiliation | 1041 | + + + | Race | Unknown | + + + | Ethnic Group | Unknown | + + + Author + + + | Author | [facility] | + + + | Organization | [facility] [employer] | + + + | Address [...] Providers + +------+ + | Care Manager Product Management Name | Role | Phone | + [...] + + | 10/12/ | Telephone | [facility] | Taty Camacho RN | Letter for | | 2018 | | [facility] | | School/Work (FMLA) | | | | [address] | | | | | | [place] [address] | | | | | | [phone] | | | +--------+ + + + [...]
--- OUTSIDE RECORDS SUMMARY | ~2018-11-26 | XMS | Encounter Summary ---
Demographics + + + | Address | [address] | | | [place] [address] | + + + | Home Phone | | + + + | Preferred Language | Unknown | + + + | Marital Status | | + + + | Episcopal Affiliation | 1041 | + + + | Race | Unknown | + + + | Ethnic Group | Unknown | + + + Author + + + | Author | [facility] | + + + | Organization | [facility] [employer] | + + + | Address [...] Team Providers + +------+ + | Care Tire Curer Name | Role | Phone | + [...] + + | 10/12/ | Telephone | [facility] PHYSICIAN | Taty Camacho RN | Letter for | | 2018 | | [facility] | | School/Work (FMLA) | | | | [address] | | | | | | [place] [address] | | | | | | [phone] | | | +--------+ + + + [...]
--- OUTSIDE RECORDS SUMMARY | ~2018-11-26 | XMS | Encounter Summary ---
Demographics + + + | Address | [address] | | | [place] [address] | + + + | Home Phone | | + + + | Preferred Language | Unknown | + + + | Marital Status | | + + + | Pentecostal Affiliation | 1041 | + + + | Race | Unknown | + + + | Ethnic Group | Unknown | + + + Author + + + | Author | [facility] [employer] | + + + | Organization | [facility] [employer] | + + + | Address [...] Team Providers + +------+ + | Care Water Tanker Driver Name | Role | Phone | + [...] + + | 10/12/ | Telephone | [facility] PHYSICIAN | Gracy Santos, | Letter for | | 2019 | | [facility] | RN | School/Work (FMLA) | | | | [address] | | | | | | [place] [address] | | | | | | [phone] | | | +--------+ + + + [...]
--- OUTSIDE RECORDS SUMMARY | ~2018-11-26 | XMS | Clinical Summary ---
Demographics + + + | Address | [address] | | | [place] [address] | + + + | Home Phone | | + + + | Preferred Language | Unknown | + + + | Marital Status | | + + + | Gnosticist Affiliation | 1041 | + + + | Race | Unknown | + + + | Ethnic Group | Unknown | + + + Author + + + | Author | [facility] | + + + | Organization | [facility] [employer] | + + + | Address [...] Team Providers + +------+ + | Care Financial Analysis Manager Name | Role | Phone | [...] | | | LoganMRN: | | | [id number]/ | | | [id number] | | | y.o.Admit | | | [...] | | | Natalia, | | | [id number] | | | [place] | | | [place] | | | n [place] | | | [phone] | | [phone] | | | [...] + + | Brother | | | [place] | | | | (Age | | [...] + | Paternal Grandfather | | | [place] | | | | (Age | | [...] Kylie Gore Date of : 1950 | [facility] | | Performing Physician: Laverne Seo [...] MV A Trace: 0.83 m/s MV Dec [place]: 3.01 m/s2 | | | MV DecT: 264.72 ms MV E Trace: 0.79 m/s MV E/A Ratio: | | | 0.95 MV PHT: 76.77 ms MVA By PHT: 2.86 cm2 Septal e': | | | 0.06 m/s Septal E/e': 13.00 Lateral e': 0.08 m/s Lateral | | | E/e': 9.24 RAP: 5 mmHg RV s': 0.12 m/s Analytical Consultant: | | | DBS Authenticated by: Laverne Seo Report Date/Time: 10-18-2018 | | | 19:10:22 | | + + + + --------+ | Procedure Note | + --------+ | Mk, Rad Results In - 10/18/2018 7:20 PM PDT Patient Name: Geronimo Gore of | | : 1950ccession: [id number] Physician: Laverne | | [facility] INDICATIONS------ | | -----END STAGE COPDCONCLUSIONS [...] cmLVPWd: 0.90 cmLVOT Area: 3.04 | | [id number] Diam: 1.96 cm%FS: 28.31 %EF(Teich): 55.58 %ESV(Teich): [...] | | (A-L): 19.48 ml/m2LAAs A2C: 14.16 [id number] A-L A2C: 37.59 mlLALs A2C: 4.52 | | cmLAAs A4C: 11.49 kd5LUIHD A-L A4C: 28.79 mlLALs A4C: 3.89 cmRAAs: 11.72 | | rj2QKXMP A-L: 29.94 mlRAESV MOD: 27.18 mlRALs: 3.89 cmTAPSE: 2.42 cmAV maxPG: | | 7.52 mmHgAV meanP.43 mmHgAV Vmax: 1.37 m/Jian Vmean: 0.86 m/Jian VTI: 26.39 | | cmAVA Vmax: 2.53 cm2AVA (VTI): 2.61 oc8CKVR (Vmax): 0.00 cm2/m2AVAI (VTI): 0.00 | | cm2/m2LVOT maxP.23 mmHgLVOT meanP.45 mmHgLVSI Dopp: 37.87 ml/m2LVSV Dopp: | | 68.93 mlLVOT Vmax: 1.14 m/sLVOT Vmean: 0.73 m/sLVOT VTI: 22.65 cmMV A Trace: | | 0.83 m/sMV Dec [place]: 3.01 m/s2MV DecT: 264.72 msMV E Trace: 0.79 m/sMV E/A Ratio: | | 0.95 MV PHT: 76.77 msMVA By PHT: 2.86 eh0Setmcu e': 0.06 m/sSeptal E/e': 13.00 | | [...] A Trace: 0.83 m/s | |MV Dec [place]: 3.01 m/s2 | |MV DecT: 264.72 ms | |MV E Trace: 0.79 m/s | |MV E/A Ratio: 0.95 | |MV PHT: 76.77 ms | |MVA By PHT: 2.86 cm2 | |Septal e': 0.06 m/s | |Septal E/e': 13.00 | |Lateral e': 0.08 m/s | |Lateral E/e': 9.24 | |RAP: 5 mmHg | |RV s': 0.12 m/s | | | |Analytical Consultant: DBS | |Authenticated by: Laverne Seo | [...] | + + + + + | [facility] | [address] | [place] [address] | | + + + + + POCT glucose (10/01/2018 5:45 AM)Only the most recent of 35 results within the time period is included. + + + + + | Component | Value | Ref Range | Performed At | + + + + + | GLUCOSE,POC SCREEN | 122 (H)Comment: Testing | 65 - 99 mg/dL | [facility] | | | performed at [facility];[address] | | | | | [address];[place] | | | | | [address] | | | + + + + + + + + + + | Performing | Address | City/State/Zipcode | Phone Number | | Organization | | | | + + + + + | [facility] | [address] | [place] [address] | | + + + + + [...] | | | | | performed at [facility], [address] | | | | | [facility], | | | | | [place] [address] | | | + + + + + + + | Specimen | + + | Blood | + + + + + + + | Performing | Address | City/State/Zipcode | Phone Number | | Organization | | | | + + + + + | [facility] | [address] | [place] [address] | [phone] | | LABORATORY | [place]. | | [...] | + + + + + | [facility] | [address] | [facility] [place] [address] | | + + + + + [...] | | | | | TC, [address] | | | | | [place], [place] | | | | | [address] | | | + + + + + + + | Specimen | + + | Blood | + + + + + + + | Performing | Address | City/State/Zipcode | Phone Number | | Organization | | | | + + + + + | [facility] | [address] | [place] [address] | [phone] | | LABORATORY | [place] | | [...] | [facility] | | | performed at [facility], [address] | | LABORATORY | | | [facility], | | | | | [place] [address] | | | + + + + + + + | Specimen | + + | Blood | + + + + + + + | Performing | Address | City/State/Zipcode | Phone Number | | Organization | | | | + + + + + | [facility] | [address] [place] [address] | [place] [address] | [phone] | | LABORATORY | [address] | | [...] | [facility] | | | performed at [facility], [address] | | LABORATORY | | | [facility], | | | | | [place] [address] | | | + + + + + + + | Specimen | + + | Blood | + + + + + + + | Performing | Address | City/State/Zipcode | Phone Number | | Organization | | | | + + + + + | [facility] | [address] | [place] [address] | [phone] | | LABORATORY | [address] | | | + + + + + Potassium (09/28/2018 3:30 PM)Only the most recent of 2 results within the time period is included. + + + + + | Component | Value | Ref Range | Performed At | + + + + + | POTASSIUM | 4.0Comment: Testing | 3.5 - 4.9 mmol/L | [facility] | | | performed at [facility];[address] | | | | | [address];[place] | | | | | [address] | | | + + + + + + + | Specimen | + + | Blood | + + + + + + + | Performing | Address | City/State/Zipcode | Phone Number | | Organization | | | | + + + + + | [facility] | [address] | [place] [address] | | + + + + + PROCALCITONIN (09/27/2018 4:07 AM)Only the most recent of 2 results within the time period is included. + + + + + | Component | Value | Ref Range | Performed At | + + + + + | PROCALCITONIN | <0.05Comment: | <0.5 ng/mL | [facility] | | | INTERPRETIVE | | [...] performed | | | | | at [facility];[address] | | | | | [place] [address] | | | + + + + + + + + + + | Performing | Address | City/State/Zipcode | Phone Number | | Organization | | | | + + + + + | [facility] | [address] | [place] [address] | | + + + + + [...] | | | | | performed at [facility], [address] | | | | | [facility], | | | | | [place] [address] | | | + + + + + + + + + + | Performing | Address | City/State/Zipcode | Phone Number | | Organization | | | | + + + + + | [facility] | [address] [place] [address] | [place] [address] | [phone] | | LABORATORY | [place]. | | | + + + + + POC Arterial Blood Gas (09/24/2018 2:40 AM)Only the most recent of 6 results within the ti nv period is included. + + + + + | Component | Value | Ref Range | Performed At | + + + + + | POC FIO2 | 40 | % | [facility] | + + + + + | pH, Art | 7.336 (L) | 7.350 - 7.450 | [facility] | + + + + + | POC PCO2 | 47 (H) | 35 - 45 mmHg | [facility] | + + + + + | POC p02 | 88 | 80 - 105 mmHg | [facility] | + + + + + | POC HCO3 | 25 | 22 - 26 mmol/L | [facility] | + + + + + | POC TCO2 | 26 | 23 - 27 mEq/L | [facility] | + + + + + | POC BASE DEFICIT | 1 | 0.0 - 2.0 mmol/L | [facility] | + + + + + | POC S02 | 96Comment: Testing | 95 - 98 % | [facility] | | | performed at [facility];[address] | | | | | [address];[place] | | | | | [address] | | | + + + + + + + + + + | Performing | Address | City/State/Zipcode | Phone Number | | Organization | | | | + + + + + | [facility] | [address] | [place] [address] | | + + + + + POC arterial CG4+ (09/23/2018 2:57 PM)Only the most recent of 2 results within the time stephanie lauren is included. + + + + + | Component | Value | Ref Range | Performed At | + + + + + | pH, Art | 7.285 (L) | 7.350 - 7.450 | [facility] | + + + + + [...] 0 | 0 - 3 mEq/L | [facility] | + + + + + | POC S02 | 86 (L) | 95 - 98 % | [facility] | + + + + + | POC FIO2 | 30 | % | [facility] | + + + + + | POC COMMENTS | Modified Les Test | | [facility] | | | passedComment: Site = | | | | | right radialTesting | | | | | performed at [facility];[address] | | | | | [address];[place] | | | | | [address] | | | + + + + + + + + + + | Performing | Address | City/State/Zipcode | Phone Number | | Organization | | | | + + + + + | [facility] | [address] | [place] [address] | | + + + + + [...] performed at | | | | | [facility], [address] | | | | | [place] | | | | | [address] | | | + + + + + + + | Specimen | + + | Janet(Nose) | + + + + + + + | Performing | Address | City/State/Zipcode | Phone Number | | Organization | | | | + + + + + | [facility] | [address] | [place] [address] | [phone] | | LABORATORY | [address] | | [...] + + + | [facility] | [address] | [place] [address] | [phone] | | LABORATORY | [address] | | [...] + + + + | Calculated P [place] | 77 | degrees | [facility] | + + + + + | Calculated R [place] | 87 | degrees | [facility] | + + + + + | Calculated T [place] | 61 | degrees | [facility] [...] | + + + + + | [facility] | [address] | [facility] [place] [address] | | + + + + + Comprehensive metabolic panel (09/22/2018 5:47 PM) + + + + + | Component | Value | Ref Range | Performed At | + + + + + | SODIUM | 141 | 135 - 145 mmol/L | [facility] | + + + + + | POTASSIUM | 4.8 | 3.5 - 4.9 mmol/L | [facility] | + + + + + | CHLORIDE | 106 | 99 - 109 mmol/L | [facility] | + + + + + | CO2 | 27 | 23 - 32 mmol/L | [facility] | + + + + + | ANION GAP AGAP | 13 | 5 - 20 mmol/L | [facility] | + + + + + | GLUCOSE | 179 (H) | 65 - 99 mg/dL | [facility] | + + + + + | BUN | 14 | 8 - 25 mg/dL | [facility] | + + + + + | CREATININE | 0.99 | 0.50 - 1.00 mg/dL | [facility] | + + + + + [...] 0.5 | 0.1 - 1.5 mg/dL | [facility] | + + + + + | ALK PHOS | 65 | 35 - 115 U/L | [facility] | + + + + + | AST | 19 | 10 - 45 U/L | [facility] | + + + + + | ALT | 19 | 10 - 65 U/L | [facility] | + + + + + | EGFR | 56 (L)Comment: GFR <60: | >60 mL/min/1.73m2 | [facility] | | | CHRONIC KIDNEY DISEASE, [...] | | | | | performed at [facility];[address] | | [address];[place] | | | | | [address] | | | + + + + + + + | Specimen | + + | Blood | + + + + + + + | Performing | Address | City/State/Zipcode | Phone Number | | Organization | | | | + + + + + | [facility] | [address] | [place] [address] | | + + + + + MRSA by PCR (09/22/2018 5:35 PM) + + + + + | Component | Value | Ref Range | Performed At | + + + + + | SOURCE | NARES(NOSE) | | [facility] | + + + + + | MRSA PCR | NEGATIVEComment: Testing | NEGATIVE | [facility] | | | performed at [facility];[address] | | | [address];[place] | | | | | [address] | | | + + + + + + + | Specimen | + + | Nasopharyngeal - | | Nasopharyngeal | | Culture | + + + + + + + | Performing | Address | City/State/Zipcode | Phone Number | | Organization | | | | + + + + + | [facility] | [address] | [place] [address] | | + + + + + [...] | + + + + + | [facility] | [address] | [place] [address] | | + + + + + [...] +------+-------+ + | MEDICARE | MEDICA | [id number] | | | [address] | | | RE | | | | [place] [phone] | | | IP-OP | | | | | + +--------+ +------+-------+ + | [facility] | [place] | [id number] | | | | | | | [...] | [address] | | | amparo/Juam | | 1949 | [phone] | [place] | | | jose | | | [address]: | [phone] | | | | | | | | | | | | | [phone] | | | | | | | [address] | | + +--------+ +--------+ + +
--- OUTSIDE RECORDS SUMMARY | ~2018-11-26 | XMS | Clinical Summary ---
Demographics + + + | Address | [address] | | | [place] [address] | + + + | Home Phone | | + + + | Preferred Language | Unknown | + + + | Marital Status | | + + + | Hindu Affiliation | 1041 | + + + | Race | Unknown | + + + | Ethnic Group | Unknown | + + + Author + + + | Author | [facility] | + + + | Organization | [facility] | + + + | Address | Unknown | + + + | Phone | Unavailable | + + + Support + + +---------+ + | Name | Relationship | Address | Phone | + + +---------+ + | Massimo Whatley | ECON | Unknown | | + + +---------+ + | Inyd Gallardo | ECON | Unknown | | + + +---------+ + Care Team Providers + +------+ + | Care Commanding Officer Traffic Division Name | Role | Phone | + [...] + | 10/16/ | Ancillary | | aJyla Fisher | End stage COPD (HCC) | [...] | | | LoganMRN: | | | [id number]/ | | | [id number] | | | y.o.Admit | | | [...] | | | Natalia, | | | [id number] | | | [place] | | | [place] | | | n [place] | | | [phone] | | [phone] | | | [...] + + | Brother | | | [place] | | | | (Age | | [...] + | Paternal Grandfather | | | [place] | | | | (Age | | [...] Kylie Gore Date of : 1950 | [facility] | | Performing Physician: Laverne Seo | [...] MV A Trace: 0.83 m/s MV Dec Carlton: 3.01 m/s2 | | | MV DecT: 264.72 ms MV E Trace: 0.79 m/s MV E/A Ratio: | | | 0.95 MV PHT: 76.77 ms MVA By PHT: 2.86 cm2 Septal e': | | | 0.06 m/s Septal E/e': 13.00 Lateral e': 0.08 m/s Lateral | | | E/e': 9.24 RAP: 5 mmHg RV s': 0.12 m/s Folder Seamer: | | | DBS Authenticated by: Laverne Seo Report Date/Time: 10-18-2018 | | | 19:10:22 | | + + + + --------+ | Procedure Note | + --------+ | Mk, Rad Results In - 10/18/2018 7:20 PM PDT Patient Name: Geronimo Gore of | | : 1950ccession: [id number] Physician: Laverne | | [facility] [...] cmLVPWd: 0.90 cmLVOT Area: 3.04 | | [id number] Diam: 1.96 cm%FS: 28.31 %EF(Teich): 55.58 %ESV(Teich): [...] | | (A-L): 19.48 ml/m2LAAs A2C: 14.16 [id number] A-L A2C: 37.59 mlLALs A2C: 4.52 | | cmLAAs A4C: 11.49 az1TZUHA A-L A4C: 28.79 mlLALs A4C: 3.89 cmRAAs: 11.72 | | [id number] A-L: 29.94 mlRAESV MOD: 27.18 mlRALs: 3.89 cmTAPSE: 2.42 cmAV maxPG: | | 7.52 mmHgAV meanP.43 mmHgAV Vmax: 1.37 m/Jian Vmean: 0.86 m/Jian VTI: 26.39 | | cmAVA Vmax: 2.53 cm2AVA (VTI): 2.61 og0AEVC (Vmax): 0.00 cm2/m2AVAI (VTI): 0.00 | | cm2/m2LVOT maxP.23 mmHgLVOT meanP.45 mmHgLVSI Dopp: 37.87 ml/m2LVSV Dopp: | | 68.93 mlLVOT Vmax: 1.14 m/sLVOT Vmean: 0.73 m/sLVOT VTI: 22.65 cmMV A Trace: | | 0.83 m/sMV Dec Carlton: 3.01 m/s2MV DecT: 264.72 msMV E Trace: 0.79 m/sMV E/A Ratio: | | 0.95 MV PHT: 76.77 msMVA By PHT: 2.86 ts1Grypmw e': 0.06 m/sSeptal E/e': 13.00 | | [...] A Trace: 0.83 m/s | |MV Dec Carlton: 3.01 m/s2 | |MV DecT: 264.72 ms | |MV E Trace: 0.79 m/s | |MV E/A Ratio: 0.95 | |MV PHT: 76.77 ms | |MVA By PHT: 2.86 cm2 | |Septal e': 0.06 m/s | |Septal E/e': 13.00 | |Lateral e': 0.08 m/s | |Lateral E/e': 9.24 | |RAP: 5 mmHg | |RV s': 0.12 m/s | | | |Folder Seamer: DBS | |Authenticated by: Laverne Seo | [...] | + + + + + | [facility] | [address] | [place] [address] | | + + + + + POCT glucose (10/01/2018 5:45 AM)Only the most recent of 35 results within the time period is included. + + + + + | Component | Value | Ref Range | Performed At | + + + + + | GLUCOSE,POC SCREEN | 122 (H)Comment: Testing | 65 - 99 mg/dL | [facility] | | | performed at [facility];[address] | | | | | [address];[place] | | | | | [address] | | | + + + + + + + + + + | Performing | Address | City/State/Zipcode | Phone Number | | Organization | | | | + + + + + | [facility] | [address] | [place] [address] | | + + + + + [...] | | | | | performed at [facility], [address] | | | | | [facility], | | | | | [place] [address] | | | + + + + + + + | Specimen | + + | Blood | + + + + + + + | Performing | Address | City/State/Zipcode | Phone Number | | Organization | | | | + + + + + | [facility] | [address] | [place] [address] | [phone] | | LABORATORY | [place]. | | [...] | + + + + + | [facility] | [address] | [facility] [address] | | + + + + + [...] | | | | | TC, [address] [facility] | | | | | [place], [place] | | | | | [address] | | | + + + + + + + | Specimen | + + | Blood | + + + + + + + | Performing | Address | City/State/Zipcode | Phone Number | | Organization | | | | + + + + + | [facility] | [address] | [place] [address] | [phone] | | LABORATORY | [place]. | | [...] | [facility] | | | performed at [facility], [address] | | LABORATORY | | | [facility], | | | | | [place] [address] | | | + + + + + + + | Specimen | + + | Blood | + + + + + + + | Performing | Address | City/State/Zipcode | Phone Number | | Organization | | | | + + + + + | [facility] | [address] [place] [address] | [place] [address] | [phone] | | LABORATORY | [address] | | [...] | [facility] | | | performed at [facility], [address] | | LABORATORY | | | [facility], | | | | | [place] [address] | | | + + + + + + + | Specimen | + + | Blood | + + + + + + + | Performing | Address | City/State/Zipcode | Phone Number | | Organization | | | | + + + + + | [facility] | [address] | [place] [address] | [phone] | | LABORATORY | [address] | | | + + + + + Potassium (09/28/2018 3:30 PM)Only the most recent of 2 results within the time period is included. + + + + + | Component | Value | Ref Range | Performed At | + + + + + | POTASSIUM | 4.0Comment: Testing | 3.5 - 4.9 mmol/L | [facility] | | | performed at [facility];[address] | | | | | [address];[place] | | | | | [address] | | | + + + + + + + | Specimen | + + | Blood | + + + + + + + | Performing | Address | City/State/Zipcode | Phone Number | | Organization | | | | + + + + + | [facility] | [address] | [place] [address] | | + + + + + PROCALCITONIN (09/27/2018 4:07 AM)Only the most recent of 2 results within the time period is included. + + + + + | Component | Value | Ref Range | Performed At | + + + + + | PROCALCITONIN | <0.05Comment: | <0.5 ng/mL | [facility] | | | INTERPRETIVE | | [...] performed | | | | | at [facility];[address] | | | | | [place] [address] | | | + + + + + + + + + + | Performing | Address | City/State/Zipcode | Phone Number | | Organization | | | | + + + + + | [facility] | [address] | [place] [address] | | + + + + + [...] | | | | | performed at [facility], [address] | | | | | [facility], | | | | | [place] [address] | | | + + + + + + + + + + | Performing | Address | City/State/Zipcode | Phone Number | | Organization | | | | + + + + + | [facility] | [address] [place] [address] | [place] [address] | [phone] | | LABORATORY | [place]. | | | + + + + + POC Arterial Blood Gas (09/24/2018 2:40 AM)Only the most recent of 6 results within the ti ms period is included. + + + + + | Component | Value | Ref Range | Performed At | + + + + + | POC FIO2 | 40 | % | [facility] | + + + + + | pH, Art | 7.336 (L) | 7.350 - 7.450 | [facility] | + + + + + | POC PCO2 | 47 (H) | 35 - 45 mmHg | [facility] | + + + + + | POC p02 | 88 | 80 - 105 mmHg | [facility] | + + + + + | POC HCO3 | 25 | 22 - 26 mmol/L | [facility] | + + + + + | POC TCO2 | 26 | 23 - 27 mEq/L | [facility] | + + + + + | POC BASE DEFICIT | 1 | 0.0 - 2.0 mmol/L | [facility] | + + + + + | POC S02 | 96Comment: Testing | 95 - 98 % | [facility] | | | performed at [facility];[address] | | | | | [address];[place] | | | | | [address] | | | + + + + + + + + + + | Performing | Address | City/State/Zipcode | Phone Number | | Organization | | | | + + + + + | [facility] | [address] | [place] [address] | | + + + + + POC arterial CG4+ (09/23/2018 2:57 PM)Only the most recent of 2 results within the time stephanie lauren is included. + + + + + | Component | Value | Ref Range | Performed At | + + + + + | pH, Art | 7.285 (L) | 7.350 - 7.450 | [facility] | + + + + + [...] 0 | 0 - 3 mEq/L | [facility] | + + + + + | POC S02 | 86 (L) | 95 - 98 % | [facility] | + + + + + | POC FIO2 | 30 | % | [facility] | + + + + + | POC COMMENTS | Modified Les Test | | [facility] | | | passedComment: Site = | | | | | right radialTesting | | | | | performed at [facility];[address] | | | | | [address];[place] | | | | | [address] | | | + + + + + + + + + + | Performing | Address | City/State/Zipcode | Phone Number | | Organization | | | | + + + + + | [facility] | [address] | [place] [address] | | + + + + + [...] performed at | | | | | [facility], [address] | | | | | [place] | | | | | [address] | | | + + + + + + + | Specimen | + + | Janet(Nose) | + + + + + + + | Performing | Address | City/State/Zipcode | Phone Number | | Organization | | | | + + + + + | [facility] | [address] | [place] [address] | [phone] | | LABORATORY | [address] | | [...] + + + | [facility] | [address] | [place] [address] | [phone] | | LABORATORY | [address] | | [...] + + + + | Calculated P [place] | 77 | degrees | [facility] | + + + + + | Calculated R [place] | 87 | degrees | [facility] | + + + + + | Calculated T [place] | 61 | degrees | [facility] [...] | + + + + + | [facility] | [address] | [facility] [address] | | + + + + + Comprehensive metabolic panel (09/22/2018 5:47 PM) + + + + + | Component | Value | Ref Range | Performed At | + + + + + | SODIUM | 141 | 135 - 145 mmol/L | [facility] | + + + + + | POTASSIUM | 4.8 | 3.5 - 4.9 mmol/L | [facility] | + + + + + | CHLORIDE | 106 | 99 - 109 mmol/L | [facility] | + + + + + | CO2 | 27 | 23 - 32 mmol/L | [facility] | + + + + + | ANION GAP AGAP | 13 | 5 - 20 mmol/L | [facility] | + + + + + | GLUCOSE | 179 (H) | 65 - 99 mg/dL | [facility] | + + + + + | BUN | 14 | 8 - 25 mg/dL | [facility] | + + + + + | CREATININE | 0.99 | 0.50 - 1.00 mg/dL | [facility] | + + + + + [...] 0.5 | 0.1 - 1.5 mg/dL | [facility] | + + + + + | ALK PHOS | 65 | 35 - 115 U/L | [facility] | + + + + + | AST | 19 | 10 - 45 U/L | [facility] | + + + + + | ALT | 19 | 10 - 65 U/L | [facility] | + + + + + | EGFR | 56 (L)Comment: GFR <60: | >60 mL/min/1.73m2 | [facility] | | | CHRONIC KIDNEY DISEASE, [...] | | | | | performed at [facility];[address] | | [address];[place] | | | | | [address] | | | + + + + + + + | Specimen | + + | Blood | + + + + + + + | Performing | Address | City/State/Zipcode | Phone Number | | Organization | | | | + + + + + | [facility] | [address] | [place] [address] | | + + + + + MRSA by PCR (09/22/2018 5:35 PM) + + + + + | Component | Value | Ref Range | Performed At | + + + + + | SOURCE | NARES(NOSE) | | [facility] | + + + + + | MRSA PCR | NEGATIVEComment: Testing | NEGATIVE | [facility] | | | performed at [facility];[address] | | | | | [address];[place] | | | | | [address] | | | + + + + + + + | Specimen | + + | Nasopharyngeal - | | Nasopharyngeal | | Culture | + + + + + + + | Performing | Address | City/State/Zipcode | Phone Number | | Organization | | | | + + + + + | [facility] | [address] | [place] [address] | | + + + + + [...] | + + + + + | [facility] | [address] | [place] [address] | | + + + + + [...] +------+-------+ + | MEDICARE | MEDICA | [id number] | | | [address] | | | RE | | | | [place] [address] | | | IP-OP | | | | | + +--------+ +------+-------+ + | [facility] | [place] | [id number] | | | | | | | [...] | | amparo/Juma | | 1949 | [phone] | [place] | | | [address] | | | [address]: | [phone] | | | | | | | | | | | | | [phone] | | | | | | | [address] | | + +--------+ +--------+ + +
--- OUTSIDE RECORDS SUMMARY | ~2018-11-26 | XMS | Encounter Summary ---
Demographics + + + | Address | [address] | | | [place] [address] | + + + | Home Phone | | + + + | Preferred Language | Unknown | + + + | Marital Status | | + + + | Restoration Affiliation | 1041 | + + + | Race | Unknown | + + + | Ethnic Group | Unknown | + + + Author + + + | Author | [facility] | + + + | Organization | [facility] [employer] [facility] | + + + | Address [...] Team Providers + +------+ + | Care Document Specialist Name | Role | Phone | [...] | | | | | [place] [address] | | | | | | [phone] | | | | | | | [...] Stephanie Simmons Date of : 1950 | [facility] | | Performing Physician: Laverne Seo [...] MV A Trace: 0.83 m/s MV Dec Mcnairy: 3.01 m/s2 | | | MV DecT: 264.72 ms MV E Trace: 0.79 m/s MV E/A Ratio: | | | 0.95 MV PHT: 76.77 ms MVA By PHT: 2.86 cm2 Septal e': | | | 0.06 m/s Septal E/e': 13.00 Lateral e': 0.08 m/s Lateral | | | E/e': 9.24 RAP: 5 mmHg RV s': 0.12 m/s Bran Mixer: | | | DBS Authenticated by: Laverne [facility] Report Date/Time: 10-18-2018 | | | 19:10:22 | | + + + + --------+ | Procedure Note | + --------+ | Mk, Rad Results In - 10/18/2018 7:20 PM PDT Patient Name: Geronimo Simmons of | | : 1950ccession: [id number] Physician: Laverne | | [facility] INDICATIONS------ | | -----END STAGE COPDCONCLUSIONS [...] cmLVPWd: 0.90 cmLVOT Area: 3.04 | | [id number] Diam: 1.96 cm%FS: 28.31 %EF(Teich): 55.58 %ESV(Teich): [...] | | (A-L): 19.48 ml/m2LAAs A2C: 14.16 mt0CFSGI A-L A2C: 37.59 mlLALs A2C: 4.52 | | cmLAAs A4C: 11.49 av0YEVZX A-L A4C: 28.79 mlLALs A4C: 3.89 cmRAAs: 11.72 | | ry7LALUE A-L: 29.94 mlRAESV MOD: 27.18 mlRALs: 3.89 cmTAPSE: 2.42 cmAV maxPG: | | 7.52 mmHgAV meanP.43 mmHgAV Vmax: 1.37 m/Jian Vmean: 0.86 m/Jian VTI: 26.39 | | cmAVA Vmax: 2.53 cm2AVA (VTI): 2.61 ud2LPBT (Vmax): 0.00 cm2/m2AVAI (VTI): 0.00 | | cm2/m2LVOT maxP.23 mmHgLVOT meanP.45 mmHgLVSI Dopp: 37.87 ml/m2LVSV Dopp: | | 68.93 mlLVOT Vmax: 1.14 m/sLVOT Vmean: 0.73 m/sLVOT VTI: 22.65 cmMV A Trace: | | 0.83 m/sMV Dec Mcnairy: 3.01 m/s2MV DecT: 264.72 msMV E Trace: 0.79 m/sMV E/A Ratio: | | 0.95 MV PHT: 76.77 msMVA By PHT: 2.86 ip4Lgttew e': 0.06 m/sSeptal E/e': 13.00 | | Lateral e': 0.08 m/sLateral E/e': 9.24 RAP: 5 mmHgRV s': 0.12 m/sSonographer: | | DBSAuthenticated by: Mershed Alscollege placeraReport Date/Time: 10-18-2018 19:10:22IMPRESSION:1. | | Overall left [...] A Trace: 0.83 m/s | |MV Dec Mcnairy: 3.01 m/s2 | |MV DecT: 264.72 ms | |MV E Trace: 0.79 m/s | |MV E/A Ratio: 0.95 | |MV PHT: 76.77 ms | |MVA By PHT: 2.86 cm2 | |Septal e': 0.06 m/s | |Septal E/e': 13.00 | |Lateral e': 0.08 m/s | |Lateral E/e': 9.24 | |RAP: 5 mmHg | |RV s': 0.12 m/s | | | |Bran Mixer: DBS | |Authenticated by: Laverne Seo | [...] | + + + + + | [facility] | [address] | [place] [address] | | + + + + + in this encounter Visit Diagnoses + + | Diagnosis | + + | End stage COPD (HCC) | + + | Chronic airway obstruction, not elsewhere classified | + +"
--- OUTSIDE RECORDS SUMMARY | ~2018-11-26 | XMS | Encounter Summary ---
Demographics + + + | Address | [address] | | | [place] [address] | + + + | Home Phone | | + + + | Preferred Language | Unknown | + + + | Marital Status | | + + + | Jew Affiliation | 1041 | + + + | Race | Unknown | + + + | Ethnic Group | Unknown | + + + Author + + + | Author | [facility] [employer] | + + + | Organization | [facility] [employer] | + + + | Address [...] Team Providers + +------+ + | Care Railway Signal Technician Name | Role | Phone | + [...] | | | | | | | [address] Phone: | | | | | | | [phone] | | | | | | | Fax: | | | | | | | [phone] | +--------+--------+ + + + + Encounter Details +--------+ + + + + | Date | Type | Department | Care Team | Description | +--------+ + + + + | 09/22/ | Hospital | [facility] | Cooper Rodriguez | Acute on chronic | | 2019 - | Encounter | [facility] 8th | MD Dorina [address] | respiratory failure | | | | [address] [facility] | [address] [place], [place] | with hypoxia and | | 10/01/ | | [address] | [address] | hypercapnia (HCC) | | 2019 | | [place] [address] | | (Primary Dx) | | | | [phone] | Niya Tavarez MD | | | | | | [address] | | | | | | [place] [address] | | | | | | [phone] | | | | | | | | | | | | Ashleigh López | | | | | | MD Dante [address] | | | | | | [address] | | | | | | [place] [address] | | | | | | [phone] | | | | | | | [...] may be differ ent from the original. [facility] Service: Hospitalist Physician Discharge Summary Patient ID: [...] injury, baseline creatinine is not known. Recommend lesly ent to follow up outpatient with BMP. [...] Disposition: Home Follow up: Jayla Fisher MD [address] [facility] [place] [id number] Schedule an appointment as soon as possible [...] summary. This entry has been created using [employer] Speech Recognition software and [employer]. The entry has been reviewed and there [...] may be differ ent from the original. [facility] Service: Hospitalist Progress Note Hospital Day: LOS: [...] AM This entry has been created using [employer] Speech Recognition software and [employer]. The entry has been reviewed and there may still exist sound alike word errors. Ashleigh López MD - 09/29/2018 11:27 AM PDTFormatting of this note may be differ ent from the original. [facility] Service: Hospitalist Progress Note Hospital Day: LOS: [...] AM This entry has been created using [employer] Speech Recognition software and P[employer] s. The entry has been reviewed and there may still exist sound alike word errors. Gabriella Patten, RD - 09/28/2018 10:38 AM PDTFormatting of this note may be different from ale original. 09/28/18 0923 Subjective Timepoint Follow up (high follow-up) Pt c/o Pt extubated, on Bipap. Remains NPO at this time per INTEGRATIVE MEDICINE PHYSICIAN. Per RN, no plans to TF at this time, INTEGRATIVE MEDICINE PHYSICIAN to reevaluate today with hopeful diet advancement. [...] Recommendations Recommended energy needs Recommend diet per INTEGRATIVE MEDICINE PHYSICIAN. Monitor po intake. Nutrition supplements c an [...] may b e different from the original. [facility] Service: Hospitalist Progress Note Hospital Day: LOS: 6 days SUBJECTIVE Feels tired, and fatigued Patient Summary: The patient is a 68 y.o.femalewith significant past medical history of COPD on 2 L home O2 day and night, tobacco abuse, cervical cancerwho presents as a transfer from [facility] for acute respiratory distress requiring intubation as she failed BiPAP therapy. Per transfer notes, patient has had worsening shortness of breath for the last 2-3 days and called EMS. She was discharge from [facility] 2 weeks ago with similar complaint and pos sible viral pneumonia due to unknown organism. Labs from [facility] showing WBC 11.6, troponin negative, d-dimer negative, CXR w ith no acute process, no changes noted on EKG. Glove Printer called for transfer to ICU. ICU Timeline: 09/22: admitted from [facility] for hypercapnic respiratory failure from COPD exacerba [...] Acute kidney injury (HCC) ASSESSMENT / PLAN Tyayj-cx-vqvenyg respiratory failure with hypercapnia secondary to COPD [...] and management as well as Computerized Physician Occupational Therapy Specialist. Disposition: tbd Code Status: Full Code Niya Tavarez MD 09/28/2018 9:43 AM Pilar Arias, [facility] - 09/27/2018 2:15 PM PDTFormatting of this [...] renal function. Associated attestation - Paige Echevarria [facility] - 09/27/2018 2:39 PM PDTThe following wa s reviewed by a pharmacist and I agree with the following changesPatty Guo ARNP - 09/27/2018 2:17 AM PDTFormatting of this note may be different from the original. [facility] Glove Printer Service Progress Note Stephanie Simmons 68 y.o. [...] cancer who presents as a transfer from [facility] for acute respiratory distress requiring intubation as she failed BiPAP therapy. Pe r transfer notes, patient has had worsening shortness of breath for the last 2-3 days and ca lled EMS. She was discharge from [facility] 2 weeks ago with similar complaint and possib le viral pneumonia due to unknown organism. Labs from [facility] showing WBC 11.6, troponin negative, d-dimer negative, CXR w ith no acute process, no changes noted on EKG. Glove Printer called for transfer to ICU. ICU Timeline: 09/22: admitted from [facility] for hypercapnic respiratory failure from COPD exacerba [...] Labetalol available prn SBP > 160. PULM: Dgqrc-ei-vyuyrpd respiratory failure with hypercapnia secondary to COPD exacerbation and influenza A pneumonia. Improving. ? Duonebs scheduled, q 6 hours. ? Patient received levofloxacin 09/22 - 09/24. Abx stopped yesterday. Procalcitonin < 0.05 t tello. ? Oseltamivir course completed for influenza A pneumonia. ? Give last dose IV Solu-medrol this morning then stop steroids. GI/NUTRITION: NPO until INTEGRATIVE MEDICINE PHYSICIAN eval can be completed. RENAL/LYTES: Acute kidney [...] Estimated Energy Needs Total Energy Estimated Needs 7541-3755 kcal Method for Estimating Needs 25-30 kcal/kg based on adjusted BW of 59.5 kg. Needs will rebollar e if pt is reintubated. Estimated Protein Needs Total Protein Estimated Needs 71-89 g Method for Estimating Needs 1.2-1.5 g/kg based on adjusted body wt of 59 kg. Needs will varinder nge if pt is reintubated. Recommendations Recommended energy needs Recommend INTEGRATIVE MEDICINE PHYSICIAN swallow eval prior to diet advancement. If diet unab le to advance and pt is reintubated, resume TF of Peptamen Intense VHP with goal rate of 57 ml/hr. Nutritional Risk Nutritional risk High Follow up date 09/29/18 Magnolia Aguiar, MS, RDN, CD Trever Del Valle, FUNERAL LIMOUSINE DRIVER - 09/26/2018 1:18 PM PDTPatient passed SBT on PS 8/5 FiO2 30% and wa s extubated at 1318 to Bipap 10/5 FiO2 30%. No distress or stridor noted post extubation. St elke productive cough noted.Patty Guo, SYSTEMS ENGINEERING MANAGER - 09/26/2018 2:56 AM PDTFormatting o f this note may be different from the original. [facility] Glove Printer Service Progress Note Stephanie Crow [place] 68 [...] cancer who presents as a transfer from [facility] for acute respiratory distress requiring intubation as she failed BiPAP therapy. Pe r transfer notes, patient has had worsening shortness of breath for the last 2-3 days and ca lled EMS. She was discharge from [facility] 2 weeks ago with similar complaint and possib le viral pneumonia due to unknown organism. Labs from [facility] showing WBC 11.6, troponin negative, d-dimer negative, CXR w ith no acute process, no changes noted on EKG. Glove Printer called for transfer to ICU. ICU Timeline: 09/22: admitted from [facility] for hypercapnic respiratory failure from COPD exacerba [...] CV: Normal sinus rhythm. Hemodynamically stable. PULM: Dvcis-kj-uaduaih respiratory failure with hypercapnia secondary to COPD exacerbation and influenza A pneumonia. ? Continue mechanical ventilation. currently off paralytics. ? CXR showing left lung infiltrates. ? Continue scheduled inhalers - albuterol and ipratropium. ? Continue levofloxacin for severe COPD exacerbation. ? Oseltamivir for influenza A pneumonia. ? Continue steroids, IV Solu-medrol 40 mg once this morning and tomorrow morning, then stop . Jduwt-ve-ynmrzsl respiratory acidosis - from COPD exacerbation, improving. GI/NUTRITION: Tug Boat Engineer recommendations for TF as follows: Peptamen Intense [...] is only child whose grandmother is in [facility] with pneumo leonid. Veronica states she is closer to her grandmother than mother and concerned about grandm other's well-being should patient . Grandmother has already lost two children and a husba nd. Veronica was raised Jain but no longer believes in God. States she titus by staying busy and with support from family. Education Nurse provided supportive presence, affirmation, and e xplored [...] 0.6 Sec(s) Insp Rise Time (sec) / [place] 0.1 sec Patient Returns ET CO2 33 [...] Color Creamy Secretion Consistency Thick Robby Weiner, FUNERAL LIMOUSINE DRIVER - 09/25/2018 11:19 AM PDTFormatting of this [...] 0.8 sec Insp Rise Time (sec) / [place] 0.1 sec Dynamic Compliance (L/cm H2O) 23 [...] Breath Sounds Bilateral Wheezes expiratory;Tight;Diminished Robby Weiner, FUNERAL LIMOUSINE DRIVER - 09/25/2018 8:11 AM PDTFormatting of this [...] 0.8 sec Insp Rise Time (sec) / [place] 0.1 sec VTE 391 mL Alarms Alarms [...] Color Creamy Secretion Consistency Thick;Thin Patty Guo, [facility] - 09/25/2018 4:43 AM PDTFormatting of this note may be differen t from the original. [facility] Glove Printer Service Progress Note Stephanie Simmons 68 y.o. [...] cancer who presents as a transfer from [facility] for acute respiratory distress requiring intubation as she failed BiPAP therapy. Pe r transfer notes, patient has had worsening shortness of breath for the last 2-3 days and ca lled EMS. She was discharge from [facility] 2 weeks ago with similar complaint and possib le viral pneumonia due to unknown organism. Labs from [facility] showing WBC 11.6, troponin negative, d-dimer negative, CXR w ith no acute process, no changes noted on EKG. Glove Printer called for transfer to ICU. ICU Timeline: 09/22: admitted from [facility] for hypercapnic respiratory failure from COPD exacerba [...] maintaining MAP > 65 without intervention. PULM: Yctbz-ds-zrxwyhn respiratory failure with hypercapnia secondary to COPD [...] acidosis - from COPD exacerbation, improving. GI/NUTRITION: Tug Boat Engineer recommendations for TF as follows: Peptamen Intense [...] other procedures. ZORA Choudhary 09/25/2018 Pilar Arias [facility] - 09/24/2018 1:37 PM PDTFormatting of this [...] renal function. Associated attestation - Meghan Rodriguez [facility] - 09/24/2018 3:04 PM PDTAgree with pharmacy technology instructor's recommendation. Pharmacy will continue to monitor and provide renal adjustments as indicated. Meghan Rodriguez, Robby Mesa, FUNERAL LIMOUSINE DRIVER - 09/24/2018 12:04 PM PDTFormatting of thi [...] 0.6 Sec(s) Insp Rise Time (sec) / [place] 0.1 sec Patient Returns ET CO2 31 [...] Sounds Breath Sounds Bilateral Coarse;Diminished Robby Weiner, FUNERAL LIMOUSINE DRIVER - 09/24/2018 8:09 AM PDTFormatting of this [...] 0.6 sec Insp Rise Time (sec) / [place] 0.1 sec VTE 421 mL Dynamic Compliance [...] may be different f rom the original. [facility] Service: Glove Printer Progress Note Stephanie Simmons 68 y.o. Hospital [...] cancer who presents as a [facility] acute respiratory distress requiring intubation as she failed BiPAP therapy. Per transfer notes, patient has had worsening shortness of breath for the last 2-3 days and tosin led EMS. She was discharged from [facility] 2 weeks ago with similar complaint and possib le viral pneumonia due to unknown organism. Labs from [facility] showing WBC 11.6, troponin negative, d-dimer negative, CXR w ith no acute process, no changes noted on EKG. Glove Printer called for transfer to ICU. ICU Timeline: 09/22 - admitted from [facility] for hypercapnic respiratory failure from COPD exacerb [...] of 30mL Q 4 hrs or per MD/BRONC BREAKER. RENAL/LYTES: Acute kidney injury - monitor renal [...] consult for TF recommendations. Pt transfered to [facility] for severe hypercapni c respiratory acidosis. Pt [...] of 30mL Q 4 hrs or per MD/BRONC BREAKER. Nutritional Risk Nutritional risk High Follow up date 09/26/18 Pamela Conrad, MS-MPH, CARMEN Bowne, Jimy Mercado MD - 09/23/2018 4:24 AM PDTFormatting of this note may be different f rom the original. [facility] Service: Glove Printer Progress Note Stephanie Simmons 68 y.o. Hospital [...] cancer who presents as a transfer from [facility] for acute respiratory distress requiring intubation as she failed BiPAP therapy. Per transfer notes, patient has had worsening shortness of breath for the last 2-3 days and tosin led EMS. She was discharged from [facility] 2 weeks ago with similar complaint and possib le viral pneumonia due to unknown organism. Labs from [facility] showing WBC 11.6, troponin negative, d-dimer negative, CXR w ith no acute process, no changes noted on EKG. Glove Printer called for transfer to ICU. ICU Timeline: 09/22 - admitted from [facility] for hypercapnic respiratory failure from COPD exacerb [...] procedures. Jimy Bowen MD 09/23/2018 Romeo Romero, [facility] - 09/22/2018 7:14 PM PDTFormatting of this [...] renal function and adjust accordingly. Romeo Romero [facility] 09/22/2018 7:14 PMin this encounter Plan of [...] Testing | 65 - 99 mg/dL | [facility] | | | performed at [facility];[address] | | | | | [address];[place] | | | | | [address] | | | + + + + + + + + + + | Performing | Address | City/State/Zipcode | Phone Number | | Organization | | | | + + + + + | [facility] | [address] | [place] [address] | | + + + + + [...] | | | | | performed at [facility], [address] | | | | | [address], | | | | | [place] [address] | | | + + + + + + + | Specimen | + + | Blood | + + + + + + + | Performing | Address | City/State/Zipcode | Phone Number | | Organization | | | | + + + + + | [facility] | [address] | [place] [address] | [phone] | | LABORATORY | [address]vd[address] | | | + + + + + POCT glucose (09/30/2018 11:55 PM) + + + + + | Component | Value | Ref Range | Performed At | + + + + + | GLUCOSE,POC SCREEN | 98Comment: Testing | 65 - 99 mg/dL | [facility] | | | performed at [facility];[address] | | | | | [address];[place] | | | | | [address] | | | + + + + + + + + + + | Performing | Address | City/State/Zipcode | Phone Number | | Organization | | | | + + + + + | [facility] | [address] | [place] [address] | | + + + + + POCT glucose (09/30/2018 6:46 PM) + + + + + | Component | Value | Ref Range | Performed At | + + + + + | GLUCOSE,POC SCREEN | 89Comment: Testing | 65 - 99 mg/dL | [facility] | | | performed at [facility];[address] | | | | | [address];[place] | | | | | [address] | | | + + + + + + + + + + | Performing | Address | City/State/Zipcode | Phone Number | | Organization | | | | + + + + + | [facility] | [address] | [place] [address] | | + + + + + [...] | + + + + + | [facility] | [address] | [place] [address] | | + + + + + POCT glucose (09/30/2018 11:37 AM) + + + + + | Component | Value | Ref Range | Performed At | + + + + + | GLUCOSE,POC SCREEN | 125 (H)Comment: Testing | 65 - 99 mg/dL | [facility] | | | performed at [facility];[address] | | | | | [address];[place] | | | | | [address] | | | + + + + + + + + + + | Performing | Address | City/State/Zipcode | Phone Number | | Organization | | | | + + + + + | [facility] | [address] | [place] [address] | | + + + + + POCT glucose (09/30/2018 5:43 AM) + + + + + | Component | Value | Ref Range | Performed At | + + + + + | GLUCOSE,POC SCREEN | 114 (H)Comment: Testing | 65 - 99 mg/dL | [facility] | | | performed at [facility];[address] | | | | | [address];[place] | | | | | [address] | | | + + + + + + + + + + | Performing | Address | City/State/Zipcode | Phone Number | | Organization | | | | + + + + + | [facility] | [address] | [place] [address] | | + + + + + [...] (L) | 8.5 - 10.5 mg/dL | [facility] | | | | | LABORATORY [...] the | | | | | MDRD IDNC traceable | | | | | equation.Testing | | | | | performed at [facility], [address] | | | | | [facility], | | | | | [place] [address] | | | + + + + + + + | Specimen | + + | Blood | + + + + + + + | Performing | Address | City/State/Zipcode | Phone Number | | Organization | | | | + + + + + | [facility] | [address] | [place] [address] | [phone] | | LABORATORY | [address] | | | + + + + + POCT glucose (09/30/2018 12:13 AM) + + + + + | Component | Value | Ref Range | Performed At | + + + + + | GLUCOSE,POC SCREEN | 111 (H)Comment: Testing | 65 - 99 mg/dL | [facility] | | | performed at [facility];[address] | | | | | [address];[place] | | | | | [address] | | | + + + + + + + + + + | Performing | Address | City/State/Zipcode | Phone Number | | Organization | | | | + + + + + | [facility] | [address] | [place] [address] | | + + + + + POCT glucose (09/29/2018 5:56 PM) + + + + + | Component | Value | Ref Range | Performed At | + + + + + | GLUCOSE,POC SCREEN | 109 (H)Comment: Testing | 65 - 99 mg/dL | [facility] | | | performed at [facility];[address] | | | | | [address];[place] | | | | | [address] | | | + + + + + + + + + + | Performing | Address | City/State/Zipcode | Phone Number | | Organization | | | | + + + + + | [facility] | [address] | [place] [address] | | + + + + + POCT glucose (09/29/2018 11:48 AM) + + + + + | Component | Value | Ref Range | Performed At | + + + + + | GLUCOSE,POC SCREEN | 106 (H)Comment: Testing | 65 - 99 mg/dL | [facility] | | | performed at [facility];[address] | | | | | [address];[place] | | | | | [address] | | | + + + + + + + + + + | Performing | Address | City/State/Zipcode | Phone Number | | Organization | | | | + + + + + | [facility] | [address] | [place] [address] | | + + + + + POCT glucose (09/29/2018 5:47 AM) + + + + + | Component | Value | Ref Range | Performed At | + + + + + | GLUCOSE,POC SCREEN | 113 (H)Comment: Testing | 65 - 99 mg/dL | [facility] | | | performed at [facility] | | | | | [facility], [place] | | | | | [address] | | | + + + + + + + + + + | Performing | Address | City/State/Zipcode | Phone Number | | Organization | | | | + + + + + | [facility] | [address] | [place] [address] | | + + + + + Phosphorus (09/29/2018 4:20 AM) + + + + + | Component | Value | Ref Range | Performed At | + + + + + | PHOSPHORUS | 3.9Comment: Testing | 2.3 - 4.8 mg/dL | [facility] | | | performed at [facility], [address] | | LABORATORY | | | [facility] [place], | | | | | [place] [address] | | | + + + + + + + | Specimen | + + | Blood | + + + + + + + | Performing | Address | City/State/Zipcode | Phone Number | | Organization | | | | + + + + + | [facility] | [address] [place] [address] | [place] [address] | [phone] | | LABORATORY | [address] | | | + + + + + Magnesium (09/29/2018 4:20 AM) + + + + + | Component | Value | Ref Range | Performed At | + + + + + | MAGNESIUM | 2.2Comment: Testing | 1.7 - 2.4 mg/dL | [facility] | | | performed at [facility], [address] | | LABORATORY | | | [facility] [place], | | | | | [place] [address] | | | + + + + + + + | Specimen | + + | Blood | + + + + + + + | Performing | Address | City/State/Zipcode | Phone Number | | Organization | | | | + + + + + | [facility] | [address] | [place] [address] | [phone] | | LABORATORY | [address] | | [...] (L) | 8.5 - 10.5 mg/dL | [facility] | | | | | LABORATORY | [...] | | | | | performed at [facility], [address] | | | | | [facility], | | | | | [place] [address] | | | + + + + + + + | Specimen | + + | Blood | + + + + + + + | Performing | Address | City/State/Zipcode | Phone Number | | Organization | | | | + + + + + | [facility] | [address] | [place] [address] | [phone] | | LABORATORY | [address] | | [...] performed at | | | | | [facility], [address] | | | | | [place] | | | | | [address] | | | + + + + + + + | Specimen | + + | Blood | + + + + + + + | Performing | Address | City/State/Zipcode | Phone Number | | Organization | | | | + + + + + | [facility] | [address] | [place] [address] | [phone] | | LABORATORY | [address] | | | + + + + + POCT glucose (09/28/2018 11:59 PM) + + + + + | Component | Value | Ref Range | Performed At | + + + + + | GLUCOSE,POC SCREEN | 100 (H)Comment: Testing | 65 - 99 mg/dL | [facility] | | | performed at [facility];[address] | | | | | [address];[place], [place] | | | | | [address] | | | + + + + + + + + + + | Performing | Address | City/State/Zipcode | Phone Number | | Organization | | | | + + + + + | [facility] | [address] | [place] [address] | | + + + + + POCT glucose (09/28/2018 5:59 PM) + + + + + | Component | Value | Ref Range | Performed At | + + + + + | GLUCOSE,POC SCREEN | 98Comment: Testing | 65 - 99 mg/dL | [facility] | | | performed at [facility];[address] | | | | | [address];[place] | | | | | [address] | | | + + + + + + + + + + | Performing | Address | City/State/Zipcode | Phone Number | | Organization | | | | + + + + + | [facility] | [address] | [place] [address] | | + + + + + Potassium (09/28/2018 3:30 PM) + + + + + | Component | Value | Ref Range | Performed At | + + + + + | POTASSIUM | 4.0Comment: Testing | 3.5 - 4.9 mmol/L | [facility] | | | performed at [facility];[address] | | | | | [address];[place] | | | | | [address] | | | + + + + + + + | Specimen | + + | Blood | + + + + + + + | Performing | Address | City/State/Zipcode | Phone Number | | Organization | | | | + + + + + | [facility] | [address] | [place] [address] | | + + + + + POCT glucose (09/28/2018 11:57 AM) + + + + + | Component | Value | Ref Range | Performed At | + + + + + | GLUCOSE,POC SCREEN | 82Comment: Testing | 65 - 99 mg/dL | [facility] | | | performed at [facility];[address] | | | | | [address];[place] | | | | | [address] | | | + + + + + + + + + + | Performing | Address | City/State/Zipcode | Phone Number | | Organization | | | | + + + + + | [facility] | [address] | [place] [address] | | + + + + + POCT glucose (09/28/2018 6:06 AM) + + + + + | Component | Value | Ref Range | Performed At | + + + + + | GLUCOSE,POC SCREEN | 76Comment: Testing | 65 - 99 mg/dL | [facility] | | | performed at [facility];[address] | | | | | [address];[place] | | | | | [address] | | | + + + + + + + + + + | Performing | Address | City/State/Zipcode | Phone Number | | Organization | | | | + + + + + | [facility] | [address] | [place] [address] | | + + + + + Phosphorus (09/28/2018 5:25 AM) + + + + + | Component | Value | Ref Range | Performed At | + + + + + | PHOSPHORUS | 5.1 (H)Comment: Testing | 2.3 - 4.8 mg/dL | [facility] | | | performed at [facility], [address] | | LABORATORY | | | [address], | | | | | [place] [address] | | | + + + + + + + | Specimen | + + | Blood | + + + + + + + | Performing | Address | City/State/Zipcode | Phone Number | | Organization | | | | + + + + + | [facility] | [address] | [place] [address] | [phone] | | LABORATORY | [place]. | | | + + + + + Magnesium (09/28/2018 5:25 AM) + + + + + | Component | Value | Ref Range | Performed At | + + + + + | MAGNESIUM | 2.2Comment: Testing | 1.7 - 2.4 mg/dL | [facility] | | | performed at [facility], [address] | | LABORATORY | | | [address], | | | | | [place] [address] | | | + + + + + + + | Specimen | + + | Blood | + + + + + + + | Performing | Address | City/State/Zipcode | Phone Number | | Organization | | | | + + + + + | [facility] | [address] | [place] [address] | [phone] | | LABORATORY | [address]vd. | | [...] (H) | 0.50 - 1.00 mg/dL | [facility] | | | | | LABORATORY | + + + + + | BUN/CREAT | 48 | | [facility] | | | | | LABORATORY | + + + + + | CALCIUM | 9.2 | 8.5 - 10.5 mg/dL | [facility] | | | | | LABORATORY | + + + + + | EGFR | 45 (L)Comment: GFR <60: | >60 mL/min/1.73m2 | [facility] | | | CHRONIC KIDNEY DISEASE, [...] | | | | | performed at [facility], [address] | | | | | [facility], | | | | | [place] [address] | | | + + + + + + + | Specimen | + + | Blood | + + + + + + + | Performing | Address | City/State/Zipcode | Phone Number | | Organization | | | | + + + + + | [facility] | [address] | [place] [address] | [phone] | | LABORATORY | Blvd. | | [...] | [facility] | | | performed at [facility], [address] | | LABORATORY | | | [address], | | | | | [place] [address] | | | + + + + + + + | Specimen | + + | Blood | + + + + + + + | Performing | Address | City/State/Zipcode | Phone Number | | Organization | | | | + + + + + | [facility] | [address] | [place] [address] | [phone] | | LABORATORY | [address]vd. | | | + + + + + POCT glucose (09/27/2018 11:54 PM) + + + + + | Component | Value | Ref Range | Performed At | + + + + + | GLUCOSE,POC SCREEN | 79Comment: Testing | 65 - 99 mg/dL | [facility] | | | performed at [facility];[address] | | | | | [address];[place], [place] | | | | | [address] | | | + + + + + + + + + + | Performing | Address | City/State/Zipcode | Phone Number | | Organization | | | | + + + + + | [facility] | [address] | [place] [address] | | + + + + + POCT glucose (09/27/2018 5:30 PM) + + + + + | Component | Value | Ref Range | Performed At | + + + + + | GLUCOSE,POC SCREEN | 97Comment: Testing | 65 - 99 mg/dL | [facility] | | | performed at [facility];[address] | | | | | [address];[place] | | | | | [address] | | | + + + + + + + + + + | Performing | Address | City/State/Zipcode | Phone Number | | Organization | | | | + + + + + | [facility] | [address] | [place] [address] | | + + + + + POCT glucose (09/27/2018 11:46 AM) + + + + + | Component | Value | Ref Range | Performed At | + + + + + | GLUCOSE,POC SCREEN | 114 (H)Comment: Testing | 65 - 99 mg/dL | [facility] | | | performed at [facility];[address] | | | | | [address];[place] | | | | | [address] | | | + + + + + + + + + + | Performing | Address | City/State/Zipcode | Phone Number | | Organization | | | | + + + + + | [facility] | [address] | [place] [address] | | + + + + + POCT glucose (09/27/2018 6:02 AM) + + + + + | Component | Value | Ref Range | Performed At | + + + + + | GLUCOSE,POC SCREEN | 94Comment: Testing | 65 - 99 mg/dL | [facility] | | | performed at [facility];[address] | | | | | [address];[place] | | | | | [address] | | | + + + + + + + + + + | Performing | Address | City/State/Zipcode | Phone Number | | Organization | | | | + + + + + | [facility] | [address] | [place] [address] | | + + + + + Phosphorus (09/27/2018 4:07 AM) + + + + + | Component | Value | Ref Range | Performed At | + + + + + | PHOSPHORUS | 2.4Comment: Testing | 2.3 - 4.8 mg/dL | [facility] | | | performed at [facility], [address] | | LABORATORY | | | [address], | | | | | [place] [address] | | | + + + + + + + | Specimen | + + | Blood | + + + + + + + | Performing | Address | City/State/Zipcode | Phone Number | | Organization | | | | + + + + + | [facility] | [address] [place] [address] | [place] [address] | [phone] | | LABORATORY | [address] | | | + + + + + Magnesium (09/27/2018 4:07 AM) + + + + + | Component | Value | Ref Range | Performed At | + + + + + | MAGNESIUM | 2.5 (H)Comment: Testing | 1.7 - 2.4 mg/dL | [facility] | | | performed at [facility], [address] | | LABORATORY | | | [address], | | | | | [place] [address] | | | + + + + + + + | Specimen | + + | Blood | + + + + + + + | Performing | Address | City/State/Zipcode | Phone Number | | Organization | | | | + + + + + | [facility] | [address] | [place] [address] | [phone] | | LABORATORY | [place] | | [...] | | | | | performed at [facility], [address] | | | | | [facility], | | | | | [place] [address] | | | + + + + + + + | Specimen | + + | Blood | + + + + + + + | Performing | Address | City/State/Zipcode | Phone Number | | Organization | | | | + + + + + | [facility] | [address] | [place] [address] | [phone] | | LABORATORY | Blvd. | | [...] performed at | | | | | [facility], [address] [place] [address] | | | | | [place] | | | | | [address] | | | + + + + + + + | Specimen | + + | Blood | + + + + + + + | Performing | Address | City/State/Zipcode | Phone Number | | Organization | | | | + + + + + | [facility] | [address] | [place] [address] | [phone] | | LABORATORY | Blvd. | | | + + + + + PROCALCITONIN (09/27/2018 4:07 AM) + + + + + | Component | Value | Ref Range | Performed At | + + + + + | PROCALCITONIN | <0.05Comment: | <0.5 ng/mL | [facility] | | | INTERPRETIVE | | [...] performed | | | | | at [facility];[address] [facility] | | | | | [facility];[place] [address] | | | + + + + + + + + + + | Performing | Address | City/State/Zipcode | Phone Number | | Organization | | | | + + + + + | [facility] | [address] | [place] [address] | | + + + + + POCT glucose (09/27/2018 12:33 AM) + + + + + | Component | Value | Ref Range | Performed At | + + + + + | GLUCOSE,POC SCREEN | 88Comment: Testing | 65 - 99 mg/dL | [facility] | | | performed at [facility];[address] | | | | | [address];[place], [place] | | | | | [address] | | | + + + + + + + + + + | Performing | Address | City/State/Zipcode | Phone Number | | Organization | | | | + + + + + | [facility] | [address] | [place] [address] | | + + + + + POCT glucose (09/26/2018 6:05 PM) + + + + + | Component | Value | Ref Range | Performed At | + + + + + | GLUCOSE,POC SCREEN | 102 (H)Comment: Testing | 65 - 99 mg/dL | [facility] | | | performed at [facility];[address] | | | | | [address];[place] | | | | | [address] | | | + + + + + + + + + + | Performing | Address | City/State/Zipcode | Phone Number | | Organization | | | | + + + + + | [facility] | [address] | [place] [address] | | + + + + + POCT glucose (09/26/2018 12:16 PM) + + + + + | Component | Value | Ref Range | Performed At | + + + + + | GLUCOSE,POC SCREEN | 132 (H)Comment: Testing | 65 - 99 mg/dL | [facility] | | | performed at [facility];[address] | | | | | [facility];[place] | | | | | [address] | | | + + + + + + + + + + | Performing | Address | City/State/Zipcode | Phone Number | | Organization | | | | + + + + + | [facility] | [address] | [place] [address] | | + + + + + POCT glucose (09/26/2018 5:47 AM) + + + + + | Component | Value | Ref Range | Performed At | + + + + + | GLUCOSE,POC SCREEN | 160 (H)Comment: Testing | 65 - 99 mg/dL | [facility] | | | performed at [facility];[address] | | | | | [address];[place] | | | | | [address] | | | + + + + + + + + + + | Performing | Address | City/State/Zipcode | Phone Number | | Organization | | | | + + + + + | [facility] | [address] | [place] [address] | | + + + + + Phosphorus (09/26/2018 4:04 AM) + + + + + | Component | Value | Ref Range | Performed At | + + + + + | PHOSPHORUS | 2.4Comment: Testing | 2.3 - 4.8 mg/dL | [facility] | | | performed at [facility], [address] | | LABORATORY | | | [address], | | | | | [place] [address] | | | + + + + + + + | Specimen | + + | Blood | + + + + + + + | Performing | Address | City/State/Zipcode | Phone Number | | Organization | | | | + + + + + | [facility] | [address] | [place] [address] | [phone] | | LABORATORY | [address]vd[address] | | | + + + + + Magnesium (09/26/2018 4:04 AM) + + + + + | Component | Value | Ref Range | Performed At | + + + + + | MAGNESIUM | 2.8 (H)Comment: Testing | 1.7 - 2.4 mg/dL | [facility] | | | performed at [facility], [address] | | LABORATORY | | | [facility], | | | | | [place] [address] | | | + + + + + + + | Specimen | + + | Blood | + + + + + + + | Performing | Address | City/State/Zipcode | Phone Number | | Organization | | | | + + + + + | [facility] | [address] | [place] [address] | [phone] | | LABORATORY | [address] | | [...] (L)Comment: GFR <60: | >60 mL/min/1.73m2 | [facility] | | | CHRONIC KIDNEY DISEASE, [...] the | | | | | MDRD IDNC traceable | | | | | equation.Testing | | | | | performed at [facility], [address] | | | | | [facility], | | | | | [place] [address] | | | + + + + + + + | Specimen | + + | Blood | + + + + + + + | Performing | Address | City/State/Zipcode | Phone Number | | Organization | | | | + + + + + | [facility] | [address] | [place] [address] | [phone] | | LABORATORY | [address]vd[address] | | | + + + + + CBC w/auto diff (reflex to manual) (09/26/2018 4:04 AM) + + + + + | Component | Value | Ref Range | Performed At | + + + + + | WBC | 8.04 | 3.80 - 11.00 K/uL | [facility] | | | | | LABORATORY | [...] | | | | | TCL, [address] | | | | | [address], [place] | | | | | [address] | | | + + + + + + + | Specimen | + + | Blood | + + + + + + + | Performing | Address | City/State/Zipcode | Phone Number | | Organization | | | | + + + + + | [facility] | [address] | [place] [address] | [phone] | | LABORATORY | [address] | | | + + + + + POCT glucose (09/25/2018 11:09 PM) + + + + + | Component | Value | Ref Range | Performed At | + + + + + | GLUCOSE,POC SCREEN | 142 (H)Comment: Testing | 65 - 99 mg/dL | [facility] | | | performed at [facility];[address] | | | | | [address];[place], [place] | | | | | [address] | | | + + + + + + + + + + | Performing | Address | City/State/Zipcode | Phone Number | | Organization | | | | + + + + + | [facility] | [address] | [place] [address] | | + + + + + POCT glucose (09/25/2018 6:00 PM) + + + + + | Component | Value | Ref Range | Performed At | + + + + + | GLUCOSE,POC SCREEN | 150 (H)Comment: Testing | 65 - 99 mg/dL | [facility] | | | performed at [facility];[address] | | | | | [address];[place] | | | | | [address] | | | + + + + + + + + + + | Performing | Address | City/State/Zipcode | Phone Number | | Organization | | | | + + + + + | [facility] | [address] | [place] [address] | | + + + + + Potassium (09/25/2018 5:28 PM) + + + + + | Component | Value | Ref Range | Performed At | + + + + + | POTASSIUM | 4.8Comment: Testing | 3.5 - 4.9 mmol/L | [facility] | | | performed at [facility];[address] | | | | | [address];[place] | | | | | [address] | | | + + + + + + + | Specimen | + + | Blood - Blood | + + + + + + + | Performing | Address | City/State/Zipcode | Phone Number | | Organization | | | | + + + + + | [facility] | [address] | [place] [address] | | + + + + + Magnesium (09/25/2018 5:28 PM) + + + + + | Component | Value | Ref Range | Performed At | + + + + + | MAGNESIUM | 2.7 (H)Comment: Testing | 1.7 - 2.4 mg/dL | [facility] | | | performed at [facility];[address] | | | | | [address];[place] | | | | | [address] | | | + + + + + + + | Specimen | + + | Blood | + + + + + + + | Performing | Address | City/State/Zipcode | Phone Number | | Organization | | | | + + + + + | [facility] | [address] | [place] [address] | | + + + + + Phosphorus (09/25/2018 5:28 PM) + + + + + | Component | Value | Ref Range | Performed At | + + + + + | PHOSPHORUS | 3.2Comment: Testing | 2.3 - 4.8 mg/dL | [facility] | | | performed at [facility] | | | | | [address];[place], [place] | | | | | [address] | | | + + + + + + + | Specimen | + + | Blood | + + + + + + + | Performing | Address | City/State/Zipcode | Phone Number | | Organization | | | | + + + + + | [facility] | [address] | [place] [address] | | + + + + + POCT glucose (09/25/2018 12:30 PM) + + + + + | Component | Value | Ref Range | Performed At | + + + + + | GLUCOSE,POC SCREEN | 147 (H)Comment: Testing | 65 - 99 mg/dL | [facility] | | | performed at [facility];[address] | | | | | [address];[place] | | | | | [address] | | | + + + + + + + + + + | Performing | Address | City/State/Zipcode | Phone Number | | Organization | | | | + + + + + | [facility] | [address] | [place] [address] | | + + + + + POCT glucose (09/25/2018 6:30 AM) + + + + + | Component | Value | Ref Range | Performed At | + + + + + | GLUCOSE,POC SCREEN | 136 (H)Comment: Testing | 65 - 99 mg/dL | [facility] | | | performed at [facility];[address] | | | | | [address];[place] | | | | | [address] | | | + + + + + + + + + + | Performing | Address | City/State/Zipcode | Phone Number | | Organization | | | | + + + + + | [facility] | [address] | [place] [address] | | + + + + + Phosphorus (09/25/2018 4:08 AM) + + + + + | Component | Value | Ref Range | Performed At | + + + + + | PHOSPHORUS | 2.8Comment: Testing | 2.3 - 4.8 mg/dL | [facility] | | | performed at [facility], [address] | | LABORATORY | | | [facility] [address], | | | | | [place] [address] | | | + + + + + + + | Specimen | + + | Blood | + + + + + + + | Performing | Address | City/State/Zipcode | Phone Number | | Organization | | | | + + + + + | [facility] | [address] [place] [address] | [place] [address] | [phone] | | LABORATORY | [address] | | | + + + + + Magnesium (09/25/2018 4:08 AM) + + + + + | Component | Value | Ref Range | Performed At | + + + + + | MAGNESIUM | 2.2Comment: Testing | 1.7 - 2.4 mg/dL | [facility] | | | performed at [facility], [address] | | LABORATORY | | | [address], | | | | | [place] [address] | | | + + + + + + + | Specimen | + + | Blood | + + + + + + + | Performing | Address | City/State/Zipcode | Phone Number | | Organization | | | | + + + + + | [facility] | [address] | [place] [address] | [phone] | | LABORATORY | [address]vd[address] | | [...] (H) | 0.50 - 1.00 mg/dL | [facility] | | | | | LABORATORY | + + + + + | BUN/CREAT | 26 | | [facility] | | | | | LABORATORY | + + + + + | CALCIUM | 7.3 (L) | 8.5 - 10.5 mg/dL | [facility] | | | | | LABORATORY | + + + + + | EGFR | 22 (L)Comment: GFR <60: | >60 mL/min/1.73m2 | [facility] | | | CHRONIC KIDNEY DISEASE, [...] | | | | | performed at [facility], [address] | | | | | [facility], | | | | | [place] [address] | | | + + + + + + + | Specimen | + + | Blood | + + + + + + + | Performing | Address | City/State/Zipcode | Phone Number | | Organization | | | | + + + + + | [facility] | [address] [place] [address] | [place] [address] | [phone] | | LABORATORY | [place] | | [...] | | | | TCL, [address] [facility] | | | | | [place] | | | | | [address] | | | + + + + + + + | Specimen | + + | Blood | + + + + + + + | Performing | Address | City/State/Zipcode | Phone Number | | Organization | | | | + + + + + | [facility] | [address] | [place] [address] | [phone] | | LABORATORY | [address] | | | + + + + + POCT glucose (09/25/2018 12:15 AM) + + + + + | Component | Value | Ref Range | Performed At | + + + + + | GLUCOSE,POC SCREEN | 155 (H)Comment: Testing | 65 - 99 mg/dL | [facility] | | | performed at [facility];[address] | | | | | [address] [place] | | | | | [address] | | | + + + + + + + + + + | Performing | Address | City/State/Zipcode | Phone Number | | Organization | | | | + + + + + | [facility] | [address] | [place] [address] | | + + + + + POCT glucose (09/24/2018 5:26 PM) + + + + + | Component | Value | Ref Range | Performed At | + + + + + | GLUCOSE,POC SCREEN | 131 (H)Comment: Testing | 65 - 99 mg/dL | [facility] | | | performed at [facility];[address] | | | | | [address];[place], [place] | | | | | [address] | | | + + + + + + + + + + | Performing | Address | City/State/Zipcode | Phone Number | | Organization | | | | + + + + + | [facility] | [address] | [place] [address] | | + + + + + POCT glucose (09/24/2018 11:14 AM) + + + + + | Component | Value | Ref Range | Performed At | + + + + + | GLUCOSE,POC SCREEN | 157 (H)Comment: Testing | 65 - 99 mg/dL | [facility] | | | performed at [facility];[address] | | | | | [address];[place] | | | | | [address] | | | + + + + + + + + + + | Performing | Address | City/State/Zipcode | Phone Number | | Organization | | | | + + + + + | [facility] | [address] | [place] [address] | | + + + + + Glycohemoglobin A1c (09/24/2018 7:03 AM) + + + + + | Component | Value | Ref Range | Performed At | + + + + + | HEMOGLOBIN A1C | 6.1 (H)Comment: HbA1c | 4.0 - 6.0 % | [facility] | | | method is certified [...] | 128Comment: Estimated | <154 mg/dL | [facility] | | GLUCOSE | Average Glucose | | LABORATORY | | | calculated from | | | | | hemoglobin A1c by use of | | | | | the ADA recommended | | | | | formula.Testing | | | | | performed at [facility], [facility] [address] | | | | | [facility], | | | | | [place] [address] | | | + + + + + + + + + + | Performing | Address | City/State/Zipcode | Phone Number | | Organization | | | | + + + + + | [facility] | [address] [place] [address] | [place] [address] | [phone] | | LABORATORY | [address] | | | + + + + + CBC W/Auto Diff (Reflex to Manual) (09/24/2018 7:03 AM) + + + + + | Component | Value | Ref Range | Performed At | + + + + + | WBC | 16.40 (H) | 3.80 - 11.00 K/uL | [facility] | + + + + + | RBC | 3.66 (L) | 3.70 - 5.10 M/uL | [facility] | + + + + + [...] 45.5 | 37 - 53 fl | [facility] | + + + + + | PLT | 198Comment: | 150 - 400 K/uL | [facility] | + + + + + | MPV | 8.6Comment: | fl | [facility] | + + + + + | DIFF TYPE | AUTOMATED | | [facility] | + + + + + | NEUTROPHILS | 94.01 | % | [facility] | + + + + + [...] MORPHOLOGY | NORMAL PLT MORPHComment: | | [facility] | | | NORMAL RBC MORPH | | | + + + + + | Platelet Estimate | ADEQUATE | | [facility] | + + + + + | Diff Comment | PLATELETS CLUMPED, | | [facility] | | | APPEAR ADEQUATEComment: | | | | | SLIDE SCANNED, AGREES | | | | | WITH AUTOMATED | | | | | RESULTS.Testing | | | | | performed at [facility] [place];[address] | | | | | [address];[place] | | | | | [address] | | | + + + + + + + + + + | Performing | Address | City/State/Zipcode | Phone Number | | Organization | | | | + + + + + | [facility] | [address] | [place] [address] | | + + + + + POCT glucose (09/24/2018 5:58 AM) + + + + + | Component | Value | Ref Range | Performed At | + + + + + | GLUCOSE,POC SCREEN | 175 (H)Comment: Testing | 65 - 99 mg/dL | [facility] | | | performed at [facility] [place];[address] | | | | | [facility] | | | | | [address] | | | + + + + + + + + + + | Performing | Address | City/State/Zipcode | Phone Number | | Organization | | | | + + + + + | [facility] | [address] | [place] [address] | | + + + + + Phosphorus (09/24/2018 4:01 AM) + + + + + | Component | Value | Ref Range | Performed At | + + + + + | PHOSPHORUS | 2.4Comment: SPECIMEN | 2.3 - 4.8 mg/dL | [facility] | | | [facility] | | [facility]ORY | | | HEMOLYZEDTesting | | | | | performed at [facility], [address] | | | | [address], | | | | | [place] [address] | | | + + + + + + + | Specimen | + + | Blood | + + + + + + + | Performing | Address | City/State/Zipcode | Phone Number | | Organization | | | | + + + + + | [facility] | [address] | [place] [address] | [phone] | | LABORATORY | [place]. | | [...] | | | | | performed at [facility], [address] | | | | [address], | | | | | [place] [address] | | | + + + + + + + | Specimen | + + | Blood | + + + + + + + | Performing | Address | City/State/Zipcode | Phone Number | | Organization | | | | + + + + + | [facility] | [address] | [place] [address] | [phone] | | LABORATORY | [address] | | [...] SPECIMEN | 65 - 99 mg/dL | [facility] | | | SLIGHTLY HEMOLYZED | | LABORATORY | + + + + + | BUN | 30 (H) | 8 - 25 mg/dL | [facility] | | | | | LABORATORY | + + + + + | CREATININE | 2.1 (H)Comment: SPECIMEN | 0.50 - 1.00 mg/dL | [facility] | | | SLIGHTLY HEMOLYZED | | LABORATORY | + + + + + | BUN/CREAT | 14 | | [facility] | | | | | LABORATORY | + + + + + | CALCIUM | 7.7 (L) | 8.5 - 10.5 mg/dL | [facility] | | | | | LABORATORY | + + + + + | EGFR | 24 (L)Comment: GFR <60: | >60 mL/min/1.73m2 | [facility] | | | CHRONIC KIDNEY DISEASE, [...] | | | | | performed at [facility], [address] | | | | | [facility], | | | | | [place] [address] | | | + + + + + + + | Specimen | + + | Blood | + + + + + + + | Performing | Address | City/State/Zipcode | Phone Number | | Organization | | | | + + + + + | [facility] | [address] [facility] | [place] [address] | [phone] | | LABORATORY | [place]. | | | + + + + + POC Arterial Blood Gas (09/24/2018 2:40 AM) + + + + + | Component | Value | Ref Range | Performed At | + + + + + | POC FIO2 | 40 | % | [facility] | + + + + + [...] 26 | 23 - 27 mEq/L | [facility] | + + + + + | POC BASE DEFICIT | 1 | 0.0 - 2.0 mmol/L | [facility] | + + + + + | POC S02 | 96Comment: Testing | 95 - 98 % | [facility] | | | performed at [facility];[address] | | | | | [address];[place] | | | | | [address] | | | + + + + + + + + + + | Performing | Address | City/State/Zipcode | Phone Number | | Organization | | | | + + + + + | [facility] | [address] | [place] [address] | | + + + + + POCT glucose (09/24/2018 12:07 AM) + + + + + | Component | Value | Ref Range | Performed At | + + + + + | GLUCOSE,POC SCREEN | 157 (H)Comment: Testing | 65 - 99 mg/dL | [facility] | | | performed at [facility];[address] | | | | | [address];[place] | | | | | [address] | | | + + + + + + + + + + | Performing | Address | City/State/Zipcode | Phone Number | | Organization | | | | + + + + + | [facility] | [address] | [place] [address] | | + + + + + POCT glucose (09/23/2018 5:52 PM) + + + + + | Component | Value | Ref Range | Performed At | + + + + + | GLUCOSE,POC SCREEN | 150 (H)Comment: Testing | 65 - 99 mg/dL | [facility] | | | performed at [facility];[address] | | | | | [address];[place] | | | | | [address] | | | + + + + + + + + + + | Performing | Address | City/State/Zipcode | Phone Number | | Organization | | | | + + + + + | [facility] | [address] | [place] [address] | | + + + + + [...] POC FIO2 | 30 | % | [facility] | + + + + + | POC COMMENTS | Modified Les Test | | [facility] | | | passedComment: Site = | | | | | right radialTesting | | | | | performed at [facility];[address] | | | | | [address];[place] | | | | | [address] | | | + + + + + + + + + + | Performing | Address | City/State/Zipcode | Phone Number | | Organization | | | | + + + + + | [facility] | [address] | [place] [address] | | + + + + + POC arterial CG4+ (09/23/2018 11:38 AM) + + + + + | Component | Value | Ref Range | Performed At | + + + + + | pH, Art | 7.274 (L) | 7.350 - 7.450 | [facility] | + + + + + | POC PCO2 | 60 (H) | 35 - 45 mmHg | [facility] | + + + + + | POC p02 | 61 (L) | 80 - 105 mmHg | [facility] | + + + + + [...] POC FIO2 | 30 | % | [facility] | + + + + + | POC COMMENTS | Modified Les Test | | [facility] | | | passedComment: Site = | | | | | right radialTesting | | | | | performed at [facility];[address] | | | | | [address];[place] | | | | | [address] | | | + + + + + + + + + + | Performing | Address | City/State/Zipcode | Phone Number | | Organization | | | | + + + + + | [facility] | [address] | [place] [address] | | + + + + + POCT glucose (09/23/2018 11:35 AM) + + + + + | Component | Value | Ref Range | Performed At | + + + + + | GLUCOSE,POC SCREEN | 138 (H)Comment: Testing | 65 - 99 mg/dL | [facility] | | | performed at [facility];[address] | | | | | [address];[place] | | | | | [address] | | | + + + + + + + + + + | Performing | Address | City/State/Zipcode | Phone Number | | Organization | | | | + + + + + | [facility] | [address] | [place] [address] | | + + + + + POCT glucose (09/23/2018 6:31 AM) + + + + + | Component | Value | Ref Range | Performed At | + + + + + | GLUCOSE,POC SCREEN | 161 (H)Comment: Testing | 65 - 99 mg/dL | [facility] | | | performed at [facility];[address] | | | | | [address];[place] | | | | | [address] | | | + + + + + + + + + + | Performing | Address | City/State/Zipcode | Phone Number | | Organization | | | | + + + + + | [facility] | [address] | [place] [address] | | + + + + + Phosphorus (09/23/2018 3:41 AM) + + + + + | Component | Value | Ref Range | Performed At | + + + + + | PHOSPHORUS | 3.0Comment: SPECIMEN | 2.3 - 4.8 mg/dL | [facility] | | | SLIGHTLY | | LABORATORY | | | HEMOLYZEDTesting | | | | | performed at [facility], [address] | | | | [address], | | | | | [place] [address] | | | + + + + + + + | Specimen | + + | Blood | + + + + + + + | Performing | Address | City/State/Zipcode | Phone Number | | Organization | | | | + + + + + | [facility] | [address] [facility] | [place] [address] | [phone] | | LABORATORY | [place]. | | [...] | | | | | performed at [facility], [address] | | | | | [address] [facility], | | | | | [place] [address] | | | + + + + + + + | Specimen | + + | Blood | + + + + + + + | Performing | Address | City/State/Zipcode | Phone Number | | Organization | | | | + + + + + | [facility] | [address] | [place] [address] | [phone] | | LABORATORY | [address] | | [...] SPECIMEN | 65 - 99 mg/dL | [facility] | | | SLIGHTLY HEMOLYZED | | LABORATORY | + + + + + | BUN | 18 | 8 - 25 mg/dL | [facility] | | | | | LABORATORY | + + + + + | CREATININE | 1.4 (H)Comment: SPECIMEN | 0.50 - 1.00 mg/dL | [facility] | | | SLIGHTLY HEMOLYZED | | LABORATORY | + + + + + | BUN/CREAT | 13 | | [facility] | | | | | LABORATORY | + + + + + | CALCIUM | 8.2 (L) | 8.5 - 10.5 mg/dL | [facility] | | | | | LABORATORY | [...] | | | | | performed at [facility], [address] | | | | | [facility], | | | | | [place] [address] | | | + + + + + + + | Specimen | + + | Blood | + + + + + + + | Performing | Address | City/State/Zipcode | Phone Number | | Organization | | | | + + + + + | [facility] | [address] [place] [address] | [place] [address] | [phone] | | LABORATORY | [facility]. | | | + + + + [...] performed at | | | | | [facility], [address] [place] [address] | | | | | [place] | | | | | [address] | | | + + + + + + + | Specimen | + + | Blood | + + + + + + + | Performing | Address | City/State/Zipcode | Phone Number | | Organization | | | | + + + + + | [facility] | [address] | [place] [address] | [phone] | | LABORATORY | [address]vd[address] | | | + + + + + PROCALCITONIN (09/23/2018 3:41 AM) + + + + + | Component | Value | Ref Range | Performed At | + + + + + | PROCALCITONIN | 0.74 (H)Comment: | <0.5 ng/mL | [facility] | | | INTERPRETIVE | | [...] performed | | | | | at [facility];[address] [place] [address] | | | | | [facility];[place] [address] | | | + + + + + + + + + + | Performing | Address | City/State/Zipcode | Phone Number | | Organization | | | | + + + + + | [facility] | [address] | [place] [address] | | + + + + + POC Arterial Blood Gas (09/23/2018 3:26 AM) + + + + + | Component | Value | Ref Range | Performed At | + + + + + | POC FIO2 | 35 | % | [facility] | + + + + + | pH, Art | 7.250 (L) | 7.350 - 7.450 | [facility] | + + + + + [...] Testing | 95 - 98 % | [facility] | | | performed at [facility];[address] | | | | | [address];[place] | | | | | [address] | | | + + + + + + + + + + | Performing | Address | City/State/Zipcode | Phone Number | | Organization | | | | + + + + + | [facility] | [address] | [place] [address] | | + + + + + POC Arterial Blood Gas (09/23/2018 12:14 AM) + + + + + | Component | Value | Ref Range | Performed At | + + + + + | POC FIO2 | 35 | % | [facility] | + + + + + | pH, Art | 7.139 (LL) | 7.350 - 7.450 | [facility] | + + + + + [...] (H) | 0.0 - 2.0 mmol/L | [facility] | + + + + + | POC S02 | 86 (L)Comment: Testing | 95 - 98 % | [facility] | | | performed at [facility];[address] | | | | | [address];[place] | | | | | [address] | | | + + + + + + + + + + | Performing | Address | City/State/Zipcode | Phone Number | | Organization | | | | + + + + + | [facility] | [address] | [place] [address] | | + + + + + [...] (H) | 0.0 - 2.0 mmol/L | [facility] | + + + + + | POC S02 | 91 (L)Comment: Testing | 95 - 98 % | [facility] | | | performed at [facility] | | | | | [address];[place], [place] | | | | | [address] | | | + + + + + + + + + + | Performing | Address | City/State/Zipcode | Phone Number | | Organization | | | | + + + + + | [facility] | [address] | [place] [address] | | + + + + + POCT glucose (09/22/2018 10:26 PM) + + + + + | Component | Value | Ref Range | Performed At | + + + + + | GLUCOSE,POC SCREEN | 196 (H)Comment: Testing | 65 - 99 mg/dL | [facility] | | | performed at [facility];[address] | | | | | [address];[place] | | | | | [address] | | | + + + + + + + + + + | Performing | Address | City/State/Zipcode | Phone Number | | Organization | | | | + + + + + | [facility] | [address] | [place] [address] | | + + + + + [...] (H) | 0.0 - 2.0 mmol/L | [facility] | + + + + + | POC S02 | 93 (L)Comment: Testing | 95 - 98 % | [facility] | | | performed at [facility];[address] | | | | | [address];[place] | | | | | [address] | | | + + + + + + + + + + | Performing | Address | City/State/Zipcode | Phone Number | | Organization | | | | + + + + + | [facility] | [address] | [place] [address] | | + + + + + [...] performed at | | | | | [facility], [address] [facility] | | | | | [place] | | | | | [address] | | | + + + + + + + | Specimen | + + | Nares(Nose) | + + + + + + + | Performing | Address | City/State/Zipcode | Phone Number | | Organization | | | | + + + + + | [facility] | [address] | [place] [address] | [phone] | | LABORATORY | [place]. | | [...] | + + + + + | [facility] | [address] | [place] [address] | [phone] | | LABORATORY | [address]vd[address] | | [...] + + + + | Calculated P [place] | 77 | degrees | [facility] | + + + + + | Calculated R [place] | 87 | degrees | [facility] | + + + + + | Calculated T [place] | 61 | degrees | [facility] | + + + + + | Diagnosis | Sinus tachycardiaSeptal | | [facility] | | | infarct , age [...] | + + + + + | [facility] | [address] | [place] [address] | | + + + + + Phosphorus (09/22/2018 5:47 PM) + + + + + | Component | Value | Ref Range | Performed At | + + + + + | PHOSPHORUS | 4.6Comment: Testing | 2.3 - 4.8 mg/dL | [facility] | | | performed at [facility];[address] | | | | | [facility];[place] | | | | | [address] | | | + + + + + + + | Specimen | + + | Blood | + + + + + + + | Performing | Address | City/State/Zipcode | Phone Number | | Organization | | | | + + + + + | [facility] | [address] | [place] [address] | | + + + + + Magnesium (09/22/2018 5:47 PM) + + + + + | Component | Value | Ref Range | Performed At | + + + + + | MAGNESIUM | 1.8Comment: Testing | 1.7 - 2.4 mg/dL | [facility] | | | performed at [facility];[address] | | | | | [address];[place] | | | | | [address] | | | + + + + + + + | Specimen | + + | Blood | + + + + + + + | Performing | Address | City/State/Zipcode | Phone Number | | Organization | | | | + + + + + | [facility] | [address] | [place] [address] | | + + + + + [...] 4.5 | 3.3 - 4.8 g/dL | [facility] | + + + + + | GLOBULIN | 2.0 | 1.3 - 4.9 g/dL | [facility] | + + + + + | A/G | 2.3 | 1.0 - 2.4 | [facility] | + + + + + | TBIL | 0.5 | 0.1 - 1.5 mg/dL | [facility] | + + + + + | ALK PHOS | 65 | 35 - 115 U/L | [facility] | + + + + + | AST | 19 | 10 - 45 U/L | [facility] | + + + + + | ALT | 19 | 10 - 65 U/L | [facility] | + + + + + | EGFR | 56 (L)Comment: GFR <60: | >60 mL/min/1.73m2 | [facility] | | | CHRONIC KIDNEY DISEASE, [...] | | | | | performed at [facility];[address] | | | | | [address];[place] | | | | | [address] | | | + + + + + + + | Specimen | + + | Blood | + + + + + + + | Performing | Address | City/State/Zipcode | Phone Number | | Organization | | | | + + + + + | [facility] | [address] | [place] [address] | | + + + + + CBC W/Auto Diff (Reflex to Manual) (09/22/2018 5:47 PM) + + + + + | Component | Value | Ref Range | Performed At | + + + + + | WBC | 19.62 (H) | 3.80 - 11.00 K/uL | [facility] | + + + + + | RBC | 4.36 | 3.70 - 5.10 M/uL | [facility] | + + + + + [...] 251 | 150 - 400 K/uL | [facility] | + + + + + | MPV | 8.4 | fl | [facility] | + + + + + | DIFF TYPE | AUTOMATED | | [facility] | + + + + + | NEUTROPHILS | 95.76 | % | [facility] | + + + + + | LYMPHOCYTES | 0.66 | % | [facility] | + + + + + [...] Comment | SLIDE SCANNED, AGREES | | [facility] | | | WITH AUTOMATED | | | | | RESULTS.Comment: Testing | | | | | performed at [facility];[address] | | | | | [address];[place] | | | | | [address] | | | + + + + + + + | Specimen | + + | Blood | + + + + + + + | Performing | Address | City/State/Zipcode | Phone Number | | Organization | | | | + + + + + | [facility] | [address] | [place] [address] | | + + + + + MRSA by PCR (09/22/2018 5:35 PM) + + + + + | Component | Value | Ref Range | Performed At | + + + + + | SOURCE | NARES(NOSE) | | [facility] | + + + + + | MRSA PCR | NEGATIVEComment: Testing | NEGATIVE | [facility] | | | performed at [facility];[address] | | | | | [address];[place], [place] | | | | | [address] | | | + + + + + + + | Specimen | + + | Nasopharyngeal - | | Nasopharyngeal | | Culture | + + + + + + + | Performing | Address | City/State/Zipcode | Phone Number | | Organization | | | | + + + + + | [facility] | [address] | [place] [address] | | + + + + + [...] | + + + + + | [facility] | [address] | [place] [address] | | + + + + + POC Arterial Blood Gas (09/22/2018 5:20 PM) + + + + + | Component | Value | Ref Range | Performed At | + + + + + | POC FIO2 | 60 | % | [facility] | + + + + + | pH, Art | 7.178 (LL) | 7.350 - 7.450 | [facility] | + + + + + [...] (L) | 95 - 98 % | [facility] | + + + + + | POC COMMENTS | Modified Les Test | | [facility] | | | passedComment: Site = | | | | | right radialTesting | | | | | performed at [facility];[address] | | | | | [address];[place] | | | | | [address] | | | + + + + + + + + + + | Performing | Address | City/State/Zipcode | Phone Number | | Organization | | | | + + + + + | [facility] | [address] | [place] [address] | | + + + + + POCT glucose (09/22/2018 5:08 PM) + + + + + | Component | Value | Ref Range | Performed At | + + + + + | GLUCOSE,POC SCREEN | 180 (H)Comment: Testing | 65 - 99 mg/dL | [facility] | | | performed at [facility];[address] | | | | | [address];[place], [place] | | | | | [address] | | | + + + + + + + + + + | Performing | Address | City/State/Zipcode | Phone Number | | Organization | | | | + + + + + | [facility] | [address] | [place] [address] | | + + + + + [...] | | | | | | Starting [facility] 09/27/18 at 0050 | | | [...] | | | | | dose on [facility] 09/27/18 at 1230 | | | [...] | | | | First dose on [facility] 09/22/18 at 2000 | | | | [...] | | | | First dose on [facility] 09/27/18 at 0130 | | | [...] | | | SBP > 160, Starting [facility] 09/27/18 at | | | | [...] | | | | | | Starting [facility] 09/27/18 at 1512, 1) | | [...]
--- OUTSIDE RECORDS SUMMARY | ~2018-11-26 | XMS | Encounter Summary ---
Demographics + + + | Address | [address] | | | [place] [address] | + + + | Home Phone | | + + + | Preferred Language | Unknown | + + + | Marital Status | | + + + | Bahai Affiliation | 1041 | + + + | Race | Unknown | + + + | Ethnic Group | Unknown | + + + Author + + + | Author | [facility] | + + + | Organization | [facility] [facility] | + + + | Address [...] Team Providers + +------+ + | Care Sawing And Assembly Supervisor Name | Role | Phone | [...] + + | 10/03/ | Telephone | [facility] | Taty Camacho RN | Letter for | | 2018 | | [facility] | | School/Work (FMLA, | | | | [address] | | missing release) | | | | [place] [address] | | | | | | [phone] | | | +--------+ + + + [...]
--- OUTSIDE RECORDS SUMMARY | ~2018-11-26 | XMS | Encounter Summary ---
Demographics + + + | Address | [address] | | | [place] [address] | + + + | Home Phone | | + + + | Preferred Language | Unknown | + + + | Marital Status | | + + + | Jewish Affiliation | 1041 | + + + | Race | Unknown | + + + | Ethnic Group | Unknown | + + + Author + + + | Author | [facility] | + + + | Organization | [facility] | + + + | Address [...] Team Providers + +------+ + | Care Halal Butcher Name | Role | Phone | + [...] | | | | | [place] [address] | | | | | | [phone] | | | | | | | [...] Simmons Date of : 1950 | [facility] | | Performing Physician: Laverne Seo [...] MV A Trace: 0.83 m/s MV Dec Bollinger: 3.01 m/s2 | | | MV DecT: 264.72 ms MV E Trace: 0.79 m/s MV E/A Ratio: | | | 0.95 MV PHT: 76.77 ms MVA By PHT: 2.86 cm2 Septal e': | | | 0.06 m/s Septal E/e': 13.00 Lateral e': 0.08 m/s Lateral | | | E/e': 9.24 RAP: 5 mmHg RV s': 0.12 m/s Yard[place] Caller: | | | DBS Authenticated by: [facility] Report Date/Time: 10-18-2018 | | | 19:10:22 | | + + + + --------+ | Procedure Note | + --------+ | Mk, Rad Results In - 10/18/2018 7:20 PM PDT Patient Name: Geronimo Simmons of | | : 1950ccession: [id number] Physician: Laverne | | [facility] INDICATIONS------ | | -----END STAGE COPDCONCLUSIONS [...] cmLVPWd: 0.90 cmLVOT Area: 3.04 | | [id number] Diam: 1.96 cm%FS: 28.31 %EF(Teich): 55.58 %ESV(Teich): [...] | | (A-L): 19.48 ml/m2LAAs A2C: 14.16 [id number] A-L A2C: 37.59 mlLALs A2C: 4.52 | | cmLAAs A4C: 11.49 br2IPUDC A-L A4C: 28.79 mlLALs A4C: 3.89 cmRAAs: 11.72 | | [id number] A-L: 29.94 mlRAESV MOD: 27.18 mlRALs: 3.89 cmTAPSE: 2.42 cmAV maxPG: | | 7.52 mmHgAV meanP.43 mmHgAV Vmax: 1.37 m/Jian Vmean: 0.86 m/Jian VTI: 26.39 | | cmAVA Vmax: 2.53 cm2AVA (VTI): 2.61 fw2DWCT (Vmax): 0.00 cm2/m2AVAI (VTI): 0.00 | | cm2/m2LVOT maxP.23 mmHgLVOT meanP.45 mmHgLVSI Dopp: 37.87 ml/m2LVSV Dopp: | | 68.93 mlLVOT Vmax: 1.14 m/sLVOT Vmean: 0.73 m/sLVOT VTI: 22.65 cmMV A Trace: | | 0.83 m/sMV Dec Bollinger: 3.01 m/s2MV DecT: 264.72 msMV E Trace: 0.79 m/sMV E/A Ratio: | | 0.95 MV PHT: 76.77 msMVA By PHT: 2.86 [id number] e': 0.06 m/sSeptal E/e': 13.00 | | Lateral e': 0.08 m/sLateral E/e': 9.24 RAP: 5 mmHgRV s': 0.12 m/sSonographer: | | DBSAuthenticated by: Mershed AlsmaryvilleraReport Date/Time: 10-18-2018 19:10:22IMPRESSION:1. | | Overall left [...] A Trace: 0.83 m/s | |MV Dec Bollinger: 3.01 m/s2 | |MV DecT: 264.72 ms | |MV E Trace: 0.79 m/s | |MV E/A Ratio: 0.95 | |MV PHT: 76.77 ms | |MVA By PHT: 2.86 cm2 | |Septal e': 0.06 m/s | |Septal E/e': 13.00 | |Lateral e': 0.08 m/s | |Lateral E/e': 9.24 | |RAP: 5 mmHg | |RV s': 0.12 m/s | | | |Yardage Caller: DBS | |Authenticated by: Laverne Seo | [...] + + + + + | [facility] | [address] | [place] [address] | | + + + + + in this encounter Visit Diagnoses + + | Diagnosis | + + | End stage COPD (HCC) | + + | Chronic airway obstruction, not elsewhere classified | + +"
--- OUTSIDE RECORDS SUMMARY | ~2018-11-26 | XMS | Encounter Summary ---
Demographics + + + | Address | [address] | | | [place] [address] | + + + | Home Phone | | + + + | Preferred Language | Unknown | + + + | Marital Status | | + + + | Christian Affiliation | [id number] | + + + | Race | Unknown | + + + | Ethnic Group | Unknown | + + + Author + + + | Author | [facility] [employer] | + + + | Organization | [facility] [employer] | + + + | Address [...] Team Providers + +------+ + | [employer] Name | Role | Phone | + [...] + + | 10/03/ | Telephone | [facility] | Taty Camacho RN | Letter for | | 2018 | | [facility] | | School/Work (FMLA, | | | | [address] | | missing release) | | | | [place] [address] | | | | | | [phone] | | | +--------+ + + + [...]
--- OUTSIDE RECORDS SUMMARY | ~2018-11-26 | XMS | Encounter Summary ---
Demographics + + + | Address | [address] | | | [place] [address] | + + + | Home Phone | | + + + | Preferred Language | Unknown | + + + | Marital Status | | + + + | Latter Day Affiliation | 1041 | + + + | Race | Unknown | + + + | Ethnic Group | Unknown | + + + Author + + + | Author | [facility] | + + + | Organization | [facility] | + + + | Address [...] Team Providers + +------+ + | Care Microsoft Exchange Administrator Name | Role | Phone | + [...] + + | 10/05/ | Telephone | [facility] | Reji Dodd, RN | Other ([facility]) | | 2019 | | [facility] | | | | | | [address] | | | | | | [place] [address] | | | | | | [phone] | | | +--------+ + + + [...]
--- OUTSIDE RECORDS SUMMARY | ~2018-11-26 | XMS | Encounter Summary ---
Demographics + + + | Address | [address] | | | [place] [address] | + + + | Home Phone | | + + + | Preferred Language | Unknown | + + + | Marital Status | | + + + | Rastafari Affiliation | 1041 | + + + | Race | Unknown | + + + | Ethnic Group | Unknown | + + + Author + + + | Author | [facility] | + + + | Organization | [facility] | + + + | Address [...] Team Providers + +------+ + | Care Rand Sewer Name | Role | Phone | + [...] + + | 10/12/ | Telephone | [facility] | Gracy Santos, | Letter for | | 2019 | | [facility] | RN | School/Work (FMLA) | | | | [address] | | | | | | [place] [address] | | | | | | [phone] | | | +--------+ + + + [...]
--- OUTSIDE RECORDS SUMMARY | ~2018-11-26 | XMS | Encounter Summary ---
Demographics + + + | Address | [address] | | | [place] [address] | + + + | Home Phone | | + + + | Preferred Language | Unknown | + + + | Marital Status | | + + + | Methodist Affiliation | 1041 | + + + | Race | Unknown | + + + | Ethnic Group | Unknown | + + + Author + + + | Author | [facility] | + + + | Organization | [facility] | + + + | Address [...] Team Providers + +------+ + | Care Candy Counter Clerk Name | Role | Phone | + +------+ + | Jyala Fisher MD | PCP | | + [...] + + | 10/12/ | Telephone | [facility] PHYSICIAN | Taty Camacho RN | Letter for | | 2018 | | [facility] | | School/Work (FMLA) | | | | [address] | | | | | | [place] [address] | | | | | | [phone] | | | +--------+ + + + [...]
--- OUTSIDE RECORDS SUMMARY | ~2018-11-26 | XMS | Encounter Summary ---
Demographics + + + | Address | [address] | | | [place] [address] | + + + | Home Phone | | + + + | Preferred Language | Unknown | + + + | Marital Status | | + + + | Hinduism Affiliation | 1041 | + + + | Race | Unknown | + + + | Ethnic Group | Unknown | + + + Author + + + | Author | [facility] | + + + | Organization | [facility] [employer] | + + + | Address [...] Team Providers + +------+ + | Care Service Desk Associate Name | Role | Phone | + [...] | | | | | | | [address] Phone: | | | | | | | [phone] | | | | | | | Fax: | | | | | | | [phone] | +--------+--------+ + + + + Encounter Details +--------+ + + + + | Date | Type | Department | Care Team | Description | +--------+ + + + + | 09/22/ | Hospital | [facility] | Cooper Rodriguez | Acute on chronic | | 2019 - | Encounter | [facility] 8th | MD Dorina [address] | respiratory failure | | | | [facility] | [address] [place], [place] | with hypoxia and | | 10/01/ | | [address] | [address] | hypercapnia (HCC) | | 2019 | | [place] [address] | | (Primary Dx) | | | | [phone] | Niya Tavarez MD | | | | | | [address] | | | | | | [place] [address] | | | | | | [phone] | | | | | | | | | | | | Ashleigh López | | | | | | MD Dante [address] | | | | | | [address] | | | | | | [place] [address] | | | | | | [phone] | | | | | | | [...] may be differ ent from the original. [facility] Service: Hospitalist Physician Discharge Summary Patient ID: [...] Disposition: Home Follow up: Jayla Fisher MD [address] [facility] [place] [id number] Schedule an appointment as soon as possible [...] summary. This entry has been created using Edoome Speech Recognition software and [employer]. The entry has been reviewed and there [...] may be differ ent from the original. [facility] Service: Hospitalist Progress Note Hospital Day: LOS: [...] AM This entry has been created using Edoome Speech Recognition software and [employer]ua. The entry has been reviewed and there may still exist sound alike word errors. Ashleigh López MD - 09/29/2018 11:27 AM PDTFormatting of this note may be differ ent from the original. [facility] Service: Hospitalist Progress Note Hospital Day: LOS: [...] d lines in appropriate position. Signed by: Fbarice Iniguez Sign Date/Time: 09/22/2018 5:56 PM PROBLEM [...] AM This entry has been created using Edoome Speech Recognition software and [employer] s. The entry has been reviewed and there may still exist sound alike word errors. Gabriella Patten, RD - 09/28/2018 10:38 AM PDTFormatting of this note may be different from ale original. 09/28/18 0923 Subjective Timepoint Follow up (high follow-up) Pt c/o Pt extubated, on Bipap. Remains NPO at this time per FIRE EXTINGUISHER TECHNICIAN. Per RN, no plans to TF at this time, FIRE EXTINGUISHER TECHNICIAN to reevaluate today with hopeful diet advancement. [...] Recommendations Recommended energy needs Recommend diet per FIRE EXTINGUISHER TECHNICIAN. Monitor po intake. Nutrition supplements c an [...] may b e different from the original. [facility] Service: Hospitalist Progress Note Hospital Day: LOS: 6 days SUBJECTIVE Feels tired, and fatigued Patient Summary: The patient is a 68 y.o.femalewith significant past medical history of COPD on 2 L home O2 day and night, tobacco abuse, cervical cancerwho presents as a transfer from [facility] for acute respiratory distress requiring intubation as she failed BiPAP therapy. Per transfer notes, patient has had worsening shortness of breath for the last 2-3 days and called EMS. She was discharge from [facility] 2 weeks ago with similar complaint and pos sible viral pneumonia due to unknown organism. Labs from [facility] showing WBC 11.6, troponin negative, d-dimer negative, CXR w ith no acute process, no changes noted on EKG. Pier Hand Helper called for transfer to ICU. ICU Timeline: 09/22: admitted from [facility] for hypercapnic respiratory failure from COPD exacerba [...] Acute kidney injury (HCC) ASSESSMENT / PLAN Auqbb-zb-lhxvvns respiratory failure with hypercapnia secondary to COPD [...] and management as well as Computerized Physician [employer] Police Officer. Disposition: tbd Code Status: Full Code Niya Tavarez MD 09/28/2018 9:43 AM Pilar Arias, [facility] - 09/27/2018 2:15 PM PDTFormatting of this [...] renal function. Associated attestation - Paige Echevarria [facility] - 09/27/2018 2:39 PM PDTThe following wa s reviewed by a pharmacist and I agree with the following changesPatty Guo ARNP - 09/27/2018 2:17 AM PDTFormatting of this note may be different from the original. [facility] Pier Hand Helper Service Progress Note Stephanie Simmons 68 y.o. [...] cancer who presents as a transfer from [facility] for acute respiratory distress requiring intubation as she failed BiPAP therapy. Pe r transfer notes, patient has had worsening shortness of breath for the last 2-3 days and ca lled EMS. She was discharge from [facility] 2 weeks ago with similar complaint and possib le viral pneumonia due to unknown organism. Labs from [facility] showing WBC 11.6, troponin negative, d-dimer negative, CXR w ith no acute process, no changes noted on EKG. Pier Hand Helper called for transfer to ICU. ICU Timeline: 09/22: admitted from [facility] for hypercapnic respiratory failure from COPD exacerba [...] Labetalol available prn SBP > 160. PULM: Rnyjl-ck-hoplego respiratory failure with hypercapnia secondary to COPD exacerbation and influenza A pneumonia. Improving. ? Duonebs scheduled, q 6 hours. ? Patient received levofloxacin 09/22 - 09/24. Abx stopped yesterday. Procalcitonin < 0.05 t tello. ? Oseltamivir course completed for influenza A pneumonia. ? Give last dose IV Solu-medrol this morning then stop steroids. GI/NUTRITION: NPO until FIRE EXTINGUISHER TECHNICIAN eval can be completed. RENAL/LYTES: Acute kidney [...] Estimated Energy Needs Total Energy Estimated Needs 8688-0330 kcal Method for Estimating Needs 25-30 kcal/kg based on adjusted BW of 59.5 kg. Needs will rebollar e if pt is reintubated. Estimated Protein Needs Total Protein Estimated Needs 71-89 g Method for Estimating Needs 1.2-1.5 g/kg based on adjusted body wt of 59 kg. Needs will varinder nge if pt is reintubated. Recommendations Recommended energy needs Recommend FIRE EXTINGUISHER TECHNICIAN swallow eval prior to diet advancement. If diet unab le to advance and pt is reintubated, resume TF of Peptamen Intense VHP with goal rate of 57 ml/hr. Nutritional Risk Nutritional risk High Follow up date 09/29/18 Magnolia Aguiar, MS, RDN, CD Trever Del Valle, CONFECTIONERY COOKER - 09/26/2018 1:18 PM PDTPatient passed SBT on PS 8/5 FiO2 30% and wa s extubated at 1318 to Bipap 10/5 FiO2 30%. No distress or stridor noted post extubation. St elke productive cough noted.Patty Guo, PRETZEL PACKER - 09/26/2018 2:56 AM PDTFormatting o f this note may be different from the original. [facility] Pier Hand Helper Service Progress Note Stephanie Crow [place] 68 [...] cancer who presents as a transfer from [facility] for acute respiratory distress requiring intubation as she failed BiPAP therapy. Pe r transfer notes, patient has had worsening shortness of breath for the last 2-3 days and ca lled EMS. She was discharge from [facility] 2 weeks ago with similar complaint and possib le viral pneumonia due to unknown organism. Labs from [facility] showing WBC 11.6, troponin negative, d-dimer negative, CXR w ith no acute process, no changes noted on EKG. Pier Hand Helper called for transfer to ICU. ICU Timeline: 09/22: admitted from [facility] for hypercapnic respiratory failure from COPD exacerba [...] CV: Normal sinus rhythm. Hemodynamically stable. PULM: Vnwqc-de-ffxbrsc respiratory failure with hypercapnia secondary to COPD exacerbation and influenza A pneumonia. ? Continue mechanical ventilation. currently off paralytics. ? CXR showing left lung infiltrates. ? Continue scheduled inhalers - albuterol and ipratropium. ? Continue levofloxacin for severe COPD exacerbation. ? Oseltamivir for influenza A pneumonia. ? Continue steroids, IV Solu-medrol 40 mg once this morning and tomorrow morning, then stop . Ifsvs-tj-sqwcnul respiratory acidosis - from COPD exacerbation, improving. GI/NUTRITION: Kitchenwhere Maker recommendations for TF as follows: Peptamen Intense [...] is only child whose grandmother is in [facility] with pneumo leonid. Veronica states she is closer to her grandmother than mother and concerned about grandm other's well-being should patient . Grandmother has already lost two children and a husba nd. Veronica was raised Ep[employer]opalian but no longer believes in God. States she titus by staying busy and with support from family. Sand Control Worker provided supportive presence, affirmation, and e xplored [...] 0.6 Sec(s) Insp Rise Time (sec) / Centre 0.1 sec Patient Returns ET CO2 33 [...] Color Creamy Secretion Consistency Thick Robby Weiner, CONFECTIONERY COOKER - 09/25/2018 11:19 AM PDTFormatting of this [...] 0.8 sec Insp Rise Time (sec) / Centre 0.1 sec Dynamic Compliance (L/cm H2O) 23 [...] Breath Sounds Bilateral Wheezes expiratory;Tight;Diminished Robby Weiner, CONFECTIONERY COOKER - 09/25/2018 8:11 AM PDTFormatting of this [...] 0.8 sec Insp Rise Time (sec) / Centre 0.1 sec VTE 391 mL Alarms Alarms [...] Color Creamy Secretion Consistency Thick;Thin Patty Guo, [facility] - 09/25/2018 4:43 AM PDTFormatting of this note may be differen t from the original. [facility] Pier Hand Helper Service Progress Note Stephanie Simmons 68 y.o. [...] cancer who presents as a transfer from [facility] for acute respiratory distress requiring intubation as she failed BiPAP therapy. Pe r transfer notes, patient has had worsening shortness of breath for the last 2-3 days and ca lled EMS. She was discharge from [facility] 2 weeks ago with similar complaint and possib le viral pneumonia due to unknown organism. Labs from [facility] showing WBC 11.6, troponin negative, d-dimer negative, CXR w ith no acute process, no changes noted on EKG. Pier Hand Helper called for transfer to ICU. ICU Timeline: 09/22: admitted from [facility] for hypercapnic respiratory failure from COPD exacerba [...] maintaining MAP > 65 without intervention. PULM: Rbbfr-dp-iovgioo respiratory failure with hypercapnia secondary to COPD [...] acidosis - from COPD exacerbation, improving. GI/NUTRITION: Kitchenwhere Maker recommendations for TF as follows: Peptamen Intense [...] other procedures. ZORA Choudhary 09/25/2018 Pilar Arias [facility] - 09/24/2018 1:37 PM PDTFormatting of this [...] renal function. Associated attestation - Meghan Rodriguez [facility] - 09/24/2018 3:04 PM PDTAgree with pharmacy benefit manager's recommendation. Pharmacy will continue to monitor and provide renal adjustments as indicated. Meghan Rodriguez, Robby Mesa, CONFECTIONERY COOKER - 09/24/2018 12:04 PM PDTFormatting of thi [...] 0.6 Sec(s) Insp Rise Time (sec) / Centre 0.1 sec Patient Returns ET CO2 31 [...] Sounds Breath Sounds Bilateral Coarse;Diminished Robby Weiner, CONFECTIONERY COOKER - 09/24/2018 8:09 AM PDTFormatting of this [...] 0.6 sec Insp Rise Time (sec) / Centre 0.1 sec VTE 421 mL Dynamic Compliance [...] may be different f rom the original. [facility] Service: Pier Hand Helper Progress Note Stephanie Simmons 68 y.o. Hospital [...] cancer who [facility] requiring intubation as she failed BiPAP therapy. Per transfer notes, patient has had worsening shortness of breath for the last 2-3 days and tosin led EMS. She was discharged from [facility] 2 weeks ago with similar complaint and possib le viral pneumonia due to unknown organism. Labs from [facility] showing WBC 11.6, troponin negative, d-dimer negative, CXR w ith no acute process, no changes noted on EKG. Pier Hand Helper called for transfer to ICU. ICU Timeline: 09/22 - admitted from [facility] for hypercapnic respiratory failure from COPD exacerb [...] of 30mL Q 4 hrs or per MD/EP SPECIALIST. RENAL/LYTES: Acute kidney injury - monitor renal [...] consult for TF recommendations. Pt transfered to [facility] for severe hypercapni c respiratory [...] of 30mL Q 4 hrs or per MD/EP SPECIALIST. Nutritional Risk Nutritional risk High Follow up date 09/26/18 Pamela Conrad, MS-MPH, CARMEN Bowen, Jimy Mercado MD - 09/23/2018 4:24 AM PDTFormatting of this note may be different f rom the original. [facility] Service: Pier Hand Helper Progress Note Stephanie Simmons 68 y.o. Hospital [...] cancer who presents as a transfer [facility] for acute respiratory distress requiring intubation as she failed BiPAP therapy. Per transfer notes, patient has had worsening shortness of breath for the last 2-3 days and tosin led EMS. She was discharged from [facility] 2 weeks ago with similar complaint and possib le viral pneumonia due to unknown organism. Labs from [facility] showing WBC 11.6, troponin negative, d-dimer negative, CXR w ith no acute process, no changes noted on EKG. Pier Hand Helper called for transfer to ICU. ICU Timeline: 09/22 - admitted from [facility] for hypercapnic respiratory failure from COPD exacerb [...] procedures. Jimy Bowen MD 09/23/2018 Romeo Romero, [facility] - 09/22/2018 7:14 PM PDTFormatting of this [...] renal function and adjust accordingly. Romeo Romero [facility] 09/22/2018 7:14 PMin this encounter [...] Testing | 65 - 99 mg/dL | [facility] | | | performed at [facility] [place] | | | | | [address];[place] | | | | | [address] | | | + + + + + + + + + + | Performing | Address | City/State/Zipcode | Phone Number | | Organization | | | | + + + + + | [facility] | [address] | [place] [address] | | + + + + + [...] | | | | | performed at [facility], [address] | | | | | [address], | | | | | [place] [address] | | | + + + + + + + | Specimen | + + | Blood | + + + + + + + | Performing | Address | City/State/Zipcode | Phone Number | | Organization | | | | + + + + + | [facility] | [address] | [place] [address] | [phone] | | LABORATORY | [address] | | | + + + + + POCT glucose (09/30/2018 11:55 PM) + + + + + | Component | Value | Ref Range | Performed At | + + + + + | GLUCOSE,POC SCREEN | 98Comment: Testing | 65 - 99 mg/dL | [facility] | | | performed at [facility] [place] | | | | | [address];[place] | | | | | [address] | | | + + + + + + + + + + | Performing | Address | City/State/Zipcode | Phone Number | | Organization | | | | + + + + + | [facility] | [address] | [place] [address] | | + + + + + POCT glucose (09/30/2018 6:46 PM) + + + + + | Component | Value | Ref Range | Performed At | + + + + + | GLUCOSE,POC SCREEN | 89Comment: Testing | 65 - 99 mg/dL | [facility] | | | performed at [facility] [place] | | | | | [address];[place] | | | | | [address] | | | + + + + + + + + + + | Performing | Address | City/State/Zipcode | Phone Number | | Organization | | | | + + + + + | [facility] | [address] | [place] [address] | | + + + + + [...] | + + + + + | [facility] | [address] | [place] [address] | | + + + + + POCT glucose (09/30/2018 11:37 AM) + + + + + | Component | Value | Ref Range | Performed At | + + + + + | GLUCOSE,POC SCREEN | 125 (H)Comment: Testing | 65 - 99 mg/dL | [facility] | | | performed at [facility] [place] | | | | | [address];[place] | | | | | [address] | | | + + + + + + + + + + | Performing | Address | City/State/Zipcode | Phone Number | | Organization | | | | + + + + + | [facility] | [address] | [place] [address] | | + + + + + POCT glucose (09/30/2018 5:43 AM) + + + + + | Component | Value | Ref Range | Performed At | + + + + + | GLUCOSE,POC SCREEN | 114 (H)Comment: Testing | 65 - 99 mg/dL | [facility] | | | performed at [facility] [place] | | | | | [address];[place] | | | | | [address] | | | + + + + + + + + + + | Performing | Address | City/State/Zipcode | Phone Number | | Organization | | | | + + + + + | [facility] | [address] | [place] [address] | | + + + + + [...] (L) | 8.5 - 10.5 mg/dL | [facility] | | | | | LABORATORY | [...] the | | | | | MDRD IDID traceable | | | | | equation.Testing | | | | | performed at [facility], [address] | | | | | [facility], | | | | | [place] [address] | | | + + + + + + + | Specimen | + + | Blood | + + + + + + + | Performing | Address | City/State/Zipcode | Phone Number | | Organization | | | | + + + + + | [facility] | [address] | [place] [address] | [phone] | | LABORATORY | [address] | | | + + + + + POCT glucose (09/30/2018 12:13 AM) + + + + + | Component | Value | Ref Range | Performed At | + + + + + | GLUCOSE,POC SCREEN | 111 (H)Comment: Testing | 65 - 99 mg/dL | [facility] | | | performed at [facility] [place] | | | | | [address];[place] | | | | | [address] | | | + + + + + + + + + + | Performing | Address | City/State/Zipcode | Phone Number | | Organization | | | | + + + + + | [facility] | [address] | [place] [address] | | + + + + + POCT glucose (09/29/2018 5:56 PM) + + + + + | Component | Value | Ref Range | Performed At | + + + + + | GLUCOSE,POC SCREEN | 109 (H)Comment: Testing | 65 - 99 mg/dL | [facility] | | | performed at [facility] [place] | | | | | [address];[place] | | | | | [address] | | | + + + + + + + + + + | Performing | Address | City/State/Zipcode | Phone Number | | Organization | | | | + + + + + | [facility] | [address] | [place] [address] | | + + + + + POCT glucose (09/29/2018 11:48 AM) + + + + + | Component | Value | Ref Range | Performed At | + + + + + | GLUCOSE,POC SCREEN | 106 (H)Comment: Testing | 65 - 99 mg/dL | [facility] | | | performed at [facility] [place];[address] | | | | | [address];[place] | | | | | [address] | | | + + + + + + + + + + | Performing | Address | City/State/Zipcode | Phone Number | | Organization | | | | + + + + + | [facility] | [address] | [place] [address] | | + + + + + POCT glucose (09/29/2018 5:47 AM) + + + + + | Component | Value | Ref Range | Performed At | + + + + + | GLUCOSE,POC SCREEN | 113 (H)Comment: Testing | 65 - 99 mg/dL | [facility] | | | performed at [facility] [place];[facility] | | | | | [facility], [place] | | | | | [address] | | | + + + + + + + + + + | Performing | Address | City/State/Zipcode | Phone Number | | Organization | | | | + + + + + | [facility] | [address] | [place] [address] | | + + + + + Phosphorus (09/29/2018 4:20 AM) + + + + + | Component | Value | Ref Range | Performed At | + + + + + | PHOSPHORUS | 3.9Comment: Testing | 2.3 - 4.8 mg/dL | [facility] | | | performed at [facility], [address] | | LABORATORY | | | [facility] [address], | | | | | [place] [address] | | | + + + + + + + | Specimen | + + | Blood | + + + + + + + | Performing | Address | City/State/Zipcode | Phone Number | | Organization | | | | + + + + + | [facility] | [address] [place] [address] | [place] [address] | [phone] | | LABORATORY | [address] | | | + + + + + Magnesium (09/29/2018 4:20 AM) + + + + + | Component | Value | Ref Range | Performed At | + + + + + | MAGNESIUM | 2.2Comment: Testing | 1.7 - 2.4 mg/dL | [facility] | | | performed at [facility], [address] | | LABORATORY | | | [facility] [address], | | | | | [place] [address] | | | + + + + + + + | Specimen | + + | Blood | + + + + + + + | Performing | Address | City/State/Zipcode | Phone Number | | Organization | | | | + + + + + | [facility] | [address] | [place] [address] | [phone] | | LABORATORY | [address] | | [...] (L) | 8.5 - 10.5 mg/dL | [facility] | | | | | LABORATORY | [...] | | | | | performed at [facility], [address] | | | | | [facility], | | | | | [place] [address] | | | + + + + + + + | Specimen | + + | Blood | + + + + + + + | Performing | Address | City/State/Zipcode | Phone Number | | Organization | | | | + + + + + | [facility] | [address] | [place] [address] | [phone] | | LABORATORY | [address] | | [...] performed at | | | | | [facility], [address] | | | | | [place] | | | | | [address] | | | + + + + + + + | Specimen | + + | Blood | + + + + + + + | Performing | Address | City/State/Zipcode | Phone Number | | Organization | | | | + + + + + | [facility] | [address] | [place] [address] | [phone] | | LABORATORY | [address] | | | + + + + + POCT glucose (09/28/2018 11:59 PM) + + + + + | Component | Value | Ref Range | Performed At | + + + + + | GLUCOSE,POC SCREEN | 100 (H)Comment: Testing | 65 - 99 mg/dL | [facility] | | | performed at [facility] [place] | | | | | [address];[place], [place] | | | | | [address] | | | + + + + + + + + + + | Performing | Address | City/State/Zipcode | Phone Number | | Organization | | | | + + + + + | [facility] | [address] | [place] [address] | | + + + + + POCT glucose (09/28/2018 5:59 PM) + + + + + | Component | Value | Ref Range | Performed At | + + + + + | GLUCOSE,POC SCREEN | 98Comment: Testing | 65 - 99 mg/dL | [facility] | | | performed at [facility] [place] | | | | | [address];[place] | | | | | [address] | | | + + + + + + + + + + | Performing | Address | City/State/Zipcode | Phone Number | | Organization | | | | + + + + + | [facility] | [address] | [place] [address] | | + + + + + Potassium (09/28/2018 3:30 PM) + + + + + | Component | Value | Ref Range | Performed At | + + + + + | POTASSIUM | 4.0Comment: Testing | 3.5 - 4.9 mmol/L | [facility] | | | performed at [facility] [place] | | | | | [address];[place] | | | | | [address] | | | + + + + + + + | Specimen | + + | Blood | + + + + + + + | Performing | Address | City/State/Zipcode | Phone Number | | Organization | | | | + + + + + | [facility] | [address] | [place] [address] | | + + + + + POCT glucose (09/28/2018 11:57 AM) + + + + + | Component | Value | Ref Range | Performed At | + + + + + | GLUCOSE,POC SCREEN | 82Comment: Testing | 65 - 99 mg/dL | [facility] | | | performed at [facility] [place] | | | | | [address];[place] | | | | | [address] | | | + + + + + + + + + + | Performing | Address | City/State/Zipcode | Phone Number | | Organization | | | | + + + + + | [facility] | [address] | [place] [address] | | + + + + + POCT glucose (09/28/2018 6:06 AM) + + + + + | Component | Value | Ref Range | Performed At | + + + + + | GLUCOSE,POC SCREEN | 76Comment: Testing | 65 - 99 mg/dL | [facility] | | | performed at [facility] [place] | | | | | [address];[place] | | | | | [address] | | | + + + + + + + + + + | Performing | Address | City/State/Zipcode | Phone Number | | Organization | | | | + + + + + | [facility] | [address] | [place] [address] | | + + + + + Phosphorus (09/28/2018 5:25 AM) + + + + + | Component | Value | Ref Range | Performed At | + + + + + | PHOSPHORUS | 5.1 (H)Comment: Testing | 2.3 - 4.8 mg/dL | [facility] | | | performed at [facility], [address] | | LABORATORY | | | [address], | | | | | [place] [address] | | | + + + + + + + | Specimen | + + | Blood | + + + + + + + | Performing | Address | City/State/Zipcode | Phone Number | | Organization | | | | + + + + + | [facility] | [address] | [place] [address] | [phone] | | LABORATORY | [place]. | | | + + + + + Magnesium (09/28/2018 5:25 AM) + + + + + | Component | Value | Ref Range | Performed At | + + + + + | MAGNESIUM | 2.2Comment: Testing | 1.7 - 2.4 mg/dL | [facility] | | | performed at [facility], [address] | | LABORATORY | | | [address], | | | | | [place] [address] | | | + + + + + + + | Specimen | + + | Blood | + + + + + + + | Performing | Address | City/State/Zipcode | Phone Number | | Organization | | | | + + + + + | [facility] | [address] | [place] [address] | [phone] | | LABORATORY | [address] | | [...] (H) | 0.50 - 1.00 mg/dL | [facility] | | | | | LABORATORY | + + + + + | BUN/CREAT | 48 | | [facility] | | | | | LABORATORY | + + + + + | CALCIUM | 9.2 | 8.5 - 10.5 mg/dL | [facility] | | | | | LABORATORY | + + + + + | EGFR | 45 (L)Comment: GFR <60: | >60 mL/min/1.73m2 | [facility] | | | CHRONIC KIDNEY DISEASE, | [...] | | | | | performed at [facility], [address] | | | | | [facility], | | | | | [place] [address] | | | + + + + + + + | Specimen | + + | Blood | + + + + + + + | Performing | Address | City/State/Zipcode | Phone Number | | Organization | | | | + + + + + | [facility] | [address] | [place] [address] | [phone] | | LABORATORY | Blvd. | | [...] | [facility] | | | performed at [facility], [address] | | LABORATORY | | | [address], | | | | | [place] [address] | | | + + + + + + + | Specimen | + + | Blood | + + + + + + + | Performing | Address | City/State/Zipcode | Phone Number | | Organization | | | | + + + + + | [facility] | [address] | [place] [address] | [phone] | | LABORATORY | [address]vd. | | | + + + + + POCT glucose (09/27/2018 11:54 PM) + + + + + | Component | Value | Ref Range | Performed At | + + + + + | GLUCOSE,POC SCREEN | 79Comment: Testing | 65 - 99 mg/dL | [facility] | | | performed at [facility] [place] | | | | | [address];[place], [place] | | | | | [address] | | | + + + + + + + + + + | Performing | Address | City/State/Zipcode | Phone Number | | Organization | | | | + + + + + | [facility] | [address] | [place] [address] | | + + + + + POCT glucose (09/27/2018 5:30 PM) + + + + + | Component | Value | Ref Range | Performed At | + + + + + | GLUCOSE,POC SCREEN | 97Comment: Testing | 65 - 99 mg/dL | [facility] | | | performed at [facility] [place] | | | | | [address];[place] | | | | | [address] | | | + + + + + + + + + + | Performing | Address | City/State/Zipcode | Phone Number | | Organization | | | | + + + + + | [facility] | [address] | [place] [address] | | + + + + + POCT glucose (09/27/2018 11:46 AM) + + + + + | Component | Value | Ref Range | Performed At | + + + + + | GLUCOSE,POC SCREEN | 114 (H)Comment: Testing | 65 - 99 mg/dL | [facility] | | | performed at [facility] [place] | | | | | [address];[place] | | | | | [address] | | | + + + + + + + + + + | Performing | Address | City/State/Zipcode | Phone Number | | Organization | | | | + + + + + | [facility] | [address] | [place] [address] | | + + + + + POCT glucose (09/27/2018 6:02 AM) + + + + + | Component | Value | Ref Range | Performed At | + + + + + | GLUCOSE,POC SCREEN | 94Comment: Testing | 65 - 99 mg/dL | [facility] | | | performed at [facility] [place] | | | | | [address];[place] | | | | | [address] | | | + + + + + + + + + + | Performing | Address | City/State/Zipcode | Phone Number | | Organization | | | | + + + + + | [facility] | [address] | [place] [address] | | + + + + + Phosphorus (09/27/2018 4:07 AM) + + + + + | Component | Value | Ref Range | Performed At | + + + + + | PHOSPHORUS | 2.4Comment: Testing | 2.3 - 4.8 mg/dL | [facility] | | | performed at [facility], [address] | | LABORATORY | | | [address], | | | | | [place] [address] | | | + + + + + + + | Specimen | + + | Blood | + + + + + + + | Performing | Address | City/State/Zipcode | Phone Number | | Organization | | | | + + + + + | [facility] | [address] [place] [address] | [place] [address] | [phone] | | LABORATORY | [address]vd[address] | | | + + + + + Magnesium (09/27/2018 4:07 AM) + + + + + | Component | Value | Ref Range | Performed At | + + + + + | MAGNESIUM | 2.5 (H)Comment: Testing | 1.7 - 2.4 mg/dL | [facility] | | | performed at [facility], [address] | | LABORATORY | | | [address], | | | | | [place] [address] | | | + + + + + + + | Specimen | + + | Blood | + + + + + + + | Performing | Address | City/State/Zipcode | Phone Number | | Organization | | | | + + + + + | [facility] | [address] | [place] [address] | [phone] | | LABORATORY | [place]. | | [...] | | | | | performed at [facility], [address] | | | | | [facility], | | | | | [place] [address] | | | + + + + + + + | Specimen | + + | Blood | + + + + + + + | Performing | Address | City/State/Zipcode | Phone Number | | Organization | | | | + + + + + | [facility] | [address] | [place] [address] | [phone] | | LABORATORY | Blvd. | | [...] performed at | | | | | [facility], [address] [place] [address] | | | | | [place] | | | | | [address] | | | + + + + + + + | Specimen | + + | Blood | + + + + + + + | Performing | Address | City/State/Zipcode | Phone Number | | Organization | | | | + + + + + | [facility] | [address] | [place] [address] | [phone] | | LABORATORY | Blvd. | | | + + + + + PROCALCITONIN (09/27/2018 4:07 AM) + + + + + | Component | Value | Ref Range | Performed At | + + + + + | PROCALCITONIN | <0.05Comment: | <0.5 ng/mL | [facility] | | | INTERPRETIVE [...] performed | | | | | at [facility] [place] [facility] | | | | | [facility];[place] [address] | | | + + + + + + + + + + | Performing | Address | City/State/Zipcode | Phone Number | | Organization | | | | + + + + + | [facility] | [address] | [place] [address] | | + + + + + POCT glucose (09/27/2018 12:33 AM) + + + + + | Component | Value | Ref Range | Performed At | + + + + + | GLUCOSE,POC SCREEN | 88Comment: Testing | 65 - 99 mg/dL | [facility] | | | performed at [facility] [place] | | | | | [address];[place], [place] | | | | | [address] | | | + + + + + + + + + + | Performing | Address | City/State/Zipcode | Phone Number | | Organization | | | | + + + + + | [facility] | [address] | [place] [address] | | + + + + + POCT glucose (09/26/2018 6:05 PM) + + + + + | Component | Value | Ref Range | Performed At | + + + + + | GLUCOSE,POC SCREEN | 102 (H)Comment: Testing | 65 - 99 mg/dL | [facility] | | | performed at [facility] [place] | | | | | [address];[place] | | | | | [address] | | | + + + + + + + + + + | Performing | Address | City/State/Zipcode | Phone Number | | Organization | | | | + + + + + | [facility] | [address] | [place] [address] | | + + + + + POCT glucose (09/26/2018 12:16 PM) + + + + + | Component | Value | Ref Range | Performed At | + + + + + | GLUCOSE,POC SCREEN | 132 (H)Comment: Testing | 65 - 99 mg/dL | [facility] | | | performed at [facility] [place] | | | | | [facility];[place] | | | | | [address] | | | + + + + + + + + + + | Performing | Address | City/State/Zipcode | Phone Number | | Organization | | | | + + + + + | [facility] | [address] [facility] | [place] [address] | | + + + + + POCT glucose (09/26/2018 5:47 AM) + + + + + | Component | Value | Ref Range | Performed At | + + + + + | GLUCOSE,POC SCREEN | 160 (H)Comment: Testing | 65 - 99 mg/dL | [facility] | | | performed at [facility] [place] | | | | | [address];[place] | | | | | [address] | | | + + + + + + + + + + | Performing | Address | City/State/Zipcode | Phone Number | | Organization | | | | + + + + + | [facility] | [address] | [place] [address] | | + + + + + Phosphorus (09/26/2018 4:04 AM) + + + + + | Component | Value | Ref Range | Performed At | + + + + + | PHOSPHORUS | 2.4Comment: Testing | 2.3 - 4.8 mg/dL | [facility] | | | performed at [facility], [address] | | LABORATORY | | | [address], | | | | | [place] [address] | | | + + + + + + + | Specimen | + + | Blood | + + + + + + + | Performing | Address | City/State/Zipcode | Phone Number | | Organization | | | | + + + + + | [facility] | [address] | [place] [address] | [phone] | | LABORATORY | [address]vd[address] | | | + + + + + Magnesium (09/26/2018 4:04 AM) + + + + + | Component | Value | Ref Range | Performed At | + + + + + | MAGNESIUM | 2.8 (H)Comment: Testing | 1.7 - 2.4 mg/dL | [facility] | | | performed at [facility], [address] | | LABORATORY | | | [facility], | | | | | [place] [address] | | | + + + + + + + | Specimen | + + | Blood | + + + + + + + | Performing | Address | City/State/Zipcode | Phone Number | | Organization | | | | + + + + + | [facility] | [address] | [place] [address] | [phone] | | LABORATORY | [address] | | [...] (L)Comment: GFR <60: | >60 mL/min/1.73m2 | [facility] | | | CHRONIC KIDNEY DISEASE, | [...] the | | | | | MDRD IDID traceable | | | | | equation.Testing | | | | | performed at [facility], [address] | | | | | [facility], | | | | | [place] [address] | | | + + + + + + + | Specimen | + + | Blood | + + + + + + + | Performing | Address | City/State/Zipcode | Phone Number | | Organization | | | | + + + + + | [facility] | [address] | [place] [address] | [phone] | | LABORATORY | [address]vd[address] | | | + + + + + CBC w/auto diff (reflex to manual) (09/26/2018 4:04 AM) + + + + + | Component | Value | Ref Range | Performed At | + + + + + | WBC | 8.04 | 3.80 - 11.00 K/uL | [facility] | | | | | LABORATORY | [...] | | | | | TCL, [address] | | | | [address], [place] | | | | | [address] | | | + + + + + + + | Specimen | + + | Blood | + + + + + + + | Performing | Address | City/State/Zipcode | Phone Number | | Organization | | | | + + + + + | [facility] | [address] | [place] [address] | [phone] | | LABORATORY | [address] | | | + + + + + POCT glucose (09/25/2018 11:09 PM) + + + + + | Component | Value | Ref Range | Performed At | + + + + + | GLUCOSE,POC SCREEN | 142 (H)Comment: Testing | 65 - 99 mg/dL | [facility] | | | performed at [facility] [place] | | | | | [address];[place], [place] | | | | | [address] | | | + + + + + + + + + + | Performing | Address | City/State/Zipcode | Phone Number | | Organization | | | | + + + + + | [facility] | [address] | [place] [address] | | + + + + + POCT glucose (09/25/2018 6:00 PM) + + + + + | Component | Value | Ref Range | Performed At | + + + + + | GLUCOSE,POC SCREEN | 150 (H)Comment: Testing | 65 - 99 mg/dL | [facility] | | | performed at [facility] [place];[address] | | | | | [address];[place] | | | | | [address] | | | + + + + + + + + + + | Performing | Address | City/State/Zipcode | Phone Number | | Organization | | | | + + + + + | [facility] | [address] | [place] [address] | | + + + + + Potassium (09/25/2018 5:28 PM) + + + + + | Component | Value | Ref Range | Performed At | + + + + + | POTASSIUM | 4.8Comment: Testing | 3.5 - 4.9 mmol/L | [facility] | | | performed at [facility] [place];[address] | | | | | [address];[place] | | | | | [address] | | | + + + + + + + | Specimen | + + | Blood - Blood | + + + + + + + | Performing | Address | City/State/Zipcode | Phone Number | | Organization | | | | + + + + + | [facility] | [address] | [place] [address] | | + + + + + Magnesium (09/25/2018 5:28 PM) + + + + + | Component | Value | Ref Range | Performed At | + + + + + | MAGNESIUM | 2.7 (H)Comment: Testing | 1.7 - 2.4 mg/dL | [facility] | | | performed at [facility] [place];[address] | | | | | [address];[place] | | | | | [address] | | | + + + + + + + | Specimen | + + | Blood | + + + + + + + | Performing | Address | City/State/Zipcode | Phone Number | | Organization | | | | + + + + + | [facility] | [address] | [place] [address] | | + + + + + Phosphorus (09/25/2018 5:28 PM) + + + + + | Component | Value | Ref Range | Performed At | + + + + + | PHOSPHORUS | 3.2Comment: Testing | 2.3 - 4.8 mg/dL | [facility] | | | performed at [facility] [place];[facility] | | | | | [address];[place], [place] | | | | | [address] | | | + + + + + + + | Specimen | + + | Blood | + + + + + + + | Performing | Address | City/State/Zipcode | Phone Number | | Organization | | | | + + + + + | [facility] | [address] | [place] [address] | | + + + + + POCT glucose (09/25/2018 12:30 PM) + + + + + | Component | Value | Ref Range | Performed At | + + + + + | GLUCOSE,POC SCREEN | 147 (H)Comment: Testing | 65 - 99 mg/dL | [facility] | | | performed at [facility] [place];[address] | | | | | [address];[place] | | | | | [address] | | | + + + + + + + + + + | Performing | Address | City/State/Zipcode | Phone Number | | Organization | | | | + + + + + | [facility] | [address] | [place] [address] | | + + + + + POCT glucose (09/25/2018 6:30 AM) + + + + + | Component | Value | Ref Range | Performed At | + + + + + | GLUCOSE,POC SCREEN | 136 (H)Comment: Testing | 65 - 99 mg/dL | [facility] | | | performed at [facility] [place];[address] | | | | | [address];[place] | | | | | [address] | | | + + + + + + + + + + | Performing | Address | City/State/Zipcode | Phone Number | | Organization | | | | + + + + + | [facility] | [address] | [place] [address] | | + + + + + Phosphorus (09/25/2018 4:08 AM) + + + + + | Component | Value | Ref Range | Performed At | + + + + + | PHOSPHORUS | 2.8Comment: Testing | 2.3 - 4.8 mg/dL | [facility] | | | performed at [facility], [address] | | LABORATORY | | | [facility], | | | | | [place] [address] | | | + + + + + + + | Specimen | + + | Blood | + + + + + + + | Performing | Address | City/State/Zipcode | Phone Number | | Organization | | | | + + + + + | [facility] | [address] [place] [address] | [place] [address] | [phone] | | LABORATORY | [address]vd[address] | | | + + + + + Magnesium (09/25/2018 4:08 AM) + + + + + | Component | Value | Ref Range | Performed At | + + + + + | MAGNESIUM | 2.2Comment: Testing | 1.7 - 2.4 mg/dL | [facility] | | | performed at [facility], [address] | | LABORATORY | | | [address], | | | | | [place] [address] | | | + + + + + + + | Specimen | + + | Blood | + + + + + + + | Performing | Address | City/State/Zipcode | Phone Number | | Organization | | | | + + + + + | [facility] | [address] | [place] [address] | [phone] | | LABORATORY | [address]vd. | | [...] (H) | 0.50 - 1.00 mg/dL | [facility] | | | | | LABORATORY | + + + + + | BUN/CREAT | 26 | | [facility] | | | | | LABORATORY | + + + + + | CALCIUM | 7.3 (L) | 8.5 - 10.5 mg/dL | [facility] | | | | | LABORATORY | + + + + + | EGFR | 22 (L)Comment: GFR <60: | >60 mL/min/1.73m2 | [facility] | | | CHRONIC KIDNEY DISEASE, [...] | | | | | performed at [facility], [address] | | | | | [facility], | | | | | [place] [address] | | | + + + + + + + | Specimen | + + | Blood | + + + + + + + | Performing | Address | City/State/Zipcode | Phone Number | | Organization | | | | + + + + + | [facility] | [address] [place] [address] | [place] [address] | [phone] | | LABORATORY | [place] | | [...] | | | | TCL, [address] [facility] | | | | | [place] | | | | | [address] | | | + + + + + + + | Specimen | + + | Blood | + + + + + + + | Performing | Address | City/State/Zipcode | Phone Number | | Organization | | | | + + + + + | [facility] | [address] | [place] [address] | [phone] | | LABORATORY | [address]vd[address] | | | + + + + + POCT glucose (09/25/2018 12:15 AM) + + + + + | Component | Value | Ref Range | Performed At | + + + + + | GLUCOSE,POC SCREEN | 155 (H)Comment: Testing | 65 - 99 mg/dL | [facility] | | | performed at [facility] [place] | | | | | [address] [place] | | | | | [address] | | | + + + + + + + + + + | Performing | Address | City/State/Zipcode | Phone Number | | Organization | | | | + + + + + | [facility] | [address] | [place] [address] | | + + + + + POCT glucose (09/24/2018 5:26 PM) + + + + + | Component | Value | Ref Range | Performed At | + + + + + | GLUCOSE,POC SCREEN | 131 (H)Comment: Testing | 65 - 99 mg/dL | [facility] | | | performed at [facility] [place];[address] | | | | | [address];[place], [place] | | | | | [address] | | | + + + + + + + + + + | Performing | Address | City/State/Zipcode | Phone Number | | Organization | | | | + + + + + | [facility] | [address] | [place] [address] | | + + + + + POCT glucose (09/24/2018 11:14 AM) + + + + + | Component | Value | Ref Range | Performed At | + + + + + | GLUCOSE,POC SCREEN | 157 (H)Comment: Testing | 65 - 99 mg/dL | [facility] | | | performed at [facility] [place];[address] | | | | | [address];[place] | | | | | [address] | | | + + + + + + + + + + | Performing | Address | City/State/Zipcode | Phone Number | | Organization | | | | + + + + + | [facility] | [address] | [place] [address] | | + + + + + Glycohemoglobin A1c (09/24/2018 7:03 AM) + + + + + | Component | Value | Ref Range | Performed At | + + + + + | HEMOGLOBIN A1C | 6.1 (H)Comment: HbA1c | 4.0 - 6.0 % | [facility] | | | method is certified by [...] | 128Comment: Estimated | <154 mg/dL | [facility] | | GLUCOSE | Average Glucose | | LABORATORY | | | calculated from | | | | | hemoglobin A1c by use of | | | | | the ADA recommended | | | | | formula.Testing | | | | | performed at [facility], [facility] | | | | | [facility], | | | | | [place] [address] | | | + + + + + + + + + + | Performing | Address | City/State/Zipcode | Phone Number | | Organization | | | | + + + + + | [facility] | [address] [place] [address] | [place] [address] | [phone] | | LABORATORY | vd. | | | + + + + + CBC W/Auto Diff (Reflex to Manual) (09/24/2018 7:03 AM) + + + + + | Component | Value | Ref Range | Performed At | + + + + + | WBC | 16.40 (H) | 3.80 - 11.00 K/uL | [facility] | + + + + + | RBC | 3.66 (L) | 3.70 - 5.10 M/uL | [facility] | + + + + + [...] 45.5 | 37 - 53 fl | [facility] | + + + + + | PLT | 198Comment: | 150 - 400 K/uL | [facility] | + + + + + | MPV | 8.6Comment: | fl | [facility] | + + + + + | DIFF TYPE | AUTOMATED | | [facility] | + + + + + | NEUTROPHILS | 94.01 | % | [facility] | + + + + + [...] MORPHOLOGY | NORMAL PLT MORPHComment: | | [facility] | | | NORMAL RBC MORPH | | | + + + + + | Platelet Estimate | ADEQUATE | | [facility] | + + + + + | Diff Comment | PLATELETS CLUMPED, | | [facility] | | | APPEAR ADEQUATEComment: | | | | | SLIDE SCANNED, AGREES | | | | | WITH AUTOMATED | | | | | RESULTS.Testing | | | | | performed at [facility] [place] | | | | | [address];[place] | | | | | [address] | | | + + + + + + + + + + | Performing | Address | City/State/Zipcode | Phone Number | | Organization | | | | + + + + + | [facility] | [address] | [place] [address] | | + + + + + POCT glucose (09/24/2018 5:58 AM) + + + + + | Component | Value | Ref Range | Performed At | + + + + + | GLUCOSE,POC SCREEN | 175 (H)Comment: Testing | 65 - 99 mg/dL | [facility] | | | performed at [facility] [place] | | | | | [facility] | | | | | [address] | | | + + + + + + + + + + | Performing | Address | City/State/Zipcode | Phone Number | | Organization | | | | + + + + + | [facility] | [address] | [place] [address] | | + + + + + Phosphorus (09/24/2018 4:01 AM) + + + + + | Component | Value | Ref Range | Performed At | + + + + + | PHOSPHORUS | 2.4Comment: SPECIMEN | 2.3 - 4.8 mg/dL | [facility] | | | SL[facility] | | LABORATORY | | | HEMOLYZEDTesting | | | | | performed at [facility], [address] | | | | [address], | | | | | [place] [address] | | | + + + + + + + | Specimen | + + | Blood | + + + + + + + | Performing | Address | City/State/Zipcode | Phone Number | | Organization | | | | + + + + + | [facility] | [address] | [place] [address] | [phone] | | LABORATORY | [place]. | | [...] | | | | | performed at [facility], [address] | | | | | [address], | | | | | [place] [address] | | | + + + + + + + | Specimen | + + | Blood | + + + + + + + | Performing | Address | City/State/Zipcode | Phone Number | | Organization | | | | + + + + + | [facility] | [address] | [place] [address] | [phone] | | LABORATORY | [address] | | [...] SPECIMEN | 65 - 99 mg/dL | [facility] | | | SLIGHTLY HEMOLYZED | | LABORATORY | + + + + + | BUN | 30 (H) | 8 - 25 mg/dL | [facility] | | | | | LABORATORY | + + + + + | CREATININE | 2.1 (H)Comment: SPECIMEN | 0.50 - 1.00 mg/dL | [facility] | | | SLIGHTLY HEMOLYZED | | LABORATORY | + + + + + | BUN/CREAT | 14 | | [facility] | | | | | LABORATORY | + + + + + | CALCIUM | 7.7 (L) | 8.5 - 10.5 mg/dL | [facility] | | | | | LABORATORY | + + + + + | EGFR | 24 (L)Comment: GFR <60: | >60 mL/min/1.73m2 | [facility] | | | CHRONIC KIDNEY DISEASE, | [...] | | | | | performed at [facility], [address] | | | | | [facility], | | | | | [place] [address] | | | + + + + + + + | Specimen | + + | Blood | + + + + + + + | Performing | Address | City/State/Zipcode | Phone Number | | Organization | | | | + + + + + | [facility] | [address] | [place] [address] | [phone] | | LABORATORY | [place]. | | | + + + + + POC Arterial Blood Gas (09/24/2018 2:40 AM) + + + + + | Component | Value | Ref Range | Performed At | + + + + + | POC FIO2 | 40 | % | [facility] | + + + + + [...] 26 | 23 - 27 mEq/L | [facility] | + + + + + | POC BASE DEFICIT | 1 | 0.0 - 2.0 mmol/L | [facility] | + + + + + | POC S02 | 96Comment: Testing | 95 - 98 % | [facility] | | | performed at [facility] [place] | | | | | [address];[place] | | | | | [address] | | | + + + + + + + + + + | Performing | Address | City/State/Zipcode | Phone Number | | Organization | | | | + + + + + | [facility] | [address] | [place] [address] | | + + + + + POCT glucose (09/24/2018 12:07 AM) + + + + + | Component | Value | Ref Range | Performed At | + + + + + | GLUCOSE,POC SCREEN | 157 (H)Comment: Testing | 65 - 99 mg/dL | [facility] | | | performed at [facility] [place] | | | | | [address];[place] | | | | | [address] | | | + + + + + + + + + + | Performing | Address | City/State/Zipcode | Phone Number | | Organization | | | | + + + + + | [facility] | [address] | [place] [address] | | + + + + + POCT glucose (09/23/2018 5:52 PM) + + + + + | Component | Value | Ref Range | Performed At | + + + + + | GLUCOSE,POC SCREEN | 150 (H)Comment: Testing | 65 - 99 mg/dL | [facility] | | | performed at [facility] [place] | | | | | [address];[place] | | | | | [address] | | | + + + + + + + + + + | Performing | Address | City/State/Zipcode | Phone Number | | Organization | | | | + + + + + | [facility] | [address] | [place] [address] | | + + + + + [...] POC FIO2 | 30 | % | [facility] | + + + + + | POC COMMENTS | Modified Les Test | | [facility] | | | passedComment: Site = | | | | | right radialTesting | | | | | performed at [facility] [place] | | | | | [address];[place] | | | | | [address] | | | + + + + + + + + + + | Performing | Address | City/State/Zipcode | Phone Number | | Organization | | | | + + + + + | [facility] | [address] | [place] [address] | | + + + + + POC arterial CG4+ (09/23/2018 11:38 AM) + + + + + | Component | Value | Ref Range | Performed At | + + + + + | pH, Art | 7.274 (L) | 7.350 - 7.450 | [facility] | + + + + + | POC PCO2 | 60 (H) | 35 - 45 mmHg | [facility] | + + + + + | POC p02 | 61 (L) | 80 - 105 mmHg | [facility] | + + + + + [...] POC FIO2 | 30 | % | [facility] | + + + + + | POC COMMENTS | Modified Les Test | | [facility] | | | passedComment: Site = | | | | | right radialTesting | | | | | performed at [facility] [place] | | | | | [address];[place] | | | | | [address] | | | + + + + + + + + + + | Performing | Address | City/State/Zipcode | Phone Number | | Organization | | | | + + + + + | [facility] | [address] | [place] [address] | | + + + + + POCT glucose (09/23/2018 11:35 AM) + + + + + | Component | Value | Ref Range | Performed At | + + + + + | GLUCOSE,POC SCREEN | 138 (H)Comment: Testing | 65 - 99 mg/dL | [facility] | | | performed at [facility] [place] | | | | | [address];[place] | | | | | [address] | | | + + + + + + + + + + | Performing | Address | City/State/Zipcode | Phone Number | | Organization | | | | + + + + + | [facility] | [address] | [place] [address] | | + + + + + POCT glucose (09/23/2018 6:31 AM) + + + + + | Component | Value | Ref Range | Performed At | + + + + + | GLUCOSE,POC SCREEN | 161 (H)Comment: Testing | 65 - 99 mg/dL | [facility] | | | performed at [facility] [place] | | | | | [address];[place] | | | | | [address] | | | + + + + + + + + + + | Performing | Address | City/State/Zipcode | Phone Number | | Organization | | | | + + + + + | [facility] | [address] | [place] [address] | | + + + + + Phosphorus (09/23/2018 3:41 AM) + + + + + | Component | Value | Ref Range | Performed At | + + + + + | PHOSPHORUS | 3.0Comment: SPECIMEN | 2.3 - 4.8 mg/dL | [facility] | | | SLIGHTLY | | LABORATORY | | | HEMOLYZEDTesting | | | | | performed at [facility], [address] | | | | | [address], | | | | | [place] [address] | | | + + + + + + + | Specimen | + + | Blood | + + + + + + + | Performing | Address | City/State/Zipcode | Phone Number | | Organization | | | | + + + + + | [facility] | [address] | [place] [address] | [phone] | | LABORATORY | [place]. | | [...] | | | | | performed at [facility], [address] | | | | | [address] [facility], | | | | | [place] [address] | | | + + + + + + + | Specimen | + + | Blood | + + + + + + + | Performing | Address | City/State/Zipcode | Phone Number | | Organization | | | | + + + + + | [facility] | [address] | [place] [address] | [phone] | | LABORATORY | [address] | | [...] SPECIMEN | 65 - 99 mg/dL | [facility] | | | SLIGHTLY HEMOLYZED | | LABORATORY | + + + + + | BUN | 18 | 8 - 25 mg/dL | [facility] | | | | | LABORATORY | + + + + + | CREATININE | 1.4 (H)Comment: SPECIMEN | 0.50 - 1.00 mg/dL | [facility] | | | SLIGHTLY HEMOLYZED | | LABORATORY | + + + + + | BUN/CREAT | 13 | | [facility] | | | | | LABORATORY | + + + + + | CALCIUM | 8.2 (L) | 8.5 - 10.5 mg/dL | [facility] | | | | | LABORATORY | [...] | | | | | performed at [facility], [address] | | | | | [facility], | | | | | [place] [address] | | | + + + + + + + | Specimen | + + | Blood | + + + + + + + | Performing | Address | City/State/Zipcode | Phone Number | | Organization | | | | + + + + + | [facility] | [address] [place] [address] | [place] [address] | [phone] | | LABORATORY | [facility]. | | | + + [...] performed at | | | | | [facility], [address] [place] [address] | | | | | [place] | | | | | [address] | | | + + + + + + + | Specimen | + + | Blood | + + + + + + + | Performing | Address | City/State/Zipcode | Phone Number | | Organization | | | | + + + + + | [facility] | [address] | [place] [address] | [phone] | | LABORATORY | [address] | | | + + + + + PROCALCITONIN (09/23/2018 3:41 AM) + + + + + | Component | Value | Ref Range | Performed At | + + + + + | PROCALCITONIN | 0.74 (H)Comment: | <0.5 ng/mL | [facility] | | | INTERPRETIVE [...] performed | | | | | at [facility] [place] [place] [address] | | | | | [facility];[place] [address] | | | + + + + + + + + + + | Performing | Address | City/State/Zipcode | Phone Number | | Organization | | | | + + + + + | [facility] | [address] | [place] [address] | | + + + + + POC Arterial Blood Gas (09/23/2018 3:26 AM) + + + + + | Component | Value | Ref Range | Performed At | + + + + + | POC FIO2 | 35 | % | [facility] | + + + + + | pH, Art | 7.250 (L) | 7.350 - 7.450 | [facility] | + + + + + [...] Testing | 95 - 98 % | [facility] | | | performed at [facility] [place] | | | | | [address];[place] | | | | | [address] | | | + + + + + + + + + + | Performing | Address | City/State/Zipcode | Phone Number | | Organization | | | | + + + + + | [facility] | [address] | [place] [address] | | + + + + + POC Arterial Blood Gas (09/23/2018 12:14 AM) + + + + + | Component | Value | Ref Range | Performed At | + + + + + | POC FIO2 | 35 | % | [facility] | + + + + + | pH, Art | 7.139 (LL) | 7.350 - 7.450 | [facility] | + + + + + [...] (H) | 0.0 - 2.0 mmol/L | [facility] | + + + + + | POC S02 | 86 (L)Comment: Testing | 95 - 98 % | [facility] | | | performed at [facility] [place] | | | | | [address];[place] | | | | | [address] | | | + + + + + + + + + + | Performing | Address | City/State/Zipcode | Phone Number | | Organization | | | | + + + + + | [facility] | [address] | [place] [address] | | + + + + + [...] (H) | 0.0 - 2.0 mmol/L | [facility] | + + + + + | POC S02 | 91 (L)Comment: Testing | 95 - 98 % | [facility] | | | performed at [facility] [place] | | | | | [address];[place], [place] | | | | | [address] | | | + + + + + + + + + + | Performing | Address | City/State/Zipcode | Phone Number | | Organization | | | | + + + + + | [facility] | [address] | [place] [address] | | + + + + + POCT glucose (09/22/2018 10:26 PM) + + + + + | Component | Value | Ref Range | Performed At | + + + + + | GLUCOSE,POC SCREEN | 196 (H)Comment: Testing | 65 - 99 mg/dL | [facility] | | | performed at [facility] [place] | | | | | [address];[place] | | | | | [address] | | | + + + + + + + + + + | Performing | Address | City/State/Zipcode | Phone Number | | Organization | | | | + + + + + | [facility] | [address] | [place] [address] | | + + + + + [...] (H) | 0.0 - 2.0 mmol/L | [facility] | + + + + + | POC S02 | 93 (L)Comment: Testing | 95 - 98 % | [facility] | | | performed at [facility] [place] | | | | | [address];[place] | | | | | [address] | | | + + + + + + + + + + | Performing | Address | City/State/Zipcode | Phone Number | | Organization | | | | + + + + + | [facility] | [address] | [place] [address] | | + + + + + [...] performed at | | | | | [facility], [address] | | | | | [place] | | | | | [address] | | | + + + + + + + | Specimen | + + | Nares(Nose) | + + + + + + + | Performing | Address | City/State/Zipcode | Phone Number | | Organization | | | | + + + + + | [facility] | [address] | [place] [address] | [phone] | | LABORATORY | [place] | | [...] | + + + + + | [facility] | [address] | [place] [address] | [phone] | | LABORATORY | [address] | | [...] + + + + | Calculated P [place] | 77 | degrees | [facility] | + + + + + | Calculated R [place] | 87 | degrees | [facility] | + + + + + | Calculated T [place] | 61 | degrees | [facility] | + + + + + | Diagnosis | Sinus tachycardiaSeptal | | [facility] | | | infarct [...] | + + + + + | [facility] | [address] | [place] [address] | | + + + + + Phosphorus (09/22/2018 5:47 PM) + + + + + | Component | Value | Ref Range | Performed At | + + + + + | PHOSPHORUS | 4.6Comment: Testing | 2.3 - 4.8 mg/dL | [facility] | | | performed at [facility] [place] | | | | | [facility];[place] | | | | | [address] | | | + + + + + + + | Specimen | + + | Blood | + + + + + + + | Performing | Address | City/State/Zipcode | Phone Number | | Organization | | | | + + + + + | [facility] | [address] | [place] [address] | | + + + + + Magnesium (09/22/2018 5:47 PM) + + + + + | Component | Value | Ref Range | Performed At | + + + + + | MAGNESIUM | 1.8Comment: Testing | 1.7 - 2.4 mg/dL | [facility] | | | performed at [facility] [place];[address] | | | | | [address];[place] | | | | | [address] | | | + + + + + + + | Specimen | + + | Blood | + + + + + + + | Performing | Address | City/State/Zipcode | Phone Number | | Organization | | | | + + + + + | [facility] | [address] | [place] [address] | | + + + + + [...] 4.5 | 3.3 - 4.8 g/dL | [facility] | + + + + + | GLOBULIN | 2.0 | 1.3 - 4.9 g/dL | [facility] | + + + + + | A/G | 2.3 | 1.0 - 2.4 | [facility] | + + + + + | TBIL | 0.5 | 0.1 - 1.5 mg/dL | [facility] | + + + + + | ALK PHOS | 65 | 35 - 115 U/L | [facility] | + + + + + | AST | 19 | 10 - 45 U/L | [facility] | + + + + + | ALT | 19 | 10 - 65 U/L | [facility] | + + + + + | EGFR | 56 (L)Comment: GFR <60: | >60 mL/min/1.73m2 | [facility] | | | CHRONIC [...] | | | | | performed at [facility] [place] | | | | | [address];[place] | | | | | [address] | | | + + + + + + + | Specimen | + + | Blood | + + + + + + + | Performing | Address | City/State/Zipcode | Phone Number | | Organization | | | | + + + + + | [facility] | [address] | [place] [address] | | + + + + + CBC W/Auto Diff (Reflex to Manual) (09/22/2018 5:47 PM) + + + + + | Component | Value | Ref Range | Performed At | + + + + + | WBC | 19.62 (H) | 3.80 - 11.00 K/uL | [facility] | + + + + + | RBC | 4.36 | 3.70 - 5.10 M/uL | [facility] | + + + + + [...] 251 | 150 - 400 K/uL | [facility] | + + + + + | MPV | 8.4 | fl | [facility] | + + + + + | DIFF TYPE | AUTOMATED | | [facility] | + + + + + | NEUTROPHILS | 95.76 | % | [facility] | + + + + + | LYMPHOCYTES | 0.66 | % | [facility] | + + + + + [...] Comment | SLIDE SCANNED, AGREES | | [facility] | | | WITH AUTOMATED | | | | | RESULTS.Comment: Testing | | | | | performed at [facility] [place];[address] | | | | | [address];[place] | | | | | [address] | | | + + + + + + + | Specimen | + + | Blood | + + + + + + + | Performing | Address | City/State/Zipcode | Phone Number | | Organization | | | | + + + + + | [facility] | [address] | [place] [address] | | + + + + + MRSA by PCR (09/22/2018 5:35 PM) + + + + + | Component | Value | Ref Range | Performed At | + + + + + | SOURCE | NARES(NOSE) | | [facility] | + + + + + | MRSA PCR | NEGATIVEComment: Testing | NEGATIVE | [facility] | | | performed at [facility] [place] | | | | | [address];[place], [place] | | | | | [address] | | | + + + + + + + | Specimen | + + | Nasopharyngeal - | | Nasopharyngeal | | Culture | + + + + + + + | Performing | Address | City/State/Zipcode | Phone Number | | Organization | | | | + + + + + | [facility] | [address] | [place] [address] | | + + + + + [...] | + + + + + | [facility] | [address] | [place] [address] | | + + + + + POC Arterial Blood Gas (09/22/2018 5:20 PM) + + + + + | Component | Value | Ref Range | Performed At | + + + + + | POC FIO2 | 60 | % | [facility] | + + + + + | pH, Art | 7.178 (LL) | 7.350 - 7.450 | [facility] | + + + + + [...] (L) | 95 - 98 % | [facility] | + + + + + | POC COMMENTS | Modified Les Test | | [facility] | | | passedComment: Site = | | | | | right radialTesting | | | | | performed at [facility] [place];[address] | | | | | [address];[place] | | | | | [address] | | | + + + + + + + + + + | Performing | Address | City/State/Zipcode | Phone Number | | Organization | | | | + + + + + | [facility] | [address] | [place] [address] | | + + + + + POCT glucose (09/22/2018 5:08 PM) + + + + + | Component | Value | Ref Range | Performed At | + + + + + | GLUCOSE,POC SCREEN | 180 (H)Comment: Testing | 65 - 99 mg/dL | [facility] | | | performed at [facility] [place];[address] | | | | | [address];[place], [place] | | | | | [address] | | | + + + + + + + + + + | Performing | Address | City/State/Zipcode | Phone Number | | Organization | | | | + + + + + | [facility] | [address] | [place] [address] | | + + + + + [...] | | | | | | Starting [facility] 09/27/18 at 0050 | | | | [...] | | | | | dose on [facility] 09/27/18 at 1230 | | | | [...] | | | | First dose on [facility] 09/22/18 at 2000 | | [...] | | | | First dose on [facility] 09/27/18 at 0130 | | | | [...] | | | SBP > 160, Starting [facility] 09/27/18 at | | | | | [...] | | | | | | Starting [facility] 09/27/18 at 1512, 1) | | | [...]
--- OUTSIDE RECORDS SUMMARY | ~2018-11-26 | XMS | Encounter Summary ---
Demographics + + + | Address | [address] | | | [place] [address] | + + + | Home Phone | | + + + | Preferred Language | Unknown | + + + | Marital Status | | + + + | Taoism Affiliation | 1041 | + + + | Race | Unknown | + + + | Ethnic Group | Unknown | + + + Author + + + | Author | [facility] [employer] | + + + | Organization | [facility] [employer] | + + + | Address [...] Team Providers + +------+ + | Care Book Packer Name | Role | Phone | + [...] + + | 10/12/ | Telephone | [facility] | Taty Camacho RN | Letter for | | 2018 | | [facility] | | School/Work (FMLA) | | | | [address] | | | | | | [place] [address] | | | | | | [phone] | | | +--------+ + + + [...]
[~2018-11-26 21:59] MED LIST changes: +METHYLPREDNISOLO4 M1 PO; +ZITHROMAX250 MG PO
--- OUTSIDE RECORDS SUMMARY | 2018-11-26 22:02 | XMS ---
PreManage Notification: KYLIE GORE Security Research Clerk Events No recent Security Events currently on file CRITERIA MET - [facility] - Has Care Guidelines CARE PROVIDERS Woody Fisher Internal Medicine: Pulmonary Disease 09/24/2018-Current PHONE: Unknown Robby Winter MD Primary Care Current PHONE: Unknown dillon Case or Government Relations Manager Current PHONE: Unknown Valerie has no Care Guidelines for this patient. Care History Medical/Surgical 09/24/2018 [facility] - Patient is currently established with [facility]. If patient is seen in the ED during business hours. Please contact [facility] at [facility]. Care Recommendation: This patient has had 5 or more Emergency Department visits in the last 12 months.\T\nbsp; Patient requires education on the scope and purpose of the ED as an acute care provider not a Primary Care Provider and should not be utilized for chronic conditions.\T\nbsp; These are guidelines and the provider should exercise clinical judgment when providing care. E.D. VISIT COUNT (12 MO.) 4 [facility] TOTAL 4 NOTE: Visits indicate total known visits. ED/UCC VISIT TRACKING (12 MO.) 11/26/2018 21:59 [facility] [place] TYPE: Emergency COMPLAINT: - SOB 09/22/2018 06:30 [facility] [place] TYPE: Emergency COMPLAINT: - SOB 09/07/2018 14:10 [facility] [place] TYPE: Emergency COMPLAINT: - SOB 07/08/2018 10:18 [facility] [place] TYPE: Emergency COMPLAINT: - SHORTNESS OF BREATH DIAGNOSES: - Other half-way (current) drug therapy - Nicotine dependence, unspecified, uncomplicated - Shortness of breath - Allergy status to other drugs, medicaments and biological substances status - Personal history of malignant neoplasm of cervix uteri - Nicotine dependence, cigarettes, uncomplicated - Chronic obstructive pulmonary disease with (acute) exacerbation - Tobacco abuse counseling - Acquired absence of both cervix and uterus INPATIENT VISIT TRACKING (12 MO.) 09/22/2018 16:54 [facility] TYPE: General Medicine DIAGNOSES: - Respiratory Failure - Acute and chronic respiratory failure with hypoxia - Acute and chronic respiratory failure with hypercapnia 09/22/2018 06:31 [facility] TYPE: Observation COMPLAINT: - COPD EXACERBATION DIAGNOSES: - Shortness of breath - Dependence on supplemental oxygen - [facility] (current) use of inhaled steroids - Nicotine dependence, cigarettes, uncomplicated - Volume depletion, unspecified - supervisor intermediates (current) use of systemic steroids - Personal history of malignant neoplasm of cervix uteri - Acute and chronic respiratory failure with hypoxia - Chronic obstructive pulmonary disease with (acute) exacerbation - Acute and chronic respiratory failure with hypercapnia - Other half-way (current) drug therapy - Allergy status to other drugs, medicaments and biological substances status 09/07/2018 16:22 [facility] TYPE: Medical Surgical COMPLAINT: - COPD EXACERBATION DIAGNOSES: - Acute and chronic respiratory failure with hypoxia - Dependence on supplemental oxygen - [facility] (current) use of systemic steroids - Other bed bug exterminator (current) drug therapy - Nicotine dependence, cigarettes, uncomplicated - supervisor intermediates (current) use of inhaled steroids - supervisor intermediates (current) use of inhaled steroids - Chronic obstructive pulmonary disease with (acute) exacerbation - Allergy status to other drugs, medicaments and biological substances status - Chronic obstructive pulmonary disease with (acute) exacerbation - Personal history of malignant neoplasm of cervix uteri - Personal history of malignant neoplasm of cervix uteri - supervisor intermediates (current) use of systemic steroids - Nicotine dependence, cigarettes, uncomplicated - Dependence on supplemental oxygen - Other half-way (current) drug therapy - Allergy status to other drugs, medicaments and biological substances status [email or web address]
--- NOTE | 2018-11-27 01:24 | NUR ---
REPORT RECEIVED FROM JOSUE REYNA IN ED. PT ARRIVES TO MS FLOOR VIA STRETCHER. AMBULATING INDEPENDENTLY TO RESTROOM SPO2 WNL ON 2L OXYGEN BY NC. SOME SOB WITH AMBULATION. ASSESSMENT COMPLETE. EXPIRATORY WHEEZES THROUGHOUT ALL LUNG LOBES ON AUSCULTATION. HR REGULAR RHYTHM. IV FLUSHED AND FLUIDS INFUSING WNL ORDERED. ORIENTATION TO ROOM PROVIDED. CALL LIGHT NEXT TO PT. NO REQUESTS AT THIS TIME.
--- NOTE | 2018-11-27 01:47 | NUR ---
PT ADMITTED TO ROOM 114 FROM ED WITH SOB. ON 2 LITERS CRONIC O2, LIVES ALONE. SELF TRANSFERED FROM THE STRETCHER, AMBULATED TO BR INDEPENDENTLY. INCREASED SOB ON EXERTION, DENIES PAIN. EDUCATED TO CALL LIGHT, BED CONTROLS, STATED AWARENESS AND UNDERSTANDS SHE NEEDS TO CALL TO USE THE BATHROOM.
--- NOTE | 2018-11-27 02:53 | NUR ---
CHECKED ON PT, RESTING IN BED WITH EYES CLOSED. BREATHING NON-LABORED. SPO2 99% ON 2L OXYGEN BY NC. HR 91. CPOX IN PLACE. LIGHTS OFF IN ROOM. IVF INFUSING.
--- NOTE | 2018-11-27 06:26 | NUR ---
PT ASSESSMENT COMPLETE. EXPIRATORY WHEEZES HEARD THROUGHOUT. PT STATE SOME SOB, SPO2 98% ON 2L OXYGEN BY NC. CONT. PULSE OX IN PLACE. IV SOLUMEDROL ADMINISTERED WNL, EDUCATION PROVIDED. PT VERBALIZES UNDERSTANDING TO USE CALL LIGHT BEFORE GETTING OUT OF BED. CALL LIGHT IN REACH.
--- NOTE | 2018-11-27 06:43 | NUR ---
GRID MOLDER REPORTED PT RIGHT WRIST WITH SWELLING/BUMP NEAR IV SITE. IV INFILTRATED. IV STOPPED, IV DC'D, WRIST ELEVATED.
--- NOTE | 2018-11-27 08:49 | NUR ---
PATIENT SITTING UP IN CHAIR, CALL LIGHT IN REACH. NO OTHER NEEDS AT THIS TIME.
--- NOTE | 2018-11-27 09:18 | NUR ---
pt sittiing up in recliner, finished 100% of breakfast. pt alert and oriented. pt requested coffee this is provided.
--- NOTE | 2018-11-27 11:33 | NUR ---
PT HAD BEEN S/L WHILE UP TO BATHROOM, PT NOW BACK ON FLUIDS ORDERED, I.V. SIRTE ASSESSED WNL, NO REDNESS OR SWELLING NOTED. PT ALERT AND ORIENTED
--- NOTE | 2018-11-27 13:08 | EKG ---
[facility] [address] [facility] [place], [place] [address] Signed Sinus tachycardia Otherwise normal ECG When compared with ECG of 22-SEP-2018 08:00, Criteria for Septal infarct are no longer present Confirmed by REGULO PRICE DO ([id number]) on 11/27/2018 1:08:13 PM Electronically Signed By: REGULO PRICE DO 11/27/18 1308 PATIENT NAME: KYLIE GORE Electrocardiogram DATE OF : 54 PHYSICIAN: REGULO PRICE DO REPORT #: [id number] REPORT IS CONFIDENTIAL AND NOT TO BE RELEASED WITHOUT AUTHORIZATION
--- NOTE | 2018-11-27 13:22 | NUR ---
HELPED PT TO THE BATHROOM, SHE DID WELL A STANDBY. DID NOT USE HER WALKER PER PATIENT REQUEST.WHILE FILLING UP HER WATER SHE GOT HERSELF BACK TO THE CHAIR. REMINDED PT TO USE HER CALL LIGHT. CALL LIGHT IN PLACE.
--- NOTE | 2018-11-27 13:33 | NUR ---
PATIENT SITTING UP IN BEDSIDE RECLINER, CALL LIGHT IN REACH. PATIENT REFUSING SHOWER TODAY. NO OTHER NEEDS AT THIS TIME.
--- NOTE | 2018-11-27 14:50 | NUR ---
PT RESTING IN RECLINER, ALERT AND ORIENTED. NO COMPLAINTS OR PAIN
--- NOTE | 2018-11-27 16:31 | NUR ---
PATIENT SITTING UP IN BEDSIDE RECLINER, CALL LIGHT IN REACH. NO OTHER NEEDS AT THIS TIME.
--- NOTE | 2018-11-27 17:36 | NUR ---
PATIENT SITTING UP IN BEDSIDE RECLINER EATING DINNER AND VISITING WITH DAUGHTER, CALL LIGHT IN REACH, NO OTHER NEEDS AT THIS TIME.
--- NOTE | 2018-11-27 17:51 | NUR ---
PT HAS BEEN UP AMBUALTING IN ROOM STEADY GAIT, ON 2L OXYGEN CHRONIC, TACHYPNIA IMPROVING TODAY, EXP. WHEEZES IMPROVED OVER SHIFT WELL THROUGHOUT LUNG TATE, GOOD APPETITE, GOOD URINE OUT.
--- NOTE | 2018-11-27 19:30 | NUR ---
BEDSIDE REPORT RECEIVED FROM JOSUE WEBB. PT RESTING IN BED SPO2 99% ON 2L OXYGEN BY NC. PT DENIES SOB. CPOX IN PLACE. IVF INFUSING WNL. FAMILY SUPPORT SPECIALIST IN ROOM FOR SBA TO RESTROOM FOR VOID.
--- NOTE | 2018-11-27 20:12 | NUR ---
PT ASSESSMENT COMPLETE. EXPIRATORY WHEEZES HEARD IN RLL AND BILATERALLY UPPER LOBES ANTERIORLY WHEN AUSCULATED. SPO2 WNL ON 2L OXYGEN BY NC. BREATHING NON-LABORED. PT C/O CHRONIC TINGLING RLE TOES AND BOTTOM OF FOOT. ICE WATER PROVIDED. NEW BAG IVF INFUSING WNL, FLUSHED WNL. NO ADDITIONAL REQUESTS.
--- NOTE | 2018-11-27 22:13 | NUR ---
SBA TO THE BATHROOM AND BACK TO BED. ICE WATER REFILLED. CALL LIGHT AND TABLE IN REACH.
--- NOTE | 2018-11-27 22:29 | NUR ---
IN PT ROOM FOR SCHEDULED MEDICATION ADMINISTRATION. PT RESTING IN BED AWAKE, WATCHING TV. DRY COUGH NOTED, NOT PRODUCTIVE PER PT. SPO2 WNL ON 2L OXYGEN BY NC. IV FLUSHED WNL, IVF INFUSING WNL ORDERED. NO REQUESTS AT THIS TIME, CALL LIGHT AND PERSONAL SUPPLIES IN REACH.
--- NOTE | 2018-11-27 23:10 | NUR ---
CALL LIGHT ANSWERED. TOREY RM IN ROOM ASSISTING PT TO RESTROOM.
--- NOTE | 2018-11-28 02:07 | NUR ---
CHECKED ON PT. RESTING IN BED WITH EYES CLOSED. BREATHING EQUAL AND NON-LABORED. SPO2 98% ON 2L OXYGEN BY NC.
--- NOTE | 2018-11-28 03:48 | NUR ---
PT RESTING IN BED WITH EYES CLOSED. BREATHING NON-LABORED. SPO2 WNL ON 2L OXYGEN BY NC.
--- NOTE | 2018-11-28 04:35 | NUR ---
CALL LIGHT ANSWERED. SBA TO RESTROOM FOR 900 ML VOID AND BACK TO BED. PT TOLERATING AMBULATION WELL. SPO2 WNL ON 2L OXYGEN BY NC. WHEEZES AUSCULTATED THROUGHOUT LUNG LOBES ON EXPIRATION. OCCASIONAL INSPIRATORY WHEEZE NOTED. ICE WATER PROVIDED. VSS. IVF INFUSING WNL ORDERED. CALL LIGHT IN REACH.
--- NOTE | 2018-11-28 06:39 | NUR ---
IN PT ROOM FOR SCHEDULED MEDICATION ADMINISTRATION. IVF INFUSING WNL. SBA TO RESTROOM FOR VOID. SPO2 WNL ON 2L OXYGEN BY NC. ICE WATER PROVIDED. CALL LIGHT IN REACH.
--- NOTE | 2018-11-28 06:48 | NUR ---
PT RESTED WELL THIS SHIFT. 2L OXYGEN BY NC, SPO2 WNL, CPOX IN PLACE. SBA TO RESTROOM FOR QS VOIDS. IVF INFSUING WNL. IV SOLU MEDROL. PT HAS DENIED SOB. PO DOXYCYCLINE.
--- NOTE | 2018-11-28 09:45 | NUR ---
PATIENT SITTING IN CHAIR. SHE IS SET UP FOR A SHOWER. CALL LIGHT IN REACH. NO FURTHER NEEDS AT THIS TIME.
--- NOTE | 2018-11-28 09:45 | NUR ---
TALKED WITH MADISON VICTORW ABOUT THIS PT AFTER REFERRAL WAS MADE YESTERDAY BUT I WAS UNABLE TO TALK WITH MADISON SHE WAS OUT OF HOSPITAL. SHE STATES SHE AND TI WILL COME AND TALK WITH PT TODAY AND SET UP A TIME FOR A HOME VISIT.
--- NOTE | 2018-11-28 10:12 | NUR ---
PATIENT UP TO CHAIR FOR BREAKFAST. CALLS APPROPRIATELY WHEN SHE NEEDS TO MOVE AROUND IN ROOM. 2L [address]-- HER BASELINE AT HOME. LUNGS SOUNDED CLEAR BUT DIM THROUGHOUT PRIOR TO BREATHING TREATMENTS.
--- NOTE | 2018-11-28 11:15 | NUR ---
TALKED WITH MADISON RIVERA AND SHE STATED THEY SHOULD BE DOWN TO TALK WITH PT IN AN HOUR OR SO WHEN TI RETURNS FROM A PT HOME VISIT. INFORMED PT OF THIS SHE SAID SHE REALLY APPRECIATED THIS.
--- NOTE | 2018-11-28 13:00 | NUR ---
MADISON AND TI CHWS JUST FINISHED VISITNG WITH THE PT AND MADE AN APPT WITH HER TO MEET AT HER HOME AT 10 AM TOMORROW.
--- NOTE | 2018-11-28 13:42 | NUR ---
DR REARDON ROUNDING ON PATIENT NOW. SOLU MEDROL GIVEN ORDERED. LEFT FOREARM IV WORKING WELL. FLUSHED WITH NS AFTER SOLU MEDROL GIVEN.
[2018-11-28] MEDS ORDERED: PERFOROMIS20 MCG/2 M INH ×2 (14:10→16:50)
[2018-11-28] MEDS ORDERED: DOXYCYCLINE HY100 MG PO (14:10)
[2018-11-28] MEDS ORDERED: IPRAT-ALBUT 0.5-3 ML INH (14:11)
[2018-11-28] MEDS ORDERED: PREDNISONE20 MG PO (14:15)
== END 2018-11-28 15:40 | disposition home or self-care (01) ==
LOC: ED 21:59 → MS 22:00
PROVIDERS: ADMIT Student in an Organized Health Care Education/Training Program
DX: J44.1 Chronic obstructive pulmonary disease with (acute) exacerbation (principal); J96.11 Chronic respiratory failure with hypoxia; N17.9 Acute kidney failure, unspecified; F17.210 Nicotine dependence, cigarettes, uncomplicated; Z88.8 Allergy status to other drugs, medicaments and biological substances; Z85.41 Personal history of malignant neoplasm of cervix uteri; Z79.51 Long term (current) use of inhaled steroids; Z79.899 Other long term (current) drug therapy
CPT/HCPCS: 36415; 71045; 80048; 80053; 83735; 83880; 84484; 85025; 93005; 93010; 94640; 94645; 94667; 94668; 94762; 96372; 96374; 96376; 99285-25; G0378; J1650; J2930; J7120

== ENCOUNTER 2020-05-28 10:50 | Day surgery (SDC) | payer MEDICARE, MEDICAID ==
[~2020-05-28] VITALS: Ht 157.5 cm; Wt 86.8 kg
[~2020-05-28 10:50] MED LIST changes: +PERFOROMIS20 MCG/2 M INH
--- NOTE | 2020-05-28 12:29 | NUR ---
05/28/20 1229 Rina Sanders 1223- PT ARRIVES TO PACU DROWSY WITH ORAL AIRWAY IN PLACE AND MASK AT 10L. 1227- ORAL AIRWAY REMOVED. PT ORIENTATED TO TIME AND PLACE. RESPONDS TO VERBAL STIMULI. RESP EVEN AND UNLABORED. VSS.
--- NOTE | 2020-05-29 11:54 | OR ---
[facility] [address] [place], [place] [address] Signed DATE OF OPERATION: 05/28/2020 SURGEON: Billy Beach MD PREOPERATIVE DIAGNOSES: 1. Positive Cologuard test. 2. Severe chronic obstructive pulmonary disease (ASA class 3+). POSTOPERATIVE DIAGNOSIS: Small polyps x7. PROCEDURE: Total colonoscopy to cecum with intubation of ileum and biopsy of ileum and cold snare polypectomy x3 and cold morcellation polypectomy x4. ANESTHESIA: Intravenous sedation, propofol infusion; Billy Esteban CRNA INDICATIONS: This 70-year-old white woman is a patient Dr. Fisher, and here for consideration of colonoscopy based on a positive Cologuard test. The patient did have some bright red rectal bleeding, which she attributed to hemorrhoids. She has no family history of colon cancer. She is known to have COPD and required 8 days of hospitalization at [facility] a year ago for a flare of her COPD. She has relatively severe lung disease, requiring home oxygen and episodic prednisone use. She is admitted to undergo colonoscopy on the basis of the positive Cologuard test and understands the risks of bleeding, infection, and perforation. FINDINGS: The prep was excellent. Complete colonoscopy was undertaken of the cecum. Intubation of the ileum was accomplished as well partially. A random biopsy of the ileum was performed, though it did not have pathologic findings. There were seven polyps in total that were excised, all of them small and at least half of them probably hyperplastic. This included snare polypectomy at 60 cm and at 20 cm and a snare polypectomy at 10 cm with four cold morcellation polypectomies closely associated with the other sites. There was no evidence of active bleeding. I saw no sign of significant hemorrhoidal disease. DESCRIPTION OF PROCEDURE: The patient was brought to the endoscopy suite and placed in lateral decubitus position Electronically Signed By: BILLY BEACH MD 05/29/20 1154 PATIENT NAME: KYLIE GORE OPERATIVE REPORT DATE OF : 54 REPORT #: [id number] PHYSICIAN: BILLY BEACH MD PCP: JAYLA FISHER MD REPORT IS CONFIDENTIAL AND NOT TO BE RELEASED WITHOUT AUTHORIZATION [facility] [address] [place], [place] [address] Signed given intravenous sedation with propofol infusional technique by the child and family counselor with full cardiopulmonary monitoring. Digital rectal examination was normal. An Olympus video colonoscope was passed into the rectum and manipulated throughout the colon ultimately intubating the cecum itself. The ileocecal valve and appendiceal orifice were normal. A fair amount of effort was taken to intubate the ileum, it was briefly entered and then introduced and ultimately a biopsy was taken randomly within the ileum to assess that there was no adenomatous change there, though it was not fully examined endoscopically. The scope was then withdrawn and examination undertaken showed no sign of abnormality until approximately 60 cm from the anal verge. A sessile polyp was noted there was small, was excised with cold morcellation technique after first excising with a cold snare. Further withdrawal of scope showed two small polyps at 20 cm, both excised with cold snare technique and withdrawal to 15 cm with another small polyp excised with cold morcellation technique and three small polyps in the rectum at 10 cm, one of them excised with cold snare and the two others with morcellation technique and in an aggregate seven polyps were excised, none of them were large and most likely several were hyperplastic. The scope was withdrawn and removed, and the patient was taken to the recovery room in good condition. CONCLUDING DIAGNOSIS: Multiple polyps, some of them hyperplastic. PLAN: Recommend repeat colonoscopy in one year if greater than four of the polyps were adenomas; if not repeat in 3 years. She will return to the ongoing care of Dr. Fisher. MD DEEPTHI Martinez/MODL /[id number] cc: Jayla Fisher MD Copies: Electronically Signed By: BILLY BEACH MD 05/29/20 1154 PATIENT NAME: KYLIE GORE OPERATIVE REPORT DATE OF : 54 REPORT #: [id number] PHYSICIAN: BILLY BEACH MD PCP: JAYLA FISHER MD REPORT IS CONFIDENTIAL AND NOT TO BE RELEASED WITHOUT AUTHORIZATION [facility] [address] [place] [id number] Signed ~ Electronically Signed By: BILLY BEACH MD 05/29/20 1154 PATIENT NAME: KYLIE GORE OPERATIVE REPORT DATE OF : 54 REPORT #: [id number] PHYSICIAN: BILLY BEACH MD PCP: JAYLA FISHER MD REPORT IS CONFIDENTIAL AND NOT TO BE RELEASED WITHOUT AUTHORIZATION
--- NOTE | 2020-06-01 16:48 | PATH ---
[facility] [address] [facility] [place], [place] [address] Signed SPECIMEN(S): A ILEUM SPECIMEN(S): B COLON POLYP AT 60 CM SPECIMEN(S): C COLON POLYP AT 20 CM SPECIMEN(S): D COLON POLYP AT 15 CM SPECIMEN(S): E COLON POLYP AT 10 CM SPECIMEN SOURCE: A. ILEUM B. COLON POLYP AT 60 CM C. COLON POLYP AT 20 CM D. COLON POLYP AT 15 CM E. COLON POLYP AT 10 CM CLINICAL HISTORY: Rectal bleeding; positive Cologuard. DX: Polyps. MICROSCOPIC DESCRIPTION: Histologic sections of all submitted blocks are examined by light microscopy. These findings, together with the gross examination, support the pathologic diagnosis. FINAL PATHOLOGIC DIAGNOSIS: A. Ileum, biopsy: - Ileal mucosa with no histopathologic abnormality. - Negative for active inflammation or granulomata. - Negative for dysplasia or malignancy. B. Colon, polyp at 60 cm, polypectomy: - Colonic mucosa with no histopathologic abnormality. - Negative for dysplasia or malignancy. C. Colon, polyp at 20 cm, polypectomy: - Fragments of tubular adenoma(s); negative for high-grade dysplasia. - Fragment of hyperplastic polyp. - Negative for malignancy. D. Colon, polyp at 15 cm, polypectomy: - Hyperplastic polyp. - Negative for dysplasia or malignancy. E. Colon, polyp at 10 cm, polypectomy: - Fragments of hyperplastic polyp. - Negative for dysplasia or malignancy. COMMENT: Regarding specimen B: Multiple additional deeper levels were examined. PATIENT NAME: SOFÍASTEPHANIE PAZ PATHOLOGY DATE OF : 54 REPORT #: [id number] PHYSICIAN: JAY REEVES PCP: MARGOT GRACE MD REPORT IS CONFIDENTIAL AND NOT TO BE RELEASED WITHOUT AUTHORIZATION [facility] [address] [place], [place] [address] Signed NAL:cml:C2NR GROSS DESCRIPTION: Five specimens are received in five containers, labeled "Stephanie Gore." A. The specimen, labeled "Stephanie Gore, #1," and designated on the requisition "ileum," is received in formalin and consists of one arellano soft tissue fragment that measures 0.3 cm in greatest dimension. The specimen is entirely submitted in cassette (A1). B. The specimen, labeled "Stephanie Gore, #2," and designated on the requisition "colon polyp at 60 cm," is received in formalin and consists of five arellano soft tissue fragments that measure 0.2 to 0.7 cm in greatest dimension. The specimen is entirely submitted in cassette (B1). C. The specimen, labeled "Stephanie Gore, #3, x 2 polyps," and designated on the requisition "colon polyp at 20 cm," is received in formalin and consists of four arellano soft tissue fragments that measure 0.2 to 0.3 cm in greatest dimension. The specimen is entirely submitted in cassette (C1). D. The specimen, labeled "Juan C Goreet, #4," and designated on the requisition "colon polyp at 15 cm," is received in formalin and consists of two arellano soft tissue fragments that measure 0.2 and 0.3 cm in greatest dimension. The specimen is entirely submitted in cassette (D1). E. The specimen, labeled "Juan C Goreet, #5," and designated on the requisition "colon polyp at 10 cm," is received in formalin and consists of five arellano soft tissue fragments that measure 0.2 to 0.3 cm in greatest dimension. The specimen is entirely submitted in cassette (E1). FB (under the direct supervision of a pathologist) The Gross Description was prepared using a voice recognition system. The report was reviewed for accuracy; however, sound-alike word errors, addition and/or deletions may occur. If there is any question about this report, please contact Client Services. PERFORMING LABORATORY: The technical component was performed by [facility] [address] ([place]: Aditi Dent MD; CLIA# [id number]). Professional interpretation was performed by [facility], [address] [place] [id number] (CLIA# [id number]). Diagnostician: Hui Winchester MD Pathologist Electronically Signed 06/01/2020 PATIENT NAME: STEPHANIE GORE PATHOLOGY DATE OF : 54 REPORT #: [id number] PHYSICIAN: JAY PATHOLOGY PCP: MARGOT GRACE MD REPORT IS CONFIDENTIAL AND NOT TO BE RELEASED WITHOUT AUTHORIZATION [facility] [address] [place], [place] [address] Signed Copies: ~ PATIENT NAME: STEPHAINE GORE PATHOLOGY DATE OF : 54 REPORT #: [id number] PHYSICIAN: JAY PATHOLOGY PCP: MARGOT GRACE MD REPORT IS CONFIDENTIAL AND NOT TO BE RELEASED WITHOUT AUTHORIZATION
== END 2020-05-28 13:08 | disposition home or self-care (01) ==
LOC: OPS 10:50 → DS 10:50 → OPS 12:00
PROVIDERS: ATTEND Surgery
PROC: 0DBE8ZZ Excision of Large Intestine, Via Natural or Artificial Opening Endoscopic (ICD-10-PCS; 2020-05-28)
PROC: 0DBK8ZZ Excision of Ascending Colon, Via Natural or Artificial Opening Endoscopic (ICD-10-PCS; 2020-05-28)
PROC: 0DBB8ZZ Excision of Ileum, Via Natural or Artificial Opening Endoscopic (ICD-10-PCS; principal; 2020-05-28 12:00)
DX: D12.6 Benign neoplasm of colon, unspecified (principal); J44.9 Chronic obstructive pulmonary disease, unspecified; Z79.899 Other long term (current) drug therapy; Z88.8 Allergy status to other drugs, medicaments and biological substances; Z99.81 Dependence on supplemental oxygen; Z87.891 Personal history of nicotine dependence
CPT/HCPCS: 88305; J1720; J2704; J7121

== ENCOUNTER 2023-03-11 19:41 | Emergency (ER) | payer MEDICARE, OTHER ==
[~2023-03-11] VITALS: Ht 157.5 cm; Wt 89.7 kg
[~2023-03-11 19:41] MED LIST changes: -PULMICORT0.5 MG/2 M INH
[2023-03-11 20:52] LABS: INFLUENZA B NAA NEGATIVE (NEGATIVE); RESPIRATORY SYNCYTIAL VIR NAA NEGATIVE (NEGATIVE)
[2023-03-11] MEDS ORDERED: PREDNISONE20 MG PO (21:36)
[2023-03-11] MEDS ORDERED: PAXLOVID 300-11 EACH PO (21:37)
[2023-03-11 22:08] VITALS: BP 109/83
[2023-03-16] MEDS ORDERED: ATORVASTATIN CA20 MG PO (04:54)
[2023-03-16] MEDS ORDERED: VALSARTAN80 MG PO (04:54)
[2023-03-16] MEDS ORDERED: PREDNISONE20 MG PO (08:58)
[2023-03-16] MEDS ORDERED: PULMICORT0.5 MG/2 M INH (10:36)
== END 2023-03-11 22:11 | disposition home or self-care (01) ==
LOC: ED 19:41
PROVIDERS: Emergency Medicine
DX: U07.1 COVID-19 (principal); J44.9 Chronic obstructive pulmonary disease, unspecified; Z72.0 Tobacco use; Z88.8 Allergy status to other drugs, medicaments and biological substances; Z79.52 Long term (current) use of systemic steroids
CPT/HCPCS: 87502; 99283; J7512; U0002

== ENCOUNTER 2023-03-14 07:39 | Emergency (ER) | payer MEDICARE, MEDICAID ==
[~2023-03-14] VITALS: Ht 157.5 cm; Wt 89.4 kg
[~2023-03-14 07:39] MED LIST changes: +PAXLOVID 300-11 EACH PO
--- OUTSIDE RECORDS SUMMARY | 2023-03-14 07:49 | XMS ---
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 09/24/2018 [facility] - Patient is currently established with [facility]. If patient is seen in the ED during business hours. Please contact CHWs at [facility]. Care Recommendation: This patient has had 5 [...] providing care. E.D. VISIT COUNT (12 MO.) 2 [facility]. TOTAL 2 NOTE: Visits indicate total known visits. 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
[2023-03-14 08:07] LABS: BASOPHILS 0.1 % (0-2); EOSINOPHILS 0.6 % (0-6); HEMATOCRIT 38.6 % (35.0-50.0); HEMOGLOBIN 12.9 g/dL (12.0-18.0); LYMPHOCYTES 16.1 % (24-44); MCH 29.6 (27-36); MCHC 33.5 g/dl (30-36); MCV 88.3 fl (81-99); MONOCYTES 11.6 % (0-12); NEUTROPHILS 71.6 % (39-80); PLATELET COUNT 153 K/uL (140-440); RBC 4.38 M/ul (4.3-5.7); RDW 14.7 (10.5-15.0)
[2023-03-14 08:21] LABS: ALBUMIN 3.4 g/dL (3.4-5.0); ALBUMIN/GLOBULIN RATIO 0.92 (1.1-2.4); ANION GAP 14.2 (7-21); BILIRUBIN, TOTAL 0.4 ng/dL (0.2-1.0); BUN/CREATININE RATIO 18.98 (6.0-28.6); CALCIUM 8.9 mg/dL (8.5-10.1); CREATININE, SERUM 1.58 mg/dL (0.55-1.02); POTASSIUM 4.2 mmol/L (3.5-5.1); PROTEIN, TOTAL 7.1 g/dL (6.4-8.2)
[2023-03-14 08:24] LABS: LACTIC ACID, BLOOD 0.8 mmol/L (0.4-2.0)
[2023-03-14] MEDS ORDERED: PREDNISONE20 MG PO (09:15)
[2023-03-14 09:50] VITALS: BP 105/55
[2023-03-16] MEDS ORDERED: VALSARTAN80 MG PO (04:54)
[2023-03-16] MEDS ORDERED: ATORVASTATIN CA20 MG PO (04:54)
[2023-03-16] MEDS ORDERED: PREDNISONE20 MG PO (08:58)
[2023-03-16] MEDS ORDERED: PULMICORT0.5 MG/2 M INH (10:36)
[2023-03-18] MEDS ORDERED: METHYLPREDNISOLO4 M1 PO (11:34)
== END 2023-03-14 09:25 | disposition home or self-care (01) ==
LOC: ED 07:39
PROVIDERS: Emergency Medicine
DX: A41.89 Other specified sepsis (principal); U07.1 COVID-19; J44.1 Chronic obstructive pulmonary disease with (acute) exacerbation; F17.200 Nicotine dependence, unspecified, uncomplicated; Z88.8 Allergy status to other drugs, medicaments and biological substances; Z79.52 Long term (current) use of systemic steroids
CPT/HCPCS: 36415; 71045; 80053; 83605; 85025; 94640; 96374; 99285-25; A9270; J2930; J7040

== ENCOUNTER 2024-04-19 07:53 | Day surgery (SDC) | payer MEDICARE, MEDICAID ==
[2024-04-16 11:29] VITALS: BP 141/80
[~2024-04-19] VITALS: Ht 157.5 cm; Wt 86.4 kg
[~2024-04-19 07:53] MED LIST changes: +ATORVASTATIN CA20 MG PO; +CALCIUM + D3 E1 EACH PO; +HYDROCHLOROTHIA25 MG PO; +IBLOOD GLUCOSE TEST STRIP 1 EA TEST VI PRN; +LACTATED RINGER'S 1,000 ML IV SCH; +LIDOCAINE HCL 1% 5 ML SDV INJ ONE; +PULMICORT0.5 MG/2 M INH; +VALSARTAN80 MG PO
[2024-04-19 08:01] VITALS: BP 144/82
[2024-04-19] MEDS ORDERED: propofoL 200 MG/20 ML VIAL ONE (09:20)
--- NOTE | 2024-04-19 10:08 | NUR ---
04/19/24 1008 Sheets,Ebony 1000 PT ARRIVED TO PACU ON 10L VIA MASK, PT ASLEEP AND ORAL AIRWAY IN PLACE. RESP EVEN AND UNLABORED.
[2024-04-19 10:29] VITALS: BP 120/70
--- NOTE | 2024-04-21 11:13 | OR ---
[facility] [address] [place], [place] [address] Signed DATE OF OPERATION: SURGEON: Billy Beach MD PREOPERATIVE DIAGNOSES: 1. Advanced chronic obstructive pulmonary disease. 2. History of multiple polyps in 2020. POSTOPERATIVE DIAGNOSIS: Polyps x3 (two of them hyperplastic). PROCEDURE: Total colonoscopy to cecum with cold morcellation polypectomy x3. ANESTHESIA: Intravenous sedation propofol; Billy Esteban CRNA. INDICATION: This 74-year-old white woman is a patient of Dr. Jayla Fisher and last seen by me in 2019 at which time she had colonoscopy showing seven polyps, one of them, a tubular adenoma without dysplasia. She does have family history of colon cancer in her father. When she was seen previously, she had a positive Cologuard test. She continues to smoke half pack of cigarettes daily, but has advanced COPD. She is also known to have a right 8 cm pelvic mass which is being observed from her director internal control rather than excised given her underlying advanced COPD problem. She is admitted at this time to undergo surveillance colonoscopy, understand the risk of bleeding, infection, and perforation. FINDINGS: The prep was good. Complete colonoscopy was undertaken of the cecum. She had two small polyps of the rectum or rectosigmoid, one of them likely hyperplastic, the other adenomatous. Another small polyp was noted at the junction between the right colon and the cecum proper. All were excised. There were no other abnormalities of concern. PROCEDURE IN DETAIL: The patient was brought to the endoscopy suite and placed in lateral decubitus position, given intravenous sedation to the point of slurred speech and nystagmus with full cardiopulmonary monitoring by the outside solar sales consultant. A digital rectal examination was normal. An Olympus video colonoscope was passed in the rectum and immediately noted rectosigmoid, was a small adenomatous appearing polyp, this was excised with cold morcellation technique. Another nearby polyp appeared hyperplastic. It was excised as well. The scope was advanced beyond this point, ultimately to the cecum. Ileocecal Electronically Signed By: BILLY BEACH MD 04/21/24 1113 PATIENT NAME: KYLIE GORE OPERATIVE REPORT DATE OF : 54 REPORT #: [id number] PHYSICIAN: BILLY BEACH MD PCP: JAYLA FISHER MD REPORT IS CONFIDENTIAL AND NOT TO BE RELEASED WITHOUT AUTHORIZATION [facility] [address] [place], [place] [address] Signed valve and appendiceal orifice were normal. The scope was withdrawn and noted at the junction between the right colon and the cecum was a subtle but distinguishable mucosal lesion consistent with a polyp. This was excised with cold morcellation technique. Further withdrawal of scope showed no other abnormality. The rectum was otherwise normal at this point. The scope was removed. The patient was taken to the recovery room in good condition. CONCLUDING DIAGNOSIS: Polyps x3. PLAN: Recommend repeat colonoscopy in 5 years if clinically appropriate based on her advanced COPD, sooner if symptoms should develop. MD DEEPTHI Martinez/CHIDI /[id number] cc: Jayla Fisher MD Copies: ~ Electronically Signed By: BILLY BEACH MD 04/21/24 1113 PATIENT NAME: KYLIE GORE OPERATIVE REPORT DATE OF : 54 REPORT #: [id number] PHYSICIAN: BILLY BEACH MD PCP: JAYLA FISHER MD REPORT IS CONFIDENTIAL AND NOT TO BE RELEASED WITHOUT AUTHORIZATION
--- NOTE | 2024-04-23 17:43 | PATH ---
[facility] [address] [facility] [place], [place] [address] Signed SPECIMEN(S): A RECTAL POLYP SPECIMEN(S): B CECUM POLYP SPECIMEN SOURCE: A. RECTAL POLYP B. CECUM POLYP CLINICAL HISTORY: History of polyps, family history of colon cancer, rectal bleeding FINAL PATHOLOGIC DIAGNOSIS: A. Rectal polyp: - Hyperplastic polyp (one fragment). B. Cecum polyp: - Polypoid colonic mucosa with adenomatous change (one fragment). - Hyperplastic polyp (one fragment). JVR:clv MICROSCOPIC EXAMINATION: Histologic sections of all submitted blocks are examined by light microscopy. These findings, together with the gross examination, support the pathologic diagnosis. GROSS DESCRIPTION: A. The specimen, labeled and designated "T[place], rectal polyp," is received in formalin and consists of one arellano soft tissue fragment, 0.4 cm. Entirely submitted in (A1). B. The specimen, labeled and designated "Troy, cecum polyp," is received in formalin and consists of seven arellano soft tissue fragments, ranging from 0.1-0.6 cm. Entirely submitted in (B1). VB (under the direct supervision of a pathologist) The Gross Description was prepared using a voice recognition system. The report was reviewed for accuracy; however, sound-alike word errors, addition and/or deletions may occur. If there is any question about this report, please contact Client Services. PERFORMING LABORATORY: Technical component was performed by [facility], [address] [place] [id number] (CLIA# [id number]). Professional interpretation was performed by [facility], [address] [place] [id number] (CLIA#: [id number]). PATIENT NAME: KYLIE GORE PATHOLOGY DATE OF : 54 REPORT #: [id number] PHYSICIAN: [facility] PCP: MARGOT GRACE MD REPORT IS CONFIDENTIAL AND NOT TO BE RELEASED WITHOUT AUTHORIZATION [address] [place] [address] Signed Diagnostician: Barber Burgess MD Pathologist Electronically Signed 04/23/2024 Copies: ~ PATIENT NAME: KYLIE GORE PATHOLOGY DATE OF : 54 REPORT #: [id number] PHYSICIAN: [facility] PCP: MARGOT GRACE MD REPORT IS CONFIDENTIAL AND NOT TO BE RELEASED WITHOUT AUTHORIZATION
== END 2024-04-19 10:35 | disposition home or self-care (01) ==
LOC: DS 07:53
PROVIDERS: ATTEND Surgery
PROC: 0DBP8ZZ Excision of Rectum, Via Natural or Artificial Opening Endoscopic (ICD-10-PCS; 2024-04-19)
PROC: 0DBH8ZZ Excision of Cecum, Via Natural or Artificial Opening Endoscopic (ICD-10-PCS; principal; 2024-04-19 09:00)
DX: Z12.11 Encounter for screening for malignant neoplasm of colon (principal); K63.5 Polyp of colon; K62.1 Rectal polyp; F17.210 Nicotine dependence, cigarettes, uncomplicated; J44.9 Chronic obstructive pulmonary disease, unspecified; J45.909 Unspecified asthma, uncomplicated; E66.9 Obesity, unspecified; Z68.34 Body mass index [BMI] 34.0-34.9, adult; Z79.899 Other long term (current) drug therapy; Z88.8 Allergy status to other drugs, medicaments and biological substances
CPT/HCPCS: 00811; 88305; J2704; J7121